=== PATIENT | male | born 1940 | race Caucasian/White ===

== ENCOUNTER 2017-02-22 18:04 | Emergency (ER) | payer OTHER ==
[~2017-02-22] VITALS: Ht 182.9 cm; Wt 136.1 kg
[~2017-02-22 18:04] MED LIST: GABA-586 PO; MELO-150 PO; OXYC-323 PO; TAMS0.4C2 PO
[2017-02-22] MEDS ORDERED: methylPREDNISolone SOD SUCC PF 125 MG/2 ML VIAL. IV ONE (18:45)
[2017-02-22] MEDS ORDERED: IPRATRPIUM/ALBUTEROL 0.5/2.5MG 3 ML NEBU. NEB ONE (18:45)
[2017-02-22] MEDS ORDERED: ALBUTEROL SULFATE 2.5 MG/3 ML NEBU. INH ONE (18:45)
[2017-02-22 18:49] LABS: BASO # 0.1 x10^3/uL (0.0-0.2); BASO % 1 % (0-3); EOS % 2 % (0-3); HEMATOCRIT 43.4 % (39.0-53.0); HEMOGLOBIN 14.4 g/dL (13.0-17.5); LYMPH # 1.9 x10^3/uL (1.0-4.8); LYMPH % 24 % (24-48); MEAN CORPUSCULAR HEMOGLOBIN 32 pg (25-35); MEAN CORPUSCULAR HGB CONC 33 g/dL (31-37); MEAN CORPUSCULAR VOLUME 95 fL (79-100); MONO % 8 % (0-9); NEUT % 66 % (31-73); PLATELET COUNT 153 x10^3/uL (140-400); RED BLOOD COUNT 4.57 x10^6/uL (4.30-5.70); RED CELL DISTRIBUTION WIDTH 13.8 % (11.5-14.5); WHITE BLOOD COUNT 7.9 x10^3/uL (4.0-11.0)
[2017-02-22 18:59] LABS: INR 1.1 (0.8-1.1); PROTHROMBIN TIME PATIENT 13.4 SEC (11.7-14.0)
[2017-02-22 19:04] LABS: CALCIUM 8.5 mg/dL (8.5-10.1); CREATININE 0.9 mg/dL (0.7-1.3); GFR 82.3; POTASSIUM 3.9 mmol/L (3.5-5.1)
[2017-02-22 19:07] LABS: ALBUMIN 3.5 g/dL (3.4-5.0); TOTAL BILIRUBIN 0.6 mg/dL (0.2-1.0); TOTAL PROTEIN 7.1 g/dL (6.4-8.2)
[2017-02-22] MEDS ORDERED: GABA-586 PO (19:08)
[2017-02-22] MEDS ORDERED: ATOR20TA58 PO (19:08)
[2017-02-22] MEDS ORDERED: TIZA4TAB PO (19:08)
[2017-02-22] MEDS ORDERED: OMEP20TA PO (19:09)
[2017-02-22] MEDS ORDERED: OXYC-323 PO (19:09)
[2017-02-22] MEDS ORDERED: FURO40TA4 PO (19:09)
[2017-02-22] MEDS ORDERED: BUDE10.22 IH (19:10)
[2017-02-22] MEDS ORDERED: IPRA0.2S5 NEB (19:10)
[2017-02-22] MEDS ORDERED: VENTOLIN HFA18 GM INH (19:11)
[2017-02-22] MEDS ORDERED: TIOT18CA IH (19:11)
[2017-02-22 19:23] VITALS: BP 153/71
[2017-02-22] MEDS ORDERED: PRED50TA PO (19:33)
[2017-02-22] MEDS ORDERED: ONDA4TAB10 SL (19:33)
[2017-02-22] MEDS ORDERED: AZIT250T6 PO (19:33)
--- NOTE | 2017-02-22 19:33 | PHYS DOC ---
Past Medical History Past Medical History: COPD, GERD, High Cholesterol, Other Additional Past Medical Histor: enlarged prostate; spinal stenosis; neuropathy ; edema Past Surgical History: Appendectomy, Hip Replacement, Other Additional Past Surgical Histo: BACK SURG X 2 Alcohol Use: None Drug Use: None Adult General Chief Complaint Chief Complaint: SHORTNESS OF BREATH HPI HPI Patient is a 76 year old male who presents with shortness of breath. The patient reports 3 day history of increased dyspnea at rest & with exertion, dry cough, wheezing not relieved by home inhalers. Reports lightheadedness & near syncope with sudden standing. Reports nausea without vomiting. Denies fevers/ chills, chest pain, palpitations, abdominal pain, diarrhea, dysuria, extremity pain/swelling or numbness/weakness. Reports history of COPD on home O2 - 2L at rest, 3L with exertion. Denies CAD or CHF but does have lasix on med list. Former smoker. PCP is Dr. Hood. Review of Systems Review of Systems Constitutional: Denies fever or chills Eyes: Denies change in visual acuity HENT: Denies nasal congestion or sore throat Respiratory: Reports cough & shortness of breath Cardiovascular: Denies chest pain or edema GI: Reports nausea. Denies abdominal pain, vomiting, or diarrhea : Denies dysuria or hematuria Musculoskeletal: Denies back pain or joint pain Integument: Denies rash or skin lesions Neurologic: Denies headache, focal weakness or sensory changes Current Medications Current Medications Current Medications Medications (Trade) Dose Ordered Sig/Molly Start Time Stop Time Status Last Admin Dose Admin Albuterol Sulfate (Ventolin Neb Soln) 5 mg 1X ONCE 02/22/17 18:45 02/22/17 18:46 DC 02/22/17 18:45 5 MG Albuterol/ Ipratropium (Duoneb) 3 ml 1X ONCE 02/22/17 18:45 02/22/17 18:46 DC 02/22/17 19:01 3 ML Methylprednisolone Sodium Succinate (Solu-Medrol 125mg Vial) 125 mg 1X ONCE 02/22/17 18:45 02/22/17 18:46 DC 02/22/17 19:00 125 MG Allergies Allergies Allergies Coded Allergies Type Severity Reaction Last Updated Verified No Known Drug Allergies 04/20/15 No Physical Exam Physical Exam Constitutional: obese, no acute distress, non-toxic appearance. HENT: Normocephalic, atraumatic, bilateral external ears normal, oropharynx moist, nose normal. Eyes: PERRLA, EOMI, conjunctiva normal, no discharge. Neck: supple, no stridor. Cardiovascular: RRR, no murmurs, no edema. Lungs & Thorax: LCTAB, expiratory wheezes without use of accessory muscles or retractions, no respiratory distress. Abdomen: soft, nontender, nondistended. Skin: Warm, dry, no erythema, no rash. Back: No tenderness. Extremities: No tenderness, no edema. no calf tenderness or swelling, wearing compression stockings Neurologic: Alert and oriented X 3, CN2-12 grossly intact, symmetric strength/ sensation to UE & LE, no focal deficits noted. Psychologic: Affect normal, judgement normal, mood normal. Current Patient Data Vital Signs Vital Signs Date Time Temp Pulse Resp B/P (MAP) Pulse Ox O2 Delivery O2 Flow Rate FiO2 02/22/17 19:23 74 22 153/71 (98) 97 Nasal Cannula 2.0 02/22/17 18:18 98.4 98.4 Lab Values Laboratory Tests Test 02/22/17 18:30 White Blood Count 7.9 x10^3/uL (4.0-11.0) Red Blood Count 4.57 x10^6/uL (4.30-5.70) Hemoglobin 14.4 g/dL (13.0-17.5) Hematocrit 43.4 % (39.0-53.0) Mean Corpuscular Volume 95 fL (79-100) Mean Corpuscular Hemoglobin 32 pg (25-35) Mean Corpuscular Hemoglobin Concent 33 g/dL (31-37) Red Cell Distribution Width 13.8 % (11.5-14.5) Platelet Count 153 x10^3/uL (140-400) Neutrophils (%) (Auto) 66 % (31-73) Lymphocytes (%) (Auto) 24 % (24-48) Monocytes (%) (Auto) 8 % (0-9) Eosinophils (%) (Auto) 2 % (0-3) Basophils (%) (Auto) 1 % (0-3) Neutrophils # (Auto) 5.2 x10^3uL (1.8-7.7) Lymphocytes # (Auto) 1.9 x10^3/uL (1.0-4.8) Monocytes # (Auto) 0.6 x10^3/uL (0.0-1.1) Eosinophils # (Auto) 0.2 x10^3/uL (0.0-0.7) Basophils # (Auto) 0.1 x10^3/uL (0.0-0.2) Prothrombin Time 13.4 SEC (11.7-14.0) Prothrombin Time INR 1.1 (0.8-1.1) PTT 29 SEC (24-38) Sodium Level 140 mmol/L (136-145) Potassium Level 3.9 mmol/L (3.5-5.1) Chloride Level 103 mmol/L (98-107) Carbon Dioxide Level 31 mmol/L (21-32) Anion Gap 6 (6-14) Blood Urea Nitrogen 17 mg/dL (8-26) Creatinine 0.9 mg/dL (0.7-1.3) Estimated GFR (Cockcroft-Gault) 82.3 BUN/Creatinine Ratio 19 (6-20) Glucose Level 114 mg/dL (70-99) H Calcium Level 8.5 mg/dL (8.5-10.1) Total Bilirubin 0.6 mg/dL (0.2-1.0) Aspartate Amino Transferase (AST) 20 U/L (15-37) Alanine Aminotransferase (ALT) 27 U/L (16-63) Alkaline Phosphatase 75 U/L (46-116) Troponin I Quantitative < 0.017 ng/mL (0.000-0.055) HT-Dzs-Q-Type Natriuretic Peptide 396 pg/mL (0-449) Total Protein 7.1 g/dL (6.4-8.2) Albumin 3.5 g/dL (3.4-5.0) Albumin/Globulin Ratio 1.0 (1.0-1.7) Laboratory Tests 02/22/17 18:30 Laboratory Tests 02/22/17 18:30 EKG EKG interpreted by me: NSR rate 65, no acute ST/T wave changes, normal intervals, no ectopy.[] Radiology/Procedures Radiology/Procedures CXR: interpreted by me: cardiomegaly, no infiltrate, no pneumothorax.[] Course & Med Decision Making Course & Med Decision Making Pertinent Labs and Imaging studies reviewed. (See chart for details) Patient presents with dyspnea & wheezing. Oxygen saturation stable, afebrile. Gave solumedrol & nebulized breathing treatments. No acute abnormality on labs , EKG, CXR. He has had several episodes of near syncope. I offered hospital admission for further monitoring. He states he feels much better after breathing treatments & doesn't want to stay overnight. He plans to follow up with his PCP on Saturday which is in 3 days. Patient aware that we are unable to definitively rule out serious cardiac etiology of near syncope in the emergency department, but would still like to go home. Recommend prednisone burst, gave z pack for acute exacerbation of chronic bronchitis, zofran for nausea. Drink fluids, eat regular meals, avoid sudden standing. Come back for high fever, severe shortness of breath or chest pain, syncope, any otherwise worsening condition. Discharged home in stable & improved condition. [] Dragon Disclaimer Dragon Disclaimer This electronic medical record was generated, in whole or in part, using a voice recognition dictation system. Departure Departure Impression: Primary Impression: COPD (chronic obstructive pulmonary disease) Additional Impression: Near syncope Disposition: 01 HOME, SELF-CARE Condition: STABLE Referrals: ZAY BARTON MD (PCP) Patient Instructions: Chronic Obstructive Pulmonary Disease Exacerbation, Easy- to-Read Additional Instructions: You were seen in the emergency department today for shortness of breath. Your symptoms improved with treatment here. We offered admission to the hospital but he felt well enough to go home. Please rest, continue use of inhalers, take prednisone and antibiotics as prescribed. Follow-up with primary care physician in 2-3 days. Return to the emergency department for high fever, severe shortness of breath or chest pain, any otherwise worsening condition. Scripts Ondansetron (ZOFRAN ODT) 4 Mg Tab.rapdis 1 TAB SL Q8HRS Y for NAUSEA, #10 TAB Prov: LEIDY CARO MD 02/22/17 Azithromycin (AZITHROMYCIN TABLET) 250 Mg Tablet 1 PKG PO UD, #6 TAB Prov: LEIDY CARO MD 02/22/17 Prednisone (PREDNISONE) 50 Mg Tablet 1 TAB PO DAILY, #5 TAB Prov: LEIDY CARO MD 02/22/17 Problem Qualifiers LEIDY CARO MD February 22, 2017 19:33
--- NOTE | 2017-02-22 22:30 | EKG ---
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
--- NOTE | 2017-02-23 09:26 | RAD ---
Indication shortness of breath. A single view of the chest was obtained and is compared to an exam 04/20/2015. The heart and pulmonary vessels appear normal. The lungs are clear of acute infiltrates. Significant pleural fluid is not seen. There is no pneumothorax. No significant change is seen compared to the previous exam. IMPRESSION: No acute or focal process. No significant change
== END 2017-02-22 19:45 | disposition home or self-care (01) ==
LOC: ER 18:04
DX: J44.9 Chronic obstructive pulmonary disease, unspecified (principal); R55 Syncope and collapse; K21.9 Gastro-esophageal reflux disease without esophagitis; E78.00 Pure hypercholesterolemia, unspecified; N40.0 Benign prostatic hyperplasia without lower urinary tract symptoms; Z90.49 Acquired absence of other specified parts of digestive tract
CPT/HCPCS: 36415; 71010; 80053; 83880; 84484; 85027; 85610; 85730; 93005; 94250; 94640; 96374; 99285; J2930; J7620

== ENCOUNTER 2018-12-03 17:10 | Inpatient (IN) | payer OTHER ==
[~2018-12-03] VITALS: Ht 182.9 cm; Wt 112.5 kg
[~2018-12-03 17:10] MED LIST changes: +ATOR20TA58 PO; +AZIT250T6 PO; +BUDE10.22 IH; +FURO40TA4 PO; -GABA-586 PO; +GABA300C18 PO; +IPRA0.2S5 NEB; -MELO-150 PO; +MELO15TA23 PO; +OMEP20TA8 PO; +ONDA4TAB10 SL; -OXYC-323 PO; +OXYC1TAB15 PO; +PRED50TA PO; +TIOT18CA IH; +TIZA4TAB PO; +VENTOLIN HFA18 GM INH
[2018-12-03] MEDS ORDERED: IPRATRPIUM/ALBUTEROL 0.5/2.5MG 3 ML NEBU. NEB ONE (18:15)
--- NOTE | 2018-12-03 18:23 | PHYS DOC ---
Past Medical History Past Medical History: COPD, GERD, High Cholesterol, Other Additional Past Medical Histor: enlarged prostate; spinal stenosis; neuropathy ; edema Past Surgical History: Appendectomy, Hip Replacement, Other Additional Past Surgical Histo: BACK SURG X 2 Smoking: Quit Greater Than 1 Year Alcohol Use: None Drug Use: None Adult General Chief Complaint Chief Complaint: ALTERED MENTAL STATUS HPI HPI Patient is a 78 year old male who presents with fever, and body aches. This started earlier today. Uncertain as to how high the temperature was. Patient took ibuprofen approximately an hour prior to arrival. has been concerned about his breathing for the past week. Patient does have a history of COPD. Patient denies any worsening cough nor lower extremity swelling. Denies any chest pain or palpitations. Patient's Reports that he is confused compared to his usual baseline. She did receive the flu vaccine this year. There has been no nausea, no vomiting, no diarrhea. No recent travel. No known sick contacts at home, patient is retired.[] Review of Systems Review of Systems Constitutional: Denies shaking chills [] Eyes: Denies change in visual acuity, redness, or eye pain [] HENT: Denies nasal congestion or sore throat [] Respiratory: See history of present illness[] Cardiovascular: No additional information not addressed in HPI [] GI: Denies abdominal pain, nausea, vomiting, bloody stools or diarrhea [] : Denies dysuria or hematuria [] Musculoskeletal: Denies back pain or joint pain [] Integument: Denies rash or skin lesions [] Neurologic: Denies headache, focal weakness or sensory changes [] Endocrine: Denies polyuria or polydipsia [] All other systems were reviewed and found to be within normal limits, except as documented in this note. Current Medications Current Medications Current Medications Medications (Trade) Dose Ordered Sig/Molly Start Time Stop Time Status Last Admin Dose Admin Albuterol Sulfate (Ventolin Neb Soln) 2.5 mg 1X ONCE 12/03/18 19:15 12/03/18 19:16 DC 12/03/18 19:08 2.5 MG Albuterol/ Ipratropium (Duoneb) 3 ml 1X ONCE 12/03/18 18:15 12/03/18 18:19 DC 12/03/18 18:43 3 ML Azithromycin 250 ml @ 250 mls/hr 1X ONCE 12/03/18 20:30 2/13/19 21:29 Ceftriaxone Sodium (Rocephin) 1 gm 1X ONCE 12/03/18 20:30 12/03/18 20:31 Methylprednisolone Sodium Succinate (SOLU-Medrol 125MG VIAL) 125 mg 1X ONCE 12/03/18 20:30 12/03/18 20:31 Sodium Chloride 1,000 ml @ 1,000 mls/hr 1X ONCE 12/03/18 18:45 12/03/18 19:44 DC 12/03/18 18:45 1,000 MLS/HR Allergies Allergies Allergies Coded Allergies Type Severity Reaction Last Updated Verified No Known Drug Allergies 04/20/15 No Physical Exam Physical Exam Constitutional: Well developed, well nourished, no acute distress, non-toxic appearance. [] HENT: Normocephalic, atraumatic, bilateral external ears normal, oropharynx moist, no oral exudates, nose normal. [] Eyes: PERRLA, EOMI, conjunctiva normal, no discharge. [] Neck: Normal range of motion, no tenderness, supple, no stridor. No meningismus[ ] Cardiovascular:Heart rate regular rhythm, no murmur [] Lungs & Thorax: Inspiratory and expiratory wheezes[] Abdomen: Bowel sounds normal, soft, no tenderness, no masses, no pulsatile masses. [] Skin: Warm, dry, no erythema, no rash. [] Back: No tenderness, no CVA tenderness. [] Extremities: No tenderness, no cyanosis, no clubbing, ROM intact, no edema. [] Neurologic: Alert and oriented X 3, slow to answer questions which his reports is different than usual for him, normal motor function, normal sensory function, no focal deficits noted. [] Psychologic: Affect normal, judgement normal, mood normal. [] Current Patient Data Vital Signs Vital Signs Date Time Temp Pulse Resp B/P (MAP) Pulse Ox O2 Delivery O2 Flow Rate FiO2 12/03/18 19:09 Nasal Cannula 3.0 12/03/18 18:43 96 12/03/18 17:30 99.1 75 20 134/63 (86) 99.1 Lab Values Laboratory Tests Test 12/03/18 18:30 12/03/18 18:42 12/03/18 18:45 White Blood Count 4.2 x10^3/uL (4.0-11.0) Red Blood Count 4.44 x10^6/uL (4.30-5.70) Hemoglobin 13.7 g/dL (13.0-17.5) Hematocrit 41.8 % (39.0-53.0) Mean Corpuscular Volume 94 fL (79-100) Mean Corpuscular Hemoglobin 31 pg (25-35) Mean Corpuscular Hemoglobin Concent 33 g/dL (31-37) Red Cell Distribution Width 13.4 % (11.5-14.5) Platelet Count 120 x10^3/uL (140-400) L Neutrophils (%) (Auto) 67 % (31-73) Lymphocytes (%) (Auto) 19 % (24-48) L Monocytes (%) (Auto) 12 % (0-9) H Eosinophils (%) (Auto) 1 % (0-3) Basophils (%) (Auto) 1 % (0-3) Neutrophils # (Auto) 2.8 x10^3uL (1.8-7.7) Lymphocytes # (Auto) 0.8 x10^3/uL (1.0-4.8) L Monocytes # (Auto) 0.5 x10^3/uL (0.0-1.1) Eosinophils # (Auto) 0.1 x10^3/uL (0.0-0.7) Basophils # (Auto) 0.0 x10^3/uL (0.0-0.2) Prothrombin Time 13.5 SEC (11.7-14.0) Prothrombin Time INR 1.1 (0.8-1.1) Sodium Level 139 mmol/L (136-145) Potassium Level 4.0 mmol/L (3.5-5.1) Chloride Level 101 mmol/L (98-107) Carbon Dioxide Level 30 mmol/L (21-32) Anion Gap 8 (6-14) Blood Urea Nitrogen 17 mg/dL (8-26) Creatinine 0.8 mg/dL (0.7-1.3) Estimated GFR (Cockcroft-Gault) 93.7 BUN/Creatinine Ratio 21 (6-20) H Glucose Level 98 mg/dL (70-99) Lactic Acid Level 0.9 mmol/L (0.4-2.0) Calcium Level 8.3 mg/dL (8.5-10.1) L Magnesium Level 1.9 mg/dL (1.8-2.4) Total Bilirubin 0.3 mg/dL (0.2-1.0) Aspartate Amino Transferase (AST) 33 U/L (15-37) Alanine Aminotransferase (ALT) 33 U/L (16-63) Alkaline Phosphatase 84 U/L (46-116) Ammonia 21 mcmol/L (11-34) Troponin I Quantitative < 0.017 ng/mL (0.000-0.055) BE-Aqe-Z-Type Natriuretic Peptide 554 pg/mL (0-449) H Total Protein 6.8 g/dL (6.4-8.2) Albumin 3.1 g/dL (3.4-5.0) L Albumin/Globulin Ratio 0.8 (1.0-1.7) L Influenza Type A Antigen Negative (NEGATIVE) Influenza Type B Antigen Negative (NEGATIVE) Urine Color Yellow Urine Clarity Cloudy Urine pH 8.0 Urine Specific [place] 1.015 Urine Protein Negative mg/dL (NEG-TRACE) Urine Glucose (UA) Negative mg/dL (NEG) Urine Ketones (Stick) Negative mg/dL (NEG) Urine Blood Negative (NEG) Urine Nitrite Negative (NEG) Urine Bilirubin Negative (NEG) Urine Urobilinogen Dipstick 1.0 mg/dL (0.2 mg/dL) Urine Leukocyte Esterase Negative (NEG) Urine RBC Rare /HPF (0-2) Urine WBC Occ /HPF (0-4) Urine Squamous Epithelial Cells Occ /LPF Urine Bacteria 0 /HPF (0-FEW) O2 Saturation 91 % (92-99) L Arterial Blood pH 7.44 (7.35-7.45) Arterial Blood pCO2 at Patient Temp 40 mmHg (35-46) Arterial Blood pO2 at Patient Temp 59 mmHg (65-108) L Arterial Blood HCO3 27 mmol/L (21-28) Arterial Blood Base Excess 3 mmol/L (-3-3) FiO2 28 Laboratory Tests 12/03/18 18:30 Laboratory Tests 12/03/18 18:30 EKG EKG EKG shows a sinus rhythm at 73 bpm, normal axis, QTC of 402 ms, no ST elevation , interpreted by me at 1804. When compared with EKG of 02/22/2017, no acute changes were noted[] Radiology/Procedures Radiology/Procedures Chest x-ray shows no infiltrate, no effusion, no pneumothorax, no acute changes when compared with 02/22/2017 CT HEAD WO CONTRAST Clinical indications: Altered mental status, NO PRIORS Technique: Noncontrast axial cross sectional scanning of the head was performed. PQRS compliance Statement One or more of the following individualized dose reduction techniques were utilized for this study: 1. Automated exposure control 2. Adjustment of the mA and/or kV according to patient size 3. Use of iterative reconstruction technique Findings: No acute intracranial hemorrhage or midline shift or mass-effect or hydrocephalus or extra-axial fluid collection is seen. Mild bilateral periventricular white matter hypodensity is seen consistent with chronic small vessel ischemic disease in this age group. No skull fracture or pneumocephalus is seen. No opacification of the mastoid sinuses or the middle ear cavities is seen. There is moderate mucosal thickening of the right maxillary sinus. There is mild mucosal thickening of the ethmoid sinuses bilaterally and the right frontal sinus. The maxillary sinuses are not completely seen in this study. Impression: No acute intracranial hemorrhage is seen. Mild chronic small vessel ischemic disease. Sinusitis.[] Course & Med Decision Making Course & Med Decision Making Pertinent Labs and Imaging studies reviewed. (See chart for details) ED course and medical decision making: Patient arrived, was placed in bed, in tolerated exam well. Patient did have slight improvement in air flow after his breathing treatment however his blood gas continued to show PO2 at 58.9 even on supplemental oxygen area there was no evidence of CO2 retention with his PCO2 of 40.3. Patient was transported to and from CT with any complications. After the return of the laboratory and imaging findings, these were discussed with the patient and family who voiced understanding. They're proceeded a longer than usual discussion as far as admission versus discharge and patient initially agreed to be admitted then changed his mind after further discussion he did agree to admission. He requested a private room due to concerns about his 's safety being at home alone, for her to be able to stay with him. This was relayed to the nursing staff. Consultation was made with the hospitalist service who graciously admitted him. There is no evidence of an infiltrate, effusion, pneumothorax, acute coronary syndrome, CVA, meningitis, nor encephalitis.[] Dragon Disclaimer Dragon Disclaimer This electronic medical record was generated, in whole or in part, using a voice recognition dictation system. Departure Departure Impression: Primary Impression: Acute exacerbation of chronic obstructive pulmonary disease (COPD) Additional Impression: Viral syndrome Disposition: 09 ADMITTED INPATIENT Admitting Physician: Raquel Gonzalez Condition: IMPROVED Referrals: ZAY BARTON MD (PCP) Problem Qualifiers ANISH FORMAN DO Dec 03, 2018 18:23
[2018-12-03] MEDS ORDERED: IV NORMAL SALINE 1000ML BAG 1,000 ML IV ONE (18:45)
[2018-12-03 18:50] LABS: BASO % 1 % (0-3); EOS # 0.1 x10^3/uL (0.0-0.7); EOS % 1 % (0-3); HEMATOCRIT 41.8 % (39.0-53.0); HEMOGLOBIN 13.7 g/dL (13.0-17.5); LYMPH # 0.8 x10^3/uL (1.0-4.8); LYMPH % 19 % (24-48); MEAN CORPUSCULAR HEMOGLOBIN 31 pg (25-35); MEAN CORPUSCULAR HGB CONC 33 g/dL (31-37); MEAN CORPUSCULAR VOLUME 94 fL (79-100); MONO # 0.5 x10^3/uL (0.0-1.1); MONO % 12 % (0-9); NEUT # 2.8 x10^3uL (1.8-7.7); NEUT % 67 % (31-73); PLATELET COUNT 120 x10^3/uL (140-400); RED BLOOD COUNT 4.44 x10^6/uL (4.30-5.70); RED CELL DISTRIBUTION WIDTH 13.4 % (11.5-14.5); WHITE BLOOD COUNT 4.2 x10^3/uL (4.0-11.0)
[2018-12-03 18:51] LABS: BILIRUBIN,URINE NEGATIVE (NEG); CLARITY,URINE CLOUDY; COLOR,URINE YELLOW; NITRITE,URINE NEGATIVE (NEG); PROTEIN,URINE NEGATIVE (NEG-TRACE)
[2018-12-03 18:54] LABS: BACTERIA,URINE 0 /HPF (0-FEW); RBC,URINE RARE /HPF (0-2); SQUAMOUS EPITHELIAL CELL,UR OCC /LPF; WBC,URINE OCC /HPF (0-4)
[2018-12-03 18:57] LABS: BASE EXCESS ABG 3 mmol/L (-3-3); HCO3 ABG 27 mmol/L (21-28); PCO2 ABG 40 mmHg (35-46); PO2 ABG 59 mmHg (65-108); SAT O2 ABG 91 % (92-99)
[2018-12-03 18:58] LABS: PROTHROMBIN TIME PATIENT 13.5 SEC (11.7-14.0)
[2018-12-03 19:00] LABS: CALCIUM 8.3 mg/dL (8.5-10.1); CREATININE 0.8 mg/dL (0.7-1.3); GFR 93.7
[2018-12-03 19:00] LABS: FIO2 ABG 28
[2018-12-03 19:05] LABS: ALBUMIN 3.1 g/dL (3.4-5.0); ALBUMIN/GLOBULIN RATIO 0.8 (1.0-1.7); MAGNESIUM 1.9 mg/dL (1.8-2.4); TOTAL BILIRUBIN 0.3 mg/dL (0.2-1.0); TOTAL PROTEIN 6.8 g/dL (6.4-8.2)
[2018-12-03 19:14] LABS: INFLUENZA A PATIENT NEGATIVE (NEGATIVE); INFLUENZA B PATIENT NEGATIVE (NEGATIVE)
[2018-12-03] MEDS ORDERED: ALBUTEROL SULFATE 2.5 MG/3 ML NEBU. NEB ONE (19:15)
--- NOTE | 2018-12-03 19:45 | RAD ---
CT HEAD WO CONTRAST Clinical indications: Altered mental status, NO PRIORS Technique: Noncontrast axial cross sectional scanning of the head was performed. PQRS compliance Statement One or more of the following individualized dose reduction techniques were utilized for this study: 1. Automated exposure control 2. Adjustment of the mA and/or kV according to patient size 3. Use of iterative reconstruction technique Findings: No acute intracranial hemorrhage or midline shift or mass-effect or hydrocephalus or extra-axial fluid collection is seen. Mild bilateral periventricular white matter hypodensity is seen consistent with chronic small vessel ischemic disease in this age group. No skull fracture or pneumocephalus is seen. No opacification of the mastoid sinuses or the middle ear cavities is seen. There is moderate mucosal thickening of the right maxillary sinus. There is mild mucosal thickening of the ethmoid sinuses bilaterally and the right frontal sinus. The maxillary sinuses are not completely seen in this study. Impression: No acute intracranial hemorrhage is seen. Mild chronic small vessel ischemic disease. Sinusitis. Electronically signed by: Immanuel Lemus MD (12/03/2018 7:42 PM) [facility]
[2018-12-03] MEDS ORDERED: AZITHRMYCN 500MG IVPB FOR OMNI 250 ML IV ONE (20:30)
[2018-12-03] MEDS ORDERED: cefTRIAXone IV Push 1 GM VIAL. IVP ONE (20:30)
[2018-12-03] MEDS ORDERED: methylPREDNISolone SOD SUCC PF 125 MG/2 ML VIAL. IV ONE (20:30)
[2018-12-03] MEDS ORDERED: IV NORMAL SALINE 1000ML BAG 1,000 ML IV SCH (20:36)
[2018-12-03] MEDS ORDERED: ACETAMINOPHEN 325 MG TABLET. PO PRN (20:45)
[2018-12-03] MEDS ORDERED: ONDANSETRON PF 4 MG/2 ML VIAL. IV PRN (20:45)
[2018-12-03 21:30] VITALS: BP 135/71
--- NOTE | 2018-12-03 22:42 | RAD ---
AP portable chest radiograph 12/03/2018 Clinical History: Fever and shortness of breath. An AP erect portable digital radiograph of the chest was obtained. Comparison study is dated 02/22/2017. The cardiac silhouette is normal in size. The thoracic aorta is mildly tortuous. No acute pulmonary infiltrate is seen. No pleural effusion or pneumothorax is noted. Degenerative changes are seen involving the thoracic spine along with the right shoulder. IMPRESSION: No acute abnormality is seen. Electronically signed by: Amor Wild MD (12/03/2018 10:40 PM) [facility]
--- NOTE | 2018-12-04 04:23 | NUR ---
Pt went AMA. [employer] Branch Manager and Dr Gonzalez notified.
[2018-12-04] MEDS ORDERED: IPRATRPIUM/ALBUTEROL 0.5/2.5MG 3 ML NEBU. NEB SCH (08:00)
--- NOTE | 2018-12-04 11:17 | EKG ---
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
== END 2018-12-03 22:30 | disposition left against medical advice (07) | DRG 192 ==
LOC: ER 17:10 → 5 NORTH 20:30 → ER 22:25
PROVIDERS: ADMIT Internal Medicine; ATTEND Internal Medicine
DX: J44.1 Chronic obstructive pulmonary disease with (acute) exacerbation (principal); K21.9 Gastro-esophageal reflux disease without esophagitis; E78.00 Pure hypercholesterolemia, unspecified; N40.0 Benign prostatic hyperplasia without lower urinary tract symptoms; R60.9 Edema, unspecified; M48.00 Spinal stenosis, site unspecified; G62.9 Polyneuropathy, unspecified; Z96.649 Presence of unspecified artificial hip joint; Z90.49 Acquired absence of other specified parts of digestive tract; B34.9 Viral infection, unspecified; Z87.891 Personal history of nicotine dependence
CPT/HCPCS: 36415; 36600; 70450; 71045; 80053; 81001; 82140; 82805; 83605; 83735; 83880; 84484; 85025; 85610; 87040; 87804; 93005; 94640; 96361; 96365; 96375; J0456; J0696; J2930; J7030; J7613; J7620; 99285-25

== ENCOUNTER 2020-02-15 19:20 | Inpatient (IN) | payer OTHER ==
[~2020-02-15] VITALS: Ht 182.9 cm; Wt 114.2 kg
[~2020-02-15 19:20] MED LIST changes: -TIZA4TAB PO; +TIZA4TAB2 PO
[2020-02-15] MEDS ORDERED: ONDANSETRON PF 4 MG/2 ML VIAL. ONE ×2 (19:25→22:49)
[2020-02-15] MEDS ORDERED: IV NORMAL SALINE 1000ML BAG 1,000 ML IV SCH (19:29)
[2020-02-15] MEDS ORDERED: ONDANSETRON PF 4 MG/2 ML VIAL. IVP ONE (19:30)
--- NOTE | 2020-02-15 19:34 | PHYS DOC ---
Past Medical History Past Medical History: COPD, GERD, High Cholesterol, Other Additional Past Medical Histor: enlarged prostate; spinal stenosis; neuropathy; edema Past Surgical History: Appendectomy, Hip Replacement, Other Additional Past Surgical Histo: BACK SURG X 2 Smoking Status: Former Smoker Alcohol Use: None Drug Use: None General Adult EDM: Chief Complaint: NAUSEA/VOMITING/DIARRHA HPI: HPI: Patient is a 79 year old male who presents with complaint of mid abdominal pain and periumbilical region that started last night at about 8 PM. Patient rates his pain to be a 10 out of 10. Patient states he's had vomiting and has not been able to pass any gas or stool since onset of pain. He denies any chest pain or shortness breath. He does complain of back pain as well that he believes is due to all of the vomiting. He denies any fever.[] Review of Systems: Review of Systems: Constitutional: Denies fever or chills. [] Respiratory: Denies cough or shortness of breath. [] Cardiovascular: Denies chest pain or edema. [] GI: Complains of abdominal pain with nausea and vomiting. Denies diarrhea. [] Musculoskeletal: [place] of mid back pain. [] Integument: Denies rash. [] Neurologic: Denies headache, focal weakness or sensory changes. [] A full 10 point review of systems has been reviewed and is otherwise negative. Heart Score: Risk Factors: Risk Factors: DM, Current or recent (<one month) smoker, HTN, HLP, family history of CAD, obesity. Risk Scores: Score 0 - 3: 2.5% MACE over next 6 weeks - Discharge Home Score 4 - 6: 20.3% MACE over next 6 weeks - Admit for Clinical Observation Score 7 - 10: 72.7% MACE over next 6 weeks - Early Invasive Strategies Current Medications: Current Medications Medications (Trade) Dose Ordered Sig/Molly Start Time Stop Time Status Last Admin Dose Admin Ondansetron HCl (Zofran) 4 mg STK-MED ONCE 02/15/20 19:25 02/15/20 19:26 DC Allergies: Allergies: Allergies Coded Allergies Type Severity Reaction Last Updated Verified No Known Drug Allergies 04/20/15 No Physical Exam: PE: Constitutional: Well developed, well nourished, no acute distress, non-toxic appearance. [] HENT: Normocephalic, atraumatic, bilateral external ears normal, oropharynx moist, no oral exudates, nose normal. [] Eyes: PERRLA, EOMI, conjunctiva normal, no discharge. [] Neck: Normal range of motion, no tenderness, supple. [] Cardiovascular: Regular rate and rhythm[] Lungs & Thorax: Bilateral breath sounds clear to auscultation [] Abdomen: Bowel sounds are markedly diminished, distended and firm, with diffuse tenderness and palpable umbilical hernia. [] Skin: Warm, dry, no erythema, no rash. [] Extremities: No tenderness, no cyanosis, no clubbing, ROM intact. [] Neurologic: Alert and oriented X 3, no focal deficits noted. [] EKG: EKG: [] Radiology/Procedures: Radiology/Procedures: [] Impression: PROCEDURE: CT ABD PELV W/ IV CONTRST ONLY CT scan of the abdomen and pelvis with contrast 02/15/2020 CLINICAL HISTORY: Nausea, vomiting and diarrhea. Abdominal pain. TECHNIQUE: After the intravenous administration of 75 cc of Omnipaque 300, contiguous, 5 mm axial sections were obtained through the abdomen and pelvis. One or more of the following individualized dose reduction techniques were utilized for this study: 1. Automated exposure control. 2. Adjustment of the mA and/or kV according to patient size. 3. Use of iterative reconstruction technique. FINDINGS: Images through the lung bases demonstrate areas of probable subsegmental atelectasis bilaterally. The liver, spleen, pancreas, and adrenal glands are within normal limits. Rounded low-attenuation lesions are seen involving both kidneys. These measure 3 mm to 6.6 cm in size. These likely represent cysts. No further imaging workup is recommended. The gallbladder is contracted. A 1.4 cm partially calcified gallstone is seen within the fundus of the gallbladder. An NG tube extends to the body of the stomach. Atherosclerotic calcification of the abdominal aorta and its branches is seen. The abdominal aorta tapers normally. No free fluid or free air is seen within the abdomen. A fat-containing umbilical hernia is seen which measures 6.3 cm in greatest diameter. This contains a loop of distal jejunum/proximal ileum. The bowel proximal to this incarcerated loop is dilated consistent with a small bowel obstruction. The mid/distal ileum is normal in caliber as is the colon. Air and stool are seen throughout the colon. Images through the pelvis are degraded by beam hardening artifact related to patient's bilateral THAs. The urinary bladder is distended with urine. Calcifications are seen within the pelvis consistent with phleboliths. No free fluid is seen. 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 Mild S-shaped curvature of the thoracolumbar spine is seen. Degenerative changes are seen involving lower thoracic and throughout the lumbar spine. IMPRESSION: An umbilical hernia is seen which contains an incarcerated loop of distal jejunum/proximal ileum resulting in a small bowel obstruction as discussed above. Electronically signed by: Amor Eldridge MD (02/15/2020 8:53 PM) [id number] DICTATED and SIGNED BY: AMOR ELDRIDGE MD DATE: 02/15/202052 Course & Med Decision Making: Course & Med Decision Making Pertinent Labs and Imaging studies reviewed. (See chart for details) [] Dragon Disclaimer: Dragon Disclaimer: This electronic medical record was generated, in whole or in part, using a voice recognition dictation system. Departure Departure Impression: Primary Impression: SBO (small bowel obstruction) Additional Impression: Umbilical hernia Qualified Codes: K42.9 - Umbilical hernia without obstruction or gangrene Disposition: ADMITTED INPATIENT Admitting Physician: HIMVanita Condition: IMPROVED Referrals: ZAY BARTON MD (PCP) RAINER CANO Jr. DO Feb 15, 2020 19:34
[2020-02-15 19:41] LABS: BASO % 0 % (0-3); EOS % 0 % (0-3); HEMATOCRIT 51.7 % (39.0-53.0); HEMOGLOBIN 17.4 g/dL (13.0-17.5); LYMPH # 0.6 x10^3/uL (1.0-4.8); LYMPH % 4 % (24-48); MEAN CORPUSCULAR HEMOGLOBIN 31 pg (25-35); MEAN CORPUSCULAR HGB CONC 34 g/dL (31-37); MEAN CORPUSCULAR VOLUME 92 fL (79-100); MONO # 1.1 x10^3/uL (0.0-1.1); MONO % 7 % (0-9); NEUT # 14.2 x10^3/uL (1.8-7.7); NEUT % 89 % (31-73); PLATELET COUNT 199 x10^3/uL (140-400); RED BLOOD COUNT 5.61 x10^6/uL (4.30-5.70); RED CELL DISTRIBUTION WIDTH 13.1 % (11.5-14.5)
[2020-02-15] MEDS: fentaNYL PF VIAL 100 MCG/2 ML VIAL IV PRN ×2 (19:46→22:00)
[2020-02-15 19:56] LABS: CALCIUM 9.9 mg/dL (8.5-10.1); CREATININE 0.9 mg/dL (0.7-1.3); GFR 81.6; POTASSIUM 4.4 mmol/L (3.5-5.1)
[2020-02-15 20:01] LABS: % BANDS 18 % (0-9); % LYMPHS 5 % (24-48); % MONOS 5 % (0-10); % SEGS 72 % (35-66); PLT ESTIMATE ADEQUATE (ADEQUATE)
[2020-02-15 20:11] LABS: TOTAL BILIRUBIN 1.5 mg/dL (0.2-1.0); TOTAL PROTEIN 8.1 g/dL (6.4-8.2)
[2020-02-15] MEDS ORDERED: DICYCLOMINE 20 MG/2 ML VIAL. IM ONE (20:30)
[2020-02-15] MEDS ORDERED: CONTRAST GIVEN. MC PRN (20:30)
[2020-02-15] MEDS ORDERED: IOHEXOL 300 MG/ML 100ML VIAL. IV ONE (20:30)
--- NOTE | 2020-02-15 20:56 | RAD ---
CT scan of the abdomen and pelvis with contrast 02/15/2020 CLINICAL HISTORY: Nausea, vomiting and diarrhea. Abdominal pain. TECHNIQUE: After the intravenous administration of 75 cc of Omnipaque 300, contiguous, 5 mm axial sections were obtained through the abdomen and pelvis. One or more of the following individualized dose reduction techniques were utilized for this study: 1. Automated exposure control. 2. Adjustment of the mA and/or kV according to patient size. 3. Use of iterative reconstruction technique. FINDINGS: Images through the lung bases demonstrate areas of probable subsegmental atelectasis bilaterally. The liver, spleen, pancreas, and adrenal glands are within normal limits. Rounded low-attenuation lesions are seen involving both kidneys. These measure 3 mm to 6.6 cm in size. These likely represent cysts. No further imaging workup is recommended. The gallbladder is contracted. A 1.4 cm partially calcified gallstone is seen within the fundus of the gallbladder. An NG tube extends to the body of the stomach. Atherosclerotic calcification of the abdominal aorta and its branches is seen. The abdominal aorta tapers normally. No free fluid or free air is seen within the abdomen. A fat-containing umbilical hernia is seen which measures 6.3 cm in greatest diameter. This contains a loop of distal jejunum/proximal ileum. The bowel proximal to this incarcerated loop is dilated consistent with a small bowel obstruction. The mid/distal ileum is normal in caliber as is the colon. Air and stool are seen throughout the colon. Images through the pelvis are degraded by beam hardening artifact related to patient's bilateral THAs. The urinary bladder is distended with urine. Calcifications are seen within the pelvis consistent with phleboliths. No free fluid is seen. 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 Mild S-shaped curvature of the thoracolumbar spine is seen. Degenerative changes are seen involving lower thoracic and throughout the lumbar spine. IMPRESSION: An umbilical hernia is seen which contains an incarcerated loop of distal jejunum/proximal ileum resulting in a small bowel obstruction as discussed above. Electronically signed by: Amor Wild MD (02/15/2020 8:53 PM) [id number]
[2020-02-15] MEDS: IV NORMAL SALINE 1000ML BAG 1,000 ML IV SCH ×2 (21:00→22:16)
[2020-02-15] MEDS ORDERED: ONDANSETRON PF 4 MG/2 ML VIAL. IV PRN (21:30)
[2020-02-15] MEDS ORDERED: PROPOFOL 20 ML IV ONE (21:30)
[2020-02-15] MEDS ORDERED: ROCURONIUM 50 MG/5 ML VIAL. ONE (21:30)
[2020-02-15] MEDS ORDERED: MORPHINE SULFATE 4 MG/ML VIAL. IV PRN (21:30)
[2020-02-15] MEDS ORDERED: LIDOCAINE 2% PF 5 ML VIAL. ONE (21:30)
[2020-02-15] MEDS ORDERED: fentaNYL PF VIAL 100 MCG/2 ML VIAL ONE (21:31)
[2020-02-15] MEDS ORDERED: BUPIVACAINE-EPI 0.5%-1:200000 MPF 30 ML VIAL. ONE (22:13)
[2020-02-15] MEDS ORDERED: fentaNYL PF VIAL 100 MCG/2 ML VIAL IV PRN ×2 (22:15)
[2020-02-15] MEDS ORDERED: MORPHINE SULFATE 2 MG/ML VIAL. IV PRN (22:15)
[2020-02-15] MEDS ORDERED: HYDROmorphone 2 MG/ML VIAL IV PRN (22:15)
[2020-02-15] MEDS ORDERED: PROCHLORPERAZINE 10 MG/2 ML VIAL. IV PRN (22:15)
--- NOTE | 2020-02-15 22:27 | PDOC2 ---
CONSULT Date of Consult Date of Consult DATE: 02/15/20 TIME: 22:25 History of Present Illness Reason for Visit: The patient is a 79 year old male who reported to the ER with abdominal pain and vomiting. The pain began last evening and remained persistent. The pain is located in the mid abdomen. He has known about an umbilical hernia for a long time and was told it didn't need surgery. Past Medical History Past Medical History COPD Past Surgical History Past Surgical History Appy, back surgery, hip replacement Social History No Current Problem List Problem List Problems Medical Problems: (1) SBO (small bowel obstruction) Status: Acute (2) Umbilical hernia Status: Acute Current Medications Current Medications Current Medications Ondansetron HCl (Zofran) 4 mg 1X ONCE IVP Last administered on 02/15/20at 19:44; Start 02/15/20 at 19:30; Stop 02/15/20 at 19:35; Status DC Ondansetron HCl (Zofran) 4 mg STK-MED ONCE .ROUTE ; Start 02/15/20 at 19:25; Stop 02/15/20 at 19:26; Status DC Fentanyl Citrate (Fentanyl 2ml Vial) 50 mcg PRN Q15MIN PRN IV PAIN GREATER THAN 3/10 Last administered on 02/15/20at 22:00; Start 02/15/20 at 19:30; Stop 02/16/20 at 19:29 Sodium Chloride 1,000 ml @ 1,000 mls/hr Q1H IV Last administered on 02/15/20at 19:44; Start 02/15/20 at 19:29; Stop 02/15/20 at 20:28; Status DC Iohexol (Omnipaque 300 Mg/ml) 75 ml 1X ONCE IV Last administered on 02/15/20at 20:40; Start 02/15/20 at 20:30; Stop 02/15/20 at 20:31; Status DC Info (CONTRAST GIVEN -- Rx MONITORING) 1 each PRN DAILY PRN MC SEE COMMENTS; Start 02/15/20 at 20:30; Stop 02/17/20 at 20:29 Dicyclomine HCl (Bentyl) 10 mg 1X ONCE IM Last administered on 02/15/20at 21:00; Start 02/15/20 at 20:30; Stop 02/15/20 at 20:31; Status DC Ondansetron HCl (Zofran) 4 mg PRN Q8HRS PRN IV NAUSEA/VOMITING 1ST CHOICE; S tart 02/15/20 at 21:30; Stop 02/16/20 at 21:29 Morphine Sulfate (Morphine Sulfate) 4 mg PRN Q2HR PRN IV SEVERE PAIN 7-10; Start 02/15/20 at 21:30; Stop 02/16/20 at 21:29 Sodium Chloride 1,000 ml @ 100 mls/hr Q10H IV Last administered on 02/15/20at 21:00; Start 02/15/20 at 22:00; Stop 02/16/20 at 21:59 Propofol 20 ml @ As Directed STK-MED ONCE IV ; Start 02/15/20 at 21:30; Stop at 21:31; Status DC Lidocaine HCl (Lidocaine Pf 2% Vial) 5 ml STK-MED ONCE .ROUTE ; Start 02/15/20 at 21:30; Stop 02/15/20 at 21:31; Status DC Rocuronium Nevis (Zemuron) 50 mg STK-MED ONCE .ROUTE ; Start 02/15/20 at 21:30; Stop 02/15/20 at 21:31; Status DC Fentanyl Citrate (Fentanyl 2ml Vial) 100 mcg STK-MED ONCE .ROUTE ; Start 02/15/20 at 21:31; Stop 02/15/20 at 21:31; Status DC Fentanyl Citrate (Fentanyl 2ml Vial) 25 mcg PRN Q5MIN PRN IV MILD PAIN 1-3; Start 02/15/20 at 22:15; Stop 02/16/20 at 22:14 Fentanyl Citrate (Fentanyl 2ml Vial) 50 mcg PRN Q5MIN PRN IV MODERATE TO SEVERE PAIN; Start 02/15/20 at 22:15; Stop 02/16/20 at 22:14 Morphine Sulfate (Morphine Sulfate) 1 mg PRN Q10MIN PRN IV SEVERE PAIN 7-10; Start 02/15/20 at 22:15; Stop 02/16/20 at 22:14 Ringer's Solution 1,000 ml @ 30 mls/hr Q24H IV ; Start 02/15/20 at 22:30; Stop 02/16/20 at 22:29 Hydromorphone HCl (Dilaudid) 0.5 mg PRN Q10MIN PRN IV SEV PAIN, Second choice; Start 02/15/20 at 22:15; Stop 02/16/20 at 22:14 Prochlorperazine Edisylate (Compazine) 5 mg PACU PRN PRN IV NAUSEA, MRX1; Start 02/15/20 at 22:15; Stop 02/16/20 at 22:14 Sodium Chloride 1,000 ml @ 1,000 mls/hr 1X ONCE IV ; Start 02/15/20 at 22:30; Stop 02/15/20 at 23:29 Bupivacaine HCl/ Epinephrine Bitart (Sensorcain-Epi 0.5%-1:627486 Mpf) 30 ml STK-MED ONCE .ROUTE ; Start 02/15/20 at 22:13; Stop 02/15/20 at 22:13; Status DC Active Scripts Active Zofran Odt (Ondansetron) 4 Mg Tab.rapdis 1 Tab SL Q8HRS PRN Azithromycin Tablet (Azithromycin) 250 Mg Tablet 1 Pkg PO UD Prednisone 50 Mg Tablet 1 Tab PO DAILY Reported Spiriva (Tiotropium Nevis) 18 Mcg Cap.w.dev 1 Cap IH DAILY Ventolin Hfa Inhaler (Albuterol Sulfate) 18 Gm Hfa.aer.ad 2 Puff INH Q4HRS Ipratropium Nevis 0.2 Mg/1 Ml Solution 1 Vial NEB QID Symbicort 80-4.5 Mcg Inhaler (Budesonide/Formoterol Fumarate) 10.2 Gm Hfa.aer.ad 2 Puff IH BID Percocet 5-325 Mg Tablet (Oxycodone/Acetaminophen) 1 Each Tablet 1-2 Tab PO Q4- 6HRS Omeprazole 20 Mg Tablet.dr 1 Tab PO DAILY Furosemide 40 Mg Tablet 1 Tab PO DAILY Gabapentin 300 Mg Capsule 300 Mg PO TID Atorvastatin Calcium 20 Mg Tablet 1 Tab PO DAILY Tizanidine Hcl 4 Mg Tablet 2 Mg PO TID PRN Percocet 5-325 Mg Tablet (Oxycodone/Acetaminophen) 1 Each Tablet 1-2 Tab PO Q4-6HRS Gabapentin 300 Mg Capsule 3 Cap PO BID Meloxicam 15 Mg Tablet 1 Tab PO HS Tamsulosin Hcl 0.4 Mg Cap.er.24h 1 Cap PO DAILY Allergies Allergies: Coded Allergies: No Known Drug Allergies (Unverified , 04/20/15) ROS General: No: Chills, Night Sweats, Fatigue, Malaise, Appetite, Other PSYCHOLOGICAL ROS: No: Anxiety, Behavioral Disorder, Concentration difficultie, Decreased libido, Depression, Disorientation, Hallucinations, Hostility, Irritablity, Memory difficulties, Mood Swings, Obsessive thoughts, Physical abuse, Sexual abuse, Sleep disturbances, Suicidal ideation, Other Eyes: No Blurry vision, No Decreased vision, No Double vision, No Dry eyes, No Excessive tearing, No Eye Pain, No Itchy Eyes, No Loss of vision, No Photophobia, No Scotomata, No Uses contacts, No Uses glasses, No Other HEENT: No: Heacaches, Visual Changes, Hearing change, Nasal congestion, Nasal discharge, Oral lesions, Sinus pain, Sore Throat, Epistaxis, Sneezing, Snoring, Tinnitus, Vertigo, Vocal changes, Other ALLERGY AND IMMUNOLOGY: No: Hives, Insect Bite Sensitivity, Itchy/Watery Eyes, Nasal Congestion, Post Nasal Drip, Seasonal Allergies, Other Hematological and Lymphatic: No: Bleeding Problems, Blood Clots, Blood Transfusions, Brusing, Night Sweats, Pallor, Swollen Lymph Nodes, Other Respiratory: No: Cough, Hemoptysis, Orthopnea, Pleuritic Pain, Shortness of breath, SOB with excertion, Sputum Changes, Stridor, Tachypnea, Wheezing, Other Cardiovascular: No Chest Pain, No Palpitations, No Orthopnea, No Paroxysmal Noc. Dyspnea, No Edema, No Lt Headedness, No Other Gastrointestinal: Yes Vomiting, Yes Abdominal Pain Genitourinary: No Dysuria, No Frequency, No Incontinence, No Hematuria, No Retention, No Discharge, No Urgency, No Pain, No Flank Pain, No Other, No , No , No , No , No , No , No Musculoskeletal: No Gait Disturbance, No Joint Pain, No Joint Stiffness, No Joint Swelling, No Muscle Pain, No Muscular Weakness, No Pain In:, No Swelling In:, No Other Neurological: No Behavorial Changes, No Bowel/Bladder ControlChng, No Confusion, No Dizziness, No Gait Disturbance, No Headaches, No Impaired Coord/balance, No Memory Loss, No Numbness/Tingling, No Seizures, No Speech Problems, No Tremors, No Visual Changes, No Weakness, No Other Skin: No Dry Skin, No Eczema, No Hair Changes, No Lumps, No Mole Changes, No Mottling, No Nail Changes, No Pruritus, No Rash, No Skin Lesion Changes, No Other, No Acne Physical Exam General: Alert, Oriented X3, Cooperative HEENT: Atraumatic, Other (NG tube present) Lungs: Clear to auscultation Heart: Regular rate Abdomen: Soft (incarcerated umbilical hernia present) Extremities: No clubbing, No cyanosis Skin: No rashes, No breakdown Neuro: Normal speech Vitals VITALS Vital Signs Date Time Temp Pulse Resp B/P (MAP) Pulse Ox O2 Delivery O2 Flow Rate FiO2 02/15/20 22:00 18 96 Room Air 3.0 02/15/20 21:16 94 132/60 (84) 02/15/20 19:20 97.9 97.9 Labs Labs Laboratory Tests Test 02/15/20 19:30 02/15/20 21:20 White Blood Count 16.0 x10^3/uL (4.0-11.0) Red Blood Count 5.61 x10^6/uL (4.30-5.70) Hemoglobin 17.4 g/dL (13.0-17.5) Hematocrit 51.7 % (39.0-53.0) Mean Corpuscular Volume 92 fL (79-100) Mean Corpuscular Hemoglobin 31 pg (25-35) Mean Corpuscular Hemoglobin Concent 34 g/dL (31-37) Red Cell Distribution Width 13.1 % (11.5-14.5) Platelet Count 199 x10^3/uL (140-400) Neutrophils (%) (Auto) 89 % (31-73) Lymphocytes (%) (Auto) 4 % (24-48) Monocytes (%) (Auto) 7 % (0-9) Eosinophils (%) (Auto) 0 % (0-3) Basophils (%) (Auto) 0 % (0-3) Neutrophils # (Auto) 14.2 x10^3/uL (1.8-7.7) Lymphocytes # (Auto) 0.6 x10^3/uL (1.0-4.8) Monocytes # (Auto) 1.1 x10^3/uL (0.0-1.1) Eosinophils # (Auto) 0.0 x10^3/uL (0.0-0.7) Basophils # (Auto) 0.0 x10^3/uL (0.0-0.2) Segmented Neutrophils % 72 % (35-66) Band Neutrophils % 18 % (0-9) Lymphocytes % 5 % (24-48) Monocytes % 5 % (0-10) Platelet Estimate Adequate (ADEQUATE) Sodium Level 136 mmol/L (136-145) Potassium Level 4.4 mmol/L (3.5-5.1) Chloride Level 95 mmol/L (98-107) Carbon Dioxide Level 31 mmol/L (21-32) Anion Gap 10 (6-14) Blood Urea Nitrogen 15 mg/dL (8-26) Creatinine 0.9 mg/dL (0.7-1.3) Estimated GFR (Cockcroft-Gault) 81.6 BUN/Creatinine Ratio 17 (6-20) Glucose Level 157 mg/dL (70-99) Calcium Level 9.9 mg/dL (8.5-10.1) Total Bilirubin 1.5 mg/dL (0.2-1.0) Aspartate Amino Transf (AST/SGOT) 36 U/L (15-37) Alanine Aminotransferase (ALT/SGPT) 31 U/L (16-63) Alkaline Phosphatase 120 U/L (46-116) Total Protein 8.1 g/dL (6.4-8.2) Albumin 4.0 g/dL (3.4-5.0) Albumin/Globulin Ratio 1.0 (1.0-1.7) Lipase 48 U/L (73-393) Lactic Acid Level 1.6 mmol/L (0.4-2.0) Laboratory Tests Test 02/15/20 19:30 02/15/20 21:20 White Blood Count 16.0 x10^3/uL (4.0-11.0) Red Blood Count 5.61 x10^6/uL (4.30-5.70) Hemoglobin 17.4 g/dL (13.0-17.5) Hematocrit 51.7 % (39.0-53.0) Mean Corpuscular Volume 92 fL (79-100) Mean Corpuscular Hemoglobin 31 pg (25-35) Mean Corpuscular Hemoglobin Concent 34 g/dL (31-37) Red Cell Distribution Width 13.1 % (11.5-14.5) Platelet Count 199 x10^3/uL (140-400) Neutrophils (%) (Auto) 89 % (31-73) Lymphocytes (%) (Auto) 4 % (24-48) Monocytes (%) (Auto) 7 % (0-9) Eosinophils (%) (Auto) 0 % (0-3) Basophils (%) (Auto) 0 % (0-3) Neutrophils # (Auto) 14.2 x10^3/uL (1.8-7.7) Lymphocytes # (Auto) 0.6 x10^3/uL (1.0-4.8) Monocytes # (Auto) 1.1 x10^3/uL (0.0-1.1) Eosinophils # (Auto) 0.0 x10^3/uL (0.0-0.7) Basophils # (Auto) 0.0 x10^3/uL (0.0-0.2) Segmented Neutrophils % 72 % (35-66) Band Neutrophils % 18 % (0-9) Lymphocytes % 5 % (24-48) Monocytes % 5 % (0-10) Platelet Estimate Adequate (ADEQUATE) Sodium Level 136 mmol/L (136-145) Potassium Level 4.4 mmol/L (3.5-5.1) Chloride Level 95 mmol/L (98-107) Carbon Dioxide Level 31 mmol/L (21-32) Anion Gap 10 (6-14) Blood Urea Nitrogen 15 mg/dL (8-26) Creatinine 0.9 mg/dL (0.7-1.3) Estimated GFR (Cockcroft-Gault) 81.6 BUN/Creatinine Ratio 17 (6-20) Glucose Level 157 mg/dL (70-99) Calcium Level 9.9 mg/dL (8.5-10.1) Total Bilirubin 1.5 mg/dL (0.2-1.0) Aspartate Amino Transf (AST/SGOT) 36 U/L (15-37) Alanine Aminotransferase (ALT/SGPT) 31 U/L (16-63) Alkaline Phosphatase 120 U/L (46-116) Total Protein 8.1 g/dL (6.4-8.2) Albumin 4.0 g/dL (3.4-5.0) Albumin/Globulin Ratio 1.0 (1.0-1.7) Lipase 48 U/L (73-393) Lactic Acid Level 1.6 mmol/L (0.4-2.0) Assessment/Plan Assessment/Plan Incarcerated umbilical hernia with bowel obstruction, potential threatened bowel. Recommend urgent surgery. The risks of surgery were discussed with the patient. He understands and would like to proceed. KINGSLEY LOU MD Feb 15, 2020 22:27
[2020-02-15] MEDS ORDERED: IV RINGERS,LACTATED 1000ML 1,000 ML IV SCH (22:30)
[2020-02-15] MEDS ORDERED: IV NORMAL SALINE 1000ML BAG 1,000 ML IV ONE (22:30)
[2020-02-15] MEDS ORDERED: NEOSTIGMINE METHYLSULFATE 5 MG/5 ML SYRINGE. ONE (22:49)
[2020-02-15] MEDS ORDERED: GLYCOPYRROLATE 1 MG/5 ML VIAL. ONE (22:49)
[2020-02-15] MEDS ORDERED: DEXAMETHASONE SOD PHOS 4 MG/ML VIAL ONE (22:50)
[2020-02-15] MEDS ORDERED: ceFAZolin SODIUM IV Push 1 GM VIAL. IVP ONE (23:11)
[2020-02-16] VITALS (11 sets, daily range): BP systolic 94–123; BP diastolic 39–75
[2020-02-16] MEDS ORDERED: fentaNYL PF VIAL 100 MCG/2 ML VIAL IVP PRN (00:15)
--- NOTE | 2020-02-16 00:15 | PDOC4 ---
Operative Note Operative Note Operative Note: Preoperative Diagnosis: Incarcerated umbilical hernia Postoperative Diagnosis: Same Procedure: Repair of incarcerated umbilical hernia with mesh Surgeon: Lance Bonding Agent: Eric MALAGON Anesthesia: General EBL: 30 mL Specimen: None Drains: None Complications: None Indication: The patient is a 79-year-old male who presented to the emergency department with abdominal pain. His evaluation is consistent with incarcerated umbilical hernia containing bowel. We recommend for urgent surgical intervention. The risks of surgery were discussed with the patient which include bleeding, infection, hernia recurrence, pain, mesh reaction, anastomotic leak, anesthetic risk, potential need for additional surgery procedure. He understands and would like to proceed Description: The patient was taken the operating room and placed supine in the operating table. General anesthesia was performed. The abdomen was prepped with ChloraPrep and draped in a standard surgical manner. A vertical incision was made around the umbilicus extending a short distance superiorly and inferiorly. Cautery dissection was carried down to the fascia. We began mobilizing the hernia sac. With fairly minimal manipulation the contents of the hernia appeared to reduce spontaneously. The umbilical tissue was elevated off the fascia exposing the hernia defect. Closer inspection showed a another smaller hernia defect superior to the primary one. The fascial bridge in between was divided creating a single defect. There was some omental adhesions to the sac which were mobilized. We then made efforts to try to visualize the small bowel through the fairly small defect. The visualized portions of small bowel appeared normal and viable. A preperitoneal plane was then developed circumferentially around the hernia defect. The hernia sac was closed with 0 Vicryl. A large Ventralex ST mesh was then placed in the preperitoneal plane. The mesh provided good overlap in all directions of the hernia defect. The mesh was sutured into position at the 12, 3, 6, 9:00 positions using 0 Prolene in a horizontal mattress fashion. The fascial edges were closed over the mesh with 0 Prolene sutures. The umbilical tissue was secured back down to the fascia with 0 Vicryl. The subcutaneous tissue was approximated 3-0 Vicryl and the skin was closed with 4-0 Monocryl. A sterile dressing was then applied. The patient tolerated the procedure well and was sent to the recovery room in stable condition. At the end of the case all counts were correct. KINGSLEY LOU MD Feb 16, 2020 00:15
[2020-02-16] MEDS ORDERED: INSULIN LISPRO 100 UNIT/ML 3ML VIAL for OP,RR ONLY. SQ PRN (01:00)
[2020-02-16] MEDS ORDERED: ALBUTEROL SULFATE 2.5 MG/3 ML NEBU. NEB ONE (01:00)
[2020-02-16 04:40] LABS: BASO % 0 % (0-3); EOS % 0 % (0-3); HEMATOCRIT 44.3 % (39.0-53.0); LYMPH # 0.4 x10^3/uL (1.0-4.8); LYMPH % 4 % (24-48); MEAN CORPUSCULAR HEMOGLOBIN 32 pg (25-35); MEAN CORPUSCULAR HGB CONC 34 g/dL (31-37); MEAN CORPUSCULAR VOLUME 93 fL (79-100); MONO # 0.8 x10^3/uL (0.0-1.1); MONO % 7 % (0-9); NEUT # 9.1 x10^3/uL (1.8-7.7); NEUT % 89 % (31-73); PLATELET COUNT 172 x10^3/uL (140-400); RED BLOOD COUNT 4.75 x10^6/uL (4.30-5.70); RED CELL DISTRIBUTION WIDTH 13.5 % (11.5-14.5); WHITE BLOOD COUNT 10.3 x10^3/uL (4.0-11.0)
[2020-02-16 04:52] LABS: CALCIUM 8.2 mg/dL (8.5-10.1); GFR 72.3; POTASSIUM 4.5 mmol/L (3.5-5.1)
--- NOTE | 2020-02-16 06:14 | EKG ---
[facility] [address] [place] [address] Test Date: 2020-02-15 Test Time: 19:54:52 Pat Name: RAKEL BOWERS Department: Room: [facility] Gender: M Fisher [employer] Net: : 1940 Requested By: RAINER CANO Order Number: [id number] Reading MD: Dylon Pompa Measurements Intervals [place] Rate: 90 P: OR: QRS: 172 QRSD: 102 T: 130 QT: 362 QTc: 447 Interpretive Statements SINUS RHYTHM ABNORMAL RIGHT AXIS DEVIATION T ABNORMALITY IN HIGH LATERAL LEADS ABNORMAL ECG Electronically Signed On 02-16-2020 10:32:07 CDT by Dylon Pompa
[2020-02-16] MEDS ORDERED: ASPI-630 PO (07:36)
[2020-02-16] MEDS ORDERED: GABA600T7 PO (07:36)
[2020-02-16] MEDS ORDERED: CHOL40003 PO (07:36)
[2020-02-16] MEDS ORDERED: BACL20TA PO (07:36)
[2020-02-16] MEDS ORDERED: GABA800T5 PO (07:36)
[2020-02-16] MEDS ORDERED: SENN8.6T11 PO (07:36)
[2020-02-16] MEDS ORDERED: VITA400T6 PO (07:36)
[2020-02-16] MEDS ORDERED: ASCO100T4 PO (07:36)
[2020-02-16] MEDS ORDERED: ATOR40TA59 PO (07:36)
[2020-02-16] MEDS ORDERED: TAMS0.4C97 PO (07:36)
[2020-02-16] MEDS ORDERED: DOCU100C28 PO (07:36)
[2020-02-16] MEDS ORDERED: MAGN27TA5 PO (07:36)
[2020-02-16] MEDS ORDERED: METF500T16 PO (07:36)
--- NOTE | 2020-02-16 07:36 | NUR ---
Admit Note: The patient, RAKEL BOWERS, 79 y/o, M admitted by ASTRID HO MD, was given written information regarding hospital policies, unit procedures and contact persons. Patient transferred from PACU, afebrile and VSS with no c/o pain upon arrival. Patient orientated to room, admit packet reviewed and plan of care discussed. Patient contacted and home medications verified with spouse. Patient in bed, call light within reach and no other needs voiced at this time.
[2020-02-16] MEDS: fentaNYL PF VIAL 100 MCG/2 ML VIAL IVP PRN (08:51)
--- NOTE | 2020-02-16 09:53 | RAD ---
One view abdomen HISTORY: NG tube placement Supine AP view abdomen 9:32 AM There is an NG tube with its tip in the fundus of the stomach. IMPRESSION: The NG tube has its tip in the fundus of the stomach. Electronically signed by: Willard Ernandez III, MD (02/16/2020 9:50 AM) [id number]
--- NOTE | 2020-02-16 10:19 | NUR ---
Pt's NG tube not sucking out gastric contents properly. Pt vomited small amount. Suction canister and tubing changed. NG flushes without difficulty, difficult to pull back contents. KUB obtained for placement verification. Dr. Lucas notified, telephone orders received.
--- NOTE | 2020-02-16 10:26 | NUR ---
NG tube clamped. Addendum: 02/16/20 at 1027 by SAE MELENDEZ RN Abd soft, non tender. Pt educated to call if nausea, pain or any discomfort returns. Pt. verbalized understanding.
--- NOTE | 2020-02-16 10:34 | NUR ---
SW following. Discussed with RN, pt from home with . Emergency surgery yesterday evening, NPO, NG tube. Pt uses a walker and oxygen at home. RN advised no SW needs at this time. SW will continue to follow.
--- NOTE | 2020-02-16 11:39 | PDOC ---
PROGRESS NOTES Subjective Subjective uncomfortable with NG and hospital be situation, sore at incision Objective Objective Vital Signs Date Time Temp Pulse Resp B/P (MAP) Pulse Ox O2 Delivery O2 Flow Rate FiO2 02/16/20 09:30 Room Air 02/16/20 08:51 24 4.0 02/16/20 07:26 98.4 93 123/65 (84) 94 98.4 Intake and Output 02/16/20 07:00 Intake Total 2000 ml Output Total 1000 ml Balance 1000 ml Intake Oral 0 ml IV Total 2000 ml Output Urine Total 700 ml Gastric Drainage Total 300 ml Physical Exam Abdomen: Soft (binder intact) Assessment Assessment Problems Medical Problems: (1) SBO (small bowel obstruction) Status: Acute (2) Umbilical hernia Status: Acute Plan Plan of Care supportive care, keep NG in for now Comment Review of Relevant I have reviewed the following items stevie (where applicable) has been applied. Labs Laboratory Tests Test 02/15/20 19:30 02/15/20 21:20 02/16/20 00:41 02/16/20 04:10 White Blood Count 16.0 x10^3/uL (4.0-11.0) 10.3 x10^3/uL (4.0-11.0) Red Blood Count 5.61 x10^6/uL (4.30-5.70) 4.75 x10^6/uL (4.30-5.70) Hemoglobin 17.4 g/dL (13.0-17.5) 15.0 g/dL (13.0-17.5) Hematocrit 51.7 % (39.0-53.0) 44.3 % (39.0-53.0) Mean Corpuscular Volume 92 fL (79-100) 93 fL (79-100) Mean Corpuscular Hemoglobin 31 pg (25-35) 32 pg (25-35) Mean Corpuscular Hemoglobin Concent 34 g/dL (31-37) 34 g/dL (31-37) Red Cell Distribution Width 13.1 % (11.5-14.5) 13.5 % (11.5-14.5) Platelet Count 199 x10^3/uL (140-400) 172 x10^3/uL (140-400) Neutrophils (%) (Auto) 89 % (31-73) 89 % (31-73) Lymphocytes (%) (Auto) 4 % (24-48) 4 % (24-48) Monocytes (%) (Auto) 7 % (0-9) 7 % (0-9) Eosinophils (%) (Auto) 0 % (0-3) 0 % (0-3) Basophils (%) (Auto) 0 % (0-3) 0 % (0-3) Neutrophils # (Auto) 14.2 x10^3/uL (1.8-7.7) 9.1 x10^3/uL (1.8-7.7) Lymphocytes # (Auto) 0.6 x10^3/uL (1.0-4.8) 0.4 x10^3/uL (1.0-4.8) Monocytes # (Auto) 1.1 x10^3/uL (0.0-1.1) 0.8 x10^3/uL (0.0-1.1) Eosinophils # (Auto) 0.0 x10^3/uL (0.0-0.7) 0.0 x10^3/uL (0.0-0.7) Basophils # (Auto) 0.0 x10^3/uL (0.0-0.2) 0.0 x10^3/uL (0.0-0.2) Segmented Neutrophils % 72 % (35-66) Band Neutrophils % 18 % (0-9) Lymphocytes % 5 % (24-48) Monocytes % 5 % (0-10) Platelet Estimate Adequate (ADEQUATE) Sodium Level 136 mmol/L (136-145) 140 mmol/L (136-145) Potassium Level 4.4 mmol/L (3.5-5.1) 4.5 mmol/L (3.5-5.1) Chloride Level 95 mmol/L (98-107) 103 mmol/L (98-107) Carbon Dioxide Level 31 mmol/L (21-32) 34 mmol/L (21-32) Anion Gap 10 (6-14) 3 (6-14) Blood Urea Nitrogen 15 mg/dL (8-26) 14 mg/dL (8-26) Creatinine 0.9 mg/dL (0.7-1.3) 1.0 mg/dL (0.7-1.3) Estimated GFR (Cockcroft-Gault) 81.6 72.3 BUN/Creatinine Ratio 17 (6-20) Glucose Level 157 mg/dL (70-99) 115 mg/dL (70-99) Calcium Level 9.9 mg/dL (8.5-10.1) 8.2 mg/dL (8.5-10.1) Total Bilirubin 1.5 mg/dL (0.2-1.0) Aspartate Amino Transf (AST/SGOT) 36 U/L (15-37) Alanine Aminotransferase (ALT/SGPT) 31 U/L (16-63) Alkaline Phosphatase 120 U/L (46-116) Total Protein 8.1 g/dL (6.4-8.2) Albumin 4.0 g/dL (3.4-5.0) Albumin/Globulin Ratio 1.0 (1.0-1.7) Lipase 48 U/L (73-393) Lactic Acid Level 1.6 mmol/L (0.4-2.0) Glucose (Fingerstick) 158 mg/dL (70-99) Laboratory Tests Test 02/15/20 19:30 02/15/20 21:20 02/16/20 00:41 02/16/20 04:10 White Blood Count 16.0 x10^3/uL (4.0-11.0) 10.3 x10^3/uL (4.0-11.0) Red Blood Count 5.61 x10^6/uL (4.30-5.70) 4.75 x10^6/uL (4.30-5.70) Hemoglobin 17.4 g/dL (13.0-17.5) 15.0 g/dL (13.0-17.5) Hematocrit 51.7 % (39.0-53.0) 44.3 % (39.0-53.0) Mean Corpuscular Volume 92 fL (79-100) 93 fL (79-100) Mean Corpuscular Hemoglobin 31 pg (25-35) 32 pg (25-35) Mean Corpuscular Hemoglobin Concent 34 g/dL (31-37) 34 g/dL (31-37) Red Cell Distribution Width 13.1 % (11.5-14.5) 13.5 % (11.5-14.5) Platelet Count 199 x10^3/uL (140-400) 172 x10^3/uL (140-400) Neutrophils (%) (Auto) 89 % (31-73) 89 % (31-73) Lymphocytes (%) (Auto) 4 % (24-48) 4 % (24-48) Monocytes (%) (Auto) 7 % (0-9) 7 % (0-9) Eosinophils (%) (Auto) 0 % (0-3) 0 % (0-3) Basophils (%) (Auto) 0 % (0-3) 0 % (0-3) Neutrophils # (Auto) 14.2 x10^3/uL (1.8-7.7) 9.1 x10^3/uL (1.8-7.7) Lymphocytes # (Auto) 0.6 x10^3/uL (1.0-4.8) 0.4 x10^3/uL (1.0-4.8) Monocytes # (Auto) 1.1 x10^3/uL (0.0-1.1) 0.8 x10^3/uL (0.0-1.1) Eosinophils # (Auto) 0.0 x10^3/uL (0.0-0.7) 0.0 x10^3/uL (0.0-0.7) Basophils # (Auto) 0.0 x10^3/uL (0.0-0.2) 0.0 x10^3/uL (0.0-0.2) Segmented Neutrophils % 72 % (35-66) Band Neutrophils % 18 % (0-9) Lymphocytes % 5 % (24-48) Monocytes % 5 % (0-10) Platelet Estimate Adequate (ADEQUATE) Sodium Level 136 mmol/L (136-145) 140 mmol/L (136-145) Potassium Level 4.4 mmol/L (3.5-5.1) 4.5 mmol/L (3.5-5.1) Chloride Level 95 mmol/L (98-107) 103 mmol/L (98-107) Carbon Dioxide Level 31 mmol/L (21-32) 34 mmol/L (21-32) Anion Gap 10 (6-14) 3 (6-14) Blood Urea Nitrogen 15 mg/dL (8-26) 14 mg/dL (8-26) Creatinine 0.9 mg/dL (0.7-1.3) 1.0 mg/dL (0.7-1.3) Estimated GFR (Cockcroft-Gault) 81.6 72.3 BUN/Creatinine Ratio 17 (6-20) Glucose Level 157 mg/dL (70-99) 115 mg/dL (70-99) Calcium Level 9.9 mg/dL (8.5-10.1) 8.2 mg/dL (8.5-10.1) Total Bilirubin 1.5 mg/dL (0.2-1.0) Aspartate Amino Transf (AST/SGOT) 36 U/L (15-37) Alanine Aminotransferase (ALT/SGPT) 31 U/L (16-63) Alkaline Phosphatase 120 U/L (46-116) Total Protein 8.1 g/dL (6.4-8.2) Albumin 4.0 g/dL (3.4-5.0) Albumin/Globulin Ratio 1.0 (1.0-1.7) Lipase 48 U/L (73-393) Lactic Acid Level 1.6 mmol/L (0.4-2.0) Glucose (Fingerstick) 158 mg/dL (70-99) Medications Current Medications Ondansetron HCl (Zofran) 4 mg 1X ONCE IVP Last administered on 02/15/20at 19:44; Start 02/15/20 at 19:30; Stop 02/15/20 at 19:35; Status DC Ondansetron HCl (Zofran) 4 mg STK-MED ONCE .ROUTE ; Start 02/15/20 at 19:25; Stop 02/15/20 at 19:26; Status DC Fentanyl Citrate (Fentanyl 2ml Vial) 50 mcg PRN Q15MIN PRN IV PAIN GREATER THAN 3/10 Last administered on 02/15/20at 22:00; Start 02/15/20 at 19:30; Stop 02/16/20 at 19:29 Sodium Chloride 1,000 ml @ 1,000 mls/hr Q1H IV Last administered on 02/15/20at 19:44; Start 02/15/20 at 19:29; Stop 02/15/20 at 20:28; Status DC Iohexol (Omnipaque 300 Mg/ml) 75 ml 1X ONCE IV Last administered on 02/15/20at 20:40; Start 02/15/20 at 20:30; Stop 02/15/20 at 20:31; Status DC Info (CONTRAST GIVEN -- Rx MONITORING) 1 each PRN DAILY PRN MC SEE COMMENTS; Start 02/15/20 at 20:30; Stop 02/17/20 at 20:29 Dicyclomine HCl (Bentyl) 10 mg 1X ONCE IM Last administered on 02/15/20at 21:00; Start 02/15/20 at 20:30; Stop 02/15/20 at 20:31; Status DC Ondansetron HCl (Zofran) 4 mg PRN Q8HRS PRN IV NAUSEA/VOMITING 1ST CHOICE Last administered on 02/16/20at 09:24; Start 02/15/20 at 21:30; Stop 02/16/20 at 21:29 Morphine Sulfate (Morphine Sulfate) 4 mg PRN Q2HR PRN IV SEVERE PAIN 7-10; Start 02/15/20 at 21:30; Stop 02/16/20 at 21:29 Sodium Chloride 1,000 ml @ 100 mls/hr Q10H IV Last administered on 02/15/20at 21:00; Start 02/15/20 at 22:00; Stop 02/16/20 at 21:59 Propofol 20 ml @ As Directed STK-MED ONCE IV ; Start 02/15/20 at 21:30; Stop 02/15/20 at 21:31; Status DC Lidocaine HCl (Lidocaine Pf 2% Vial) 5 ml STK-MED ONCE .ROUTE ; Start 02/15/20 at 21:30; Stop 02/15/20 at 21:31; Status DC Rocuronium [place] (Zemuron) 50 mg STK-MED ONCE .ROUTE ; Start 02/15/20 at 21:30; Stop 02/15/20 at 21:31; Status DC Fentanyl Citrate (Fentanyl 2ml Vial) 100 mcg STK-MED ONCE .ROUTE ; Start at 21:31; Stop 02/15/20 at 21:31; Status DC Fentanyl Citrate (Fentanyl 2ml Vial) 25 mcg PRN Q5MIN PRN IV MILD PAIN 1-3; Start 02/15/20 at 22:15; Stop 02/16/20 at 22:14 Fentanyl Citrate (Fentanyl 2ml Vial) 50 mcg PRN Q5MIN PRN IV MODERATE TO SEVERE PAIN; Start 02/15/20 at 22:15; Stop 02/16/20 at 22:14 Morphine Sulfate (Morphine Sulfate) 1 mg PRN Q10MIN PRN IV SEVERE PAIN 7-10; Start 02/15/20 at 22:15; Stop 02/16/20 at 22:14 Ringer's Solution 1,000 ml @ 30 mls/hr Q24H IV ; Start 02/15/20 at 22:30; Stop 02/16/20 at 22:29 Hydromorphone HCl (Dilaudid) 0.5 mg PRN Q10MIN PRN IV SEV PAIN, Second choice; Start 02/15/20 at 22:15; Stop 02/16/20 at 22:14 Prochlorperazine Edisylate (Compazine) 5 mg PACU PRN PRN IV NAUSEA, MRX1; Start 02/15/20 at 22:15; Stop 02/16/20 at 22:14 Sodium Chloride 1,000 ml @ 1,000 mls/hr 1X ONCE IV ; Start 02/15/20 at 22:30; Stop 02/16/20 at 00:32; Status DC Bupivacaine HCl/ Epinephrine Bitart (Sensorcain-Epi 0.5%-1:952786 Mpf) 30 ml STK-MED ONCE .ROUTE ; Start 02/15/20 at 22:13; Stop 02/15/20 at 22:13; Status DC Ondansetron HCl (Zofran) 4 mg STK-MED ONCE .ROUTE ; Start 02/15/20 at 22:49; Stop 02/15/20 at 22:49; Status DC Neostigmine [place] (Neostigmine Methylsulfate) 5 mg STK-MED ONCE .ROUTE ; Start 02/15/20 at 22:49; Stop 02/15/20 at 22:49; Status DC Glycopyrrolate (Robinul) 1 mg STK-MED ONCE .ROUTE ; Start 02/15/20 at 22:49; Stop 02/15/20 at 22:50; Status DC Dexamethasone Sodium Phosphate (Decadron) 4 mg STK-MED ONCE .ROUTE ; Start 02/15/20 at 22:50; Stop 02/15/20 at 22:50; Status DC Cefazolin Sodium (Ancef) 1 gm STK-MED ONCE IVP ; Start 02/15/20 at 23:11; Stop 02/15/20 at 23:11; Status DC Fentanyl Citrate (Fentanyl 2ml Vial) 25 mcg PRN Q2HRS PRN IVP MODERATE PAIN 4- 6; Start 02/16/20 at 00:15 Albuterol Sulfate (Ventolin Neb Soln) 2.5 mg 1X ONCE NEB Last administered on 02/16/20at 00:40; Start 02/16/20 at 01:00; Stop 02/16/20 at 01:01; Status DC Fentanyl Citrate (Fentanyl 2ml Vial) 50 mcg PRN Q2HRS PRN IVP SEVERE PAIN 7-10 Last administered on 02/16/20at 08:51; Start 02/16/20 at 00:30 Insulin Human Lispro (HumaLOG VIAL for OP,RR ONLY) 0-10 units PRN Q1HR PRN SQ PER PROTOCOL Last administered on 02/16/20at 00:58; Start 02/16/20 at 01:00; Stop 02/17/20 at 00:59 Active Scripts Active Zofran Odt (Ondansetron) 4 Mg Tab.rapdis 1 Tab SL Q8HRS PRN Azithromycin Tablet (Azithromycin) 250 Mg Tablet 1 Pkg PO UD Prednisone 50 Mg Tablet 1 Tab PO DAILY Reported Vitamin D3 (Cholecalciferol (Vitamin D3)) 4,000 Unit Capsule 1 Cap PO DAILY 30 Days Vitamin E (Vitamin E Mixed) 400 Unit Tablet 1 Tab PO QHS 30 Days Magnesium Gluconate 27 Mg Tablet 1 Tab PO HS 30 Days Vitamin C (Ascorbic Acid) 100 Mg Tablet 1 Tab PO DAILY 30 Days Aspirin 81 Mg Tab.chew 1 Tab PO HS Docusate Sodium 100 Mg Capsule 1 Cap PO HS 7 Days Senna Laxative (Sennosides) 8.6 Mg Tablet 1 Tab PO HS 30 Days Baclofen 20 Mg Tablet 20 Mg PO BID Flomax (Tamsulosin Hcl) 0.4 Mg Cap.er.24h 0.4 Mg PO HS Gabapentin 800 Mg Tablet 800 Mg PO HS Gabapentin 600 Mg Tablet 600 Mg PO BID Metformin Hcl 500 Mg Tablet 500 Mg PO HS Atorvastatin Calcium 40 Mg Tablet 40 Mg PO DAILY Spiriva (Tiotropium [place]) 18 Mcg Cap.w.dev 1 Cap IH DAILY Ventolin Hfa Inhaler (Albuterol Sulfate) 18 Gm Hfa.aer.ad 2 Puff INH Q4HRS Ipratropium [place] 0.2 Mg/1 Ml Solution 1 Vial NEB QID Symbicort 80-4.5 Mcg Inhaler (Budesonide/Formoterol Fumarate) 10.2 Gm Hfa.aer.ad 2 Puff IH BID Percocet 5-325 Mg Tablet (Oxycodone/Acetaminophen) 1 Each Tablet 1-2 Tab PO Q4-6HRS Omeprazole 20 Mg Tablet.dr 1 Tab PO DAILY Furosemide 40 Mg Tablet 1 Tab PO DAILY Gabapentin (Gabapentin) 300 Mg Capsule 300 Mg PO TID Atorvastatin Calcium 20 Mg Tablet 1 Tab PO DAILY Tizanidine Hcl 4 Mg Tablet 2 Mg PO TID PRN Percocet 5-325 Mg Tablet (Oxycodone/Acetaminophen) 1 Each Tablet 1-2 Tab PO Q4-6HRS Gabapentin (Gabapentin) 300 Mg Capsule 3 Cap PO BID Meloxicam 15 Mg Tablet 1 Tab PO HS Tamsulosin Hcl 0.4 Mg Cap.er.24h 1 Cap PO DAILY Vitals/I & O Vital Sign - Last 24 Hours 02/15/20 02/15/20 02/15/20 02/15/20 19:20 19:46 20:07 20:37 Temp 97.9 97.9 Pulse 96 97 99 Resp 20 20 18 18 B/P (MAP) 147/80 (102) 133/62 (85) 134/67 (89) Pulse Ox 93 92 95 95 O2 Delivery Room Air Room Air Nasal Cannula Nasal Cannula O2 Flow Rate 3.0 3.0 02/15/20 02/15/20 02/15/20 02/15/20 20:46 21:01 21:16 21:31 Pulse 96 92 94 90 Resp 18 18 18 18 B/P (MAP) 131/69 (89) 128/66 (86) 132/60 (84) 130/63 (85) Pulse Ox 96 96 96 96 O2 Delivery Nasal Cannula Nasal Cannula Nasal Cannula Nasal Cannula O2 Flow Rate 3.0 3.0 3.0 3.0 02/15/20 02/15/20 02/15/20 02/15/20 21:46 22:00 22:01 22:16 Pulse 92 92 94 Resp 18 18 18 18 B/P (MAP) 132/63 (86) 129/62 (84) 120/63 (82) Pulse Ox 97 96 95 95 O2 Delivery Nasal Cannula Room Air Nasal Cannula Nasal Cannula O2 Flow Rate 3.0 3.0 3.0 3.0 02/16/20 02/16/20 02/16/20 02/16/20 00:22 00:36 00:37 00:39 Temp 98.3 98.3 Pulse 109 104 Resp B/P (MAP) 172/84 154/89 Pulse Ox 97 94 94 O2 Delivery Simple Mask Nasal Cannula Nasal Cannula Nasal Cannula O2 Flow Rate 8 3 4 4.0 02/16/20 02/16/20 02/16/20 02/16/20 00:52 01:15 01:30 02:30 Temp 98.8 98.8 Pulse 101 104 Resp 16 B/P (MAP) 138/88 119/75 (90) Pulse Ox 94 94 O2 Delivery Nasal Cannula Nasal Cannula Nasal Cannula O2 Flow Rate 4 3.0 02/16/20 02/16/20 02/16/20 02/16/20 02:45 03:15 03:45 04:45 Pulse 91 96 92 98 Resp 18 16 B/P (MAP) 102/57 (72) 115/62 (79) 111/52 (71) 114/59 (77) Pulse Ox 96 94 96 95 O2 Delivery Nasal Cannula Nasal Cannula Nasal Cannula Nasal Cannula O2 Flow Rate 3.0 3.0 3.0 3.0 02/16/20 02/16/20 02/16/20 02/16/20 05:45 07:26 08:51 09:30 Temp 99.1 98.4 99.1 98.4 Pulse 96 93 Resp 16 24 B/P (MAP) 114/64 (81) 123/65 (84) Pulse Ox 96 94 O2 Delivery Nasal Cannula Nasal Cannula Nasal Cannula Room Air O2 Flow Rate 3.0 3.0 4.0 Intake and Output 02/15/20 02/15/20 02/16/20 15:00 23:00 07:00 Intake Total 2000 ml 0 ml Output Total 1000 ml Balance 2000 ml -1000 ml KINGSLEY LOU MD Feb 16, 2020 11:38
[2020-02-16] MEDS: IV NORMAL SALINE 1000ML BAG 1,000 ML IV SCH (11:59)
--- NOTE | 2020-02-16 14:15 | NUR ---
Pt. asking if NG tube can be rehooked. NG advanced approx. 1 inch and placed on LIS, immediate return of brown contents.
--- NOTE | 2020-02-16 14:58 | PDOC1 ---
History and Physical Date of Admission Date of Admission February 16, 2020 Identification/Chief Complaint Chief Complaint Connie garcia Source Source: Chart review, Patient History of Present Illness History of Present Illness Patient is a 79-year-old gentleman with multiple medical comorbidities including COPD who was in his usual state of health until the day of his admission. The patient has a known history of an umbilical hernia who has not required surgical intervention. The patient developed severe sharp discomfort over his abdomen not associated with food intake he did not refer exerting himself or lifting hea vy objects on the day of admission. Patient was evaluated in the emergency department and found to have an incarcerated umbilical hernia reason why he was taken to the OR in the middle of the night. Patient is being seen postop and at the present time he is sitting in the chair in no apparent distress. The patient is uncomfortable due to his NG tube. He denies any hematemesis no diarrhea he has not passed any gases discomfort seems to be more from his NG tube and he complains of throat pain as well. Patient denies any fever chills no sensation of impending doom no chest pain no palpitations no shortness of breath has been reported. Patient was admitted for definitive treatment of his incarcerated umbilical hernia. Plan of care has been explained in detail and all of his concerns were addressed to the best my abilities. He utilizes several inhalers at home given his past medical history of COPD which we will continue during his hospital stay. Reassurance has been provided no other complaints were voiced during my encounter Past Medical History Cardiovascular: HTN, Hyperlipidemia Endocrine: Diabetes Past Surgical History Past Surgical History: Hernia Repair Family History Family History: Other (Noncontributory to the present) Social History Smoke: No ALCOHOL: rare Drugs: None Current Problem List Problem List Problems Medical Problems: (1) SBO (small bowel obstruction) Status: Acute (2) Umbilical hernia Status: Acute Current Medications Current Medications Current Medications Medications (Trade) Dose Ordered Sig/Molly Start Time Stop Time Status Last Admin Dose Admin Albuterol Sulfate (Ventolin Neb Soln) 2.5 mg RTQID 02/16/20 16:00 Bupivacaine HCl/ Epinephrine Bitart (Sensorcain-Epi 0.5%-1:795346 Mpf) 30 ml STK-MED ONCE 02/15/20 22:13 02/15/20 22:13 DC Cefazolin Sodium (Ancef) 1 gm STK-MED ONCE 02/15/20 23:11 02/15/20 23:11 DC Dexamethasone Sodium Phosphate (Decadron) 4 mg STK-MED ONCE 02/15/20 22:50 02/15/20 22:50 DC Dicyclomine HCl (Bentyl) 10 mg 1X ONCE 02/15/20 20:30 02/15/20 20:31 DC 02/15/20 21:00 10 MG Fentanyl Citrate (Fentanyl 2ml Vial) 50 mcg PRN Q2HRS PRN 02/16/20 00:30 02/16/20 08:51 50 MCG Glycopyrrolate (Robinul) 1 mg STK-MED ONCE 02/15/20 22:49 02/15/20 22:50 DC Hydromorphone HCl (Dilaudid) 0.5 mg PRN Q10MIN PRN 02/15/20 22:15 02/16/20 22:14 Info (CONTRAST GIVEN -- Rx MONITORING) 1 each PRN DAILY PRN 02/15/20 20:30 02/17/20 20:29 Insulin Human Lispro (HumaLOG VIAL for OP,RR ONLY) 0-10 units PRN Q1HR PRN 02/16/20 01:00 02/17/20 00:59 02/16/20 00:58 4 UNIT Iohexol (Omnipaque 300 Mg/ml) 75 ml 1X ONCE 02/15/20 20:30 02/15/20 20:31 DC 02/15/20 20:40 75 ML Lidocaine HCl (Lidocaine Pf 2% Vial) 5 ml STK-MED ONCE 02/15/20 21:30 02/15/20 21:31 DC Morphine Sulfate (Morphine Sulfate) 1 mg PRN Q10MIN PRN 02/15/20 22:15 02/16/20 22:14 Neostigmine [place] (Neostigmine Methylsulfate) 5 mg STK-MED ONCE 02/15/20 22:49 02/15/20 22:49 DC Ondansetron HCl (Zofran) 4 mg STK-MED ONCE 02/15/20 22:49 02/15/20 22:49 DC Prochlorperazine Edisylate (Compazine) 5 mg PACU PRN PRN 02/15/20 22:15 02/16/20 22:14 Propofol 20 ml @ As Directed STK-MED ONCE 02/15/20 21:30 02/15/20 21:31 DC Ringer's Solution 1,000 ml @ 30 mls/hr Q24H 02/15/20 22:30 02/16/20 22:29 Rocuronium [place] (Zemuron) 50 mg STK-MED ONCE 02/15/20 21:30 02/15/20 21:31 DC Sodium Chloride 1,000 ml @ 1,000 mls/hr 1X ONCE 02/15/20 22:30 02/16/20 00:32 DC Allergies Allergies Allergies Coded Allergies Type Severity Reaction Last Updated Verified No Known Drug Allergies 04/20/15 No ROS Review of System CONSTITUTIONAL: No fever or chills EYES: No recent changes SKIN: No rash or itching CARDIOVASCULAR: No chest pain, syncope, palpitations, or edema RESPIRATORY: No SOB or cough GASTROINTESTINAL: No nausea, vomiting or abdominal pain NEUROLOGICAL: No headaches or weakness ENDOCRINE: No cold or heat intolerance GENITOURINARY: No urgency or frequency of urination MUSCULOSKELETAL: No back pain or joint pain LYMPHATICS: No enlarged lymph nodes PSYCHIATRIC: No anxiety or depression Physical Exam Physical Exam GEN.: No apparent distress. Alert and oriented. HEENT: Head is normocephalic, atraumatic NECK: Supple. LUNGS: Clear to auscultation. HEART: RRR, S1, S2 present. Peripheral pulses intact ABDOMEN: Soft, nontender. Positive bowel sounds. EXTREMITIES: Without any cyanosis. NEUROLOGIC: Normal speech, normal tone PSYCHIATRIC: Normal affect, normal mood. SKIN: No ulcerations Vitals Vitals Vital Signs Date Time Temp Pulse Resp B/P (MAP) Pulse Ox O2 Delivery O2 Flow Rate FiO2 02/16/20 11:37 98.8 88 20 101/58 (72) 96 Nasal Cannula 3.0 98.8 Labs Labs Laboratory Tests Test 02/15/20 19:30 02/15/20 21:20 02/16/20 00:41 02/16/20 04:10 White Blood Count 16.0 x10^3/uL (4.0-11.0) 10.3 x10^3/uL (4.0-11.0) Red Blood Count 5.61 x10^6/uL (4.30-5.70) 4.75 x10^6/uL (4.30-5.70) Hemoglobin 17.4 g/dL (13.0-17.5) 15.0 g/dL (13.0-17.5) Hematocrit 51.7 % (39.0-53.0) 44.3 % (39.0-53.0) Mean Corpuscular Volume 92 fL (79-100) 93 fL (79-100) Mean Corpuscular Hemoglobin 31 pg (25-35) 32 pg (25-35) Mean Corpuscular Hemoglobin Concent 34 g/dL (31-37) 34 g/dL (31-37) Red Cell Distribution Width 13.1 % (11.5-14.5) 13.5 % (11.5-14.5) Platelet Count 199 x10^3/uL (140-400) 172 x10^3/uL (140-400) Neutrophils (%) (Auto) 89 % (31-73) 89 % (31-73) Lymphocytes (%) (Auto) 4 % (24-48) 4 % (24-48) Monocytes (%) (Auto) 7 % (0-9) 7 % (0-9) Eosinophils (%) (Auto) 0 % (0-3) 0 % (0-3) Basophils (%) (Auto) 0 % (0-3) 0 % (0-3) Neutrophils # (Auto) 14.2 x10^3/uL (1.8-7.7) 9.1 x10^3/uL (1.8-7.7) Lymphocytes # (Auto) 0.6 x10^3/uL (1.0-4.8) 0.4 x10^3/uL (1.0-4.8) Monocytes # (Auto) 1.1 x10^3/uL (0.0-1.1) 0.8 x10^3/uL (0.0-1.1) Eosinophils # (Auto) 0.0 x10^3/uL (0.0-0.7) 0.0 x10^3/uL (0.0-0.7) Basophils # (Auto) 0.0 x10^3/uL (0.0-0.2) 0.0 x10^3/uL (0.0-0.2) Segmented Neutrophils % 72 % (35-66) Band Neutrophils % 18 % (0-9) Lymphocytes % 5 % (24-48) Monocytes % 5 % (0-10) Platelet Estimate Adequate (ADEQUATE) Sodium Level 136 mmol/L (136-145) 140 mmol/L (136-145) Potassium Level 4.4 mmol/L (3.5-5.1) 4.5 mmol/L (3.5-5.1) Chloride Level 95 mmol/L (98-107) 103 mmol/L (98-107) Carbon Dioxide Level 31 mmol/L (21-32) 34 mmol/L (21-32) Anion Gap 10 (6-14) 3 (6-14) Blood Urea Nitrogen 15 mg/dL (8-26) 14 mg/dL (8-26) Creatinine 0.9 mg/dL (0.7-1.3) 1.0 mg/dL (0.7-1.3) Estimated GFR (Cockcroft-Gault) 81.6 72.3 BUN/Creatinine Ratio 17 (6-20) Glucose Level 157 mg/dL (70-99) 115 mg/dL (70-99) Calcium Level 9.9 mg/dL (8.5-10.1) 8.2 mg/dL (8.5-10.1) Total Bilirubin 1.5 mg/dL (0.2-1.0) Aspartate Amino Transf (AST/SGOT) 36 U/L (15-37) Alanine Aminotransferase (ALT/SGPT) 31 U/L (16-63) Alkaline Phosphatase 120 U/L (46-116) Total Protein 8.1 g/dL (6.4-8.2) Albumin 4.0 g/dL (3.4-5.0) Albumin/Globulin Ratio 1.0 (1.0-1.7) Lipase 48 U/L (73-393) Lactic Acid Level 1.6 mmol/L (0.4-2.0) Glucose (Fingerstick) 158 mg/dL (70-99) Laboratory Tests Test 02/15/20 19:30 02/15/20 21:20 02/16/20 00:41 02/16/20 04:10 White Blood Count 16.0 x10^3/uL (4.0-11.0) 10.3 x10^3/uL (4.0-11.0) Red Blood Count 5.61 x10^6/uL (4.30-5.70) 4.75 x10^6/uL (4.30-5.70) Hemoglobin 17.4 g/dL (13.0-17.5) 15.0 g/dL (13.0-17.5) Hematocrit 51.7 % (39.0-53.0) 44.3 % (39.0-53.0) Mean Corpuscular Volume 92 fL (79-100) 93 fL (79-100) Mean Corpuscular Hemoglobin 31 pg (25-35) 32 pg (25-35) Mean Corpuscular Hemoglobin Concent 34 g/dL (31-37) 34 g/dL (31-37) Red Cell Distribution Width 13.1 % (11.5-14.5) 13.5 % (11.5-14.5) Platelet Count 199 x10^3/uL (140-400) 172 x10^3/uL (140-400) Neutrophils (%) (Auto) 89 % (31-73) 89 % (31-73) Lymphocytes (%) (Auto) 4 % (24-48) 4 % (24-48) Monocytes (%) (Auto) 7 % (0-9) 7 % (0-9) Eosinophils (%) (Auto) 0 % (0-3) 0 % (0-3) Basophils (%) (Auto) 0 % (0-3) 0 % (0-3) Neutrophils # (Auto) 14.2 x10^3/uL (1.8-7.7) 9.1 x10^3/uL (1.8-7.7) Lymphocytes # (Auto) 0.6 x10^3/uL (1.0-4.8) 0.4 x10^3/uL (1.0-4.8) Monocytes # (Auto) 1.1 x10^3/uL (0.0-1.1) 0.8 x10^3/uL (0.0-1.1) Eosinophils # (Auto) 0.0 x10^3/uL (0.0-0.7) 0.0 x10^3/uL (0.0-0.7) Basophils # (Auto) 0.0 x10^3/uL (0.0-0.2) 0.0 x10^3/uL (0.0-0.2) Segmented Neutrophils % 72 % (35-66) Band Neutrophils % 18 % (0-9) Lymphocytes % 5 % (24-48) Monocytes % 5 % (0-10) Platelet Estimate Adequate (ADEQUATE) Sodium Level 136 mmol/L (136-145) 140 mmol/L (136-145) Potassium Level 4.4 mmol/L (3.5-5.1) 4.5 mmol/L (3.5-5.1) Chloride Level 95 mmol/L (98-107) 103 mmol/L (98-107) Carbon Dioxide Level 31 mmol/L (21-32) 34 mmol/L (21-32) Anion Gap 10 (6-14) 3 (6-14) Blood Urea Nitrogen 15 mg/dL (8-26) 14 mg/dL (8-26) Creatinine 0.9 mg/dL (0.7-1.3) 1.0 mg/dL (0.7-1.3) Estimated GFR (Cockcroft-Gault) 81.6 72.3 BUN/Creatinine Ratio 17 (6-20) Glucose Level 157 mg/dL (70-99) 115 mg/dL (70-99) Calcium Level 9.9 mg/dL (8.5-10.1) 8.2 mg/dL (8.5-10.1) Total Bilirubin 1.5 mg/dL (0.2-1.0) Aspartate Amino Transf (AST/SGOT) 36 U/L (15-37) Alanine Aminotransferase (ALT/SGPT) 31 U/L (16-63) Alkaline Phosphatase 120 U/L (46-116) Total Protein 8.1 g/dL (6.4-8.2) Albumin 4.0 g/dL (3.4-5.0) Albumin/Globulin Ratio 1.0 (1.0-1.7) Lipase 48 U/L (73-393) Lactic Acid Level 1.6 mmol/L (0.4-2.0) Glucose (Fingerstick) 158 mg/dL (70-99) VTE Prophylaxis Ordered VTE Prophylaxis Devices: No VTE Pharmacological Prophylaxi: Yes Assessment/Plan Assessment/Plan Small bowel obstruction Incarcerated umbilical hernia status post herniorrhaphy Obesity with a BMI of 34 History of COPD History of neuropathy History of dyslipidemia History of chronic pain syndrome on chronic narcotic therapy Leukocytosis most likely secondary to the acute incarceration of umbilical hernia Plan Follow recommendations from project consultant Restart home medications We will provide his inhalers from home Diet as per consulted Bowel regimen Incentive spirometry Reassess in the a.m. DVT prophylaxis with SCDs and started heparin products once cleared by network security consultant HERMELINDA DRAKE MD Feb 16, 2020 14:58
[2020-02-16] MEDS ORDERED: DEXTROSE 50% 25 GM / 50ML DISP.SYRIN. IV PRN (15:00)
[2020-02-16] MEDS ORDERED: tiZANidine 4 MG TABLET. PO PRN (15:00)
[2020-02-16] MEDS ORDERED: NON FORMULARY ITEM (Albuterol Sulfate (Ventolin Hfa Inhaler) 2 PUFF) INH SCH (16:00)
[2020-02-16] MEDS ORDERED: IPRATROPIUM BROMIDE 0.5 MG/2.5 ML NEBU. NEB SCH (16:00)
[2020-02-16] MEDS: IPRATRPIUM/ALBUTEROL 0.5/2.5MG 3 ML NEBU. NEB SCH ×2 (16:00→19:14)
[2020-02-16] MEDS: GABAPENTIN 300 MG CAPSULE. PO SCH (16:00)
[2020-02-16] MEDS: oxyCODONE/APAP 5/325 1 TAB TABLET PO SCH ×3 (16:00→23:43)
[2020-02-16] MEDS ORDERED: ALBUTEROL SULFATE 2.5 MG/3 ML NEBU. NEB SCH (16:00)
[2020-02-16] MEDS: INSULIN LISPRO 300 UNITS/3 ML VIAL. SQ SCH (17:00)
[2020-02-16] MEDS: BUDESONIDE 0.5 MG/2 ML NEBU. NEB SCH (19:14)
[2020-02-16] MEDS: ASPIRIN CHEWABLE 81 MG TABLET. PO SCH (20:34)
[2020-02-16] MEDS: DOCUSATE SODIUM 100 MG CAPSULE. PO SCH (20:35)
[2020-02-16] MEDS: GABAPENTIN 400 MG CAPSULE. PO SCH (20:35)
[2020-02-16] MEDS: SENNOSIDES 8.6 MG TABLET PO SCH (20:35)
[2020-02-16] MEDS: MAGNESIUM CHLORIDE ER 64 MG TABLET.ER PO SCH (20:35)
[2020-02-16] MEDS: CYCLOBENZAPRINE 10 MG TABLET. PO SCH (20:35)
[2020-02-16] MEDS: TAMSULOSIN 0.4 MG CAP.ER.24H. PO SCH (20:35)
[2020-02-16] MEDS ORDERED: NON FORMULARY ITEM (Budesonide/Formoterol Fumarate (Symbicort 80-4.5 Mcg Inhaler) 2 PUFF) IH SCH (21:00)
[2020-02-16] MEDS ORDERED: GABAPENTIN 300 MG CAPSULE. PO SCH ×2 (21:00)
[2020-02-17] VITALS (7 sets, daily range): BP systolic 93–150; BP diastolic 36–67
[2020-02-17] MEDS: oxyCODONE/APAP 5/325 1 TAB TABLET PO SCH ×5 (04:00→20:51)
[2020-02-17] MEDS: IPRATRPIUM/ALBUTEROL 0.5/2.5MG 3 ML NEBU. NEB SCH ×4 (07:27→19:59)
[2020-02-17] MEDS: BUDESONIDE 0.5 MG/2 ML NEBU. NEB SCH ×2 (07:27→19:59)
[2020-02-17] MEDS: PANTOPRAZOLE 40 MG TABLET.DR. PO SCH (07:30)
[2020-02-17] MEDS: INSULIN LISPRO 300 UNITS/3 ML VIAL. SQ SCH ×3 (08:00→17:00)
[2020-02-17] MEDS: ATORVASTATIN CALCIUM 40 MG TABLET. PO SCH (08:45)
[2020-02-17] MEDS: FUROSEMIDE 40 MG TABLET. PO SCH (08:45)
[2020-02-17] MEDS: CHOLECALCIFEROL (VITAMIN D3) 1,000 UNIT TABLET PO SCH (08:45)
[2020-02-17] MEDS: GABAPENTIN 300 MG CAPSULE. PO SCH ×2 (08:45→15:30)
[2020-02-17] MEDS: CYCLOBENZAPRINE 10 MG TABLET. PO SCH ×3 (08:45→20:51)
[2020-02-17] MEDS: ASCORBIC ACID 500 MG TABLET PO SCH (08:45)
[2020-02-17] MEDS: fentaNYL PF VIAL 100 MCG/2 ML VIAL IVP PRN (08:54)
[2020-02-17] MEDS ORDERED: NON FORMULARY ITEM (Tiotropium Bromide (Spiriva) 1 CAP) IH SCH (09:00)
[2020-02-17] MEDS ORDERED: TAMSULOSIN 0.4 MG CAP.ER.24H. PO SCH (09:00)
[2020-02-17] MEDS ORDERED: ATORVASTATIN CALCIUM 20 MG TABLET PO SCH (09:00)
--- NOTE | 2020-02-17 09:24 | NUR ---
SW following. Discussed with RN, pt still NPO with NG tube. Getting around fine, has oxygen at home. SW will continue to follow.
--- NOTE | 2020-02-17 09:34 | PDOC ---
SURGICAL PROGRESS NOTE Subjective Patient feeling better this morning would like to have his NG tube out . States he is passing flatus no bowel movement no nausea or vomiting Vital Signs Vital Signs Date Time Temp Pulse Resp B/P (MAP) Pulse Ox O2 Delivery O2 Flow Rate FiO2 02/17/20 08:54 93 Nasal Cannula 3.0 02/17/20 07:15 98.2 93 18 150/56 (87) 98.2 I&O Intake and Output 02/17/20 07:00 Intake Total 50 ml Output Total 900 ml Balance -850 ml Intake Oral 50 ml Output Urine Total 700 ml Gastric Drainage Total 200 ml PATIENT HAS A MACARIO: No General: Alert, Oriented X3, Cooperative, mild distress Abdomen: Normal bowel sounds, Soft, Other (Mild incisional tenderness wound clean dry and intact) Labs Laboratory Tests Test 02/15/20 19:30 02/15/20 21:20 02/16/20 00:41 02/16/20 04:10 White Blood Count 16.0 x10^3/uL (4.0-11.0) 10.3 x10^3/uL (4.0-11.0) Red Blood Count 5.61 x10^6/uL (4.30-5.70) 4.75 x10^6/uL (4.30-5.70) Hemoglobin 17.4 g/dL (13.0-17.5) 15.0 g/dL (13.0-17.5) Hematocrit 51.7 % (39.0-53.0) 44.3 % (39.0-53.0) Mean Corpuscular Volume 92 fL (79-100) 93 fL (79-100) Mean Corpuscular Hemoglobin 31 pg (25-35) 32 pg (25-35) Mean Corpuscular Hemoglobin Concent 34 g/dL (31-37) 34 g/dL (31-37) Red Cell Distribution Width 13.1 % (11.5-14.5) 13.5 % (11.5-14.5) Platelet Count 199 x10^3/uL (140-400) 172 x10^3/uL (140-400) Neutrophils (%) (Auto) 89 % (31-73) 89 % (31-73) Lymphocytes (%) (Auto) 4 % (24-48) 4 % (24-48) Monocytes (%) (Auto) 7 % (0-9) 7 % (0-9) Eosinophils (%) (Auto) 0 % (0-3) 0 % (0-3) Basophils (%) (Auto) 0 % (0-3) 0 % (0-3) Neutrophils # (Auto) 14.2 x10^3/uL (1.8-7.7) 9.1 x10^3/uL (1.8-7.7) Lymphocytes # (Auto) 0.6 x10^3/uL (1.0-4.8) 0.4 x10^3/uL (1.0-4.8) Monocytes # (Auto) 1.1 x10^3/uL (0.0-1.1) 0.8 x10^3/uL (0.0-1.1) Eosinophils # (Auto) 0.0 x10^3/uL (0.0-0.7) 0.0 x10^3/uL (0.0-0.7) Basophils # (Auto) 0.0 x10^3/uL (0.0-0.2) 0.0 x10^3/uL (0.0-0.2) Segmented Neutrophils % 72 % (35-66) Band Neutrophils % 18 % (0-9) Lymphocytes % 5 % (24-48) Monocytes % 5 % (0-10) Platelet Estimate Adequate (ADEQUATE) Sodium Level 136 mmol/L (136-145) 140 mmol/L (136-145) Potassium Level 4.4 mmol/L (3.5-5.1) 4.5 mmol/L (3.5-5.1) Chloride Level 95 mmol/L (98-107) 103 mmol/L (98-107) Carbon Dioxide Level 31 mmol/L (21-32) 34 mmol/L (21-32) Anion Gap 10 (6-14) 3 (6-14) Blood Urea Nitrogen 15 mg/dL (8-26) 14 mg/dL (8-26) Creatinine 0.9 mg/dL (0.7-1.3) 1.0 mg/dL (0.7-1.3) Estimated GFR (Cockcroft-Gault) 81.6 72.3 BUN/Creatinine Ratio 17 (6-20) Glucose Level 157 mg/dL (70-99) 115 mg/dL (70-99) Calcium Level 9.9 mg/dL (8.5-10.1) 8.2 mg/dL (8.5-10.1) Total Bilirubin 1.5 mg/dL (0.2-1.0) Aspartate Amino Transf (AST/SGOT) 36 U/L (15-37) Alanine Aminotransferase (ALT/SGPT) 31 U/L (16-63) Alkaline Phosphatase 120 U/L (46-116) Total Protein 8.1 g/dL (6.4-8.2) Albumin 4.0 g/dL (3.4-5.0) Albumin/Globulin Ratio 1.0 (1.0-1.7) Lipase 48 U/L (73-393) Lactic Acid Level 1.6 mmol/L (0.4-2.0) Glucose (Fingerstick) 158 mg/dL (70-99) Test 02/16/20 18:23 02/16/20 20:48 02/17/20 07:32 Glucose (Fingerstick) 100 mg/dL (70-99) 102 mg/dL (70-99) 94 mg/dL (70-99) Laboratory Tests Test 02/16/20 18:23 02/16/20 20:48 02/17/20 07:32 Glucose (Fingerstick) 100 mg/dL (70-99) 102 mg/dL (70-99) 94 mg/dL (70-99) Problem List Problems Medical Problems: (1) SBO (small bowel obstruction) Status: Acute (2) Umbilical hernia Status: Acute Assessment/Plan Status post umbilical hernia repair Passing flatus will DC NG tube advance diet slowly RICKY HINDS MD Feb 17, 2020 09:34
--- NOTE | 2020-02-17 12:13 | PDOC ---
PROGRESS NOTES Chief Complaint Chief Complaint Small bowel obstruction Incarcerated umbilical hernia status post herniorrhaphy Obesity with a BMI of 34 History of COPD History of neuropathy History of dyslipidemia History of chronic pain syndrome on chronic narcotic therapy Leukocytosis most likely secondary to the acute incarceration of umbilical hernia Plan Follow recommendations from help desk consultant Restart home medications We will provide his inhalers from home Diet as per help desk consultant Bowel regimen Incentive spirometry Reassess in the a.m. DVT prophylaxis with SCDs encourage ambulation will start lovenox History of Present Illness History of Present Illness No acute events reported overnight, case discussed with nursing staff patient in no acute distress no complaints during my visit Vitals Vitals Vital Signs Date Time Temp Pulse Resp B/P (MAP) Pulse Ox O2 Delivery O2 Flow Rate FiO2 02/17/20 11:20 Nasal Cannula 3.0 02/17/20 11:05 98.2 89 18 93/36 (55) 96 98.2 Physical Exam General: Alert, Oriented X3, Cooperative, mild distress Heart: Regular rate Abdomen: Normal bowel sounds, Soft, Other (Mild incisional tenderness wound clean dry and intact) Extremities: No clubbing, No cyanosis Skin: No rashes, No breakdown Labs LABS Laboratory Tests Test 02/16/20 18:23 02/16/20 20:48 02/17/20 07:32 02/17/20 11:27 Glucose (Fingerstick) 100 mg/dL (70-99) 102 mg/dL (70-99) 94 mg/dL (70-99) 88 mg/dL (70-99) Assessment and Plan Assessmemt and Plan Problems Medical Problems: (1) SBO (small bowel obstruction) Status: Acute (2) Umbilical hernia Status: Acute Comment Review of Relevant I have reviewed the following items stevie (where applicable) has been applied. Labs Laboratory Tests Test 02/15/20 19:30 02/15/20 21:20 02/16/20 00:41 02/16/20 04:10 White Blood Count 16.0 x10^3/uL (4.0-11.0) 10.3 x10^3/uL (4.0-11.0) Red Blood Count 5.61 x10^6/uL (4.30-5.70) 4.75 x10^6/uL (4.30-5.70) Hemoglobin 17.4 g/dL (13.0-17.5) 15.0 g/dL (13.0-17.5) Hematocrit 51.7 % (39.0-53.0) 44.3 % (39.0-53.0) Mean Corpuscular Volume 92 fL (79-100) 93 fL (79-100) Mean Corpuscular Hemoglobin 31 pg (25-35) 32 pg (25-35) Mean Corpuscular Hemoglobin Concent 34 g/dL (31-37) 34 g/dL (31-37) Red Cell Distribution Width 13.1 % (11.5-14.5) 13.5 % (11.5-14.5) Platelet Count 199 x10^3/uL (140-400) 172 x10^3/uL (140-400) Neutrophils (%) (Auto) 89 % (31-73) 89 % (31-73) Lymphocytes (%) (Auto) 4 % (24-48) 4 % (24-48) Monocytes (%) (Auto) 7 % (0-9) 7 % (0-9) Eosinophils (%) (Auto) 0 % (0-3) 0 % (0-3) Basophils (%) (Auto) 0 % (0-3) 0 % (0-3) Neutrophils # (Auto) 14.2 x10^3/uL (1.8-7.7) 9.1 x10^3/uL (1.8-7.7) Lymphocytes # (Auto) 0.6 x10^3/uL (1.0-4.8) 0.4 x10^3/uL (1.0-4.8) Monocytes # (Auto) 1.1 x10^3/uL (0.0-1.1) 0.8 x10^3/uL (0.0-1.1) Eosinophils # (Auto) 0.0 x10^3/uL (0.0-0.7) 0.0 x10^3/uL (0.0-0.7) Basophils # (Auto) 0.0 x10^3/uL (0.0-0.2) 0.0 x10^3/uL (0.0-0.2) Segmented Neutrophils % 72 % (35-66) Band Neutrophils % 18 % (0-9) Lymphocytes % 5 % (24-48) Monocytes % 5 % (0-10) Platelet Estimate Adequate (ADEQUATE) Sodium Level 136 mmol/L (136-145) 140 mmol/L (136-145) Potassium Level 4.4 mmol/L (3.5-5.1) 4.5 mmol/L (3.5-5.1) Chloride Level 95 mmol/L (98-107) 103 mmol/L (98-107) Carbon Dioxide Level 31 mmol/L (21-32) 34 mmol/L (21-32) Anion Gap 10 (6-14) 3 (6-14) Blood Urea Nitrogen 15 mg/dL (8-26) 14 mg/dL (8-26) Creatinine 0.9 mg/dL (0.7-1.3) 1.0 mg/dL (0.7-1.3) Estimated GFR (Cockcroft-Gault) 81.6 72.3 BUN/Creatinine Ratio 17 (6-20) Glucose Level 157 mg/dL (70-99) 115 mg/dL (70-99) Calcium Level 9.9 mg/dL (8.5-10.1) 8.2 mg/dL (8.5-10.1) Total Bilirubin 1.5 mg/dL (0.2-1.0) Aspartate Amino Transf (AST/SGOT) 36 U/L (15-37) Alanine Aminotransferase (ALT/SGPT) 31 U/L (16-63) Alkaline Phosphatase 120 U/L (46-116) Total Protein 8.1 g/dL (6.4-8.2) Albumin 4.0 g/dL (3.4-5.0) Albumin/Globulin Ratio 1.0 (1.0-1.7) Lipase 48 U/L (73-393) Lactic Acid Level 1.6 mmol/L (0.4-2.0) Glucose (Fingerstick) 158 mg/dL (70-99) Test 02/16/20 18:23 02/16/20 20:48 02/17/20 07:32 02/17/20 11:27 Glucose (Fingerstick) 100 mg/dL (70-99) 102 mg/dL (70-99) 94 mg/dL (70-99) 88 mg/dL (70-99) Laboratory Tests Test 02/16/20 18:23 02/16/20 20:48 02/17/20 07:32 02/17/20 11:27 Glucose (Fingerstick) 100 mg/dL (70-99) 102 mg/dL (70-99) 94 mg/dL (70-99) 88 mg/dL (70-99) Medications Current Medications Ondansetron HCl (Zofran) 4 mg 1X ONCE IVP Last administered on 02/15/20at 19:44; Start 02/15/20 at 19:30; Stop 02/15/20 at 19:35; Status DC Ondansetron HCl (Zofran) 4 mg STK-MED ONCE .ROUTE ; Start 02/15/20 at 19:25; Stop 02/15/20 at 19:26; Status DC Fentanyl Citrate (Fentanyl 2ml Vial) 50 mcg PRN Q15MIN PRN IV PAIN GREATER THAN 3/10 Last administered on 02/15/20at 22:00; Start 02/15/20 at 19:30; Stop 02/16/20 at 19:29; Status DC Sodium Chloride 1,000 ml @ 1,000 mls/hr Q1H IV Last administered on 02/15/20at 19:44; Start 02/15/20 at 19:29; Stop 02/15/20 at 20:28; Status DC Iohexol (Omnipaque 300 Mg/ml) 75 ml 1X ONCE IV Last administered on 02/15/20at 20:40; Start 02/15/20 at 20:30; Stop 02/15/20 at 20:31; Status DC Info (CONTRAST GIVEN -- Rx MONITORING) 1 each PRN DAILY PRN MC SEE COMMENTS; Start 02/15/20 at 20:30; Stop 02/17/20 at 20:29 Dicyclomine HCl (Bentyl) 10 mg 1X ONCE IM Last administered on 02/15/20at 21:00; Start 02/15/20 at 20:30; Stop 02/15/20 at 20:31; Status DC Ondansetron HCl (Zofran) 4 mg PRN Q8HRS PRN IV NAUSEA/VOMITING 1ST CHOICE Last administered on 02/16/20at 09:24; Start 02/15/20 at 21:30; Stop 02/16/20 at 21:29; Status DC Morphine Sulfate (Morphine Sulfate) 4 mg PRN Q2HR PRN IV SEVERE PAIN 7-10; Start 02/15/20 at 21:30; Stop 02/16/20 at 21:29; Status DC Sodium Chloride 1,000 ml @ 100 mls/hr Q10H IV Last administered on 02/16/20at 11:59; Start 02/15/20 at 22:00; Stop 02/16/20 at 21:59; Status DC Propofol 20 ml @ As Directed STK-MED ONCE IV ; Start 02/15/20 at 21:30; Stop 02/15/20 at 21:31; Status DC Lidocaine HCl (Lidocaine Pf 2% Vial) 5 ml STK-MED ONCE .ROUTE ; Start 02/15/20 at 21:30; Stop 02/15/20 at 21:31; Status DC Rocuronium [place] (Zemuron) 50 mg STK-MED ONCE .ROUTE ; Start 02/15/20 at 21:30; Stop 02/15/20 at 21:31; Status DC Fentanyl Citrate (Fentanyl 2ml Vial) 100 mcg STK-MED ONCE .ROUTE ; Start 02/15/20 at 21:31; Stop 02/15/20 at 21:31; Status DC Fentanyl Citrate (Fentanyl 2ml Vial) 25 mcg PRN Q5MIN PRN IV MILD PAIN 1-3; Start 02/15/20 at 22:15; Stop 02/16/20 at 22:14; Status DC Fentanyl Citrate (Fentanyl 2ml Vial) 50 mcg PRN Q5MIN PRN IV MODERATE TO SEVERE PAIN; Start 02/15/20 at 22:15; Stop 02/16/20 at 22:14; Status DC Morphine Sulfate (Morphine Sulfate) 1 mg PRN Q10MIN PRN IV SEVERE PAIN 7-10; Start 02/15/20 at 22:15; Stop 02/16/20 at 22:14; Status DC Ringer's Solution 1,000 ml @ 30 mls/hr Q24H IV ; Start 02/15/20 at 22:30; Stop 02/16/20 at 22:29; Status DC Hydromorphone HCl (Dilaudid) 0.5 mg PRN Q10MIN PRN IV SEV PAIN, Second choice; Start 02/15/20 at 22:15; Stop 02/16/20 at 22:14; Status DC Prochlorperazine Edisylate (Compazine) 5 mg PACU PRN PRN IV NAUSEA, MRX1; Start 02/15/20 at 22:15; Stop 02/16/20 at 22:14; Status DC Sodium Chloride 1,000 ml @ 1,000 mls/hr 1X ONCE IV ; Start 02/15/20 at 22:30; Stop 02/16/20 at 00:32; Status DC Bupivacaine HCl/ Epinephrine Bitart (Sensorcain-Epi 0.5%-1:[id number] Mpf) 30 ml STK-MED ONCE .ROUTE ; Start 02/15/20 at 22:13; Stop 02/15/20 at 22:13; Status DC Ondansetron HCl (Zofran) 4 mg STK-MED ONCE .ROUTE ; Start 02/15/20 at 22:49; Stop 02/15/20 at 22:49; Status DC Neostigmine [place] (Neostigmine Methylsulfate) 5 mg STK-MED ONCE .ROUTE ; Start 02/15/20 at 22:49; Stop 02/15/20 at 22:49; Status DC Glycopyrrolate (Robinul) 1 mg STK-MED ONCE .ROUTE ; Start 02/15/20 at 22:49; Stop 02/15/20 at 22:50; Status DC Dexamethasone Sodium Phosphate (Decadron) 4 mg STK-MED ONCE .ROUTE ; Start 02/15/20 at 22:50; Stop 02/15/20 at 22:50; Status DC Cefazolin Sodium (Ancef) 1 gm STK-MED ONCE IVP ; Start 02/15/20 at 23:11; Stop 02/15/20 at 23:11; Status DC Fentanyl Citrate (Fentanyl 2ml Vial) 25 mcg PRN Q2HRS PRN IVP MODERATE PAIN 4- 6; Start 02/16/20 at 00:15 Albuterol Sulfate (Ventolin Neb Soln) 2.5 mg 1X ONCE NEB Last administered on 02/16/20at 00:40; Start 02/16/20 at 01:00; Stop 02/16/20 at 01:01; Status DC Fentanyl Citrate (Fentanyl 2ml Vial) 50 mcg PRN Q2HRS PRN IVP SEVERE PAIN 7-10 Last administered on 02/17/20at 08:54; Start 02/16/20 at 00:30 Insulin Human Lispro (HumaLOG VIAL for OP,RR ONLY) 0-10 units PRN Q1HR PRN SQ PER PROTOCOL Last administered on 02/16/20at 00:58; Start 02/16/20 at 01:00; S top 02/17/20 at 00:59; Status DC Albuterol Sulfate (Ventolin Neb Soln) 2.5 mg RTQID NEB Last administered on 02/16/20at 14:57; Start 02/16/20 at 16:00; Stop 02/16/20 at 15:20; Status DC Aspirin (Aspirin Chewable) 81 mg HS PO ; Start 02/16/20 at 21:00 Atorvastatin Calcium (Lipitor) 20 mg DAILY PO ; Start 02/17/20 at 09:00; Status Cancel Atorvastatin Calcium (Lipitor) 40 mg DAILY PO ; Start 02/17/20 at 09:00 Docusate Sodium (Colace) 100 mg HS PO ; Start 02/16/20 at 21:00 Furosemide (Lasix) 40 mg DAILY PO ; Start 02/17/20 at 09:00 Gabapentin (Neurontin) 900 mg BID PO ; Start 02/16/20 at 21:00; Stop 02/16/20 at 15:07; Status DC Gabapentin (Neurontin) 300 mg TID PO ; Start 02/16/20 at 21:00; Stop 02/16/20 at 15:07; Status DC Ipratropium [place] (Atrovent) 0.2 mg RTQID NEB ; Start 02/16/20 at 16:00; Stop 02/16/20 at 15:20; Status DC Oxycodone/ Acetaminophen (Percocet 5/325) 1 tab Q4HRS PO ; Start 02/16/20 at 16:00 Sennosides (Senna) 8.6 mg HS PO ; Start 02/16/20 at 21:00 Tamsulosin HCl (Flomax) 0.4 mg DAILY PO ; Start 02/17/20 at 09:00; Stop 02/16/20 at 15:09; Status DC Tamsulosin HCl (Flomax) 0.4 mg HS PO ; Start 02/16/20 at 21:00 Tizanidine HCl (Zanaflex) 2 mg PRN TID PRN PO MUSCLE SPASMS; Start 02/16/20 at 15:00 Non-Formulary Medication (Albuterol Sulfate (Ventolin Hfa Inhaler)) 2 puff Q4HRS INH ; Start 02/16/20 at 16:00; Stop 02/16/20 at 15:12; Status DC Ascorbic Acid (Vitamin C) 500 mg DAILY PO ; Start 02/17/20 at 09:00 Cyclobenzaprine HCl (Flexeril) 10 mg TID PO ; Start 02/16/20 at 21:00 Non-Formulary Medication (Budesonide/ Formoterol Fumarate (Symbicort 80-4.5 Mcg Inhaler)) 2 puff BID IH ; Start 02/16/20 at 21:00; Stop 02/16/20 at 15:21; Status DC Vitamin D (Vitamin D3) 4,000 unit DAILY PO ; Start 02/17/20 at 09:00 Gabapentin (Neurontin) 600 mg BID@0900,1500 PO ; Start 02/16/20 at 16:00 Gabapentin (Neurontin) 800 mg QHS PO ; Start 02/16/20 at 21:00 Magnesium Chloride (Mag Delay) 64 mg QHS PO ; Start 02/16/20 at 21:00 Pantoprazole Sodium (Protonix) 40 mg DAILYAC PO ; Start 02/17/20 at 07:30 Non-Formulary Medication (Tiotropium [place] (Spiriva)) 1 cap DAILY IH ; Start 02/17/20 at 09:00; Stop 02/16/20 at 15:18; Status DC Insulin Human Lispro (HumaLOG) 0-5 UNITS TIDWMEALS SQ ; Start 02/16/20 at 17:00 Dextrose (Dextrose 50%-Water Syringe) 12.5 gm PRN Q15MIN PRN IV SEE COMMENTS; Start 02/16/20 at 15:00 Albuterol/ Ipratropium (Duoneb) 3 ml RTQID NEB Last administered on 02/17/20at 1 1:20; Start 02/16/20 at 16:00 Budesonide (Pulmicort) 0.5 mg RTBID NEB Last administered on 02/17/20at 07:27; Start 02/16/20 at 20:00 Active Scripts Active Zofran Odt (Ondansetron) 4 Mg Tab.rapdis 1 Tab SL Q8HRS PRN Azithromycin Tablet (Azithromycin) 250 Mg Tablet 1 Pkg PO UD Prednisone 50 Mg Tablet 1 Tab PO DAILY Reported Vitamin D3 (Cholecalciferol (Vitamin D3)) 4,000 Unit Capsule 1 Cap PO DAILY 30 Days Vitamin E (Vitamin E Mixed) 400 Unit Tablet 1 Tab PO QHS 30 Days Magnesium Gluconate 27 Mg Tablet 1 Tab PO HS 30 Days Vitamin C (Ascorbic Acid) 100 Mg Tablet 1 Tab PO DAILY 30 Days Aspirin 81 Mg Tab.chew 1 Tab PO HS Docusate Sodium 100 Mg Capsule 1 Cap PO HS 7 Days Senna Laxative (Sennosides) 8.6 Mg Tablet 1 Tab PO HS 30 Days Baclofen 20 Mg Tablet 20 Mg PO BID Flomax (Tamsulosin Hcl) 0.4 Mg Cap.er.24h 0.4 Mg PO HS Gabapentin 800 Mg Tablet 800 Mg PO HS Gabapentin 600 Mg Tablet 600 Mg PO BID Metformin Hcl 500 Mg Tablet 500 Mg PO HS Atorvastatin Calcium 40 Mg Tablet 40 Mg PO DAILY Spiriva (Tiotropium [place]) 18 Mcg Cap.w.dev 1 Cap IH DAILY Ventolin Hfa Inhaler (Albuterol Sulfate) 18 Gm Hfa.aer.ad 2 Puff INH Q4HRS Ipratropium [place] 0.2 Mg/1 Ml Solution 1 Vial NEB QID Symbicort 80-4.5 Mcg Inhaler (Budesonide/Formoterol Fumarate) 10.2 Gm Hfa.aer.ad 2 Puff IH BID Percocet 5-325 Mg Tablet (Oxycodone/Acetaminophen) 1 Each Tablet 1-2 Tab PO Q4-6HRS Omeprazole 20 Mg Tablet.dr 1 Tab PO DAILY Furosemide 40 Mg Tablet 1 Tab PO DAILY Gabapentin (Gabapentin) 300 Mg Capsule 300 Mg PO TID Atorvastatin Calcium 20 Mg Tablet 1 Tab PO DAILY Tizanidine Hcl 4 Mg Tablet 2 Mg PO TID PRN Percocet 5-325 Mg Tablet (Oxycodone/Acetaminophen) 1 Each Tablet 1-2 Tab PO Q4-6HRS Gabapentin (Gabapentin) 300 Mg Capsule 3 Cap PO BID Meloxicam 15 Mg Tablet 1 Tab PO HS Tamsulosin Hcl 0.4 Mg Cap.er.24h 1 Cap PO DAILY Vitals/I & O Vital Sign - Last 24 Hours 02/16/20 02/16/20 02/16/20 02/16/20 15:00 15:25 19:00 19:15 Temp 98.2 99.0 98.2 99.0 Pulse 97 98 Resp 20 B/P (MAP) 116/61 (79) 96/47 (63) Pulse Ox 96 95 93 95 O2 Delivery Nasal Cannula Nasal Cannula Nasal Cannula Nasal Cannula O2 Flow Rate 3.0 3.0 3.0 3.0 02/16/20 02/16/20 02/17/20 02/17/20 19:45 23:00 03:00 07:15 Temp 98.9 98.0 98.2 98.9 98.0 98.2 Pulse 83 76 93 Resp 20 20 18 B/P (MAP) 94/39 (57) 101/67 (78) 150/56 (87) Pulse Ox 94 91 94 O2 Delivery Nasal Cannula Nasal Cannula Nasal Cannula Nasal Cannula O2 Flow Rate 3.0 3.0 3.0 3.0 02/17/20 02/17/20 02/17/20 02/17/20 07:27 07:45 08:54 09:24 Pulse Ox 93 93 93 O2 Delivery Nasal Cannula Nasal Cannula Nasal Cannula Nasal Cannula O2 Flow Rate 3.0 3.0 3.0 3.0 02/17/20 02/17/20 11:05 11:20 Temp 98.2 98.2 Pulse 89 Resp 18 B/P (MAP) 93/36 (55) Pulse Ox 96 O2 Delivery Nasal Cannula Nasal Cannula O2 Flow Rate 3.0 3.0 Intake and Output 02/16/20 02/16/20 02/17/20 15:00 23:00 07:00 Intake Total 0 ml 50 ml Output Total 350 ml 550 ml Balance 0 ml -350 ml -500 ml HERMELINDA DRAKE MD Feb 17, 2020 12:13
[2020-02-17] MEDS: ENOXAPARIN 40 MG/0.4 ML SYRINGE. SQ SCH (13:13)
[2020-02-17] MEDS: GABAPENTIN 400 MG CAPSULE. PO SCH (20:50)
[2020-02-17] MEDS: TAMSULOSIN 0.4 MG CAP.ER.24H. PO SCH (20:50)
[2020-02-17] MEDS: SENNOSIDES 8.6 MG TABLET PO SCH (20:51)
[2020-02-17] MEDS: MAGNESIUM CHLORIDE ER 64 MG TABLET.ER PO SCH (20:51)
[2020-02-17] MEDS: DOCUSATE SODIUM 100 MG CAPSULE. PO SCH (20:51)
[2020-02-17] MEDS: ASPIRIN CHEWABLE 81 MG TABLET. PO SCH (20:51)
[2020-02-18] MEDS: oxyCODONE/APAP 5/325 1 TAB TABLET PO SCH ×4 (00:09→12:14)
[2020-02-18 03:00] VITALS: BP 94/48
[2020-02-18] MEDS: PANTOPRAZOLE 40 MG TABLET.DR. PO SCH (05:52)
[2020-02-18] MEDS: IPRATRPIUM/ALBUTEROL 0.5/2.5MG 3 ML NEBU. NEB SCH ×4 (07:07→19:10)
[2020-02-18] MEDS: BUDESONIDE 0.5 MG/2 ML NEBU. NEB SCH ×2 (07:07→19:12)
[2020-02-18 07:15] VITALS: BP 106/60
--- NOTE | 2020-02-18 07:44 | NUR ---
During shift change patient stated to night nurse LEONID Fleming that her friend dropped off a [employer] bag with personal belongings in it yesterday around [phone] at patient care services. [employer] went to all entrances, there was no [employer] bags at the entrances. [facility] nursing supervisor mending notified. Stated that we would need to get a statement from the friend that dropped off the belongings before we could make a report. Caitlin Rojas called around [phone] left message to return call. Phone number for friend [phone] Addendum: 02/18/20 at 1244 by PATRICK GARCIA RN Wrong chart
[2020-02-18] MEDS: INSULIN LISPRO 300 UNITS/3 ML VIAL. SQ SCH ×3 (08:00→17:00)
[2020-02-18] MEDS: CHOLECALCIFEROL (VITAMIN D3) 1,000 UNIT TABLET PO SCH (08:43)
[2020-02-18] MEDS: ATORVASTATIN CALCIUM 40 MG TABLET. PO SCH (08:44)
[2020-02-18] MEDS: ASCORBIC ACID 500 MG TABLET PO SCH (08:44)
[2020-02-18] MEDS: FUROSEMIDE 40 MG TABLET. PO SCH (08:44)
[2020-02-18] MEDS: CYCLOBENZAPRINE 10 MG TABLET. PO SCH ×2 (08:44→13:19)
[2020-02-18] MEDS: GABAPENTIN 300 MG CAPSULE. PO SCH ×2 (08:44→15:00)
--- NOTE | 2020-02-18 09:53 | NUR ---
SW following. Discussed with RN, pt from home. Full liquid diet, advancing slowly. No longer has NG tube. SW will continue to follow.
[2020-02-18 11:15] VITALS: BP 107/64
[2020-02-18] MEDS: ENOXAPARIN 40 MG/0.4 ML SYRINGE. SQ SCH (12:14)
--- NOTE | 2020-02-18 13:33 | PDOC ---
PROGRESS NOTES Subjective Subjective much improved today, passing gas, taking liquids well Objective Objective Vital Signs Date Time Temp Pulse Resp B/P (MAP) Pulse Ox O2 Delivery O2 Flow Rate FiO2 02/18/20 12:14 98 Nasal Cannula 3.0 02/18/20 11:15 97.4 66 16 107/64 (78) 97.4 Intake and Output 02/18/20 07:00 Intake Total 360 ml Output Total 800 ml Balance -440 ml Intake Oral 360 ml Output Urine Total 800 ml Physical Exam Abdomen: Soft Assessment Assessment Problems Medical Problems: (1) SBO (small bowel obstruction) Status: Acute (2) Umbilical hernia Status: Acute Plan Plan of Care advance diet Comment Review of Relevant I have reviewed the following items stevie (where applicable) has been applied. Labs Laboratory Tests Test 02/16/20 18:23 02/16/20 20:48 02/17/20 07:32 02/17/20 11:27 Glucose (Fingerstick) 100 mg/dL (70-99) 102 mg/dL (70-99) 94 mg/dL (70-99) 88 mg/dL (70-99) Test 02/17/20 16:40 02/17/20 20:15 02/18/20 07:39 02/18/20 11:15 Glucose (Fingerstick) 96 mg/dL (70-99) 120 mg/dL (70-99) 78 mg/dL (70-99) 111 mg/dL (70-99) Laboratory Tests Test 02/17/20 16:40 02/17/20 20:15 02/18/20 07:39 02/18/20 11:15 Glucose (Fingerstick) 96 mg/dL (70-99) 120 mg/dL (70-99) 78 mg/dL (70-99) 111 mg/dL (70-99) Medications Current Medications Ondansetron HCl (Zofran) 4 mg 1X ONCE IVP Last administered on 02/15/20at 19:44; Start 02/15/20 at 19:30; Stop 02/15/20 at 19:35; Status DC Ondansetron HCl (Zofran) 4 mg STK-MED ONCE .ROUTE ; Start 02/15/20 at 19:25; Stop 02/15/20 at 19:26; Status DC Fentanyl Citrate (Fentanyl 2ml Vial) 50 mcg PRN Q15MIN PRN IV PAIN GREATER THAN 3/10 Last administered on 02/15/20at 22:00; Start 02/15/20 at 19:30; Stop 02/16/20 at 19:29; Status DC Sodium Chloride 1,000 ml @ 1,000 mls/hr Q1H IV Last administered on 02/15/20at 19:44; Start 02/15/20 at 19:29; Stop 02/15/20 at 20:28; Status DC Iohexol (Omnipaque 300 Mg/ml) 75 ml 1X ONCE IV Last administered on 02/15/20at 20:40; Start 02/15/20 at 20:30; Stop 02/15/20 at 20:31; Status DC Info (CONTRAST GIVEN -- Rx MONITORING) 1 each PRN DAILY PRN MC SEE COMMENTS; Start 02/15/20 at 20:30; Stop 02/17/20 at 20:29; Status DC Dicyclomine HCl (Bentyl) 10 mg 1X ONCE IM Last administered on 02/15/20at 21:00; Start 02/15/20 at 20:30; Stop 02/15/20 at 20:31; Status DC Ondansetron HCl (Zofran) 4 mg PRN Q8HRS PRN IV NAUSEA/VOMITING 1ST CHOICE Last administered on 02/16/20at 09:24; Start 02/15/20 at 21:30; Stop 02/16/20 at 21:29; Status DC Morphine Sulfate (Morphine Sulfate) 4 mg PRN Q2HR PRN IV SEVERE PAIN 7-10; Start 02/15/20 at 21:30; Stop 02/16/20 at 21:29; Status DC Sodium Chloride 1,000 ml @ 100 mls/hr Q10H IV Last administered on 02/16/20at 11:59; Start 02/15/20 at 22:00; Stop 02/16/20 at 21:59; Status DC Propofol 20 ml @ As Directed STK-MED ONCE IV ; Start 02/15/20 at 21:30; Stop 02/15/20 at 21:31; Status DC Lidocaine HCl (Lidocaine Pf 2% Vial) 5 ml STK-MED ONCE .ROUTE ; Start 02/15/20 at 21:30; Stop 02/15/20 at 21:31; Status DC Rocuronium [place] (Zemuron) 50 mg STK-MED ONCE .ROUTE ; Start 02/15/20 at 21:30; Stop 02/15/20 at 21:31; Status DC Fentanyl Citrate (Fentanyl 2ml Vial) 100 mcg STK-MED ONCE .ROUTE ; Start 02/15/20 at 21:31; Stop 02/15/20 at 21:31; Status DC Fentanyl Citrate (Fentanyl 2ml Vial) 25 mcg PRN Q5MIN PRN IV MILD PAIN 1-3; Start 02/15/20 at 22:15; Stop 02/16/20 at 22:14; Status DC Fentanyl Citrate (Fentanyl 2ml Vial) 50 mcg PRN Q5MIN PRN IV MODERATE TO SEVERE PAIN; Start 02/15/20 at 22:15; Stop 02/16/20 at 22:14; Status DC Morphine Sulfate (Morphine Sulfate) 1 mg PRN Q10MIN PRN IV SEVERE PAIN 7-10; Start 02/15/20 at 22:15; Stop 02/16/20 at 22:14; Status DC Ringer's Solution 1,000 ml @ 30 mls/hr Q24H IV ; Start 02/15/20 at 22:30; Stop 02/16/20 at 22:29; Status DC Hydromorphone HCl (Dilaudid) 0.5 mg PRN Q10MIN PRN IV SEV PAIN, Second choice; Start 02/15/20 at 22:15; Stop 02/16/20 at 22:14; Status DC Prochlorperazine Edisylate (Compazine) 5 mg PACU PRN PRN IV NAUSEA, MRX1; Start 02/15/20 at 22:15; Stop 02/16/20 at 22:14; Status DC Sodium Chloride 1,000 ml @ 1,000 mls/hr 1X ONCE IV ; Start 02/15/20 at 22:30; Stop 02/16/20 at 00:32; Status DC Bupivacaine HCl/ Epinephrine Bitart (Sensorcain-Epi 0.5%-1:151196 Mpf) 30 ml STK-MED ONCE .ROUTE ; Start 02/15/20 at 22:13; Stop 02/15/20 at 22:13; Status DC Ondansetron HCl (Zofran) 4 mg STK-MED ONCE .ROUTE ; Start 02/15/20 at 22:49; Stop 02/15/20 at 22:49; Status DC Neostigmine [place] (Neostigmine Methylsulfate) 5 mg STK-MED ONCE .ROUTE ; Start 02/15/20 at 22:49; Stop 02/15/20 at 22:49; Status DC Glycopyrrolate (Robinul) 1 mg STK-MED ONCE .ROUTE ; Start 02/15/20 at 22:49; Stop 02/15/20 at 22:50; Status DC Dexamethasone Sodium Phosphate (Decadron) 4 mg STK-MED ONCE .ROUTE ; Start 02/15/20 at 22:50; Stop 02/15/20 at 22:50; Status DC Cefazolin Sodium (Ancef) 1 gm STK-MED ONCE IVP ; Start 02/15/20 at 23:11; Stop 02/15/20 at 23:11; Status DC Fentanyl Citrate (Fentanyl 2ml Vial) 25 mcg PRN Q2HRS PRN IVP MODERATE PAIN 4- 6; Start 02/16/20 at 00:15 Albuterol Sulfate (Ventolin Neb Soln) 2.5 mg 1X ONCE NEB Last administered on 02/16/20at 00:40; Start 02/16/20 at 01:00; Stop 02/16/20 at 01:01; Status DC Fentanyl Citrate (Fentanyl 2ml Vial) 50 mcg PRN Q2HRS PRN IVP SEVERE PAIN 7-10 Last administered on 02/17/20at 08:54; Start 02/16/20 at 00:30 Insulin Human Lispro (HumaLOG VIAL for OP,RR ONLY) 0-10 units PRN Q1HR PRN SQ PER PROTOCOL Last administered on 02/16/20at 00:58; Start 02/16/20 at 01:00; Stop 02/17/20 at 00:59; Status DC Albuterol Sulfate (Ventolin Neb Soln) 2.5 mg RTQID NEB Last administered on 02/16/20at 14:57; Start 02/16/20 at 16:00; Stop 02/16/20 at 15:20; Status DC Aspirin (Aspirin Chewable) 81 mg HS PO Last administered on 02/17/20at 20:51; Start 02/16/20 at 21:00 Atorvastatin Calcium (Lipitor) 20 mg DAILY PO ; Start 02/17/20 at 09:00; Status Cancel Atorvastatin Calcium (Lipitor) 40 mg DAILY PO Last administered on 02/18/20 08:44; Start 02/17/20 at 09:00 Docusate Sodium (Colace) 100 mg HS PO Last administered on 02/17/20at 20:51; Start 02/16/20 at 21:00 Furosemide (Lasix) 40 mg DAILY PO Last administered on 02/18/20at 08:44; Start 02/17/20 at 09:00 Gabapentin (Neurontin) 900 mg BID PO ; Start 02/16/20 at 21:00; Stop 02/16/20 at 15:07; Status DC Gabapentin (Neurontin) 300 mg TID PO ; Start 02/16/20 at 21:00; Stop 02/16/20 at 15:07; Status DC Ipratropium [place] (Atrovent) 0.2 mg RTQID NEB ; Start 02/16/20 at 16:00; Stop 02/16/20 at 15:20; Status DC Oxycodone/ Acetaminophen (Percocet 5/325) 1 tab Q4HRS PO Last administered on 02/18/20at 12:14; Start 02/16/20 at 16:00 Sennosides (Senna) 8.6 mg HS PO Last administered on 02/17/20at 20:51; Start 02/16/20 at 21:00 Tamsulosin HCl (Flomax) 0.4 mg DAILY PO ; Start 02/17/20 at 09:00; Stop 02/16/20 at 15:09; Status DC Tamsulosin HCl (Flomax) 0.4 mg HS PO Last administered on 02/17/20at 20:50; Start 02/16/20 at 21:00 Tizanidine HCl (Zanaflex) 2 mg PRN TID PRN PO MUSCLE SPASMS; Start 02/16/20 at 15:00 Non-Formulary Medication (Albuterol Sulfate (Ventolin Hfa Inhaler)) 2 puff Q4HRS INH ; Start 02/16/20 at 16:00; Stop 02/16/20 at 15:12; Status DC Ascorbic Acid (Vitamin C) 500 mg DAILY PO Last administered on 02/18/20at 08:44; Start 02/17/20 at 09:00 Cyclobenzaprine HCl (Flexeril) 10 mg TID PO Last administered on 02/18/20 08:44; Start 02/16/20 at 21:00 Non-Formulary Medication (Budesonide/ Formoterol Fumarate (Symbicort 80-4.5 Mcg Inhaler)) 2 puff BID IH ; Start 02/16/20 at 21:00; Stop 02/16/20 at 15:21; Status DC Vitamin D (Vitamin D3) 4,000 unit DAILY PO Last administered on 02/18/20 08:43; Start 02/17/20 at 09:00 Gabapentin (Neurontin) 600 mg BID@0900,1500 PO Last administered on 02/18/20at 08:44; Start 02/16/20 at 16:00 Gabapentin (Neurontin) 800 mg QHS PO Last administered on 02/17/20at 20:50; Start 02/16/20 at 21:00 Magnesium Chloride (Mag Delay) 64 mg QHS PO Last administered on 02/17/20at 20:51; Start 02/16/20 at 21:00 Pantoprazole Sodium (Protonix) 40 mg DAILYAC PO Last administered on 02/18/20at 05:52; Start 02/17/20 at 07:30 Non-Formulary Medication (Tiotropium [place] (Spiriva)) 1 cap DAILY IH ; Start 02/17/20 at 09:00; Stop 02/16/20 at 15:18; Status DC Insulin Human Lispro (HumaLOG) 0-5 UNITS TIDWMEALS SQ ; Start 02/16/20 at 17:00 Dextrose (Dextrose 50%-Water Syringe) 12.5 gm PRN Q15MIN PRN IV SEE COMMENTS; Start 02/16/20 at 15:00 Albuterol/ Ipratropium (Duoneb) 3 ml RTQID NEB Last administered on 02/18/20at 11:03; Start 02/16/20 at 16:00 Budesonide (Pulmicort) 0.5 mg RTBID NEB Last administered on 02/18/20at 07:07; Start 02/16/20 at 20:00 Enoxaparin Sodium (Lovenox 40mg Syringe) 40 mg Q24H SQ Last administered on 02/18/20at 12:14; Start 02/17/20 at 13:00 Active Scripts Active Zofran Odt (Ondansetron) 4 Mg Tab.rapdis 1 Tab SL Q8HRS PRN Azithromycin Tablet (Azithromycin) 250 Mg Tablet 1 Pkg PO UD Prednisone 50 Mg Tablet 1 Tab PO DAILY Reported Vitamin D3 (Cholecalciferol (Vitamin D3)) 4,000 Unit Capsule 1 Cap PO DAILY 30 Days Vitamin E (Vitamin E Mixed) 400 Unit Tablet 1 Tab PO QHS 30 Days Magnesium Gluconate 27 Mg Tablet 1 Tab PO HS 30 Days Vitamin C (Ascorbic Acid) 100 Mg Tablet 1 Tab PO DAILY 30 Days Aspirin 81 Mg Tab.chew 1 Tab PO HS Docusate Sodium 100 Mg Capsule 1 Cap PO HS 7 Days Senna Laxative (Sennosides) 8.6 Mg Tablet 1 Tab PO HS 30 Days Baclofen 20 Mg Tablet 20 Mg PO BID Flomax (Tamsulosin Hcl) 0.4 Mg Cap.er.24h 0.4 Mg PO HS Gabapentin 800 Mg Tablet 800 Mg PO HS Gabapentin 600 Mg Tablet 600 Mg PO BID Metformin Hcl 500 Mg Tablet 500 Mg PO HS Atorvastatin Calcium 40 Mg Tablet 40 Mg PO DAILY Spiriva (Tiotropium [place]) 18 Mcg Cap.w.dev 1 Cap IH DAILY Ventolin Hfa Inhaler (Albuterol Sulfate) 18 Gm Hfa.aer.ad 2 Puff INH Q4HRS Ipratropium [place] 0.2 Mg/1 Ml Solution 1 Vial NEB QID Symbicort 80-4.5 Mcg Inhaler (Budesonide/Formoterol Fumarate) 10.2 Gm Hfa.aer.ad 2 Puff IH BID Percocet 5-325 Mg Tablet (Oxycodone/Acetaminophen) 1 Each Tablet 1-2 Tab PO Q4-6HRS Omeprazole 20 Mg Tablet.dr 1 Tab PO DAILY Furosemide 40 Mg Tablet 1 Tab PO DAILY Gabapentin (Gabapentin) 300 Mg Capsule 300 Mg PO TID Atorvastatin Calcium 20 Mg Tablet 1 Tab PO DAILY Tizanidine Hcl 4 Mg Tablet 2 Mg PO TID PRN Percocet 5-325 Mg Tablet (Oxycodone/Acetaminophen) 1 Each Tablet 1-2 Tab PO Q4-6HRS Gabapentin (Gabapentin) 300 Mg Capsule 3 Cap PO BID Meloxicam 15 Mg Tablet 1 Tab PO HS Tamsulosin Hcl 0.4 Mg Cap.er.24h 1 Cap PO DAILY Vitals/I & O Vital Sign - Last 24 Hours 02/17/20 02/17/20 02/17/20/29/20 15:05 15:31 15:32 16:31 Temp 97.8 97.8 Pulse 77 Resp 20 B/P (MAP) 127/62 (83) Pulse Ox 96 96 96 O2 Delivery Nasal Cannula Nasal Cannula Nasal Cannula Nasal Cannula O2 Flow Rate 3.0 3.0 3.0 3.0 02/17/20 02/17/20 02/17/20 02/17/20 19:00 20:00 20:00 20:03 Temp 98.2 98.2 Pulse 73 Resp 18 B/P (MAP) 94/63 (73) Pulse Ox 92 93 93 O2 Delivery Nasal Cannula Nasal Cannula Nasal Cannula Nasal Cannula O2 Flow Rate 3.0 3.0 3.0 3.0 02/17/20 02/17/20 02/17/20 02/18/20 20:51 22:00 23:00 00:09 Temp 98.0 98.0 Pulse 68 Resp 18 B/P (MAP) 93/42 (59) Pulse Ox 92 O2 Delivery Nasal Cannula Nasal Cannula Nasal Cannula Nasal Cannula O2 Flow Rate 3.0 3.0 3.0 02/18/20 02/18/20 02/18/20 02/18/20 01:24 03:00 04:28 05:31 Temp 98.0 98.0 Pulse 72 Resp 18 B/P (MAP) 94/48 (63) Pulse Ox 90 O2 Delivery Nasal Cannula Nasal Cannula Nasal Cannula Nasal Cannula O2 Flow Rate 3.0 3.0 3.0 3.0 02/18/20 02/18/20 02/18/20 02/18/20 07:08 07:15 08:00 11:03 Temp 97.8 97.8 Pulse 68 Resp 14 B/P (MAP) 106/60 (75) Pulse Ox 96 94 96 O2 Delivery Nasal Cannula Nasal Cannula Nasal Cannula Nasal Cannula O2 Flow Rate 3.0 3.0 3.0 02/18/20 02/18/20 02/18/20 11:03 11:15 12:14 Temp 97.4 97.4 Pulse 66 Resp 16 B/P (MAP) 107/64 (78) Pulse Ox 96 98 98 O2 Delivery Nasal Cannula Nasal Cannula Nasal Cannula O2 Flow Rate 3.0 3.0 3.0 Intake and Output 02/17/20 02/17/20 02/18/20 15:00 23:00 07:00 Intake Total 0 ml 360 ml 0 ml Output Total 400 ml 400 ml Balance -400 ml -40 ml 0 ml KINGSLEY LOU MD Feb 18, 2020 13:33
--- NOTE | 2020-02-18 14:20 | PDOC ---
PROGRESS NOTES Chief Complaint Chief Complaint Small bowel obstruction Incarcerated umbilical hernia status post herniorrhaphy Obesity with a BMI of 34 History of COPD History of neuropathy History of dyslipidemia History of chronic pain syndrome on chronic narcotic therapy Leukocytosis most likely secondary to the acute incarceration of umbilical hernia Plan Follow recommendations from surgical services asst narcotics prn to avoid excess sedation Restart home medications We will provide his inhalers from home Diet to be advanced as per it systems analyst consultant Bowel regimen Incentive spirometry Reassess in the a.m. DVT prophylaxis with SCDs encourage ambulation will start lovenox History of Present Illness History of Present Illness No acute events reported overnight, case discussed with nursing staff patient in no acute distress no complaints during my visit Vitals Vitals Vital Signs Date Time Temp Pulse Resp B/P (MAP) Pulse Ox O2 Delivery O2 Flow Rate FiO2 02/18/20 12:14 98 Nasal Cannula 3.0 02/18/20 11:15 97.4 66 16 107/64 (78) 97.4 Physical Exam General: Alert, Oriented X3, Cooperative, mild distress Heart: Regular rate Abdomen: Soft Extremities: No clubbing, No cyanosis Skin: No rashes, No breakdown Labs LABS Laboratory Tests Test 02/17/20 16:40 02/17/20 20:15 02/18/20 07:39 02/18/20 11:15 Glucose (Fingerstick) 96 mg/dL (70-99) 120 mg/dL (70-99) 78 mg/dL (70-99) 111 mg/dL (70-99) Assessment and Plan Assessmemt and Plan Problems Medical Problems: (1) SBO (small bowel obstruction) Status: Acute (2) Umbilical hernia Status: Acute Comment Review of Relevant I have reviewed the following items stevie (where applicable) has been applied. Labs Laboratory Tests Test 02/16/20 18:23 02/16/20 20:48 02/17/20 07:32 02/17/20 11:27 Glucose (Fingerstick) 100 mg/dL (70-99) 102 mg/dL (70-99) 94 mg/dL (70-99) 88 mg/dL (70-99) Test 02/17/20 16:40 02/17/20 20:15 02/18/20 07:39 02/18/20 11:15 Glucose (Fingerstick) 96 mg/dL (70-99) 120 mg/dL (70-99) 78 mg/dL (70-99) 111 mg/dL (70-99) Laboratory Tests Test 02/17/20 16:40 02/17/20 20:15 02/18/20 07:39 02/18/20 11:15 Glucose (Fingerstick) 96 mg/dL (70-99) 120 mg/dL (70-99) 78 mg/dL (70-99) 111 mg/dL (70-99) Medications Current Medications Ondansetron HCl (Zofran) 4 mg 1X ONCE IVP Last administered on 02/15/20at 19:44; Start 02/15/20 at 19:30; Stop 02/15/20 at 19:35; Status DC Ondansetron HCl (Zofran) 4 mg STK-MED ONCE .ROUTE ; Start 02/15/20 at 19:25; Stop 02/15/20 at 19:26; Status DC Fentanyl Citrate (Fentanyl 2ml Vial) 50 mcg PRN Q15MIN PRN IV PAIN GREATER THAN 3/10 Last administered on 02/15/20at 22:00; Start 02/15/20 at 19:30; Stop 02/16/20 at 19:29; Status DC Sodium Chloride 1,000 ml @ 1,000 mls/hr Q1H IV Last administered on 02/15/20at 19:44; Start 02/15/20 at 19:29; Stop 02/15/20 at 20:28; Status DC Iohexol (Omnipaque 300 Mg/ml) 75 ml 1X ONCE IV Last administered on 02/15/20at 20:40; Start 02/15/20 at 20:30; Stop 02/15/20 at 20:31; Status DC Info (CONTRAST GIVEN -- Rx MONITORING) 1 each PRN DAILY PRN MC SEE COMMENTS; Start 02/15/20 at 20:30; Stop 02/17/20 at 20:29; Status DC Dicyclomine HCl (Bentyl) 10 mg 1X ONCE IM Last administered on 02/15/20at 21: 00; Start 02/15/20 at 20:30; Stop 02/15/20 at 20:31; Status DC Ondansetron HCl (Zofran) 4 mg PRN Q8HRS PRN IV NAUSEA/VOMITING 1ST CHOICE Last administered on 02/16/20at 09:24; Start 02/15/20 at 21:30; Stop 02/16/20 at 21:29; Status DC Morphine Sulfate (Morphine Sulfate) 4 mg PRN Q2HR PRN IV SEVERE PAIN 7-10; Start 02/15/20 at 21:30; Stop 02/16/20 at 21:29; Status DC Sodium Chloride 1,000 ml @ 100 mls/hr Q10H IV Last administered on 02/16/20at 11:59; Start 02/15/20 at 22:00; Stop 02/16/20 at 21:59; Status DC Propofol 20 ml @ As Directed STK-MED ONCE IV ; Start 02/15/20 at 21:30; Stop 02/15/20 at 21:31; Status DC Lidocaine HCl (Lidocaine Pf 2% Vial) 5 ml STK-MED ONCE .ROUTE ; Start 02/15/20 at 21:30; Stop 02/15/20 at 21:31; Status DC Rocuronium [place] (Zemuron) 50 mg STK-MED ONCE .ROUTE ; Start 02/15/20 at 21:30; Stop 02/15/20 at 21:31; Status DC Fentanyl Citrate (Fentanyl 2ml Vial) 100 mcg STK-MED ONCE .ROUTE ; Start 02/15/20 at 21:31; Stop 02/15/20 at 21:31; Status DC Fentanyl Citrate (Fentanyl 2ml Vial) 25 mcg PRN Q5MIN PRN IV MILD PAIN 1-3; Start 02/15/20 at 22:15; Stop 02/16/20 at 22:14; Status DC Fentanyl Citrate (Fentanyl 2ml Vial) 50 mcg PRN Q5MIN PRN IV MODERATE TO SEVERE PAIN; Start 02/15/20 at 22:15; Stop 02/16/20 at 22:14; Status DC Morphine Sulfate (Morphine Sulfate) 1 mg PRN Q10MIN PRN IV SEVERE PAIN 7-10; Start 02/15/20 at 22:15; Stop 02/16/20 at 22:14; Status DC Ringer's Solution 1,000 ml @ 30 mls/hr Q24H IV ; Start 02/15/20 at 22:30; Stop 02/16/20 at 22:29; Status DC Hydromorphone HCl (Dilaudid) 0.5 mg PRN Q10MIN PRN IV SEV PAIN, Second choice; Start 02/15/20 at 22:15; Stop 02/16/20 at 22:14; Status DC Prochlorperazine Edisylate (Compazine) 5 mg PACU PRN PRN IV NAUSEA, MRX1; Start 02/15/20 at 22:15; Stop 02/16/20 at 22:14; Status DC Sodium Chloride 1,000 ml @ 1,000 mls/hr 1X ONCE IV ; Start 02/15/20 at 22:30; Stop 02/16/20 at 00:32; Status DC Bupivacaine HCl/ Epinephrine Bitart (Sensorcain-Epi 0.5%-1:151632 Mpf) 30 ml STK-MED ONCE .ROUTE ; Start 02/15/20 at 22:13; Stop 02/15/20 at 22:13; Status DC Ondansetron HCl (Zofran) 4 mg STK-MED ONCE .ROUTE ; Start 02/15/20 at 22:49; Stop 02/15/20 at 22:49; Status DC Neostigmine [place] (Neostigmine Methylsulfate) 5 mg STK-MED ONCE .ROUTE ; Start 02/15/20 at 22:49; Stop 02/15/20 at 22:49; Status DC Glycopyrrolate (Robinul) 1 mg STK-MED ONCE .ROUTE ; Start 02/15/20 at 22:49; Stop 02/15/20 at 22:50; Status DC Dexamethasone Sodium Phosphate (Decadron) 4 mg STK-MED ONCE .ROUTE ; Start 02/15/20 at 22:50; Stop 02/15/20 at 22:50; Status DC Cefazolin Sodium (Ancef) 1 gm STK-MED ONCE IVP ; Start 02/15/20 at 23:11; Stop 02/15/20 at 23:11; Status DC Fentanyl Citrate (Fentanyl 2ml Vial) 25 mcg PRN Q2HRS PRN IVP MODERATE PAIN 4- 6; Start 02/16/20 at 00:15 Albuterol Sulfate (Ventolin Neb Soln) 2.5 mg 1X ONCE NEB Last administered on 02/16/20at 00:40; Start 02/16/20 at 01:00; Stop 02/16/20 at 01:01; Status DC Fentanyl Citrate (Fentanyl 2ml Vial) 50 mcg PRN Q2HRS PRN IVP SEVERE PAIN 7-10 Last administered on 02/17/20at 08:54; Start 02/16/20 at 00:30 Insulin Human Lispro (HumaLOG VIAL for OP,RR ONLY) 0-10 units PRN Q1HR PRN SQ PER PROTOCOL Last administered on 02/16/20at 00:58; Start 02/16/20 at 01:00; Stop 02/17/20 at 00:59; Status DC Albuterol Sulfate (Ventolin Neb Soln) 2.5 mg RTQID NEB Last administered on 02/16/20at 14:57; Start 02/16/20 at 16:00; Stop 02/16/20 at 15:20; Status DC Aspirin (Aspirin Chewable) 81 mg HS PO Last administered on 02/17/20at 20:51; Start 02/16/20 at 21:00 Atorvastatin Calcium (Lipitor) 20 mg DAILY PO ; Start 02/17/20 at 09:00; Status Cancel Atorvastatin Calcium (Lipitor) 40 mg DAILY PO Last administered on 02/18/20at 08:44; Start 02/17/20 at 09:00 Docusate Sodium (Colace) 100 mg HS PO Last administered on 02/17/20at 20:51; Start 02/16/20 at 21:00 Furosemide (Lasix) 40 mg DAILY PO Last administered on 02/18/20at 08:44; Start 02/17/20 at 09:00 Gabapentin (Neurontin) 900 mg BID PO ; Start 02/16/20 at 21:00; Stop 02/16/20 at 15:07; Status DC Gabapentin (Neurontin) 300 mg TID PO ; Start 02/16/20 at 21:00; Stop 02/16/20 at 15:07; Status DC Ipratropium [place] (Atrovent) 0.2 mg RTQID NEB ; Start 02/16/20 at 16:00; Stop 02/16/20 at 15:20; Status DC Oxycodone/ Acetaminophen (Percocet 5/325) 1 tab Q4HRS PO Last administered on 02/18/20at 12:14; Start 02/16/20 at 16:00 Sennosides (Senna) 8.6 mg HS PO Last administered on 02/17/20at 20:51; Start 02/16/20 at 21:00 Tamsulosin HCl (Flomax) 0.4 mg DAILY PO ; Start 02/17/20 at 09:00; Stop 02/16/20 at 15:09; Status DC Tamsulosin HCl (Flomax) 0.4 mg HS PO Last administered on 02/17/20at 20:50; Start 02/16/20 at 21:00 Tizanidine HCl (Zanaflex) 2 mg PRN TID PRN PO MUSCLE SPASMS; Start 02/16/20 at 15:00 Non-Formulary Medication (Albuterol Sulfate (Ventolin Hfa Inhaler)) 2 puff Q4HRS INH ; Start 02/16/20 at 16:00; Stop 02/16/20 at 15:12; Status DC Ascorbic Acid (Vitamin C) 500 mg DAILY PO Last administered on 02/18/20at 08:44; Start 02/17/20 at 09:00 Cyclobenzaprine HCl (Flexeril) 10 mg TID PO Last administered on 02/18/20at 08:44; Start 02/16/20 at 21:00 Non-Formulary Medication (Budesonide/ Formoterol Fumarate (Symbicort 80-4.5 Mcg Inhaler)) 2 puff BID IH ; Start 02/16/20 at 21:00; Stop 02/16/20 at 15:21; Stat us DC Vitamin D (Vitamin D3) 4,000 unit DAILY PO Last administered on 02/18/20at 08:43; Start 02/17/20 at 09:00 Gabapentin (Neurontin) 600 mg BID@0900,1500 PO Last administered on 02/18/20 08:44; Start 02/16/20 at 16:00 Gabapentin (Neurontin) 800 mg QHS PO Last administered on 02/17/20at 20:50; Start 02/16/20 at 21:00 Magnesium Chloride (Mag Delay) 64 mg QHS PO Last administered on 02/17/20at 20:51; Start 02/16/20 at 21:00 Pantoprazole Sodium (Protonix) 40 mg DAILYAC PO Last administered on 02/18/20at 05:52; Start 02/17/20 at 07:30 Non-Formulary Medication (Tiotropium [place] (Spiriva)) 1 cap DAILY IH ; Start 02/17/20 at 09:00; Stop 02/16/20 at 15:18; Status DC Insulin Human Lispro (HumaLOG) 0-5 UNITS TIDWMEALS SQ ; Start 02/16/20 at 17:00 Dextrose (Dextrose 50%-Water Syringe) 12.5 gm PRN Q15MIN PRN IV SEE COMMENTS; Start 02/16/20 at 15:00 Albuterol/ Ipratropium (Duoneb) 3 ml RTQID NEB Last administered on 02/18/20at 11:03; Start 02/16/20 at 16:00 Budesonide (Pulmicort) 0.5 mg RTBID NEB Last administered on 02/18/20at 07:07; Start 02/16/20 at 20:00 Enoxaparin Sodium (Lovenox 40mg Syringe) 40 mg Q24H SQ Last administered on 02/18/20at 12:14; Start 02/17/20 at 13:00 Active Scripts Active Zofran Odt (Ondansetron) 4 Mg Tab.rapdis 1 Tab SL Q8HRS PRN Azithromycin Tablet (Azithromycin) 250 Mg Tablet 1 Pkg PO UD Prednisone 50 Mg Tablet 1 Tab PO DAILY Reported Vitamin D3 (Cholecalciferol (Vitamin D3)) 4,000 Unit Capsule 1 Cap PO DAILY 30 Days Vitamin E (Vitamin E Mixed) 400 Unit Tablet 1 Tab PO QHS 30 Days Magnesium Gluconate 27 Mg Tablet 1 Tab PO HS 30 Days Vitamin C (Ascorbic Acid) 100 Mg Tablet 1 Tab PO DAILY 30 Days Aspirin 81 Mg Tab.chew 1 Tab PO HS Docusate Sodium 100 Mg Capsule 1 Cap PO HS 7 Days Senna Laxative (Sennosides) 8.6 Mg Tablet 1 Tab PO HS 30 Days Baclofen 20 Mg Tablet 20 Mg PO BID Flomax (Tamsulosin Hcl) 0.4 Mg Cap.er.24h 0.4 Mg PO HS Gabapentin 800 Mg Tablet 800 Mg PO HS Gabapentin 600 Mg Tablet 600 Mg PO BID Metformin Hcl 500 Mg Tablet 500 Mg PO HS Atorvastatin Calcium 40 Mg Tablet 40 Mg PO DAILY Spiriva (Tiotropium [place]) 18 Mcg Cap.w.dev 1 Cap IH DAILY Ventolin Hfa Inhaler (Albuterol Sulfate) 18 Gm Hfa.aer.ad 2 Puff INH Q4HRS Ipratropium [place] 0.2 Mg/1 Ml Solution 1 Vial NEB QID Symbicort 80-4.5 Mcg Inhaler (Budesonide/Formoterol Fumarate) 10.2 Gm Hfa.aer.ad 2 Puff IH BID Percocet 5-325 Mg Tablet (Oxycodone/Acetaminophen) 1 Each Tablet 1-2 Tab PO Q4-6HRS Omeprazole 20 Mg Tablet.dr 1 Tab PO DAILY Furosemide 40 Mg Tablet 1 Tab PO DAILY Gabapentin (Gabapentin) 300 Mg Capsule 300 Mg PO TID Atorvastatin Calcium 20 Mg Tablet 1 Tab PO DAILY Tizanidine Hcl 4 Mg Tablet 2 Mg PO TID PRN Percocet 5-325 Mg Tablet (Oxycodone/Acetaminophen) 1 Each Tablet 1-2 Tab PO Q4-6HRS Gabapentin (Gabapentin) 300 Mg Capsule 3 Cap PO BID Meloxicam 15 Mg Tablet 1 Tab PO HS Tamsulosin Hcl 0.4 Mg Cap.er.24h 1 Cap PO DAILY Vitals/I & O Vital Sign - Last 24 Hours 02/17/20 02/17/20 02/17/20 02/17/20 15:05 15:31 15:32 16:31 Temp 97.8 97.8 Pulse 77 Resp 20 B/P (MAP) 127/62 (83) Pulse Ox 96 96 96 O2 Delivery Nasal Cannula Nasal Cannula Nasal Cannula Nasal Cannula O2 Flow Rate 3.0 3.0 3.0 3.0 02/17/20 02/17/20 02/17/20 02/17/20 19:00 20:00 20:00 20:03 Temp 98.2 98.2 Pulse 73 Resp 18 B/P (MAP) 94/63 (73) Pulse Ox 92 93 93 O2 Delivery Nasal Cannula Nasal Cannula Nasal Cannula Nasal Cannula O2 Flow Rate 3.0 3.0 3.0 3.0 02/17/20 02/17/20 02/17/20 02/18/20 20:51 22:00 23:00 00:09 Temp 98.0 98.0 Pulse 68 Resp 18 B/P (MAP) 93/42 (59) Pulse Ox 92 O2 Delivery Nasal Cannula Nasal Cannula Nasal Cannula Nasal Cannula O2 Flow Rate 3.0 3.0 3.0 02/18/20 02/18/20 02/18/20 02/18/20 01:24 03:00 04:28 05:31 Temp 98.0 98.0 Pulse 72 Resp 18 B/P (MAP) 94/48 (63) Pulse Ox 90 O2 Delivery Nasal Cannula Nasal Cannula Nasal Cannula Nasal Cannula O2 Flow Rate 3.0 3.0 3.0 3.0 02/18/20 02/18/20 02/18/20 02/18/20 07:08 07:15 08:00 11:03 Temp 97.8 97.8 Pulse 68 Resp 14 B/P (MAP) 106/60 (75) Pulse Ox 96 94 96 O2 Delivery Nasal Cannula Nasal Cannula Nasal Cannula Nasal Cannula O2 Flow Rate 3.0 3.0 3.0 02/18/20 02/18/20 02/18/20 11:03 11:15 12:14 Temp 97.4 97.4 Pulse 66 Resp 16 B/P (MAP) 107/64 (78) Pulse Ox 96 98 98 O2 Delivery Nasal Cannula Nasal Cannula Nasal Cannula O2 Flow Rate 3.0 3.0 3.0 Intake and Output 02/17/20 02/17/20 02/18/20 15:00 23:00 07:00 Intake Total 0 ml 360 ml 0 ml Output Total 400 ml 400 ml Balance -400 ml -40 ml 0 ml HERMELINDA DRAKE MD Feb 18, 2020 14:20
[2020-02-18] MEDS ORDERED: CYCLOBENZAPRINE 10 MG TABLET. PO PRN (14:30)
[2020-02-18 15:08] VITALS: BP 104/57
[2020-02-18 19:00] VITALS: BP 109/70
[2020-02-18] MEDS: GABAPENTIN 400 MG CAPSULE. PO SCH (21:14)
[2020-02-18] MEDS: SENNOSIDES 8.6 MG TABLET PO SCH (21:14)
[2020-02-18] MEDS: ASPIRIN CHEWABLE 81 MG TABLET. PO SCH (21:14)
[2020-02-18] MEDS: DOCUSATE SODIUM 100 MG CAPSULE. PO SCH (21:14)
[2020-02-18] MEDS: TAMSULOSIN 0.4 MG CAP.ER.24H. PO SCH (21:14)
[2020-02-18] MEDS: MAGNESIUM CHLORIDE ER 64 MG TABLET.ER PO SCH (21:14)
[2020-02-18 23:00] VITALS: BP 98/42
[2020-02-19 03:00] VITALS: BP 93/37
[2020-02-19] MEDS ORDERED: MENT118G TP (05:57)
[2020-02-19] MEDS ORDERED: METHYL SALICYLATE/MENTHOL TOPICAL CREAM 57GM TUBE. TP PRN (06:00)
[2020-02-19 07:00] VITALS: BP 115/60
[2020-02-19] MEDS: IPRATRPIUM/ALBUTEROL 0.5/2.5MG 3 ML NEBU. NEB SCH ×4 (07:07→20:17)
[2020-02-19] MEDS: BUDESONIDE 0.5 MG/2 ML NEBU. NEB SCH ×2 (07:07→20:17)
[2020-02-19] MEDS: INSULIN LISPRO 300 UNITS/3 ML VIAL. SQ SCH ×3 (08:00→17:00)
[2020-02-19] MEDS: GABAPENTIN 300 MG CAPSULE. PO SCH ×2 (08:29→15:50)
[2020-02-19] MEDS: PANTOPRAZOLE 40 MG TABLET.DR. PO SCH (08:29)
[2020-02-19] MEDS: FUROSEMIDE 40 MG TABLET. PO SCH (08:29)
[2020-02-19] MEDS: CHOLECALCIFEROL (VITAMIN D3) 1,000 UNIT TABLET PO SCH (08:30)
[2020-02-19] MEDS: ASCORBIC ACID 500 MG TABLET PO SCH (08:30)
[2020-02-19] MEDS: ATORVASTATIN CALCIUM 40 MG TABLET. PO SCH (08:30)
--- NOTE | 2020-02-19 08:31 | PDOC ---
SURGICAL PROGRESS NOTE Subjective Patient resting comfortably no acute distress Vital Signs Vital Signs Date Time Temp Pulse Resp B/P (MAP) Pulse Ox O2 Delivery O2 Flow Rate FiO2 02/19/20 07:08 94 Nasal Cannula 3.0 02/19/20 03:00 97.6 83 18 93/37 (55) 97.6 I&O Intake and Output 02/19/20 07:00 Intake Total 1000 ml Output Total 2100 ml Balance -1100 ml Intake Oral 1000 ml Output Urine Total 2100 ml PATIENT HAS A MACARIO: No General: Alert, Oriented X3, Cooperative, No acute distress Abdomen: Normal bowel sounds, Soft, No tenderness, Other (Wounds clean dry and intact) Labs Laboratory Tests Test 02/17/20 11:27 02/17/20 16:40 02/17/20 20:15 02/18/20 07:39 Glucose (Fingerstick) 88 mg/dL (70-99) 96 mg/dL (70-99) 120 mg/dL (70-99) 78 mg/dL (70-99) Test 02/18/20 11:15 02/18/20 16:56 02/18/20 20:11 02/19/20 08:01 Glucose (Fingerstick) 111 mg/dL (70-99) 92 mg/dL (70-99) 157 mg/dL (70-99) 115 mg/dL (70-99) Laboratory Tests Test 02/18/20 11:15 02/18/20 16:56 02/18/20 20:11 02/19/20 08:01 Glucose (Fingerstick) 111 mg/dL (70-99) 92 mg/dL (70-99) 157 mg/dL (70-99) 115 mg/dL (70-99) Problem List Problems Medical Problems: (1) SBO (small bowel obstruction) Status: Acute (2) Umbilical hernia Status: Acute Assessment/Plan Status post repair of umbilical hernia incarcerated. Patient is passing gas tolerating diet agree with discharge home health would be helpful RICKY HINDS MD February 19, 2020 08:31
--- NOTE | 2020-02-19 10:25 | NUR ---
SW following. Discussed with RN, plan was for pt to be seen by Ethan Bloes RN for home health at discharge. RN now stating pt couldn't hardly get up to the commode this morning, needs PT/OT and possible SNU placement. Pt on the commode trying to have a BM so SW unable to meet to discuss discharge planning. PAIGE will continue to follow. Addendum: 02/19/20 at 1200 by JASEN GIBSON Discussed with PT/OT, pt reporting he needed compression socks and his pain in his feet would get better, and he would be fine tomorrow (02/20/2020). PAIGE met with pt (no isolation precautions at the time), to discuss discharge planning. Pt reported he does not want to go to a SNU at discharge, wants to go home. Pt expressed frustration at not having the compression socks, reported after the surgery someone brought the socks in and left them on the side of his room, did not put them on him, and did not hook him up to the machine at the end of his bed. Pt agreeable to having Ethan Boles RN meet with him to discuss home health. Pt reports he has oxygen at home already. PAIGE notified RN about discharge planning discussion. Will notify Cheryle, nursing hotel services supervisor about pt frustration at not getting the compression socks etc. PAIGE will continue to follow. Addendum: 02/19/20 at 1520 by JASEN GIBSON PAIGE contacted pt's to discuss discharge planning. Pt's agreeable to pt coming home with home health. Referral faxed to [facility] (ph: [phone], fax: [phone]). Pt accepted with [facility], anticipate discharge home with home health tomorrow (02/20/2020). Pt's can transport pt. RN notified.
[2020-02-19 11:00] VITALS: BP 104/49
--- NOTE | 2020-02-19 11:24 | PDOC ---
[facility] PROGRESS NOTE Chief Complaint Chief Complaint Small bowel obstruction Incarcerated umbilical hernia status post herniorrhaphy Obesity with a BMI of 34 History of COPD History of neuropathy History of dyslipidemia History of chronic pain syndrome on chronic narcotic therapy Leukocytosis most likely secondary to the acute incarceration of umbilical hernia History of Present Illness History of Present Illness 02-19-2020 Patient seen and examined He complains of severe foot pain Concerned he may have gout Chart reviewed We will order a uric acid level Vitals/I&O Vitals/I&O: Vital Signs Date Time Temp Pulse Resp B/P (MAP) Pulse Ox O2 Delivery O2 Flow Rate FiO2 02/19/20 07:08 94 Nasal Cannula 3.0 02/19/20 07:00 98.0 88 16 115/60 (78) 98.0 I & O 02/18/20 02/18/20 02/19/20 15:00 23:00 07:00 Intake Total 640 ml 360 ml Output Total 350 ml 550 ml 1200 ml Balance 290 ml -190 ml -1200 ml Physical Exam General: Alert, Oriented X3, Cooperative, No acute distress Heart: Regular rate Abdomen: Normal bowel sounds, Soft, No tenderness, Other (Wounds clean dry and intact) Extremities: No clubbing, No cyanosis Skin: No rashes, No breakdown Labs Labs: Laboratory Tests Test 02/18/20 16:56 02/18/20 20:11 02/19/20 08:01 Glucose (Fingerstick) 92 mg/dL (70-99) 157 mg/dL (70-99) 115 mg/dL (70-99) Assessment and Plan Assessmemt and Plan Problems Medical Problems: (1) SBO (small bowel obstruction) Status: Acute (2) Umbilical hernia Status: Acute Small bowel obstruction Incarcerated umbilical hernia status post herniorrhaphy Obesity with a BMI of 34 History of COPD History of neuropathy History of dyslipidemia History of chronic pain syndrome on chronic narcotic therapy Leukocytosis most likely secondary to the acute incarceration of umbilical hernia Plan Check uric acid level Follow recommendations from surgical coordinator narcotics prn to avoid excess sedation Home meds We will provide his inhalers from home Diet to be advanced as per marketing database consultant Bowel regimen Incentive spirometry Reassess in the a.m. DVT prophylaxis with SCDs encourage ambulation will start lovenox Will probably need assisted Ordered PT OT Comment Review of Relevant I have reviewed the following items stevie (where applicable) has been applied. Medications: Current Medications Medications (Trade) Dose Ordered Sig/Molly Route PRN Reason Start Time Stop Time Status Last Admin Dose Admin Menthol/Methyl Salicylate (Bengay Greaseless Cream) 1 martha PRN TID PRN TP PAIN 02/19/20 06:00 02/19/20 08:30 RETA CLANCY III DO February 19, 2020 11:24
[2020-02-19] MEDS: ENOXAPARIN 40 MG/0.4 ML SYRINGE. SQ SCH (13:31)
[2020-02-19 15:00] VITALS: BP 138/59
[2020-02-19 19:00] VITALS: BP 131/71
[2020-02-19] MEDS: MAGNESIUM CHLORIDE ER 64 MG TABLET.ER PO SCH (22:22)
[2020-02-19] MEDS: ASPIRIN CHEWABLE 81 MG TABLET. PO SCH (22:22)
[2020-02-19] MEDS: TAMSULOSIN 0.4 MG CAP.ER.24H. PO SCH (22:22)
[2020-02-19] MEDS: SENNOSIDES 8.6 MG TABLET PO SCH (22:22)
[2020-02-19] MEDS: DOCUSATE SODIUM 100 MG CAPSULE. PO SCH (22:22)
[2020-02-19] MEDS: oxyCODONE/APAP 5/325 1 TAB TABLET PO PRN (22:24)
[2020-02-19] MEDS: GABAPENTIN 400 MG CAPSULE. PO SCH (22:24)
[2020-02-19 23:00] VITALS: BP 117/55
[2020-02-20 03:03] VITALS: BP 99/47
[2020-02-20 07:20] VITALS: BP 110/54
[2020-02-20] MEDS: BUDESONIDE 0.5 MG/2 ML NEBU. NEB SCH ×2 (07:30→19:20)
[2020-02-20] MEDS: IPRATRPIUM/ALBUTEROL 0.5/2.5MG 3 ML NEBU. NEB SCH ×4 (07:30→19:20)
[2020-02-20] MEDS: INSULIN LISPRO 300 UNITS/3 ML VIAL. SQ SCH ×3 (08:00→16:25)
--- NOTE | 2020-02-20 08:35 | PDOC ---
SURGICAL PROGRESS NOTE Subjective Patient doing much better today does describe pain in both feet with a history of neuropathy tolerating regular diet Vital Signs Vital Signs Date Time Temp Pulse Resp B/P (MAP) Pulse Ox O2 Delivery O2 Flow Rate FiO2 02/20/20 07:31 94 Nasal Cannula 4.0 02/20/20 07:20 98.2 81 17 110/54 (72) 98.2 I&O Intake and Output 02/20/20 07:00 Intake Total 260 ml Output Total 701 ml Balance -441 ml Intake Oral 260 ml Output Urine Total 700 ml Stool Total 1 ml # Voids 2 PATIENT HAS A MACARIO: No General: Alert, Oriented X3, Cooperative, mild distress Abdomen: Normal bowel sounds, Soft, No tenderness, Other (Wound clean dry and intact) Extremities: Other (Bilateral pedal edema with purple hue likely venous stasis) Labs Laboratory Tests Test 02/18/20 11:15 02/18/20 16:56 02/18/20 20:11 02/19/20 08:01 Glucose (Fingerstick) 111 mg/dL (70-99) 92 mg/dL (70-99) 157 mg/dL (70-99) 115 mg/dL (70-99) Test 02/19/20 11:52 02/19/20 13:55 02/19/20 16:09 02/20/20 07:04 Glucose (Fingerstick) 102 mg/dL (70-99) 125 mg/dL (70-99) 90 mg/dL (70-99) Uric Acid 5.9 mg/dL (3.5-7.2) Laboratory Tests Test 02/19/20 11:52 02/19/20 13:55 02/19/20 16:09 02/20/20 07:04 Glucose (Fingerstick) 102 mg/dL (70-99) 125 mg/dL (70-99) 90 mg/dL (70-99) Uric Acid 5.9 mg/dL (3.5-7.2) Problem List Problems Medical Problems: (1) SBO (small bowel obstruction) Status: Acute (2) Umbilical hernia Status: Acute Assessment/Plan Stable surgically from his umbilical hernia repair, no further surgical recommendations RICKY HINDS MD February 20, 2020 08:35
[2020-02-20] MEDS: CHOLECALCIFEROL (VITAMIN D3) 1,000 UNIT TABLET PO SCH (09:00)
[2020-02-20] MEDS: PANTOPRAZOLE 40 MG TABLET.DR. PO SCH (09:13)
[2020-02-20] MEDS: ATORVASTATIN CALCIUM 40 MG TABLET. PO SCH (09:13)
[2020-02-20] MEDS: FUROSEMIDE 40 MG TABLET. PO SCH (09:13)
[2020-02-20] MEDS: ASCORBIC ACID 500 MG TABLET PO SCH (09:13)
[2020-02-20] MEDS: GABAPENTIN 300 MG CAPSULE. PO SCH (09:13)
[2020-02-20 11:30] VITALS: BP 123/64
--- NOTE | 2020-02-20 12:02 | PDOC ---
[facility] PROGRESS NOTE Chief Complaint Chief Complaint Small bowel obstruction Incarcerated umbilical hernia status post herniorrhaphy Obesity with a BMI of 34 History of COPD History of neuropathy History of dyslipidemia History of chronic pain syndrome on chronic narcotic therapy Leukocytosis most likely secondary to the acute incarceration of umbilical hernia History of Present Illness History of Present Illness 02/20/2020 Patient seen and examined His uric acid level was only 5.8 And we will go ahead and consult neurology as he still has foot pain Chart reviewed Discussed with Dr. Schafer Vitals/I&O Vitals/I&O: Vital Signs Date Time Temp Pulse Resp B/P (MAP) Pulse Ox O2 Delivery O2 Flow Rate FiO2 02/20/20 11:30 98.4 83 18 123/64 (83) 92 Nasal Cannula 4.0 98.4 I & O 02/19/20 02/19/20 02/20/20 15:00 23:00 07:00 Intake Total 260 ml Output Total 1 ml 700 ml Balance 260 ml -1 ml -700 ml Physical Exam General: Alert, Oriented X3, Cooperative, mild distress Heart: Regular rate Abdomen: Normal bowel sounds, Soft, No tenderness, Other (Wound clean dry and intact) Extremities: Other (Bilateral pedal edema with purple hue likely venous stasis) Skin: No rashes, No breakdown Labs Labs: Laboratory Tests Test 02/19/20 13:55 02/19/20 16:09 02/20/20 07:04 02/20/20 11:25 Uric Acid 5.9 mg/dL (3.5-7.2) Glucose (Fingerstick) 125 mg/dL (70-99) 90 mg/dL (70-99) 111 mg/dL (70-99) Assessment and Plan Assessmemt and Plan Problems Medical Problems: (1) SBO (small bowel obstruction) Status: Acute (2) Umbilical hernia Status: Acute Small bowel obstruction Incarcerated umbilical hernia status post herniorrhaphy Obesity with a BMI of 34 History of COPD History of neuropathy History of dyslipidemia History of chronic pain syndrome on chronic narcotic therapy Leukocytosis most likely secondary to the acute incarceration of umbilical hernia Plan Consult neurology regarding the neuropathy Wound longterm meds DVT prophylaxis Full code PT OT He wants to go home with home health in a couple days Appreciate subspecialist input Comment Review of Relevant I have reviewed the following items stevie (where applicable) has been applied. RETA CLANCY III DO February 20, 2020 12:02
--- NOTE | 2020-02-20 12:27 | PDOC2 ---
NEUROLOGY CONSULT Date of Admission Date of Admission DATE: 02/20/20 TIME: 12:10 Reason for Consult Reason for Consult: Neuropathy Referring Physician Referring Physician: Dr. Baig Source Source: Chart review, Patient History of Present Illness History of Present Illness The patient is a 79-year-old right-handed male admitted 3 days ago with abdominal pain. He was found to have an incarcerated umbilical hernia and went to surgery. He has had neuropathies ever since he served in [employer]. He believes he was exposed to agent orange. He also has borderline diabetes. He is on high doses of gabapentin, but continues to have burning pain especially at night. He has never been on pregabalin. There is no history of stroke, seizure, or head injury. Past Medical History Cardiovascular: Hyperlipidemia, Other (Pedal edema) Pulmonary: COPD CENTRAL NERVOUS SYSTEM: Periperal neuropathy Musculoskeletal: low back pain (Spinal stenosis) ENT: Other (Wears hearing aids) Renal/: Benign prostatic enlarg. Endocrine: Diabetes Past Surgical History Past Surgical History: Total hip replacement (bilateral), Other (Incarcerated umbilical hernia this admission) Family History Family History: Cancer Social History Social History Still smokes occasionally, rare alcohol, [place] , retired, Current Medications Current Medications Current Medications Ondansetron HCl (Zofran) 4 mg 1X ONCE IVP Last administered on 02/15/20at 19:44; Start 02/15/20 at 19:30; Stop 02/15/20 at 19:35; Status DC Ondansetron HCl (Zofran) 4 mg STK-MED ONCE .ROUTE ; Start 02/15/20 at 19:25; Stop 02/15/20 at 19:26; Status DC Fentanyl Citrate (Fentanyl 2ml Vial) 50 mcg PRN Q15MIN PRN IV PAIN GREATER THAN 3/10 Last administered on 02/15/20at 22:00; Start 02/15/20 at 19:30; Stop 02/16/20 at 19:29; Status DC Sodium Chloride 1,000 ml @ 1,000 mls/hr Q1H IV Last administered on 02/15/20at 19:44; Start 02/15/20 at 19:29; Stop 02/15/20 at 20:28; Status DC Iohexol (Omnipaque 300 Mg/ml) 75 ml 1X ONCE IV Last administered on 02/15/20at 20:40; Start 02/15/20 at 20:30; Stop 02/15/20 at 20:31; Status DC Info (CONTRAST GIVEN -- Rx MONITORING) 1 each PRN DAILY PRN MC SEE COMMENTS; Start 02/15/20 at 20:30; Stop 02/17/20 at 20:29; Status DC Dicyclomine HCl (Bentyl) 10 mg 1X ONCE IM Last administered on 02/15/20at 21:00; Start 02/15/20 at 20:30; Stop 02/15/20 at 20:31; Status DC Ondansetron HCl (Zofran) 4 mg PRN Q8HRS PRN IV NAUSEA/VOMITING 1ST CHOICE Last administered on 02/16/20at 09:24; Start 02/15/20 at 21:30; Stop 02/16/20 at 21:29; Status DC Morphine Sulfate (Morphine Sulfate) 4 mg PRN Q2HR PRN IV SEVERE PAIN 7-10; Start 02/15/20 at 21:30; Stop 02/16/20 at 21:29; Status DC Sodium Chloride 1,000 ml @ 100 mls/hr Q10H IV Last administered on 02/16/20at 11:59; Start 02/15/20 at 22:00; Stop 02/16/20 at 21:59; Status DC Propofol 20 ml @ As Directed STK-MED ONCE IV ; Start 02/15/20 at 21:30; Stop 02/15/20 at 21:31; Status DC Lidocaine HCl (Lidocaine Pf 2% Vial) 5 ml STK-MED ONCE .ROUTE ; Start 02/15/20 at 21:30; Stop 02/15/20 at 21:31; Status DC Rocuronium Arcadia (Zemuron) 50 mg STK-MED ONCE .ROUTE ; Start 02/15/20 at 21:30; Stop 02/15/20 at 21:31; Status DC Fentanyl Citrate (Fentanyl 2ml Vial) 100 mcg STK-MED ONCE .ROUTE ; Start 02/15/20 at 21:31; Stop 02/15/20 at 21:31; Status DC Fentanyl Citrate (Fentanyl 2ml Vial) 25 mcg PRN Q5MIN PRN IV MILD PAIN 1-3; Start 02/15/20 at 22:15; Stop 02/16/20 at 22:14; Status DC Fentanyl Citrate (Fentanyl 2ml Vial) 50 mcg PRN Q5MIN PRN IV MODERATE TO SEVERE PAIN; Start 02/15/20 at 22:15; Stop 02/16/20 at 22:14; Status DC Morphine Sulfate (Morphine Sulfate) 1 mg PRN Q10MIN PRN IV SEVERE PAIN 7-10; Start 02/15/20 at 22:15; Stop 02/16/20 at 22:14; Status DC Ringer's Solution 1,000 ml @ 30 mls/hr Q24H IV ; Start 02/15/20 at 22:30; Stop 02/16/20 at 22:29; Status DC Hydromorphone HCl (Dilaudid) 0.5 mg PRN Q10MIN PRN IV SEV PAIN, Second choice; Start 02/15/20 at 22:15; Stop 02/16/20 at 22:14; Status DC Prochlorperazine Edisylate (Compazine) 5 mg PACU PRN PRN IV NAUSEA, MRX1; Start 02/15/20 at 22:15; Stop 02/16/20 at 22:14; Status DC Sodium Chloride 1,000 ml @ 1,000 mls/hr 1X ONCE IV ; Start 02/15/20 at 22:30; Stop 02/16/20 at 00:32; Status DC Bupivacaine HCl/ Epinephrine Bitart (Sensorcain-Epi 0.5%-1:684357 Mpf) 30 ml STK-MED ONCE .ROUTE ; Start 02/15/20 at 22:13; Stop 02/15/20 at 22:13; Status DC Ondansetron HCl (Zofran) 4 mg STK-MED ONCE .ROUTE ; Start 02/15/20 at 22:49; Stop 02/15/20 at 22:49; Status DC Neostigmine Arcadia (Neostigmine Methylsulfate) 5 mg STK-MED ONCE .ROUTE ; Start 02/15/20 at 22:49; Stop 02/15/20 at 22:49; Status DC Glycopyrrolate (Robinul) 1 mg STK-MED ONCE .ROUTE ; Start 02/15/20 at 22:49; Stop 02/15/20 at 22:50; Status DC Dexamethasone Sodium Phosphate (Decadron) 4 mg STK-MED ONCE .ROUTE ; Start 02/15/20 at 22:50; Stop 02/15/20 at 22:50; Status DC Cefazolin Sodium (Ancef) 1 gm STK-MED ONCE IVP ; Start 02/15/20 at 23:11; Stop 02/15/20 at 23:11; Status DC Fentanyl Citrate (Fentanyl 2ml Vial) 25 mcg PRN Q2HRS PRN IVP MODERATE PAIN 4- 6; Start 02/16/20 at 00:15 Albuterol Sulfate (Ventolin Neb Soln) 2.5 mg 1X ONCE NEB Last administered on 02/16/20at 00:40; Start 02/16/20 at 01:00; Stop 02/16/20 at 01:01; Status DC Fentanyl Citrate (Fentanyl 2ml Vial) 50 mcg PRN Q2HRS PRN IVP SEVERE PAIN 7-10 Last administered on 02/17/20at 08:54; Start 02/16/20 at 00:30 Insulin Human Lispro (HumaLOG VIAL for OP,RR ONLY) 0-10 units PRN Q1HR PRN SQ PER PROTOCOL Last administered on 02/16/20at 00:58; Start 02/16/20 at 01:00; Stop 02/17/20 at 00:59; Status DC Albuterol Sulfate (Ventolin Neb Soln) 2.5 mg RTQID NEB Last administered on 02/16/20at 14:57; Start 02/16/20 at 16:00; Stop 02/16/20 at 15:20; Status DC Aspirin (Aspirin Chewable) 81 mg HS PO Last administered on 02/19/20at 22:22; Start 02/16/20 at 21:00 Atorvastatin Calcium (Lipitor) 20 mg DAILY PO ; Start 02/17/20 at 09:00; Status Cancel Atorvastatin Calcium (Lipitor) 40 mg DAILY PO Last administered on 02/20/20at 09:13; Start 02/17/20 at 09:00 Docusate Sodium (Colace) 100 mg HS PO Last administered on 02/19/20at 22:22; Start 02/16/20 at 21:00 Furosemide (Lasix) 40 mg DAILY PO Last administered on 02/20/20at 09:13; Start 02/17/20 at 09:00 Gabapentin (Neurontin) 900 mg BID PO ; Start 02/16/20 at 21:00; Stop 02/16/20 at 15:07; Status DC Gabapentin (Neurontin) 300 mg TID PO ; Start 02/16/20 at 21:00; Stop 02/16/20 at 15:07; Status DC Ipratropium Arcadia (Atrovent) 0.2 mg RTQID NEB ; Start 02/16/20 at 16:00; Stop 02/16/20 at 15:20; Status DC Oxycodone/ Acetaminophen (Percocet 5/325) 1 tab Q4HRS PO Last administered on 02/18/20at 12:14; Start 02/16/20 at 16:00; Stop 02/18/20 at 14:22; Status DC Sennosides (Senna) 8.6 mg HS PO Last administered on 02/19/20at 22:22; Start 02/16/20 at 21:00 Tamsulosin HCl (Flomax) 0.4 mg DAILY PO ; Start 02/17/20 at 09:00; Stop 02/16/20 at 15:09; Status DC Tamsulosin HCl (Flomax) 0.4 mg HS PO Last administered on 02/19/20at 22:22; Start 02/16/20 at 21:00 Tizanidine HCl (Zanaflex) 2 mg PRN TID PRN PO MUSCLE SPASMS Last administered on 02/19/20at 05:51; Start 02/16/20 at 15:00 Non-Formulary Medication (Albuterol Sulfate (Ventolin Hfa Inhaler)) 2 puff Q4HRS INH ; Start 02/16/20 at 16:00; Stop 02/16/20 at 15:12; Status DC Ascorbic Acid (Vitamin C) 500 mg DAILY PO Last administered on 02/20/20at 09:13; Start 02/17/20 at 09:00 Cyclobenzaprine HCl (Flexeril) 10 mg TID PO Last administered on 02/18/20at 0 8:44; Start 02/16/20 at 21:00; Stop 02/18/20 at 14:22; Status DC Non-Formulary Medication (Budesonide/ Formoterol Fumarate (Symbicort 80-4.5 Mcg Inhaler)) 2 puff BID IH ; Start 02/16/20 at 21:00; Stop 02/16/20 at 15:21; Status DC Vitamin D (Vitamin D3) 4,000 unit DAILY PO Last administered on 02/20/20 09:00; Start 02/17/20 at 09:00 Gabapentin (Neurontin) 600 mg BID@0900,1500 PO Last administered on 02/20/20 09:13; Start 02/16/20 at 16:00 Gabapentin (Neurontin) 800 mg QHS PO Last administered on 02/19/20 22:24; Start 02/16/20 at 21:00 Magnesium Chloride (Mag Delay) 64 mg QHS PO Last administered on 02/19/20 22:22; Start 02/16/20 at 21:00 Pantoprazole Sodium (Protonix) 40 mg DAILYAC PO Last administered on 02/20/20 09:13; Start 02/17/20 at 07:30 Non-Formulary Medication (Tiotropium Arcadia (Spiriva)) 1 cap DAILY IH ; Start 02/17/20 at 09:00; Stop 02/16/20 at 15:18; Status DC Insulin Human Lispro (HumaLOG) 0-5 UNITS TIDWMEALS SQ ; Start 02/16/20 at 17:00 Dextrose (Dextrose 50%-Water Syringe) 12.5 gm PRN Q15MIN PRN IV SEE COMMENTS; Start 02/16/20 at 15:00 Albuterol/ Ipratropium (Duoneb) 3 ml RTQID NEB Last administered on 02/20/20 11:21; Start 02/16/20 at 16:00 Budesonide (Pulmicort) 0.5 mg RTBID NEB Last administered on 02/20/20 07:30; Start 02/16/20 at 20:00 Enoxaparin Sodium (Lovenox 40mg Syringe) 40 mg Q24H SQ Last administered on 02/19/20 13:31; Start 02/17/20 at 13:00 Cyclobenzaprine HCl (Flexeril) 10 mg PRN TID PRN PO MUSCLE PAIN Last administered on 02/20/20 09:16; Start 02/18/20 at 14:30 Oxycodone/ Acetaminophen (Percocet 5/325) 1 tab PRN Q4HRS PRN PO PAIN Last administered on 02/19/20 22:24; Start 02/18/20 at 14:30 Menthol/Methyl Salicylate (Bengay Greaseless Cream) 1 malka PRN TID PRN TP PAIN Last administered on 02/19/20at 08:30; Start 02/19/20 at 06:00 Active Scripts Active Zofran Odt (Ondansetron) 4 Mg Tab.rapdis 1 Tab SL Q8HRS PRN Azithromycin Tablet (Azithromycin) 250 Mg Tablet 1 Pkg PO UD Prednisone 50 Mg Tablet 1 Tab PO DAILY Reported Biofreeze (Menthol) 118 Ml Gel..ml. 1 Malka TP TID PRN 10 Days Vitamin D3 (Cholecalciferol (Vitamin D3)) 4,000 Unit Capsule 1 Cap PO DAILY 30 Days Vitamin E (Vitamin E Mixed) 400 Unit Tablet 1 Tab PO QHS 30 Days Magnesium Gluconate 27 Mg Tablet 1 Tab PO HS 30 Days Vitamin C (Ascorbic Acid) 100 Mg Tablet 1 Tab PO DAILY 30 Days Aspirin 81 Mg Tab.chew 1 Tab PO HS Docusate Sodium 100 Mg Capsule 1 Cap PO HS 7 Days Senna Laxative (Sennosides) 8.6 Mg Tablet 1 Tab PO HS 30 Days Baclofen 20 Mg Tablet 20 Mg PO BID Flomax (Tamsulosin Hcl) 0.4 Mg Cap.er.24h 0.4 Mg PO HS Gabapentin 800 Mg Tablet 800 Mg PO HS Gabapentin 600 Mg Tablet 600 Mg PO BID Metformin Hcl 500 Mg Tablet 500 Mg PO HS Atorvastatin Calcium 40 Mg Tablet 40 Mg PO DAILY Spiriva (Tiotropium Arcadia) 18 Mcg Cap.w.dev 1 Cap IH DAILY Ventolin Hfa Inhaler (Albuterol Sulfate) 18 Gm Hfa.aer.ad 2 Puff INH Q4HRS Ipratropium Arcadia 0.2 Mg/1 Ml Solution 1 Vial NEB QID Symbicort 80-4.5 Mcg Inhaler (Budesonide/Formoterol Fumarate) 10.2 Gm Hfa.aer.ad 2 Puff IH BID Percocet 5-325 Mg Tablet (Oxycodone/Acetaminophen) 1 Each Tablet 1-2 Tab PO Q4-6HRS Omeprazole 20 Mg Tablet.dr 1 Tab PO DAILY Furosemide 40 Mg Tablet 1 Tab PO DAILY Gabapentin (Gabapentin) 300 Mg Capsule 300 Mg PO TID Atorvastatin Calcium 20 Mg Tablet 1 Tab PO DAILY Tizanidine Hcl 4 Mg Tablet 2 Mg PO TID PRN Percocet 5-325 Mg Tablet (Oxycodone/Acetaminophen) 1 Each Tablet 1-2 Tab PO Q4-6HRS Gabapentin (Gabapentin) 300 Mg Capsule 3 Cap PO BID Meloxicam 15 Mg Tablet 1 Tab PO HS Tamsulosin Hcl 0.4 Mg Cap.er.24h 1 Cap PO DAILY Allergies Allergies: Coded Allergies: No Known Drug Allergies (Unverified , 04/20/15) ROS Review of System Negative for fever, chills, weight loss, shortness of breath, chest pain, indigestion (except for this admission), hematochezia, melena, and dysuria. Full 14-point review of systems is negative. Physical Exam Physical Examination General: Well-developed, well-nourished white male in no acute distress HEENT: Normocephalic andatraumatic. Tympanic membranes clear.Temporal arteriespulsatile and nontender.Fundoscopic exam unremarkable Neck: Supple without bruit, no meningismus Musculoskeletal: Stability:see neurologic. Gait exam:see neurologic. Tone:see neurologic.Strength:see neurologic. Neurological: Mental Status:intact, orientation, memory, attention span/concentration, language, fund of knowledge normal. Cranial Nerves:Pupils equal and reactive to light, extraocular movements areintact, visual gardiner are full to confrontation. Facial sensation is normal. There is no facial asymmetry. Ve stibulo-ocular reflex is intact. Palate elevates and tongue protrudes in midline. All other cranial related problems are negative except as mentioned before.Reflexes:0-1 + and symmetric with flexor plantar responses. Motor:5/5 strength with normal tone and bulk. Coordination:Finger-nose finger and irly-ql-kqti testing are normal. Rapid alternating movements and fine finger movements are intact. Gait:Not tested. Sensory:Stocking loss. Vitals VITALS Vital Signs Date Time Temp Pulse Resp B/P (MAP) Pulse Ox O2 Delivery O2 Flow Rate FiO2 02/20/20 11:30 98.4 83 18 123/64 (83) 92 Nasal Cannula 4.0 98.4 Labs Labs Laboratory Tests Test 02/18/20 16:56 02/18/20 20:11 02/19/20 08:01 02/19/20 11:52 Glucose (Fingerstick) 92 mg/dL (70-99) 157 mg/dL (70-99) 115 mg/dL (70-99) 102 mg/dL (70-99) Test 02/19/20 13:55 02/19/20 16:09 02/20/20 07:04 02/20/20 11:25 Uric Acid 5.9 mg/dL (3.5-7.2) Glucose (Fingerstick) 125 mg/dL (70-99) 90 mg/dL (70-99) 111 mg/dL (70-99) Laboratory Tests Test 02/19/20 13:55 02/19/20 16:09 02/20/20 07:04 02/20/20 11:25 Uric Acid 5.9 mg/dL (3.5-7.2) Glucose (Fingerstick) 125 mg/dL (70-99) 90 mg/dL (70-99) 111 mg/dL (70-99) Assessment/Plan Assessment/Plan Impression: Diabetic neuropathy, rule out other causes, agent orange can cause this for instance. He is failing on gabapentin. History of lumbar spinal stenosis Admitted for incarcerated umbilical hernia with medical issues of COPD among others. Recommendations: Switch to Lyrica, discussed side effects Lab work for other causes of neuropathy Outpatient EMG studies Thank you for letting me help with the patient's care. ANAND SAAVEDRA MD February 20, 2020 12:27
[2020-02-20] MEDS: PREGABALIN 75 MG CAPSULE PO SCH ×2 (12:33→22:02)
[2020-02-20] MEDS: ENOXAPARIN 40 MG/0.4 ML SYRINGE. SQ SCH (12:34)
[2020-02-20 15:02] VITALS: BP 110/67
[2020-02-20 19:00] VITALS: BP 117/57
[2020-02-20] MEDS: TAMSULOSIN 0.4 MG CAP.ER.24H. PO SCH (21:53)
[2020-02-20] MEDS: ASPIRIN CHEWABLE 81 MG TABLET. PO SCH (21:53)
[2020-02-20] MEDS: SENNOSIDES 8.6 MG TABLET PO SCH (21:54)
[2020-02-20] MEDS: DOCUSATE SODIUM 100 MG CAPSULE. PO SCH (21:54)
[2020-02-20] MEDS: MAGNESIUM CHLORIDE ER 64 MG TABLET.ER PO SCH (21:54)
[2020-02-20 23:00] VITALS: BP 122/58
[2020-02-21 03:11] VITALS: BP 139/68
[2020-02-21] MEDS: INSULIN LISPRO 300 UNITS/3 ML VIAL. SQ SCH ×3 (07:11→17:00)
[2020-02-21] MEDS: BUDESONIDE 0.5 MG/2 ML NEBU. NEB SCH ×2 (07:23→20:59)
[2020-02-21] MEDS: IPRATRPIUM/ALBUTEROL 0.5/2.5MG 3 ML NEBU. NEB SCH ×4 (07:23→20:59)
[2020-02-21 07:25] VITALS: BP 142/72
[2020-02-21] MEDS: FUROSEMIDE 40 MG TABLET. PO SCH (08:33)
[2020-02-21] MEDS: ATORVASTATIN CALCIUM 40 MG TABLET. PO SCH (08:33)
[2020-02-21] MEDS: CHOLECALCIFEROL (VITAMIN D3) 1,000 UNIT TABLET PO SCH (08:33)
[2020-02-21] MEDS: PREGABALIN 75 MG CAPSULE PO SCH ×2 (08:33→21:27)
[2020-02-21] MEDS: PANTOPRAZOLE 40 MG TABLET.DR. PO SCH (08:33)
[2020-02-21] MEDS: ASCORBIC ACID 500 MG TABLET PO SCH (08:33)
[2020-02-21 10:34] VITALS: BP 123/68
--- NOTE | 2020-02-21 12:15 | RAD ---
EXAM: PORTABLE CHEST 1V INDICATION: Increased oxygen needs. TECHNIQUE: Single view COMPARISON: 12/03/2018 chest x-ray FINDINGS: The heart size is normal. The great vessels appear unremarkable. There is no hilar or mediastinal mass. Lungs show very subtle increased coarse reticular opacities of the right lung base with slight decrease in volume. These are superimposed on mild lung hyperlucency There is no pleural effusion or pneumothorax. There are no significant osseous abnormalities. IMPRESSION: Possible developing right basilar infiltrate. Electronically signed by: So Maldonado MD (02/21/2020 12:12 PM) [id number]
[2020-02-21 12:20] LABS: BASE EXCESS ABG 10 mmol/L (-3-3); HCO3 ABG 33 mmol/L (21-28); PCO2 ABG 41 mmHg (35-46); PO2 ABG 66 mmHg (65-108); SAT O2 ABG 94 % (92-99)
[2020-02-21 12:21] LABS: FIO2 ABG 40%
[2020-02-21] MEDS: ENOXAPARIN 40 MG/0.4 ML SYRINGE. SQ SCH (12:22)
--- NOTE | 2020-02-21 12:30 | PDOC ---
[facility] PROGRESS NOTE Chief Complaint Chief Complaint Small bowel obstruction Incarcerated umbilical hernia status post herniorrhaphy Obesity with a BMI of 34 History of COPD History of neuropathy History of dyslipidemia History of chronic pain syndrome on chronic narcotic therapy Leukocytosis most likely secondary to the acute incarceration of umbilical hernia History of Present Illness History of Present Illness 02/21/2020 Patient seen and examined Review chart Discussed with RN 02/20/2020 Patient seen and examined His uric acid level was only 5.8 And we will go ahead and consult neurology as he still has foot pain Chart reviewed Discussed with Dr. Schafer Vitals/I&O Vitals/I&O: Vital Signs Date Time Temp Pulse Resp B/P (MAP) Pulse Ox O2 Delivery O2 Flow Rate FiO2 02/21/20 11:43 86 Nasal Cannula 4.0 02/21/20 10:34 97.9 82 18 123/68 (86) 97.9 I & O 02/20/20 02/20/20 02/21/20 15:00 23:00 07:00 Intake Total 740 ml 740 ml Output Total 550 ml Balance 740 ml 740 ml -550 ml Physical Exam General: Alert, Oriented X3, Cooperative, mild distress Heart: Regular rate Abdomen: Normal bowel sounds, Soft, No tenderness, Other (Wound clean dry and intact) Extremities: Other (Bilateral pedal edema with purple hue likely venous stasis) Skin: No rashes, No breakdown Labs Labs: Laboratory Tests Test 02/20/20 16:14 02/20/20 20:37 02/21/20 03:23 02/21/20 07:07 Glucose (Fingerstick) 114 mg/dL (70-99) 128 mg/dL (70-99) 105 mg/dL (70-99) Erythrocyte Sedimentation Rate 55 (0-15) Thyroid Stimulating Hormone (TSH) 2.710 uIU/mL (0.358-3.74) Test 02/21/20 11:41 02/21/20 11:53 O2 Saturation 94 % (92-99) Arterial Blood pH 7.53 (7.35-7.45) Arterial Blood pCO2 at Patient Temp 41 mmHg (35-46) Arterial Blood pO2 at Patient Temp 66 mmHg (65-108) Arterial Blood HCO3 33 mmol/L (21-28) Arterial Blood Base Excess 10 mmol/L (-3-3) FiO2 40% Glucose (Fingerstick) 103 mg/dL (70-99) Assessment and Plan Assessmemt and Plan Problems Medical Problems: (1) SBO (small bowel obstruction) Status: Acute (2) Umbilical hernia Status: Acute Small bowel obstruction Incarcerated umbilical hernia status post herniorrhaphy Obesity with a BMI of 34 History of COPD History of neuropathy History of dyslipidemia History of chronic pain syndrome on chronic narcotic therapy Leukocytosis most likely secondary to the acute incarceration of umbilical hernia Plan Appreciate neurology input Agree with starting Lyrica instead of continuing Neurontin Wound detention meds DVT prophylaxis Full code PT OT Would probably benefit from care home, but he wants to go home soon instead? Comment Review of Relevant I have reviewed the following items stevie (where applicable) has been applied. Medications: Current Medications Medications (Trade) Dose Ordered Sig/Molly Route PRN Reason Start Time Stop Time Status Last Admin Dose Admin Pregabalin (Lyrica) 150 mg BID PO 02/20/20 12:30 02/21/20 08:33 RETA CLANCY III DO February 21, 2020 12:30
--- NOTE | 2020-02-21 14:33 | PDOC ---
PROGRESS NOTES Assessment Problems Medical Problems: (1) SBO (small bowel obstruction) Status: Acute (2) Umbilical hernia Status: Acute Diabetic neuropathy, rule out other causes, agent orange can cause this for instance. He is failing on gabapentin. He says Graeme is helping some History of lumbar spinal stenosis Admitted for incarcerated umbilical hernia with medical issues of COPD among others. Plan [facility] work for other causes of neuropathy Outpatient EMG studies Subjective No complaints, no Lyrica side effects Objective Vital Signs Date Time Temp Pulse Resp B/P (MAP) Pulse Ox O2 Delivery O2 Flow Rate FiO2 02/21/20 11:43 86 Nasal Cannula 4.0 02/21/20 10:34 97.9 82 18 123/68 (86) 97.9 Intake and Output 02/21/20 07:00 Intake Total 1480 ml Output Total 550 ml Balance 930 ml Intake Oral 1480 ml Output Urine Total 550 ml # Voids 5 # Bowel Movements 3 PHYSICAL EXAM Alert. Oriented to time, place and person. PERRL. EOMI. CN: no focal findings. Muscle tone: normal. Muscle strength: 5/5 DTR: 0-1+ Plantar reflex: Flexor Gait: not examined in bed. Sensory exam: Stocking loss. No cerebellar signs elicited. Review of Relevant I have reviewed the following items stevie (where applicable) has been applied. Labs Laboratory Tests Test 02/19/20 16:09 02/20/20 07:04 02/20/20 11:25 02/20/20 16:14 Glucose (Fingerstick) 125 mg/dL (70-99) 90 mg/dL (70-99) 111 mg/dL (70-99) 114 mg/dL (70-99) Test 02/20/20 20:37 02/21/20 03:23 02/21/20 07:07 02/21/20 11:41 Glucose (Fingerstick) 128 mg/dL (70-99) 105 mg/dL (70-99) Erythrocyte Sedimentation Rate 55 (0-15) Thyroid Stimulating Hormone (TSH) 2.710 uIU/mL (0.358-3.74) O2 Saturation 94 % (92-99) Arterial Blood pH 7.53 (7.35-7.45) Arterial Blood pCO2 at Patient Temp 41 mmHg (35-46) Arterial Blood pO2 at Patient Temp 66 mmHg (65-108) Arterial Blood HCO3 33 mmol/L (21-28) Arterial Blood Base Excess 10 mmol/L (-3-3) FiO2 40% Test 02/21/20 11:53 Glucose (Fingerstick) 103 mg/dL (70-99) Laboratory Tests Test 02/20/20 16:14 02/20/20 20:37 02/21/20 03:23 02/21/20 07:07 Glucose (Fingerstick) 114 mg/dL (70-99) 128 mg/dL (70-99) 105 mg/dL (70-99) Erythrocyte Sedimentation Rate 55 (0-15) Thyroid Stimulating Hormone (TSH) 2.710 uIU/mL (0.358-3.74) Test 02/21/20 11:41 02/21/20 11:53 O2 Saturation 94 % (92-99) Arterial Blood pH 7.53 (7.35-7.45) Arterial Blood pCO2 at Patient Temp 41 mmHg (35-46) Arterial Blood pO2 at Patient Temp 66 mmHg (65-108) Arterial Blood HCO3 33 mmol/L (21-28) Arterial Blood Base Excess 10 mmol/L (-3-3) FiO2 40% Glucose (Fingerstick) 103 mg/dL (70-99) Medications Current Medications Ondansetron HCl (Zofran) 4 mg 1X ONCE IVP Last administered on 02/15/20at 19:44; Start 02/15/20 at 19:30; Stop 02/15/20 at 19:35; Status DC Ondansetron HCl (Zofran) 4 mg STK-MED ONCE .ROUTE ; Start 02/15/20 at 19:25; Stop 02/15/20 at 19:26; Status DC Fentanyl Citrate (Fentanyl 2ml Vial) 50 mcg PRN Q15MIN PRN IV PAIN GREATER THAN 3/10 Last administered on 02/15/20at 22:00; Start 02/15/20 at 19:30; Stop 02/16/20 at 19:29; Status DC Sodium Chloride 1,000 ml @ 1,000 mls/hr Q1H IV Last administered on 02/15/20at 19:44; Start 02/15/20 at 19:29; Stop 02/15/20 at 20:28; Status DC Iohexol (Omnipaque 300 Mg/ml) 75 ml 1X ONCE IV Last administered on 02/15/20at 20:40; Start 02/15/20 at 20:30; Stop 02/15/20 at 20:31; Status DC Info (CONTRAST GIVEN -- Rx MONITORING) 1 each PRN DAILY PRN MC SEE COMMENTS; Start 02/15/20 at 20:30; Stop 02/17/20 at 20:29; Status DC Dicyclomine HCl (Bentyl) 10 mg 1X ONCE IM Last administered on 02/15/20at 21:00; Start 02/15/20 at 20:30; Stop 02/15/20 at 20:31; Status DC Ondansetron HCl (Zofran) 4 mg PRN Q8HRS PRN IV NAUSEA/VOMITING 1ST CHOICE Last administered on 02/16/20at 09:24; Start 02/15/20 at 21:30; Stop 02/16/20 at 21:29; Status DC Morphine Sulfate (Morphine Sulfate) 4 mg PRN Q2HR PRN IV SEVERE PAIN 7-10; Start 02/15/20 at 21:30; Stop 02/16/20 at 21:29; Status DC Sodium Chloride 1,000 ml @ 100 mls/hr Q10H IV Last administered on 02/16/20at 11:59; Start 02/15/20 at 22:00; Stop 02/16/20 at 21:59; Status DC Propofol 20 ml @ As Directed STK-MED ONCE IV ; Start 02/15/20 at 21:30; Stop 02/15/20 at 21:31; Status DC Lidocaine HCl (Lidocaine Pf 2% Vial) 5 ml STK-MED ONCE .ROUTE ; Start 02/15/20 at 21:30; Stop 02/15/20 at 21:31; Status DC Rocuronium [place] (Zemuron) 50 mg STK-MED ONCE .ROUTE ; Start 02/15/20 at 21:30; Stop 02/15/20 at 21:31; Status DC Fentanyl Citrate (Fentanyl 2ml Vial) 100 mcg STK-MED ONCE .ROUTE ; Start 02/15/20 at 21:31; Stop 02/15/20 at 21:31; Status DC Fentanyl Citrate (Fentanyl 2ml Vial) 25 mcg PRN Q5MIN PRN IV MILD PAIN 1-3; Start 02/15/20 at 22:15; Stop 4/28/20 at 22:14; Status DC Fentanyl Citrate (Fentanyl 2ml Vial) 50 mcg PRN Q5MIN PRN IV MODERATE TO SEVERE PAIN; Start 02/15/20 at 22:15; Stop 02/16/20 at 22:14; Status DC Morphine Sulfate (Morphine Sulfate) 1 mg PRN Q10MIN PRN IV SEVERE PAIN 7-10; Start 02/15/20 at 22:15; Stop 02/16/20 at 22:14; Status DC Ringer's Solution 1,000 ml @ 30 mls/hr Q24H IV ; Start 02/15/20 at 22:30; Stop 02/16/20 at 22:29; Status DC Hydromorphone HCl (Dilaudid) 0.5 mg PRN Q10MIN PRN IV SEV PAIN, Second choice; Start 02/15/20 at 22:15; Stop 02/16/20 at 22:14; Status DC Prochlorperazine Edisylate (Compazine) 5 mg PACU PRN PRN IV NAUSEA, MRX1; Start 02/15/20 at 22:15; Stop 02/16/20 at 22:14; Status DC Sodium Chloride 1,000 ml @ 1,000 mls/hr 1X ONCE IV ; Start 02/15/20 at 22:30; Stop 02/16/20 at 00:32; Status DC Bupivacaine HCl/ Epinephrine Bitart (Sensorcain-Epi 0.5%-1:580011 Mpf) 30 ml STK-MED ONCE .ROUTE ; Start 02/15/20 at 22:13; Stop 02/15/20 at 22:13; Status DC Ondansetron HCl (Zofran) 4 mg STK-MED ONCE .ROUTE ; Start 02/15/20 at 22:49; Stop 02/15/20 at 22:49; Status DC Neostigmine [place] (Neostigmine Methylsulfate) 5 mg STK-MED ONCE .ROUTE ; Start 02/15/20 at 22:49; Stop 02/15/20 at 22:49; Status DC Glycopyrrolate (Robinul) 1 mg STK-MED ONCE .ROUTE ; Start 02/15/20 at 22:49; Stop 02/15/20 at 22:50; Status DC Dexamethasone Sodium Phosphate (Decadron) 4 mg STK-MED ONCE .ROUTE ; Start 02/15/20 at 22:50; Stop 02/15/20 at 22:50; Status DC Cefazolin Sodium (Ancef) 1 gm STK-MED ONCE IVP ; Start 02/15/20 at 23:11; Stop 02/15/20 at 23:11; Status DC Fentanyl Citrate (Fentanyl 2ml Vial) 25 mcg PRN Q2HRS PRN IVP MODERATE PAIN 4- 6; Start 02/16/20 at 00:15 Albuterol Sulfate (Ventolin Neb Soln) 2.5 mg 1X ONCE NEB Last administered on 02/16/20at 00:40; Start 02/16/20 at 01:00; Stop 02/16/20 at 01:01; Status DC Fentanyl Citrate (Fentanyl 2ml Vial) 50 mcg PRN Q2HRS PRN IVP SEVERE PAIN 7-10 Last administered on 02/17/20at 08:54; Start 02/16/20 at 00:30 Insulin Human Lispro (HumaLOG VIAL for OP,RR ONLY) 0-10 units PRN Q1HR PRN SQ PER PROTOCOL Last administered on 02/16/20at 00:58; Start 02/16/20 at 01:00; Stop 02/17/20 at 00:59; Status DC Albuterol Sulfate (Ventolin Neb Soln) 2.5 mg RTQID NEB Last administered on 02/16/20at 14:57; Start 02/16/20 at 16:00; Stop 02/16/20 at 15:20; Status DC Aspirin (Aspirin Chewable) 81 mg HS PO Last administered on 02/20/20at 21:53; Start 02/16/20 at 21:00 Atorvastatin Calcium (Lipitor) 20 mg DAILY PO ; Start 02/17/20 at 09:00; Status Cancel Atorvastatin Calcium (Lipitor) 40 mg DAILY PO Last administered on 02/21/20at 08:33; Start 02/17/20 at 09:00 Docusate Sodium (Colace) 100 mg HS PO Last administered on 02/20/20at 21:54; Start 02/16/20 at 21:00 Furosemide (Lasix) 40 mg DAILY PO Last administered on 02/21/20at 08:33; Start 02/17/20 at 09:00 Gabapentin (Neurontin) 900 mg BID PO ; Start 02/16/20 at 21:00; Stop 02/16/20 at 15:07; Status DC Gabapentin (Neurontin) 300 mg TID PO ; Start 02/16/20 at 21:00; Stop 02/16/20 at 15:07; Status DC Ipratropium [place] (Atrovent) 0.2 mg RTQID NEB ; Start 02/16/20 at 16:00; Stop 02/16/20 at 15:20; Status DC Oxycodone/ Acetaminophen (Percocet 5/325) 1 tab Q4HRS PO Last administered on 02/18/20at 12:14; Start 02/16/20 at 16:00; Stop 02/18/20 at 14:22; Status DC Sennosides (Senna) 8.6 mg HS PO Last administered on 02/20/20at 21:54; Start 02/16/20 at 21:00 Tamsulosin HCl (Flomax) 0.4 mg DAILY PO ; Start 02/17/20 at 09:00; Stop 02/16/20 at 15:09; Status DC Tamsulosin HCl (Flomax) 0.4 mg HS PO Last administered on 02/20/20at 21:53; Start 02/16/20 at 21:00 Tizanidine HCl (Zanaflex) 2 mg PRN TID PRN PO MUSCLE SPASMS Last administered on 02/19/20at 05:51; Start 02/16/20 at 15:00 Non-Formulary Medication (Albuterol Sulfate (Ventolin Hfa Inhaler)) 2 puff Q4HRS INH ; Start 02/16/20 at 16:00; Stop 02/16/20 at 15:12; Status DC Ascorbic Acid (Vitamin C) 500 mg DAILY PO Last administered on 02/21/20at 08:33; Start 02/17/20 at 09:00 Cyclobenzaprine HCl (Flexeril) 10 mg TID PO Last administered on 02/18/20at 08:44; Start 02/16/20 at 21:00; Stop 02/18/20 at 14:22; Status DC Non-Formulary Medication (Budesonide/ Formoterol Fumarate (Symbicort 80-4.5 Mcg Inhaler)) 2 puff BID IH ; Start 02/16/20 at 21:00; Stop 02/16/20 at 15:21; Status DC Vitamin D (Vitamin D3) 4,000 unit DAILY PO Last administered on 02/21/20 08:33; Start 02/17/20 at 09:00 Gabapentin (Neurontin) 600 mg BID@0900,1500 PO Last administered on 02/20/20 09:13; Start 02/16/20 at 16:00; Stop 02/20/20 at 12:10; Status DC Gabapentin (Neurontin) 800 mg QHS PO Last administered on 02/19/20 22:24; Start 02/16/20 at 21:00; Stop 02/20/20 at 12:10; Status DC Magnesium Chloride (Mag Delay) 64 mg QHS PO Last administered on 02/20/20 21:54; Start 02/16/20 at 21:00 Pantoprazole Sodium (Protonix) 40 mg DAILYAC PO Last administered on 02/21/20 08:33; Start 02/17/20 at 07:30 Non-Formulary Medication (Tiotropium [place] (Spiriva)) 1 cap DAILY IH ; Start 02/17/20 at 09:00; Stop 02/16/20 at 15:18; Status DC Insulin Human Lispro (HumaLOG) 0-5 UNITS TIDWMEALS SQ ; Start 02/16/20 at 17:00 Dextrose (Dextrose 50%-Water Syringe) 12.5 gm PRN Q15MIN PRN IV SEE COMMENTS; Start 02/16/20 at 15:00 Albuterol/ Ipratropium (Duoneb) 3 ml RTQID NEB Last administered on 02/21/20 11:39; Start 02/16/20 at 16:00 Budesonide (Pulmicort) 0.5 mg RTBID NEB Last administered on 02/21/20 07:23; Start 02/16/20 at 20:00 Enoxaparin Sodium (Lovenox 40mg Syringe) 40 mg Q24H SQ Last administered on 02/21/20at 12:22; Start 02/17/20 at 13:00 Cyclobenzaprine HCl (Flexeril) 10 mg PRN TID PRN PO MUSCLE PAIN Last administe red on 02/20/20at 09:16; Start 02/18/20 at 14:30 Oxycodone/ Acetaminophen (Percocet 5/325) 1 tab PRN Q4HRS PRN PO PAIN Last administered on 02/19/20at 22:24; Start 02/18/20 at 14:30 Menthol/Methyl Salicylate (Bengay Greaseless Cream) 1 malka PRN TID PRN TP PAIN Last administered on 02/19/20at 08:30; Start 02/19/20 at 06:00 Pregabalin (Lyrica) 150 mg BID PO Last administered on 02/21/20at 08:33; Start 02/20/20 at 12:30 Ceftriaxone Sodium (Rocephin) 1 gm Q24H IVP ; Start 02/21/20 at 14:00 Active Scripts Active Zofran Odt (Ondansetron) 4 Mg Tab.rapdis 1 Tab SL Q8HRS PRN Azithromycin Tablet (Azithromycin) 250 Mg Tablet 1 Pkg PO UD Prednisone 50 Mg Tablet 1 Tab PO DAILY Reported Biofreeze (Menthol) 118 Ml Gel..ml. 1 Malka TP TID PRN 10 Days Vitamin D3 (Cholecalciferol (Vitamin D3)) 4,000 Unit Capsule 1 Cap PO DAILY 30 Days Vitamin E (Vitamin E Mixed) 400 Unit Tablet 1 Tab PO QHS 30 Days Magnesium Gluconate 27 Mg Tablet 1 Tab PO HS 30 Days Vitamin C (Ascorbic Acid) 100 Mg Tablet 1 Tab PO DAILY 30 Days Aspirin 81 Mg Tab.chew 1 Tab PO HS Docusate Sodium 100 Mg Capsule 1 Cap PO HS 7 Days Senna Laxative (Sennosides) 8.6 Mg Tablet 1 Tab PO HS 30 Days Baclofen 20 Mg Tablet 20 Mg PO BID Flomax (Tamsulosin Hcl) 0.4 Mg Cap.er.24h 0.4 Mg PO HS Gabapentin 800 Mg Tablet 800 Mg PO HS Gabapentin 600 Mg Tablet 600 Mg PO BID Metformin Hcl 500 Mg Tablet 500 Mg PO HS Atorvastatin Calcium 40 Mg Tablet 40 Mg PO DAILY Spiriva (Tiotropium [place]) 18 Mcg Cap.w.dev 1 Cap IH DAILY Ventolin Hfa Inhaler (Albuterol Sulfate) 18 Gm Hfa.aer.ad 2 Puff INH Q4HRS Ipratropium [place] 0.2 Mg/1 Ml Solution 1 Vial NEB QID Symbicort 80-4.5 Mcg Inhaler (Budesonide/Formoterol Fumarate) 10.2 Gm Hfa.aer.ad 2 Puff IH BID Percocet 5-325 Mg Tablet (Oxycodone/Acetaminophen) 1 Each Tablet 1-2 Tab PO Q4-6HRS Omeprazole 20 Mg Tablet.dr 1 Tab PO DAILY Furosemide 40 Mg Tablet 1 Tab PO DAILY Gabapentin (Gabapentin) 300 Mg Capsule 300 Mg PO TID Atorvastatin Calcium 20 Mg Tablet 1 Tab PO DAILY Tizanidine Hcl 4 Mg Tablet 2 Mg PO TID PRN Percocet 5-325 Mg Tablet (Oxycodone/Acetaminophen) 1 Each Tablet 1-2 Tab PO Q4-6HRS Gabapentin (Gabapentin) 300 Mg Capsule 3 Cap PO BID Meloxicam 15 Mg Tablet 1 Tab PO HS Tamsulosin Hcl 0.4 Mg Cap.er.24h 1 Cap PO DAILY Vitals/I & O Vital Sign - Last 24 Hours 02/20/20 02/20/20 02/20/20 02/20/20 15:02 19:00 19:21 19:23 Temp 97.7 98.5 97.7 98.5 Pulse 97 82 Resp 20 20 B/P (MAP) 110/67 (81) 117/57 (77) Pulse Ox 92 96 93 93 O2 Delivery Nasal Cannula Nasal Cannula Nasal Cannula Nasal Cannula O2 Flow Rate 4.0 4.0 4.0 02/20/20 02/20/20 02/21/20 02/21/20 20:00 23:00 03:11 04:01 Temp 98.1 97.8 98.1 97.8 Pulse 79 81 Resp 20 20 B/P (MAP) 122/58 (79) 139/68 (91) Pulse Ox 94 89 O2 Delivery Nasal Cannula BiPAP/CPAP BiPAP/CPAP BiPAP/CPAP O2 Flow Rate 3.0 5.0 02/21/20 02/21/20 02/21/20 02/21/20 07:23 07:25 08:00 10:34 Temp 98.2 97.9 98.2 97.9 Pulse 86 82 Resp 18 18 B/P (MAP) 142/72 (95) 123/68 (86) Pulse Ox 86 89 92 O2 Delivery Nasal Cannula BiPAP/CPAP Nasal Cannula BiPAP/CPAP O2 Flow Rate 4.0 3.0 4.0 3.0 02/21/20 11:43 Pulse Ox 86 O2 Delivery Nasal Cannula O2 Flow Rate 4.0 Intake and Output 02/20/20 02/20/20 02/21/20 15:00 23:00 07:00 Intake Total 740 ml 740 ml Output Total 550 ml Balance 740 ml 740 ml -550 ml ANAND [id number] MD February 21, 2020 14:33
[2020-02-21] MEDS: cefTRIAXone IV Push 1 GM VIAL. IVP SCH (14:59)
[2020-02-21] MEDS: oxyCODONE/APAP 5/325 1 TAB TABLET PO PRN (14:59)
[2020-02-21 15:30] VITALS: BP 126/50
[2020-02-21 19:00] VITALS: BP 120/62
[2020-02-21] MEDS: ASPIRIN CHEWABLE 81 MG TABLET. PO SCH (21:24)
[2020-02-21] MEDS: SENNOSIDES 8.6 MG TABLET PO SCH (21:25)
[2020-02-21] MEDS: DOCUSATE SODIUM 100 MG CAPSULE. PO SCH (21:25)
[2020-02-21] MEDS: MAGNESIUM CHLORIDE ER 64 MG TABLET.ER PO SCH (21:27)
[2020-02-21] MEDS: TAMSULOSIN 0.4 MG CAP.ER.24H. PO SCH (21:27)
[2020-02-21 23:00] VITALS: BP 128/61
[2020-02-22 03:07] LABS: HEMOGLOBIN A1C 5.9 % (4.8-5.6)
[2020-02-22 03:21] VITALS: BP 123/52
[2020-02-22 07:00] VITALS: BP 125/51
[2020-02-22] MEDS: IPRATRPIUM/ALBUTEROL 0.5/2.5MG 3 ML NEBU. NEB SCH ×4 (07:09→19:53)
[2020-02-22] MEDS: BUDESONIDE 0.5 MG/2 ML NEBU. NEB SCH ×2 (07:09→19:53)
[2020-02-22] MEDS: INSULIN LISPRO 300 UNITS/3 ML VIAL. SQ SCH ×3 (08:00→17:00)
[2020-02-22] MEDS: CHOLECALCIFEROL (VITAMIN D3) 1,000 UNIT TABLET PO SCH (08:09)
[2020-02-22] MEDS: PANTOPRAZOLE 40 MG TABLET.DR. PO SCH (08:09)
[2020-02-22] MEDS: ATORVASTATIN CALCIUM 40 MG TABLET. PO SCH (08:10)
[2020-02-22] MEDS: ASCORBIC ACID 500 MG TABLET PO SCH (08:10)
[2020-02-22] MEDS: PREGABALIN 75 MG CAPSULE PO SCH ×2 (08:11→21:14)
[2020-02-22] MEDS: oxyCODONE/APAP 5/325 1 TAB TABLET PO PRN (08:12)
[2020-02-22] MEDS: FUROSEMIDE 40 MG TABLET. PO SCH (08:12)
--- NOTE | 2020-02-22 10:26 | PDOC ---
PROGRESS NOTES Subjective Subjective doing well from abdomen standpoint, amy po well; only complaint is his neuropathy Objective Objective Vital Signs Date Time Temp Pulse Resp B/P (MAP) Pulse Ox O2 Delivery O2 Flow Rate FiO2 02/22/20 07:11 92 Nasal Cannula 4.0 02/22/20 07:00 98.1 84 16 125/51 (75) 98.1 Intake and Output 02/22/20 07:00 Intake Total 1360 ml Output Total 300 ml Balance 1060 ml Intake Oral 1360 ml Output Urine Total 300 ml # Voids 2 Physical Exam Physical Exam abdomen soft, incision ok Assessment Assessment Problems Medical Problems: (1) SBO (small bowel obstruction) Status: Acute (2) Umbilical hernia Status: Acute Plan Plan of Care Stable from surgery standpoint; ok to discharge; no lifting over 20 lbs X 6 weeks, may FU with me in 2 weeks in office Comment Review of Relevant I have reviewed the following items stevie (where applicable) has been applied. Labs Laboratory Tests Test 02/20/20 11:25 02/20/20 16:14 02/20/20 20:37 02/21/20 02:32 Glucose (Fingerstick) 111 mg/dL (70-99) 114 mg/dL (70-99) 128 mg/dL (70-99) Hemoglobin A1c 5.9 % (4.8-5.6) Test 02/21/20 03:23 02/21/20 07:07 02/21/20 11:41 02/21/20 11:53 Erythrocyte Sedimentation Rate 55 (0-15) Vitamin B12 Level 356 pg/mL (247-911) Thyroid Stimulating Hormone (TSH) 2.710 uIU/mL (0.358-3.74) Glucose (Fingerstick) 105 mg/dL (70-99) 103 mg/dL (70-99) O2 Saturation 94 % (92-99) Arterial Blood pH 7.53 (7.35-7.45) Arterial Blood pCO2 at Patient Temp 41 mmHg (35-46) Arterial Blood pO2 at Patient Temp 66 mmHg (65-108) Arterial Blood HCO3 33 mmol/L (21-28) Arterial Blood Base Excess 10 mmol/L (-3-3) FiO2 40% Test 02/21/20 16:12 02/21/20 20:23 02/22/20 07:32 Glucose (Fingerstick) 123 mg/dL (70-99) 132 mg/dL (70-99) 107 mg/dL (70-99) Laboratory Tests Test 02/21/20 11:41 02/21/20 11:53 02/21/20 16:12 02/21/20 20:23 O2 Saturation 94 % (92-99) Arterial Blood pH 7.53 (7.35-7.45) Arterial Blood pCO2 at Patient Temp 41 mmHg (35-46) Arterial Blood pO2 at Patient Temp 66 mmHg (65-108) Arterial Blood HCO3 33 mmol/L (21-28) Arterial Blood Base Excess 10 mmol/L (-3-3) FiO2 40% Glucose (Fingerstick) 103 mg/dL (70-99) 123 mg/dL (70-99) 132 mg/dL (70-99) Test 02/22/20 07:32 Glucose (Fingerstick) 107 mg/dL (70-99) Medications Current Medications Ondansetron HCl (Zofran) 4 mg 1X ONCE IVP Last administered on 02/15/20at 19:44; Start 02/15/20 at 19:30; Stop 02/15/20 at 19:35; Status DC Ondansetron HCl (Zofran) 4 mg STK-MED ONCE .ROUTE ; Start 02/15/20 at 19:25; Stop 02/15/20 at 19:26; Status DC Fentanyl Citrate (Fentanyl 2ml Vial) 50 mcg PRN Q15MIN PRN IV PAIN GREATER THAN 3/10 Last administered on 02/15/20at 22:00; Start 02/15/20 at 19:30; Stop 02/16/20 at 19:29; Status DC Sodium Chloride 1,000 ml @ 1,000 mls/hr Q1H IV Last administered on 02/15/20at 19:44; Start 02/15/20 at 19:29; Stop 02/15/20 at 20:28; Status DC Iohexol (Omnipaque 300 Mg/ml) 75 ml 1X ONCE IV Last administered on 02/15/20at 20:40; Start 02/15/20 at 20:30; Stop 02/15/20 at 20:31; Status DC Info (CONTRAST GIVEN -- Rx MONITORING) 1 each PRN DAILY PRN MC SEE COMMENTS; Start 02/15/20 at 20:30; Stop 02/17/20 at 20:29; Status DC Dicyclomine HCl (Bentyl) 10 mg 1X ONCE IM Last administered on 02/15/20at 21:00; Start 02/15/20 at 20:30; Stop 02/15/20 at 20:31; Status DC Ondansetron HCl (Zofran) 4 mg PRN Q8HRS PRN IV NAUSEA/VOMITING 1ST CHOICE Last administered on 02/16/20at 09:24; Start 02/15/20 at 21:30; Stop 02/16/20 at 21:29; Status DC Morphine Sulfate (Morphine Sulfate) 4 mg PRN Q2HR PRN IV SEVERE PAIN 7-10; Start 02/15/20 at 21:30; Stop 02/16/20 at 21:29; Status DC Sodium Chloride 1,000 ml @ 100 mls/hr Q10H IV Last administered on 02/16/20at 11:59; Start 02/15/20 at 22:00; Stop 02/16/20 at 21:59; Status DC Propofol 20 ml @ As Directed STK-MED ONCE IV ; Start 02/15/20 at 21:30; Stop 02/15/20 at 21:31; Status DC Lidocaine HCl (Lidocaine Pf 2% Vial) 5 ml STK-MED ONCE .ROUTE ; Start 02/15/20 at 21:30; Stop 02/15/20 at 21:31; Status DC Rocuronium [place] (Zemuron) 50 mg STK-MED ONCE .ROUTE ; Start 02/15/20 at 21:30; Stop 02/15/20 at 21:31; Status DC Fentanyl Citrate (Fentanyl 2ml Vial) 100 mcg STK-MED ONCE .ROUTE ; Start 02/15/20 at 21:31; Stop 02/15/20 at 21:31; Status DC Fentanyl Citrate (Fentanyl 2ml Vial) 25 mcg PRN Q5MIN PRN IV MILD PAIN 1-3; Start 02/15/20 at 22:15; Stop 02/16/20 at 22:14; Status DC Fentanyl Citrate (Fentanyl 2ml Vial) 50 mcg PRN Q5MIN PRN IV MODERATE TO SEVERE PAIN; Start 02/15/20 at 22:15; Stop 02/16/20 at 22:14; Status DC Morphine Sulfate (Morphine Sulfate) 1 mg PRN Q10MIN PRN IV SEVERE PAIN 7-10; Start 02/15/20 at 22:15; Stop 02/16/20 at 22:14; Status DC Ringer's Solution 1,000 ml @ 30 mls/hr Q24H IV ; Start 02/15/20 at 22:30; Stop 02/16/20 at 22:29; Status DC Hydromorphone HCl (Dilaudid) 0.5 mg PRN Q10MIN PRN IV SEV PAIN, Second choice; Start 02/15/20 at 22:15; Stop 02/16/20 at 22:14; Status DC Prochlorperazine Edisylate (Compazine) 5 mg PACU PRN PRN IV NAUSEA, MRX1; Start 02/15/20 at 22:15; Stop 02/16/20 at 22:14; Status DC Sodium Chloride 1,000 ml @ 1,000 mls/hr 1X ONCE IV ; Start 02/15/20 at 22:30; Stop 02/16/20 at 00:32; Status DC Bupivacaine HCl/ Epinephrine Bitart (Sensorcain-Epi 0.5%-1:838218 Mpf) 30 ml STK-MED ONCE .ROUTE ; Start 02/15/20 at 22:13; Stop 02/15/20 at 22:13; Status DC Ondansetron HCl (Zofran) 4 mg STK-MED ONCE .ROUTE ; Start 02/15/20 at 22:49; Stop 02/15/20 at 22:49; Status DC Neostigmine [place] (Neostigmine Methylsulfate) 5 mg STK-MED ONCE .ROUTE ; Start 02/15/20 at 22:49; Stop 02/15/20 at 22:49; Status DC Glycopyrrolate (Robinul) 1 mg STK-MED ONCE .ROUTE ; Start 02/15/20 at 22:49; Stop 02/15/20 at 22:50; Status DC Dexamethasone Sodium Phosphate (Decadron) 4 mg STK-MED ONCE .ROUTE ; Start 02/15/20 at 22:50; Stop 02/15/20 at 22:50; Status DC Cefazolin Sodium (Ancef) 1 gm STK-MED ONCE IVP ; Start 02/15/20 at 23:11; Stop 02/15/20 at 23:11; Status DC Fentanyl Citrate (Fentanyl 2ml Vial) 25 mcg PRN Q2HRS PRN IVP MODERATE PAIN 4- 6; Start 02/16/20 at 00:15 Albuterol Sulfate (Ventolin Neb Soln) 2.5 mg 1X ONCE NEB Last administered on 02/16/20at 00:40; Start 02/16/20 at 01:00; Stop 02/16/20 at 01:01; Status DC Fentanyl Citrate (Fentanyl 2ml Vial) 50 mcg PRN Q2HRS PRN IVP SEVERE PAIN 7-10 Last administered on 02/17/20at 08:54; Start 02/16/20 at 00:30 Insulin Human Lispro (HumaLOG VIAL for OP,RR ONLY) 0-10 units PRN Q1HR PRN SQ PER PROTOCOL Last administered on 02/16/20at 00:58; Start 02/16/20 at 01:00; Stop 02/17/20 at 00:59; Status DC Albuterol Sulfate (Ventolin Neb Soln) 2.5 mg RTQID NEB Last administered on 02/16/20at 14:57; Start 02/16/20 at 16:00; Stop 02/16/20 at 15:20; Status DC Aspirin (Aspirin Chewable) 81 mg HS PO Last administered on 02/21/20at 21:24; Start 02/16/20 at 21:00 Atorvastatin Calcium (Lipitor) 20 mg DAILY PO ; Start 02/17/20 at 09:00; Status Cancel Atorvastatin Calcium (Lipitor) 40 mg DAILY PO Last administered on 02/22/20at 08:10; Start 02/17/20 at 09:00 Docusate Sodium (Colace) 100 mg HS PO Last administered on 02/21/20at 21:25; Start 02/16/20 at 21:00 Furosemide (Lasix) 40 mg DAILY PO Last administered on 02/22/20at 08:12; Start 02/17/20 at 09:00 Gabapentin (Neurontin) 900 mg BID PO ; Start 02/16/20 at 21:00; Stop 02/16/20 at 15:07; Status DC Gabapentin (Neurontin) 300 mg TID PO ; Start 02/16/20 at 21:00; Stop 02/16/20 at 15:07; Status DC Ipratropium [place] (Atrovent) 0.2 mg RTQID NEB ; Start 02/16/20 at 16:00; Stop 02/16/20 at 15:20; Status DC Oxycodone/ Acetaminophen (Percocet 5/325) 1 tab Q4HRS PO Last administered on 02/18/20at 12:14; Start 02/16/20 at 16:00; Stop 02/18/20 at 14:22; Status DC Sennosides (Senna) 8.6 mg HS PO Last administered on 02/21/20at 21:25; Start 02/16/20 at 21:00 Tamsulosin HCl (Flomax) 0.4 mg DAILY PO ; Start 02/17/20 at 09:00; Stop 02/16/20 at 15:09; Status DC Tamsulosin HCl (Flomax) 0.4 mg HS PO Last administered on 02/21/20at 21:27; Start 02/16/20 at 21:00 Tizanidine HCl (Zanaflex) 2 mg PRN TID PRN PO MUSCLE SPASMS Last administered on 02/19/20at 05:51; Start 02/16/20 at 15:00 Non-Formulary Medication (Albuterol Sulfate (Ventolin Hfa Inhaler)) 2 puff Q4HRS INH ; Start 02/16/20 at 16:00; Stop 02/16/20 at 15:12; Status DC Ascorbic Acid (Vitamin C) 500 mg DAILY PO Last administered on 02/22/20at 08:10; Start 02/17/20 at 09:00 Cyclobenzaprine HCl (Flexeril) 10 mg TID PO Last administered on 02/18/20at 08:44; Start 02/16/20 at 21:00; Stop 02/18/20 at 14:22; Status DC Non-Formulary Medication (Budesonide/ Formoterol Fumarate (Symbicort 80-4.5 Mcg Inhaler)) 2 puff BID IH ; Start 02/16/20 at 21:00; Stop 02/16/20 at 15:21; Status DC Vitamin D (Vitamin D3) 4,000 unit DAILY PO Last administered on 02/22/20at 08:09; Start 02/17/20 at 09:00 Gabapentin (Neurontin) 600 mg BID@0900,1500 PO Last administered on 02/20/20at 09:13; Start 02/16/20 at 16:00; Stop 02/20/20 at 12:10; Status DC Gabapentin (Neurontin) 800 mg QHS PO Last administered on 02/19/20at 22:24; Start 02/16/20 at 21:00; Stop 02/20/20 at 12:10; Status DC Magnesium Chloride (Mag Delay) 64 mg QHS PO Last administered on 02/21/20at 21:27; Start 02/16/20 at 21:00 Pantoprazole Sodium (Protonix) 40 mg DAILYAC PO Last administered on 02/22/20at 08:09; Start 02/17/20 at 07:30 Non-Formulary Medication (Tiotropium [place] (Spiriva)) 1 cap DAILY IH ; Start 02/17/20 at 09:00; Stop 02/16/20 at 15:18; Status DC Insulin Human Lispro (HumaLOG) 0-5 UNITS TIDWMEALS SQ ; Start 02/16/20 at 17:00 Dextrose (Dextrose 50%-Water Syringe) 12.5 gm PRN Q15MIN PRN IV SEE COMMENTS; Start 02/16/20 at 15:00 Albuterol/ Ipratropium (Duoneb) 3 ml RTQID NEB Last administered on 02/22/20 07:09; Start 02/16/20 at 16:00 Budesonide (Pulmicort) 0.5 mg RTBID NEB Last administered on 02/22/20at 07:09; Start 02/16/20 at 20:00 Enoxaparin Sodium (Lovenox 40mg Syringe) 40 mg Q24H SQ Last administered on 02/21/20at 12:22; Start 02/17/20 at 13:00 Cyclobenzaprine HCl (Flexeril) 10 mg PRN TID PRN PO MUSCLE PAIN Last administered on 02/20/20at 09:16; Start 02/18/20 at 14:30 Oxycodone/ Acetaminophen (Percocet 5/325) 1 tab PRN Q4HRS PRN PO PAIN Last administered on 02/22/20at 08:12; Start 02/18/20 at 14:30 Menthol/Methyl Salicylate (Bengay Greaseless Cream) 1 malka PRN TID PRN TP PAIN Last administered on 02/19/20at 08:30; Start 02/19/20 at 06:00 Pregabalin (Lyrica) 150 mg BID PO Last administered on 02/22/20at 08:11; Start 02/20/20 at 12:30 Ceftriaxone Sodium (Rocephin) 1 gm Q24H IVP Last administered on 02/21/20at 14:59; Start 02/21/20 at 14:00 Active Scripts Active Zofran Odt (Ondansetron) 4 Mg Tab.rapdis 1 Tab SL Q8HRS PRN Azithromycin Tablet (Azithromycin) 250 Mg Tablet 1 Pkg PO UD Prednisone 50 Mg Tablet 1 Tab PO DAILY Reported Biofreeze (Menthol) 118 Ml Gel..ml. 1 Malka TP TID PRN 10 Days Vitamin D3 (Cholecalciferol (Vitamin D3)) 4,000 Unit Capsule 1 Cap PO DAILY 30 Days Vitamin E (Vitamin E Mixed) 400 Unit Tablet 1 Tab PO QHS 30 Days Magnesium Gluconate 27 Mg Tablet 1 Tab PO HS 30 Days Vitamin C (Ascorbic Acid) 100 Mg Tablet 1 Tab PO DAILY 30 Days Aspirin 81 Mg Tab.chew 1 Tab PO HS Docusate Sodium 100 Mg Capsule 1 Cap PO HS 7 Days Senna Laxative (Sennosides) 8.6 Mg Tablet 1 Tab PO HS 30 Days Baclofen 20 Mg Tablet 20 Mg PO BID Flomax (Tamsulosin Hcl) 0.4 Mg Cap.er.24h 0.4 Mg PO HS Gabapentin 800 Mg Tablet 800 Mg PO HS Gabapentin 600 Mg Tablet 600 Mg PO BID Metformin Hcl 500 Mg Tablet 500 Mg PO HS Atorvastatin Calcium 40 Mg Tablet 40 Mg PO DAILY Spiriva (Tiotropium [place]) 18 Mcg Cap.w.dev 1 Cap IH DAILY Ventolin Hfa Inhaler (Albuterol Sulfate) 18 Gm Hfa.aer.ad 2 Puff INH Q4HRS Ipratropium [place] 0.2 Mg/1 Ml Solution 1 Vial NEB QID Symbicort 80-4.5 Mcg Inhaler (Budesonide/Formoterol Fumarate) 10.2 Gm Hfa.aer.ad 2 Puff IH BID Percocet 5-325 Mg Tablet (Oxycodone/Acetaminophen) 1 Each Tablet 1-2 Tab PO Q4-6HRS Omeprazole 20 Mg Tablet.dr 1 Tab PO DAILY Furosemide 40 Mg Tablet 1 Tab PO DAILY Gabapentin (Gabapentin) 300 Mg Capsule 300 Mg PO TID Atorvastatin Calcium 20 Mg Tablet 1 Tab PO DAILY Tizanidine Hcl 4 Mg Tablet 2 Mg PO TID PRN Percocet 5-325 Mg Tablet (Oxycodone/Acetaminophen) 1 Each Tablet 1-2 Tab PO Q4-6HRS Gabapentin (Gabapentin) 300 Mg Capsule 3 Cap PO BID Meloxicam 15 Mg Tablet 1 Tab PO HS Tamsulosin Hcl 0.4 Mg Cap.er.24h 1 Cap PO DAILY Vitals/I & O Vital Sign - Last 24 Hours 02/21/20 02/21/20 02/21/20 02/21/20 10:34 11:43 14:59 15:30 Temp 97.9 97.9 97.9 97.9 Pulse 82 98 Resp 18 20 B/P (MAP) 123/68 (86) 126/50 (75) Pulse Ox 92 86 96 O2 Delivery BiPAP/CPAP BiPAP/CPAP Nasal Cannula Nasal Cannula O2 Flow Rate 3.0 4.0 4.0 02/21/20 02/21/20 02/21/20 02/21/20 15:47 19:00 20:00 21:02 Temp 98.5 98.5 Pulse 80 Resp 20 B/P (MAP) 120/62 (81) Pulse Ox 90 91 93 O2 Delivery BiPAP/CPAP BiPAP/CPAP Nasal Cannula BiPAP/CPAP O2 Flow Rate 5.0 5.0 5.0 02/21/20 02/22/20 02/22/20 02/22/20 23:00 03:21 07:00 07:11 Temp 98.2 98.5 98.1 98.2 98.5 98.1 Pulse 83 85 84 Resp 20 20 16 B/P (MAP) 128/61 (83) 123/52 (75) 125/51 (75) Pulse Ox 92 89 94 92 O2 Delivery BiPAP/CPAP BiPAP/CPAP Room Air Nasal Cannula O2 Flow Rate 2.0 4.0 Intake and Output 02/21/20 02/21/20 02/22/20 15:00 23:00 07:00 Intake Total 640 ml 600 ml 120 ml Output Total 300 ml Balance 640 ml 600 ml -180 ml KINGSLEY LOU MD February 22, 2020 10:26
[2020-02-22] MEDS ORDERED: FUROSEMIDE 40 MG/4 ML VIAL. IVP ONE (10:30)
[2020-02-22 10:45] VITALS: BP 130/67
--- NOTE | 2020-02-22 11:29 | PDOC ---
PROGRESS NOTES Assessment Problems Medical Problems: (1) SBO (small bowel obstruction) Status: Acute (2) Umbilical hernia Status: Acute Diabetic neuropathy, rule out other causes, agent orange can cause this for instance. He is failing on gabapentin. He says Lyrica is helping some. Labwork for other causes so far negative History of lumbar spinal stenosis Admitted for incarcerated umbilical hernia with medical issues of COPD among others. Plan Lyrica Outpatient EMG studies in my offic Subjective Lyrica may be helping a little Objective Vital Signs Date Time Temp Pulse Resp B/P (MAP) Pulse Ox O2 Delivery O2 Flow Rate FiO2 02/22/20 10:45 98.1 20 130/67 (88) 96 Room Air 2.0 98.1 02/22/20 07:00 84 Intake and Output 02/22/20 07:00 Intake Total 1360 ml Output Total 300 ml Balance 1060 ml Intake Oral 1360 ml Output Urine Total 300 ml # Voids 2 PHYSICAL EXAM Alert. Oriented to time, place and person. PERRL. EOMI. CN: no focal findings. Muscle tone: normal. Muscle strength: 5/5 DTR: 0-1+ Plantar reflex: Flexor Gait: not examined in bed. Sensory exam: Stocking loss. No cerebellar signs elicited. Review of Relevant I have reviewed the following items stevie (where applicable) has been applied. Labs Laboratory Tests Test 02/20/20 16:14 02/20/20 20:37 02/21/20 02:32 02/21/20 03:23 Glucose (Fingerstick) 114 mg/dL (70-99) 128 mg/dL (70-99) Hemoglobin A1c 5.9 % (4.8-5.6) Erythrocyte Sedimentation Rate 55 (0-15) Vitamin B12 Level 356 pg/mL (247-911) Thyroid Stimulating Hormone (TSH) 2.710 uIU/mL (0.358-3.74) Test 02/21/20 07:07 02/21/20 11:41 02/21/20 11:53 02/21/20 16:12 Glucose (Fingerstick) 105 mg/dL (70-99) 103 mg/dL (70-99) 123 mg/dL (70-99) O2 Saturation 94 % (92-99) Arterial Blood pH 7.53 (7.35-7.45) Arterial Blood pCO2 at Patient Temp 41 mmHg (35-46) Arterial Blood pO2 at Patient Temp 66 mmHg (65-108) Arterial Blood HCO3 33 mmol/L (21-28) Arterial Blood Base Excess 10 mmol/L (-3-3) FiO2 40% Test 02/21/20 20:23 02/22/20 07:32 02/22/20 11:13 Glucose (Fingerstick) 132 mg/dL (70-99) 107 mg/dL (70-99) 123 mg/dL (70-99) Laboratory Tests Test 02/21/20 11:41 02/21/20 11:53 02/21/20 16:12 02/21/20 20:23 O2 Saturation 94 % (92-99) Arterial Blood pH 7.53 (7.35-7.45) Arterial Blood pCO2 at Patient Temp 41 mmHg (35-46) Arterial Blood pO2 at Patient Temp 66 mmHg (65-108) Arterial Blood HCO3 33 mmol/L (21-28) Arterial Blood Base Excess 10 mmol/L (-3-3) FiO2 40% Glucose (Fingerstick) 103 mg/dL (70-99) 123 mg/dL (70-99) 132 mg/dL (70-99) Test 02/22/20 07:32 02/22/20 11:13 Glucose (Fingerstick) 107 mg/dL (70-99) 123 mg/dL (70-99) Medications Current Medications Ondansetron HCl (Zofran) 4 mg 1X ONCE IVP Last administered on 02/15/20at 19:44; Start 02/15/20 at 19:30; Stop 02/15/20 at 19:35; Status DC Ondansetron HCl (Zofran) 4 mg STK-MED ONCE .ROUTE ; Start 02/15/20 at 19:25; Stop 02/15/20 at 19:26; Status DC Fentanyl Citrate (Fentanyl 2ml Vial) 50 mcg PRN Q15MIN PRN IV PAIN GREATER THAN 3/10 Last administered on 02/15/20at 22:00; Start 02/15/20 at 19:30; Stop 02/16/20 at 19:29; Status DC Sodium Chloride 1,000 ml @ 1,000 mls/hr Q1H IV Last administered on 02/15/20at 19:44; Start 02/15/20 at 19:29; Stop 02/15/20 at 20:28; Status DC Iohexol (Omnipaque 300 Mg/ml) 75 ml 1X ONCE IV Last administered on 02/15/20at 20:40; Start 02/15/20 at 20:30; Stop 02/15/20 at 20:31; Status DC Info (CONTRAST GIVEN -- Rx MONITORING) 1 each PRN DAILY PRN MC SEE COMMENTS; Start 02/15/20 at 20:30; Stop 02/17/20 at 20:29; Status DC Dicyclomine HCl (Bentyl) 10 mg 1X ONCE IM Last administered on 02/15/20at 21:00; Start 02/15/20 at 20:30; Stop 02/15/20 at 20:31; Status DC Ondansetron HCl (Zofran) 4 mg PRN Q8HRS PRN IV NAUSEA/VOMITING 1ST CHOICE Last administered on 02/16/20at 09:24; Start 02/15/20 at 21:30; Stop 02/16/20 at 21:29; Status DC Morphine Sulfate (Morphine Sulfate) 4 mg PRN Q2HR PRN IV SEVERE PAIN 7-10; Start 02/15/20 at 21:30; Stop 02/16/20 at 21:29; Status DC Sodium Chloride 1,000 ml @ 100 mls/hr Q10H IV Last administered on 02/16/20at 11:59; Start 02/15/20 at 22:00; Stop 02/16/20 at 21:59; Status DC Propofol 20 ml @ As Directed STK-MED ONCE IV ; Start 02/15/20 at 21:30; Stop 02/15/20 at 21:31; Status DC Lidocaine HCl (Lidocaine Pf 2% Vial) 5 ml STK-MED ONCE .ROUTE ; Start 02/15/20 at 21:30; Stop 02/15/20 at 21:31; Status DC Rocuronium [place] (Zemuron) 50 mg STK-MED ONCE .ROUTE ; Start 02/15/20 at 21:30; Stop 02/15/20 at 21:31; Status DC Fentanyl Citrate (Fentanyl 2ml Vial) 100 mcg STK-MED ONCE .ROUTE ; Start 02/15/20 at 21:31; Stop 02/15/20 at 21:31; Status DC Fentanyl Citrate (Fentanyl 2ml Vial) 25 mcg PRN Q5MIN PRN IV MILD PAIN 1-3; Start 02/15/20 at 22:15; Stop 02/16/20 at 22:14; Status DC Fentanyl Citrate (Fentanyl 2ml Vial) 50 mcg PRN Q5MIN PRN IV MODERATE TO SEVERE PAIN; Start 02/15/20 at 22:15; Stop 02/16/20 at 22:14; Status DC Morphine Sulfate (Morphine Sulfate) 1 mg PRN Q10MIN PRN IV SEVERE PAIN 7-10; Start 02/15/20 at 22:15; Stop 02/16/20 at 22:14; Status DC Ringer's Solution 1,000 ml @ 30 mls/hr Q24H IV ; Start 02/15/20 at 22:30; Stop 02/16/20 at 22:29; Status DC Hydromorphone HCl (Dilaudid) 0.5 mg PRN Q10MIN PRN IV SEV PAIN, Second choice; Start 02/15/20 at 22:15; Stop 02/16/20 at 22:14; Status DC Prochlorperazine Edisylate (Compazine) 5 mg PACU PRN PRN IV NAUSEA, MRX1; Start 02/15/20 at 22:15; Stop 02/16/20 at 22:14; Status DC Sodium Chloride 1,000 ml @ 1,000 mls/hr 1X ONCE IV ; Start 02/15/20 at 22:30; Stop 02/16/20 at 00:32; Status DC Bupivacaine HCl/ Epinephrine Bitart (Sensorcain-Epi 0.5%-1:108940 Mpf) 30 ml STK-MED ONCE .ROUTE ; Start 02/15/20 at 22:13; Stop 02/15/20 at 22:13; Status DC Ondansetron HCl (Zofran) 4 mg STK-MED ONCE .ROUTE ; Start 02/15/20 at 22:49; Stop 02/15/20 at 22:49; Status DC Neostigmine [place] (Neostigmine Methylsulfate) 5 mg STK-MED ONCE .ROUTE ; Start 02/15/20 at 22:49; Stop 02/15/20 at 22:49; Status DC Glycopyrrolate (Robinul) 1 mg STK-MED ONCE .ROUTE ; Start 02/15/20 at 22:49; Stop 02/15/20 at 22:50; Status DC Dexamethasone Sodium Phosphate (Decadron) 4 mg STK-MED ONCE .ROUTE ; Start 02/15/20 at 22:50; Stop 02/15/20 at 22:50; Status DC Cefazolin Sodium (Ancef) 1 gm STK-MED ONCE IVP ; Start 02/15/20 at 23:11; Stop 02/15/20 at 23:11; Status DC Fentanyl Citrate (Fentanyl 2ml Vial) 25 mcg PRN Q2HRS PRN IVP MODERATE PAIN 4- 6; Start 02/16/20 at 00:15 Albuterol Sulfate (Ventolin Neb Soln) 2.5 mg 1X ONCE NEB Last administered on 02/16/20at 00:40; Start 02/16/20 at 01:00; Stop 02/16/20 at 01:01; Status DC Fentanyl Citrate (Fentanyl 2ml Vial) 50 mcg PRN Q2HRS PRN IVP SEVERE PAIN 7-10 Last administered on 02/17/20at 08:54; Start 02/16/20 at 00:30 Insulin Human Lispro (HumaLOG VIAL for OP,RR ONLY) 0-10 units PRN Q1HR PRN SQ PER PROTOCOL Last administered on 02/16/20at 00:58; Start 02/16/20 at 01:00; Stop 02/17/20 at 00:59; Status DC Albuterol Sulfate (Ventolin Neb Soln) 2.5 mg RTQID NEB Last administered on 02/16/20at 14:57; Start 02/16/20 at 16:00; Stop 02/16/20 at 15:20; Status DC Aspirin (Aspirin Chewable) 81 mg HS PO Last administered on 02/21/20at 21:24; Start 02/16/20 at 21:00 Atorvastatin Calcium (Lipitor) 20 mg DAILY PO ; Start 02/17/20 at 09:00; Status Cancel Atorvastatin Calcium (Lipitor) 40 mg DAILY PO Last administered on 02/22/20at 08:10; Start 02/17/20 at 09:00; Stop 02/22/20 at 10:28; Status DC Docusate Sodium (Colace) 100 mg HS PO Last administered on 02/21/20at 21:25; Start 02/16/20 at 21:00 Furosemide (Lasix) 40 mg DAILY PO Last administered on 02/22/20 08:12; Start 02/17/20 at 09:00 Gabapentin (Neurontin) 900 mg BID PO ; Start 02/16/20 at 21:00; Stop 02/16/20 at 15:07; Status DC Gabapentin (Neurontin) 300 mg TID PO ; Start 02/16/20 at 21:00; Stop 02/16/20 at 15:07; Status DC Ipratropium [place] (Atrovent) 0.2 mg RTQID NEB ; Start 02/16/20 at 16:00; Stop 02/16/20 at 15:20; Status DC Oxycodone/ Acetaminophen (Percocet 5/325) 1 tab Q4HRS PO Last administered on 02/18/20at 12:14; Start 02/16/20 at 16:00; Stop 02/18/20 at 14:22; Status DC Sennosides (Senna) 8.6 mg HS PO Last administered on 02/21/20 21:25; Start 01/20 06/09 at 21:00 Tamsulosin HCl (Flomax) 0.4 mg DAILY PO ; Start 02/17/20 at 09:00; Stop 02/16/20 at 15:09; Status DC Tamsulosin HCl (Flomax) 0.4 mg HS PO Last administered on 02/21/20at 21:27; Start 02/16/20 at 21:00 Tizanidine HCl (Zanaflex) 2 mg PRN TID PRN PO MUSCLE SPASMS Last administered on 02/19/20 05:51; Start 02/16/20 at 15:00 Non-Formulary Medication (Albuterol Sulfate (Ventolin Hfa Inhaler)) 2 puff Q4HRS INH ; Start 02/16/20 at 16:00; Stop 02/16/20 at 15:12; Status DC Ascorbic Acid (Vitamin C) 500 mg DAILY PO Last administered on 02/22/20at 08:10; Start 02/17/20 at 09:00 Cyclobenzaprine HCl (Flexeril) 10 mg TID PO Last administered on 02/18/20at 08:44; Start 02/16/20 at 21:00; Stop 02/18/20 at 14:22; Status DC Non-Formulary Medication (Budesonide/ Formoterol Fumarate (Symbicort 80-4.5 Mcg Inhaler)) 2 puff BID IH ; Start 02/16/20 at 21:00; Stop 02/16/20 at 15:21; Status DC Vitamin D (Vitamin D3) 4,000 unit DAILY PO Last administered on 02/22/20at 08:09; Start 02/17/20 at 09:00 Gabapentin (Neurontin) 600 mg BID@0900,1500 PO Last administered on 02/20/20at 09:13; Start 02/16/20 at 16:00; Stop 02/20/20 at 12:10; Status DC Gabapentin (Neurontin) 800 mg QHS PO Last administered on 02/19/20at 22:24; Start 02/16/20 at 21:00; Stop 02/20/20 at 12:10; Status DC Magnesium Chloride (Mag Delay) 64 mg QHS PO Last administered on 02/21/20at 21:27; Start 02/16/20 at 21:00 Pantoprazole Sodium (Protonix) 40 mg DAILYAC PO Last administered on 02/22/20at 08:09; Start 02/17/20 at 07:30 Non-Formulary Medication (Tiotropium [place] (Spiriva)) 1 cap DAILY IH ; Start 02/17/20 at 09:00; Stop 02/16/20 at 15:18; Status DC Insulin Human Lispro (HumaLOG) 0-5 UNITS TIDWMEALS SQ ; Start 02/16/20 at 17:00 Dextrose (Dextrose 50%-Water Syringe) 12.5 gm PRN Q15MIN PRN IV SEE COMMENTS; Start 02/16/20 at 15:00 Albuterol/ Ipratropium (Duoneb) 3 ml RTQID NEB Last administered on 02/22/20at 07:09; Start 02/16/20 at 16:00 Budesonide (Pulmicort) 0.5 mg RTBID NEB Last administered on 02/22/20at 07:09; Start 02/16/20 at 20:00 Enoxaparin Sodium (Lovenox 40mg Syringe) 40 mg Q24H SQ Last administered on 02/21/20at 12:22; Start 02/17/20 at 13:00 Cyclobenzaprine HCl (Flexeril) 10 mg PRN TID PRN PO MUSCLE PAIN Last administered on 02/20/20at 09:16; Start 02/18/20 at 14:30 Oxycodone/ Acetaminophen (Percocet 5/325) 1 tab PRN Q4HRS PRN PO PAIN Last administered on 02/22/20at 08:12; Start 02/18/20 at 14:30 Menthol/Methyl Salicylate (Bengay Greaseless Cream) 1 malka PRN TID PRN TP PAIN Last administered on 02/19/20at 08:30; Start 02/19/20 at 06:00 Pregabalin (Lyrica) 150 mg BID PO Last administered on 02/22/20at 08:11; Start 02/20/20 at 12:30 Ceftriaxone Sodium (Rocephin) 1 gm Q24H IVP Last administered on 02/21/20at 14:59; Start 02/21/20 at 14:00 Atorvastatin Calcium (Lipitor) 40 mg HS PO ; Start 02/23/20 at 21:00 Furosemide (Lasix) 40 mg 1X ONCE IVP ; Start 02/22/20 at 10:30; Stop 02/22/20 at 10:32; Status DC Active Scripts Active Zofran Odt (Ondansetron) 4 Mg Tab.rapdis 1 Tab SL Q8HRS PRN Azithromycin Tablet (Azithromycin) 250 Mg Tablet 1 Pkg PO UD Prednisone 50 Mg Tablet 1 Tab PO DAILY Reported Biofreeze (Menthol) 118 Ml Gel..ml. 1 Malka TP TID PRN 10 Days Vitamin D3 (Cholecalciferol (Vitamin D3)) 4,000 Unit Capsule 1 Cap PO DAILY 30 Days Vitamin E (Vitamin E Mixed) 400 Unit Tablet 1 Tab PO QHS 30 Days Magnesium Gluconate 27 Mg Tablet 1 Tab PO HS 30 Days Vitamin C (Ascorbic Acid) 100 Mg Tablet 1 Tab PO DAILY 30 Days Aspirin 81 Mg Tab.chew 1 Tab PO HS Docusate Sodium 100 Mg Capsule 1 Cap PO HS 7 Days Senna Laxative (Sennosides) 8.6 Mg Tablet 1 Tab PO HS 30 Days Baclofen 20 Mg Tablet 20 Mg PO BID Flomax (Tamsulosin Hcl) 0.4 Mg Cap.er.24h 0.4 Mg PO HS Gabapentin 800 Mg Tablet 800 Mg PO HS Gabapentin 600 Mg Tablet 600 Mg PO BID Metformin Hcl 500 Mg Tablet 500 Mg PO HS Atorvastatin Calcium 40 Mg Tablet 40 Mg PO DAILY Spiriva (Tiotropium [place]) 18 Mcg Cap.w.dev 1 Cap IH DAILY Ventolin Hfa Inhaler (Albuterol Sulfate) 18 Gm Hfa.aer.ad 2 Puff INH Q4HRS Ipratropium [place] 0.2 Mg/1 Ml Solution 1 Vial NEB QID Symbicort 80-4.5 Mcg Inhaler (Budesonide/Formoterol Fumarate) 10.2 Gm Hfa.aer.ad 2 Puff IH BID Percocet 5-325 Mg Tablet (Oxycodone/Acetaminophen) 1 Each Tablet 1-2 Tab PO Q4-6HRS Omeprazole 20 Mg Tablet.dr 1 Tab PO DAILY Furosemide 40 Mg Tablet 1 Tab PO DAILY Gabapentin (Gabapentin) 300 Mg Capsule 300 Mg PO TID Atorvastatin Calcium 20 Mg Tablet 1 Tab PO DAILY Tizanidine Hcl 4 Mg Tablet 2 Mg PO TID PRN Percocet 5-325 Mg Tablet (Oxycodone/Acetaminophen) 1 Each Tablet 1-2 Tab PO Q4-6HRS Gabapentin (Gabapentin) 300 Mg Capsule 3 Cap PO BID Meloxicam 15 Mg Tablet 1 Tab PO HS Tamsulosin Hcl 0.4 Mg Cap.er.24h 1 Cap PO DAILY Vitals/I & O Vital Sign - Last 24 Hours 02/21/20 02/21/20 02/21/20 02/21/20 11:43 14:59 15:30 15:47 Temp 97.9 97.9 Pulse 98 Resp 20 B/P (MAP) 126/50 (75) Pulse Ox 86 96 90 O2 Delivery BiPAP/CPAP Nasal Cannula Nasal Cannula BiPAP/CPAP O2 Flow Rate 4.0 4.0 5.0 02/21/20 02/21/20 02/21/20 02/21/20 19:00 20:00 21:02 23:00 Temp 98.5 98.2 98.5 98.2 Pulse 80 83 Resp 20 20 B/P (MAP) 120/62 (81) 128/61 (83) Pulse Ox 91 93 92 O2 Delivery BiPAP/CPAP Nasal Cannula BiPAP/CPAP BiPAP/CPAP O2 Flow Rate 5.0 5.0 02/22/20 02/22/20 02/22/20 02/22/20 03:21 07:00 07:11 10:45 Temp 98.5 98.1 98.1 98.5 98.1 98.1 Pulse 85 84 Resp 20 16 20 B/P (MAP) 123/52 (75) 125/51 (75) 130/67 (88) Pulse Ox 89 94 92 96 O2 Delivery BiPAP/CPAP Room Air Nasal Cannula Room Air O2 Flow Rate 2.0 4.0 2.0 Intake and Output 02/21/20 02/21/20 02/22/20 15:00 23:00 07:00 Intake Total 640 ml 600 ml 120 ml Output Total 300 ml Balance 640 ml 600 ml -180 ml ANAND SAAVEDRA MD February 22, 2020 11:29
--- NOTE | 2020-02-22 11:42 | NUR ---
SW following. Discussed with RN and Dr. Baig, pt not ready to discharge today, getting IV lasix for fluid, getting sputum sample, IV rocephin. Updates faxed to [facility]. SW will continue to follow.
[2020-02-22] MEDS: ENOXAPARIN 40 MG/0.4 ML SYRINGE. SQ SCH (12:28)
--- NOTE | 2020-02-22 12:33 | PDOC ---
[facility] [facility] PROGRESS NOTE Chief Complaint Chief Complaint Small bowel obstruction Possible pneumonia on chest x-ray Mild hypoxia Edema Incarcerated umbilical hernia status post herniorrhaphy Obesity with a BMI of 34 History of COPD History of neuropathy History of dyslipidemia History of chronic pain syndrome on chronic narcotic therapy Leukocytosis most likely secondary to the acute incarceration of umbilical hernia History of Present Illness History of Present Illness 02/22/2020 Patient seen and examined He called his input her on Skype with me and Dr. Kirkland Discussed with RN Chart reviewed Discussed with patient care manufacturing sales representative Scarlett 02/21/2020 Patient seen and examined Review chart Discussed with RN 02/20/2020 Patient seen and examined His uric acid level was only 5.8 And we will go ahead and consult neurology as he still has foot pain Chart reviewed Discussed with Dr. Schafer Vitals/I&O Vitals/I&O: Vital Signs Date Time Temp Pulse Resp B/P (MAP) Pulse Ox O2 Delivery O2 Flow Rate FiO2 02/22/20 11:29 93 Nasal Cannula 4.0 02/22/20 10:45 98.1 20 130/67 (88) 98.1 02/22/20 07:00 84 I & O 02/21/20 02/21/20 02/22/20 15:00 23:00 07:00 Intake Total 640 ml 600 ml 120 ml Output Total 300 ml Balance 640 ml 600 ml -180 ml Physical Exam General: Alert, Oriented X3, Cooperative, mild distress Heart: Regular rate Abdomen: Normal bowel sounds, Soft, No tenderness, Other (Wound clean dry and intact) Extremities: Other (Bilateral pedal edema with purple hue likely venous stasis) Skin: No rashes, No breakdown Labs Labs: Laboratory Tests Test 02/21/20 16:12 02/21/20 20:23 02/22/20 07:32 02/22/20 11:13 Glucose (Fingerstick) 123 mg/dL (70-99) 132 mg/dL (70-99) 107 mg/dL (70-99) 123 mg/dL (70-99) Assessment and Plan Assessmemt and Plan Problems Medical Problems: (1) SBO (small bowel obstruction) Status: Acute (2) Umbilical hernia Status: Acute Small bowel obstruction Possible pneumonia on chest x-ray Mild hypoxia Incarcerated umbilical hernia status post herniorrhaphy Obesity with a BMI of 34 History of COPD History of neuropathy History of dyslipidemia History of chronic pain syndrome on chronic narcotic therapy Leukocytosis most likely secondary to the acute incarceration of umbilical hernia Plan Dr. Kirkland is starting some antibiotics (agree) Incentive spirometry Encourage p.o. intake Appreciate neurology input Agree with starting Lyrica instead of continuing Neurontin Wound skilled nursing meds DVT prophylaxis Full code PT OT Would probably benefit from residential, but he wants to go home soon instead? Probable discharge in 48 hours Comment Review of Relevant I have reviewed the following items stevie (where applicable) has been applied. Medications: Current Medications Medications (Trade) Dose Ordered Sig/Molly Route PRN Reason Start Time Stop Time Status Last Admin Dose Admin Ceftriaxone Sodium (Rocephin) 1 gm Q24H IVP 02/21/20 14:00 02/21/20 14:59 Furosemide (Lasix) 40 mg 1X ONCE IVP 02/22/20 10:30 02/22/20 10:32 DC 02/22/20 12:21 RETA CLANCY III DO February 22, 2020 12:33
[2020-02-22 13:41] LABS: ALBUMIN 2.8 g/dL (3.4-5.0); ALBUMIN/GLOBULIN RATIO 0.7 (1.0-1.7); CALCIUM 8.3 mg/dL (8.5-10.1); CREATININE 0.9 mg/dL (0.7-1.3); GFR 81.6; POTASSIUM 3.5 mmol/L (3.5-5.1); TOTAL BILIRUBIN 0.8 mg/dL (0.2-1.0); TOTAL PROTEIN 6.6 g/dL (6.4-8.2)
[2020-02-22] MEDS: cefTRIAXone IV Push 1 GM VIAL. IVP SCH (14:34)
[2020-02-22 15:00] VITALS: BP 145/69
[2020-02-22 19:00] VITALS: BP 122/54
[2020-02-22] MEDS: TAMSULOSIN 0.4 MG CAP.ER.24H. PO SCH (21:13)
[2020-02-22] MEDS: MAGNESIUM CHLORIDE ER 64 MG TABLET.ER PO SCH (21:13)
[2020-02-22] MEDS: ASPIRIN CHEWABLE 81 MG TABLET. PO SCH (21:13)
[2020-02-22] MEDS: SENNOSIDES 8.6 MG TABLET PO SCH (21:13)
[2020-02-22] MEDS: DOCUSATE SODIUM 100 MG CAPSULE. PO SCH (21:13)
[2020-02-22 23:00] VITALS: BP 114/58
--- NOTE | 2020-02-23 00:39 | CONS ---
DATE OF CONSULTATION: 02/22/2020 PULMONARY CONSULTATION ATTENDING PHYSICIAN: Lazaro Terry MD REASON FOR CONSULTATION: Postop hypoxia, COPD, abnormal chest x-ray. HISTORY OF PRESENT ILLNESS: The patient is a 79-year-old obese male with a BMI of 34. The patient underwent repair of incarcerated umbilical hernia surgery on 02/15. Since yesterday, he has been requiring increased amount of oxygen, although he does not appear to be in any obvious respiratory distress. He does have a cough with yellow sputum production. He is currently on 4 liters of oxygen at 92% saturations. No fever in the last 24 hours. Yesterday, chest x-ray was ordered by me and it shows minimal infiltrate in the right lower lobe, which could be atelectasis as well. However, because of his symptoms, I started Rocephin. The patient smoked for 30 years before quitting. He is currently on bronchodilators. He also has lower extremity edema. I have talked to the via Skype and had a mutual discussion about his management. PAST MEDICAL HISTORY: Significant for history of underlying obesity, history of COPD. Unknown FEV1, hypertension, hyperlipidemia and diabetes. PAST SURGICAL HISTORY: Hernia repair. FAMILY HISTORY: Noncontributory to lungs. SOCIAL HISTORY: Quit tobacco in the , before that smoked for 30 years. ALLERGIES: None. MEDICATIONS: Reviewed as listed in the MRAD. PHYSICAL EXAMINATION: VITAL SIGNS: Reviewed. Pulse ox 91%, on 4 liters. He is afebrile. HEENT: Sclerae nonicteric. NECK: Supple. LUNGS: With diminished breath sounds. CARDIOVASCULAR: With a regular rate. ABDOMEN: Soft, obese. EXTREMITIES: With bilateral 2+ pitting edema. LABORATORY DATA: Reviewed. White cell count last one was 10.3, hemoglobin 15.5 and platelets are 172. ABGs with a pH of 7.53, pCO2 of 41 and a pO2 of 66 on 40% FiO2. IMPRESSION: 1. Acute hypoxic respiratory failure, which is expected postop secondary to combination of underlying chronic obstructive pulmonary disease, underlying obesity and along with right lower lobe atelectasis/infiltrate. 2. Cough with yellow sputum production related to acute bronchitis versus early right lower lobe infiltrate/pneumonia. 3. Status post repair of incarcerated umbilical hernia with mesh on 02/15. RECOMMENDATIONS: 1. Continue with present oxygen with gradual wean to keep saturation 92% and above. 2. Empiric Rocephin. 3. Obtain sputum for C and S. 4. Continue with present bronchodilators including DuoNeb and Pulmicort. 5. Incentive spirometry. 6. Follow chest x-ray as needed. 7. DVT prophylaxis with Lovenox. 8. Discussed with Dr. Baig, discussed with via Skype. We will also give extra IV Lasix today. Discussed with RN. BUD RUIZ MD DR: GILDARDO/regina JOB#: [id number] / [id number]
[2020-02-23 03:00] VITALS: BP 122/67
[2020-02-23 04:57] LABS: BASO # 0.1 x10^3/uL (0.0-0.2); BASO % 1 % (0-3); EOS # 0.2 x10^3/uL (0.0-0.7); EOS % 3 % (0-3); HEMATOCRIT 39.2 % (39.0-53.0); HEMOGLOBIN 13.1 g/dL (13.0-17.5); LYMPH # 1.3 x10^3/uL (1.0-4.8); LYMPH % 16 % (24-48); MEAN CORPUSCULAR HEMOGLOBIN 31 pg (25-35); MEAN CORPUSCULAR HGB CONC 34 g/dL (31-37); MEAN CORPUSCULAR VOLUME 92 fL (79-100); MONO % 12 % (0-9); NEUT # 5.6 x10^3/uL (1.8-7.7); NEUT % 68 % (31-73); PLATELET COUNT 217 x10^3/uL (140-400); RED BLOOD COUNT 4.24 x10^6/uL (4.30-5.70); RED CELL DISTRIBUTION WIDTH 13.1 % (11.5-14.5); WHITE BLOOD COUNT 8.2 x10^3/uL (4.0-11.0)
[2020-02-23 07:00] VITALS: BP 128/70
[2020-02-23] MEDS: INSULIN LISPRO 300 UNITS/3 ML VIAL. SQ SCH ×3 (08:00→17:00)
[2020-02-23] MEDS: IPRATRPIUM/ALBUTEROL 0.5/2.5MG 3 ML NEBU. NEB SCH ×4 (08:08→20:31)
[2020-02-23] MEDS: BUDESONIDE 0.5 MG/2 ML NEBU. NEB SCH ×2 (08:08→20:31)
--- NOTE | 2020-02-23 08:21 | PDOC ---
PULMONARY PROGRESS NOTES Subjective Patient feels better, wishes to go home soon, not more short of air Vitals Vital Signs Date Time Temp Pulse Resp B/P (MAP) Pulse Ox O2 Delivery O2 Flow Rate FiO2 02/23/20 08:15 92 Nasal Cannula 3.0 02/23/20 03:00 98.9 93 20 122/67 (85) 98.9 ROS: No Nausea, No Chest Pain, No Abdominal Pain, No Increase Cough General: Alert Lungs: Clear Cardiovascular: S1, S2 Abdomen: Soft Neuro Exam: Alert Extremities: No Edema Skin: Warm Labs Laboratory Tests Test 02/21/20 11:41 02/21/20 11:53 02/21/20 16:12 02/21/20 20:23 O2 Saturation 94 % (92-99) Arterial Blood pH 7.53 (7.35-7.45) Arterial Blood pCO2 at Patient Temp 41 mmHg (35-46) Arterial Blood pO2 at Patient Temp 66 mmHg (65-108) Arterial Blood HCO3 33 mmol/L (21-28) Arterial Blood Base Excess 10 mmol/L (-3-3) FiO2 40% Glucose (Fingerstick) 103 mg/dL (70-99) 123 mg/dL (70-99) 132 mg/dL (70-99) Test 02/22/20 07:32 02/22/20 11:13 02/22/20 13:00 02/22/20 16:33 Glucose (Fingerstick) 107 mg/dL (70-99) 123 mg/dL (70-99) 114 mg/dL (70-99) Sodium Level 137 mmol/L (136-145) Potassium Level 3.5 mmol/L (3.5-5.1) Chloride Level 94 mmol/L (98-107) Carbon Dioxide Level 36 mmol/L (21-32) Anion Gap 7 (6-14) Blood Urea Nitrogen 15 mg/dL (8-26) Creatinine 0.9 mg/dL (0.7-1.3) Estimated GFR (Cockcroft-Gault) 81.6 BUN/Creatinine Ratio 17 (6-20) Glucose Level 145 mg/dL (70-99) Calcium Level 8.3 mg/dL (8.5-10.1) Total Bilirubin 0.8 mg/dL (0.2-1.0) Aspartate Amino Transf (AST/SGOT) 53 U/L (15-37) Alanine Aminotransferase (ALT/SGPT) 56 U/L (16-63) Alkaline Phosphatase 78 U/L (46-116) Total Protein 6.6 g/dL (6.4-8.2) Albumin 2.8 g/dL (3.4-5.0) Albumin/Globulin Ratio 0.7 (1.0-1.7) Test 02/22/20 21:35 02/23/20 03:45 Glucose (Fingerstick) 121 mg/dL (70-99) White Blood Count 8.2 x10^3/uL (4.0-11.0) Red Blood Count 4.24 x10^6/uL (4.30-5.70) Hemoglobin 13.1 g/dL (13.0-17.5) Hematocrit 39.2 % (39.0-53.0) Mean Corpuscular Volume 92 fL (79-100) Mean Corpuscular Hemoglobin 31 pg (25-35) Mean Corpuscular Hemoglobin Concent 34 g/dL (31-37) Red Cell Distribution Width 13.1 % (11.5-14.5) Platelet Count 217 x10^3/uL (140-400) Neutrophils (%) (Auto) 68 % (31-73) Lymphocytes (%) (Auto) 16 % (24-48) Monocytes (%) (Auto) 12 % (0-9) Eosinophils (%) (Auto) 3 % (0-3) Basophils (%) (Auto) 1 % (0-3) Neutrophils # (Auto) 5.6 x10^3/uL (1.8-7.7) Lymphocytes # (Auto) 1.3 x10^3/uL (1.0-4.8) Monocytes # (Auto) 1.0 x10^3/uL (0.0-1.1) Eosinophils # (Auto) 0.2 x10^3/uL (0.0-0.7) Basophils # (Auto) 0.1 x10^3/uL (0.0-0.2) Laboratory Tests Test 02/22/20 11:13 02/22/20 13:00 02/22/20 16:33 02/22/20 21:35 Glucose (Fingerstick) 123 mg/dL (70-99) 114 mg/dL (70-99) 121 mg/dL (70-99) Sodium Level 137 mmol/L (136-145) Potassium Level 3.5 mmol/L (3.5-5.1) Chloride Level 94 mmol/L (98-107) Carbon Dioxide Level 36 mmol/L (21-32) Anion Gap 7 (6-14) Blood Urea Nitrogen 15 mg/dL (8-26) Creatinine 0.9 mg/dL (0.7-1.3) Estimated GFR (Cockcroft-Gault) 81.6 BUN/Creatinine Ratio 17 (6-20) Glucose Level 145 mg/dL (70-99) Calcium Level 8.3 mg/dL (8.5-10.1) Total Bilirubin 0.8 mg/dL (0.2-1.0) Aspartate Amino Transf (AST/SGOT) 53 U/L (15-37) Alanine Aminotransferase (ALT/SGPT) 56 U/L (16-63) Alkaline Phosphatase 78 U/L (46-116) Total Protein 6.6 g/dL (6.4-8.2) Albumin 2.8 g/dL (3.4-5.0) Albumin/Globulin Ratio 0.7 (1.0-1.7) Test 02/23/20 03:45 White Blood Count 8.2 x10^3/uL (4.0-11.0) Red Blood Count 4.24 x10^6/uL (4.30-5.70) Hemoglobin 13.1 g/dL (13.0-17.5) Hematocrit 39.2 % (39.0-53.0) Mean Corpuscular Volume 92 fL (79-100) Mean Corpuscular Hemoglobin 31 pg (25-35) Mean Corpuscular Hemoglobin Concent 34 g/dL (31-37) Red Cell Distribution Width 13.1 % (11.5-14.5) Platelet Count 217 x10^3/uL (140-400) Neutrophils (%) (Auto) 68 % (31-73) Lymphocytes (%) (Auto) 16 % (24-48) Monocytes (%) (Auto) 12 % (0-9) Eosinophils (%) (Auto) 3 % (0-3) Basophils (%) (Auto) 1 % (0-3) Neutrophils # (Auto) 5.6 x10^3/uL (1.8-7.7) Lymphocytes # (Auto) 1.3 x10^3/uL (1.0-4.8) Monocytes # (Auto) 1.0 x10^3/uL (0.0-1.1) Eosinophils # (Auto) 0.2 x10^3/uL (0.0-0.7) Basophils # (Auto) 0.1 x10^3/uL (0.0-0.2) Medications Active Scripts Medications Dose Route/Sig Max Daily Dose Days Date Category Biofreeze (Menthol) 118 Ml Gel..ml. 1 Malka TP TID PRN 10 02/19/20 Reported Vitamin D3 (Cholecalciferol (Vitamin D3)) 4,000 Unit Capsule 1 Cap PO DAILY 30 02/16/20 Reported Vitamin E (Vitamin E Mixed) 400 Unit Tablet 1 Tab PO QHS 30 02/16/20 Reported Magnesium Gluconate 27 Mg Tablet 1 Tab PO HS 30 02/16/20 Reported Vitamin C (Ascorbic Acid) 100 Mg Tablet 1 Tab PO DAILY 30 02/16/20 Reported Aspirin 81 Mg Tab.chew 1 Tab PO HS 02/16/20 Reported Docusate Sodium 100 Mg Capsule 1 Cap PO HS 7 02/16/20 Reported Senna Laxative (Sennosides) 8.6 Mg Tablet 1 Tab PO HS 30 02/16/20 Reported Baclofen 20 Mg Tablet 20 Mg PO BID 02/16/20 Reported Flomax (Tamsulosin Hcl) 0.4 Mg Cap.er.24h 0.4 Mg PO HS 02/16/20 Reported Gabapentin 800 Mg Tablet 800 Mg PO HS 02/16/20 Reported Gabapentin 600 Mg Tablet 600 Mg PO BID 02/16/20 Reported Metformin Hcl 500 Mg Tablet 500 Mg PO HS 02/16/20 Reported Atorvastatin Calcium 40 Mg Tablet 40 Mg PO DAILY 02/16/20 Reported Zofran Odt (Ondansetron) 4 Mg Tab.rapdis 1 Tab SL Q8HRS PRN 02/22/17 Rx Azithromycin Tablet (Azithromycin) 250 Mg Tablet 1 Pkg PO UD 02/22/17 Rx Prednisone 50 Mg Tablet 1 Tab PO DAILY 02/22/17 Rx Spiriva (Tiotropium Thayer) 18 Mcg Cap.w.dev 1 Cap IH DAILY 02/22/17 Reported Ventolin Hfa Inhaler (Albuterol Sulfate) 18 Gm Hfa.aer.ad 2 Puff INH Q4HRS 02/22/17 Reported Ipratropium Thayer 0.2 Mg/1 Ml Solution 1 Vial NEB QID 02/22/17 Reported Symbicort 80-4.5 Mcg Inhaler (Budesonide/Formoterol Fumarate) 10.2 Gm Hfa.aer.ad 2 Puff IH BID 02/22/17 Reported Percocet 5-325 Mg Tablet (Oxycodone/Acetaminophen) 1 Each Tablet 1-2 Tab PO Q4-6HRS 02/22/17 Reported Omeprazole 20 Mg Tablet.dr 1 Tab PO DAILY 02/22/17 Reported Furosemide 40 Mg Tablet 1 Tab PO DAILY 02/22/17 Reported Gabapentin (Gabapentin) 300 Mg Capsule 300 Mg PO TID 02/22/17 Reported Atorvastatin Calcium 20 Mg Tablet 1 Tab PO DAILY 02/22/17 Reported Tizanidine Hcl 4 Mg Tablet 2 Mg PO TID PRN 02/22/17 Reported Percocet 5-325 Mg Tablet (Oxycodone/Acetaminophen) 1 Each Tablet 1-2 Tab PO Q4-6HRS 04/20/15 Reported Gabapentin (Gabapentin) 300 Mg Capsule 3 Cap PO BID 04/20/15 Reported Meloxicam 15 Mg Tablet 1 Tab PO HS 04/20/15 Reported Tamsulosin Hcl 0.4 Mg Cap.er.24h 1 Cap PO DAILY 04/20/15 Reported Impression . IMPRESSION: 1. Acute hypoxic respiratory failure, which is expected postop secondary to combination of underlying chronic obstructive pulmonary disease, underlying obesity and along with right lower lobe atelectasis/infiltrate. 2. Cough with yellow sputum production related to acute bronchitis versus early right lower lobe infiltrate/pneumonia. 3. Status post repair of incarcerated umbilical hernia with mesh on 02/15. Plan . Repeat chest x-ray, PT OT eval, Possible discharge in the a.m. okay by me 1. Continue with present oxygen with gradual wean to keep saturation 92% and above. 2. Empiric Rocephin. 3. Obtain sputum for C and S. 4. Continue with present bronchodilators including DuoNeb and Pulmicort. 5. Incentive spirometry. 6. Follow chest x-ray as needed. 7. DVT prophylaxis with Lovenox. 8. Discussed with Dr. Baig, discussed with via Skype. We will also give extra IV Lasix today. Discussed with LEONID. PRICILLA MACKEY MD February 23, 2020 08:21
[2020-02-23] MEDS: CHOLECALCIFEROL (VITAMIN D3) 1,000 UNIT TABLET PO SCH (08:33)
[2020-02-23] MEDS: PANTOPRAZOLE 40 MG TABLET.DR. PO SCH (08:34)
[2020-02-23] MEDS: FUROSEMIDE 40 MG TABLET. PO SCH (08:34)
[2020-02-23] MEDS: PREGABALIN 75 MG CAPSULE PO SCH ×2 (08:34→21:03)
[2020-02-23] MEDS: ASCORBIC ACID 500 MG TABLET PO SCH (08:34)
--- NOTE | 2020-02-23 08:38 | PDOC ---
PROGRESS NOTES Chief Complaint Chief Complaint impression Small bowel obstruction Possible pneumonia on chest x-ray Mild hypoxia Edema Incarcerated umbilical hernia status post herniorrhaphy Obesity with a BMI of 34 History of COPD History of neuropathy History of dyslipidemia History of chronic pain syndrome on chronic narcotic therapy Leukocytosis most likely secondary to the acute incarceration of umbilical hernia 02/22 working with PT, ON O2 SLOW TO IMPROVE WITH WEAKNESS D/W RN History of Present Illness History of Present Illness 02/22/2020 Patient seen and examined He called his input her on Skype with me and Dr. Kirkland Discussed with RN Chart reviewed Discussed with patient care client account representative Scarlett 02/21/2020 Patient seen and examined Review chart Discussed with RN 02/20/2020 Patient seen and examined His uric acid level was only 5.8 And we will go ahead and consult neurology as he still has foot pain Chart reviewed Discussed with Dr. Schafer Vitals Vitals Vital Signs Date Time Temp Pulse Resp B/P (MAP) Pulse Ox O2 Delivery O2 Flow Rate FiO2 02/23/20 08:15 92 Nasal Cannula 3.0 02/23/20 03:00 98.9 93 20 122/67 (85) 98.9 Physical Exam General: Alert, Oriented X3, Cooperative, No acute distress, mild distress Heart: Regular rate, Normal S1 Abdomen: Normal bowel sounds, Soft, No tenderness, Other (Wound clean dry and intact) Extremities: Other (Bilateral pedal edema with purple hue likely venous stasis) Skin: No rashes, No breakdown Labs LABS Laboratory Tests Test 02/22/20 11:13 02/22/20 13:00 02/22/20 16:33 02/22/20 21:35 Glucose (Fingerstick) 123 mg/dL (70-99) 114 mg/dL (70-99) 121 mg/dL (70-99) Sodium Level 137 mmol/L (136-145) Potassium Level 3.5 mmol/L (3.5-5.1) Chloride Level 94 mmol/L (98-107) Carbon Dioxide Level 36 mmol/L (21-32) Anion Gap 7 (6-14) Blood Urea Nitrogen 15 mg/dL (8-26) Creatinine 0.9 mg/dL (0.7-1.3) Estimated GFR (Cockcroft-Gault) 81.6 BUN/Creatinine Ratio 17 (6-20) Glucose Level 145 mg/dL (70-99) Calcium Level 8.3 mg/dL (8.5-10.1) Total Bilirubin 0.8 mg/dL (0.2-1.0) Aspartate Amino Transf (AST/SGOT) 53 U/L (15-37) Alanine Aminotransferase (ALT/SGPT) 56 U/L (16-63) Alkaline Phosphatase 78 U/L (46-116) Total Protein 6.6 g/dL (6.4-8.2) Albumin 2.8 g/dL (3.4-5.0) Albumin/Globulin Ratio 0.7 (1.0-1.7) Test 02/23/20 03:45 02/23/20 08:22 White Blood Count 8.2 x10^3/uL (4.0-11.0) Red Blood Count 4.24 x10^6/uL (4.30-5.70) Hemoglobin 13.1 g/dL (13.0-17.5) Hematocrit 39.2 % (39.0-53.0) Mean Corpuscular Volume 92 fL (79-100) Mean Corpuscular Hemoglobin 31 pg (25-35) Mean Corpuscular Hemoglobin Concent 34 g/dL (31-37) Red Cell Distribution Width 13.1 % (11.5-14.5) Platelet Count 217 x10^3/uL (140-400) Neutrophils (%) (Auto) 68 % (31-73) Lymphocytes (%) (Auto) 16 % (24-48) Monocytes (%) (Auto) 12 % (0-9) Eosinophils (%) (Auto) 3 % (0-3) Basophils (%) (Auto) 1 % (0-3) Neutrophils # (Auto) 5.6 x10^3/uL (1.8-7.7) Lymphocytes # (Auto) 1.3 x10^3/uL (1.0-4.8) Monocytes # (Auto) 1.0 x10^3/uL (0.0-1.1) Eosinophils # (Auto) 0.2 x10^3/uL (0.0-0.7) Basophils # (Auto) 0.1 x10^3/uL (0.0-0.2) Glucose (Fingerstick) 131 mg/dL (70-99) Assessment and Plan Assessmemt and Plan Problems Medical Problems: (1) SBO (small bowel obstruction) Status: Acute (2) Umbilical hernia Status: Acute Comment Review of Relevant I have reviewed the following items stevie (where applicable) has been applied. Labs Laboratory Tests Test 02/21/20 11:41 02/21/20 11:53 02/21/20 16:12 02/21/20 20:23 O2 Saturation 94 % (92-99) Arterial Blood pH 7.53 (7.35-7.45) Arterial Blood pCO2 at Patient Temp 41 mmHg (35-46) Arterial Blood pO2 at Patient Temp 66 mmHg (65-108) Arterial Blood HCO3 33 mmol/L (21-28) Arterial Blood Base Excess 10 mmol/L (-3-3) FiO2 40% Glucose (Fingerstick) 103 mg/dL (70-99) 123 mg/dL (70-99) 132 mg/dL (70-99) Test 02/22/20 07:32 02/22/20 11:13 02/22/20 13:00 02/22/20 16:33 Glucose (Fingerstick) 107 mg/dL (70-99) 123 mg/dL (70-99) 114 mg/dL (70-99) Sodium Level 137 mmol/L (136-145) Potassium Level 3.5 mmol/L (3.5-5.1) Chloride Level 94 mmol/L (98-107) Carbon Dioxide Level 36 mmol/L (21-32) Anion Gap 7 (6-14) Blood Urea Nitrogen 15 mg/dL (8-26) Creatinine 0.9 mg/dL (0.7-1.3) Estimated GFR (Cockcroft-Gault) 81.6 BUN/Creatinine Ratio 17 (6-20) Glucose Level 145 mg/dL (70-99) Calcium Level 8.3 mg/dL (8.5-10.1) Total Bilirubin 0.8 mg/dL (0.2-1.0) Aspartate Amino Transf (AST/SGOT) 53 U/L (15-37) Alanine Aminotransferase (ALT/SGPT) 56 U/L (16-63) Alkaline Phosphatase 78 U/L (46-116) Total Protein 6.6 g/dL (6.4-8.2) Albumin 2.8 g/dL (3.4-5.0) Albumin/Globulin Ratio 0.7 (1.0-1.7) Test 02/22/20 21:35 02/23/20 03:45 02/23/20 08:22 Glucose (Fingerstick) 121 mg/dL (70-99) 131 mg/dL (70-99) White Blood Count 8.2 x10^3/uL (4.0-11.0) Red Blood Count 4.24 x10^6/uL (4.30-5.70) Hemoglobin 13.1 g/dL (13.0-17.5) Hematocrit 39.2 % (39.0-53.0) Mean Corpuscular Volume 92 fL (79-100) Mean Corpuscular Hemoglobin 31 pg (25-35) Mean Corpuscular Hemoglobin Concent 34 g/dL (31-37) Red Cell Distribution Width 13.1 % (11.5-14.5) Platelet Count 217 x10^3/uL (140-400) Neutrophils (%) (Auto) 68 % (31-73) Lymphocytes (%) (Auto) 16 % (24-48) Monocytes (%) (Auto) 12 % (0-9) Eosinophils (%) (Auto) 3 % (0-3) Basophils (%) (Auto) 1 % (0-3) Neutrophils # (Auto) 5.6 x10^3/uL (1.8-7.7) Lymphocytes # (Auto) 1.3 x10^3/uL (1.0-4.8) Monocytes # (Auto) 1.0 x10^3/uL (0.0-1.1) Eosinophils # (Auto) 0.2 x10^3/uL (0.0-0.7) Basophils # (Auto) 0.1 x10^3/uL (0.0-0.2) Laboratory Tests Test 02/22/20 11:13 02/22/20 13:00 02/22/20 16:33 02/22/20 21:35 Glucose (Fingerstick) 123 mg/dL (70-99) 114 mg/dL (70-99) 121 mg/dL (70-99) Sodium Level 137 mmol/L (136-145) Potassium Level 3.5 mmol/L (3.5-5.1) Chloride Level 94 mmol/L (98-107) Carbon Dioxide Level 36 mmol/L (21-32) Anion Gap 7 (6-14) Blood Urea Nitrogen 15 mg/dL (8-26) Creatinine 0.9 mg/dL (0.7-1.3) Estimated GFR (Cockcroft-Gault) 81.6 BUN/Creatinine Ratio 17 (6-20) Glucose Level 145 mg/dL (70-99) Calcium Level 8.3 mg/dL (8.5-10.1) Total Bilirubin 0.8 mg/dL (0.2-1.0) Aspartate Amino Transf (AST/SGOT) 53 U/L (15-37) Alanine Aminotransferase (ALT/SGPT) 56 U/L (16-63) Alkaline Phosphatase 78 U/L (46-116) Total Protein 6.6 g/dL (6.4-8.2) Albumin 2.8 g/dL (3.4-5.0) Albumin/Globulin Ratio 0.7 (1.0-1.7) Test 02/23/20 03:45 02/23/20 08:22 White Blood Count 8.2 x10^3/uL (4.0-11.0) Red Blood Count 4.24 x10^6/uL (4.30-5.70) Hemoglobin 13.1 g/dL (13.0-17.5) Hematocrit 39.2 % (39.0-53.0) Mean Corpuscular Volume 92 fL (79-100) Mean Corpuscular Hemoglobin 31 pg (25-35) Mean Corpuscular Hemoglobin Concent 34 g/dL (31-37) Red Cell Distribution Width 13.1 % (11.5-14.5) Platelet Count 217 x10^3/uL (140-400) Neutrophils (%) (Auto) 68 % (31-73) Lymphocytes (%) (Auto) 16 % (24-48) Monocytes (%) (Auto) 12 % (0-9) Eosinophils (%) (Auto) 3 % (0-3) Basophils (%) (Auto) 1 % (0-3) Neutrophils # (Auto) 5.6 x10^3/uL (1.8-7.7) Lymphocytes # (Auto) 1.3 x10^3/uL (1.0-4.8) Monocytes # (Auto) 1.0 x10^3/uL (0.0-1.1) Eosinophils # (Auto) 0.2 x10^3/uL (0.0-0.7) Basophils # (Auto) 0.1 x10^3/uL (0.0-0.2) Glucose (Fingerstick) 131 mg/dL (70-99) Medications Current Medications Ondansetron HCl (Zofran) 4 mg 1X ONCE IVP Last administered on 02/15/20at 19:44; Start 02/15/20 at 19:30; Stop 02/15/20 at 19:35; Status DC Ondansetron HCl (Zofran) 4 mg STK-MED ONCE .ROUTE ; Start 02/15/20 at 19:25; Stop 02/15/20 at 19:26; Status DC Fentanyl Citrate (Fentanyl 2ml Vial) 50 mcg PRN Q15MIN PRN IV PAIN GREATER THAN 3/10 Last administered on 02/15/20at 22:00; Start 02/15/20 at 19:30; Stop 02/16/20 at 19:29; Status DC Sodium Chloride 1,000 ml @ 1,000 mls/hr Q1H IV Last administered on 02/15/20at 19:44; Start 02/15/20 at 19:29; Stop 02/15/20 at 20:28; Status DC Iohexol (Omnipaque 300 Mg/ml) 75 ml 1X ONCE IV Last administered on 02/15/20at 20:40; Start 02/15/20 at 20:30; Stop 02/15/20 at 20:31; Status DC Info (CONTRAST GIVEN -- Rx MONITORING) 1 each PRN DAILY PRN MC SEE COMMENTS; Start 02/15/20 at 20:30; Stop 02/17/20 at 20:29; Status DC Dicyclomine HCl (Bentyl) 10 mg 1X ONCE IM Last administered on 02/15/20at 21:00; Start 02/15/20 at 20:30; Stop 02/15/20 at 20:31; Status DC Ondansetron HCl (Zofran) 4 mg PRN Q8HRS PRN IV NAUSEA/VOMITING 1ST CHOICE Last administered on 02/16/20at 09:24; Start 02/15/20 at 21:30; Stop 02/16/20 at 21:29; Status DC Morphine Sulfate (Morphine Sulfate) 4 mg PRN Q2HR PRN IV SEVERE PAIN 7-10; Start 02/15/20 at 21:30; Stop 02/16/20 at 21:29; Status DC Sodium Chloride 1,000 ml @ 100 mls/hr Q10H IV Last administered on 02/16/20at 11:59; Start 02/15/20 at 22:00; Stop 02/16/20 at 21:59; Status DC Propofol 20 ml @ As Directed STK-MED ONCE IV ; Start 02/15/20 at 21:30; Stop 02/15/20 at 21:31; Status DC Lidocaine HCl (Lidocaine Pf 2% Vial) 5 ml STK-MED ONCE .ROUTE ; Start 02/15/20 at 21:30; Stop 02/15/20 at 21:31; Status DC Rocuronium Keller (Zemuron) 50 mg STK-MED ONCE .ROUTE ; Start 02/15/20 at 21:30; Stop 02/15/20 at 21:31; Status DC Fentanyl Citrate (Fentanyl 2ml Vial) 100 mcg STK-MED ONCE .ROUTE ; Start 02/15/20 at 21:31; Stop 02/15/20 at 21:31; Status DC Fentanyl Citrate (Fentanyl 2ml Vial) 25 mcg PRN Q5MIN PRN IV MILD PAIN 1-3; Start 02/15/20 at 22:15; Stop 02/16/20 at 22:14; Status DC Fentanyl Citrate (Fentanyl 2ml Vial) 50 mcg PRN Q5MIN PRN IV MODERATE TO SEVERE PAIN; Start 02/15/20 at 22:15; Stop 02/16/20 at 22:14; Status DC Morphine Sulfate (Morphine Sulfate) 1 mg PRN Q10MIN PRN IV SEVERE PAIN 7-10; Start 02/15/20 at 22:15; Stop 02/16/20 at 22:14; Status DC Ringer's Solution 1,000 ml @ 30 mls/hr Q24H IV ; Start 02/15/20 at 22:30; Stop 02/16/20 at 22:29; Status DC Hydromorphone HCl (Dilaudid) 0.5 mg PRN Q10MIN PRN IV SEV PAIN, Second choice; Start 02/15/20 at 22:15; Stop 4/28/20 at 22:14; Status DC Prochlorperazine Edisylate (Compazine) 5 mg PACU PRN PRN IV NAUSEA, MRX1; Start 02/15/20 at 22:15; Stop 02/16/20 at 22:14; Status DC Sodium Chloride 1,000 ml @ 1,000 mls/hr 1X ONCE IV ; Start 02/15/20 at 22:30; Stop 02/16/20 at 00:32; Status DC Bupivacaine HCl/ Epinephrine Bitart (Sensorcain-Epi 0.5%-1:[id number] Mpf) 30 ml STK-MED ONCE .ROUTE ; Start 02/15/20 at 22:13; Stop 02/15/20 at 22:13; Status DC Ondansetron HCl (Zofran) 4 mg STK-MED ONCE .ROUTE ; Start 02/15/20 at 22:49; Stop 02/15/20 at 22:49; Status DC Neostigmine Keller (Neostigmine Methylsulfate) 5 mg STK-MED ONCE .ROUTE ; Start 02/15/20 at 22:49; Stop 02/15/20 at 22:49; Status DC Glycopyrrolate (Robinul) 1 mg STK-MED ONCE .ROUTE ; Start 02/15/20 at 22:49; Stop 02/15/20 at 22:50; Status DC Dexamethasone Sodium Phosphate (Decadron) 4 mg STK-MED ONCE .ROUTE ; Start 02/15/20 at 22:50; Stop 02/15/20 at 22:50; Status DC Cefazolin Sodium (Ancef) 1 gm STK-MED ONCE IVP ; Start 02/15/20 at 23:11; Stop 02/15/20 at 23:11; Status DC Fentanyl Citrate (Fentanyl 2ml Vial) 25 mcg PRN Q2HRS PRN IVP MODERATE PAIN 4- 6; Start 02/16/20 at 00:15 Albuterol Sulfate (Ventolin Neb Soln) 2.5 mg 1X ONCE NEB Last administered on 02/16/20at 00:40; Start 02/16/20 at 01:00; Stop 02/16/20 at 01:01; Status DC Fentanyl Citrate (Fentanyl 2ml Vial) 50 mcg PRN Q2HRS PRN IVP SEVERE PAIN 7-10 Last administered on 02/17/20at 08:54; Start 02/16/20 at 00:30 Insulin Human Lispro (HumaLOG VIAL for OP,RR ONLY) 0-10 units PRN Q1HR PRN SQ PER PROTOCOL Last administered on 02/16/20at 00:58; Start 02/16/20 at 01:00; Stop 02/17/20 at 00:59; Status DC Albuterol Sulfate (Ventolin Neb Soln) 2.5 mg RTQID NEB Last administered on 02/16/20at 14:57; Start 02/16/20 at 16:00; Stop 02/16/20 at 15:20; Status DC Aspirin (Aspirin Chewable) 81 mg HS PO Last administered on 02/22/20 21:13; Start 02/16/20 at 21:00 Atorvastatin Calcium (Lipitor) 20 mg DAILY PO ; Start 02/17/20 at 09:00; Status Cancel Atorvastatin Calcium (Lipitor) 40 mg DAILY PO Last administered on 02/22/20 08:10; Start 02/17/20 at 09:00; Stop 02/22/20 at 10:28; Status DC Docusate Sodium (Colace) 100 mg HS PO Last administered on 02/22/20 21:13; Start 02/16/20 at 21:00 Furosemide (Lasix) 40 mg DAILY PO Last administered on 02/23/20 08:34; Start 02/17/20 at 09:00 Gabapentin (Neurontin) 900 mg BID PO ; Start 02/16/20 at 21:00; Stop 02/16/20 at 15:07; Status DC Gabapentin (Neurontin) 300 mg TID PO ; Start 02/16/20 at 21:00; Stop 02/16/20 at 15:07; Status DC Ipratropium Keller (Atrovent) 0.2 mg RTQID NEB ; Start 02/16/20 at 16:00; Stop 02/16/20 at 15:20; Status DC Oxycodone/ Acetaminophen (Percocet 5/325) 1 tab Q4HRS PO Last administered on 02/18/20at 12:14; Start 02/16/20 at 16:00; Stop 02/18/20 at 14:22; Status DC Sennosides (Senna) 8.6 mg HS PO Last administered on 5/4/20at 21:13; Start 02/16/20 at 21:00 Tamsulosin HCl (Flomax) 0.4 mg DAILY PO ; Start 02/17/20 at 09:00; Stop 02/16/20 at 15:09; Status DC Tamsulosin HCl (Flomax) 0.4 mg HS PO Last administered on 02/22/20at 21:13; Start 02/16/20 at 21:00 Tizanidine HCl (Zanaflex) 2 mg PRN TID PRN PO MUSCLE SPASMS Last administered on 02/19/20at 05:51; Start 02/16/20 at 15:00 Non-Formulary Medication (Albuterol Sulfate (Ventolin Hfa Inhaler)) 2 puff Q4HRS INH ; Start 02/16/20 at 16:00; Stop 02/16/20 at 15:12; Status DC Ascorbic Acid (Vitamin C) 500 mg DAILY PO Last administered on 02/23/20at 08:34; Start 02/17/20 at 09:00 Cyclobenzaprine HCl (Flexeril) 10 mg TID PO Last administered on 02/18/20at 08:44; Start 02/16/20 at 21:00; Stop 02/18/20 at 14:22; Status DC Non-Formulary Medication (Budesonide/ Formoterol Fumarate (Symbicort 80-4.5 Mcg Inhaler)) 2 puff BID IH ; Start 02/16/20 at 21:00; Stop 02/16/20 at 15:21; Status DC Vitamin D (Vitamin D3) 4,000 unit DAILY PO Last administered on 02/23/20at 08:33; Start 02/17/20 at 09:00 Gabapentin (Neurontin) 600 mg BID@0900,1500 PO Last administered on 02/20/20at 09:13; Start 02/16/20 at 16:00; Stop 02/20/20 at 12:10; Status DC Gabapentin (Neurontin) 800 mg QHS PO Last administered on 02/19/20at 22:24; Start 02/16/20 at 21:00; Stop 02/20/20 at 12:10; Status DC Magnesium Chloride (Mag Delay) 64 mg QHS PO Last administered on 02/22/20at 21:13; Start 02/16/20 at 21:00 Pantoprazole Sodium (Protonix) 40 mg DAILYAC PO Last administered on 02/23/20 08:34; Start 02/17/20 at 07:30 Non-Formulary Medication (Tiotropium Keller (Spiriva)) 1 cap DAILY IH ; Start 02/17/20 at 09:00; Stop 02/16/20 at 15:18; Status DC Insulin Human Lispro (HumaLOG) 0-5 UNITS TIDWMEALS SQ ; Start 02/16/20 at 17:00 Dextrose (Dextrose 50%-Water Syringe) 12.5 gm PRN Q15MIN PRN IV SEE COMMENTS; Start 02/16/20 at 15:00 Albuterol/ Ipratropium (Duoneb) 3 ml RTQID NEB Last administered on 02/23/20at 08:08; Start 02/16/20 at 16:00 Budesonide (Pulmicort) 0.5 mg RTBID NEB Last administered on 02/23/20at 08:08; Start 02/16/20 at 20:00 Enoxaparin Sodium (Lovenox 40mg Syringe) 40 mg Q24H SQ Last administered on 02/22/20at 12:28; Start 02/17/20 at 13:00 Cyclobenzaprine HCl (Flexeril) 10 mg PRN TID PRN PO MUSCLE PAIN Last administered on 02/20/20at 09:16; Start 02/18/20 at 14:30; Stop 02/22/20 at 12:01; Status DC Oxycodone/ Acetaminophen (Percocet 5/325) 1 tab PRN Q4HRS PRN PO PAIN Last administered on 02/22/20at 08:12; Start 02/18/20 at 14:30 Menthol/Methyl Salicylate (Bengay Greaseless Cream) 1 malka PRN TID PRN TP PAIN Last administered on 02/19/20at 08:30; Start 02/19/20 at 06:00 Pregabalin (Lyrica) 150 mg BID PO Last administered on 02/23/20 08:34; Start 02/20/20 at 12:30 Ceftriaxone Sodium (Rocephin) 1 gm Q24H IVP Last administered on 02/22/20at 14:34; Start 02/21/20 at 14:00 Atorvastatin Calcium (Lipitor) 40 mg HS PO ; Start 02/23/20 at 21:00 Furosemide (Lasix) 40 mg 1X ONCE IVP Last administered on 02/22/20at 12:21; Start 02/22/20 at 10:30; Stop 02/22/20 at 10:32; Status DC Active Scripts Active Zofran Odt (Ondansetron) 4 Mg Tab.rapdis 1 Tab SL Q8HRS PRN Azithromycin Tablet (Azithromycin) 250 Mg Tablet 1 Pkg PO UD Prednisone 50 Mg Tablet 1 Tab PO DAILY Reported Biofreeze (Menthol) 118 Ml Gel..ml. 1 Malka TP TID PRN 10 Days Vitamin D3 (Cholecalciferol (Vitamin D3)) 4,000 Unit Capsule 1 Cap PO DAILY 30 Days Vitamin E (Vitamin E Mixed) 400 Unit Tablet 1 Tab PO QHS 30 Days Magnesium Gluconate 27 Mg Tablet 1 Tab PO HS 30 Days Vitamin C (Ascorbic Acid) 100 Mg Tablet 1 Tab PO DAILY 30 Days Aspirin 81 Mg Tab.chew 1 Tab PO HS Docusate Sodium 100 Mg Capsule 1 Cap PO HS 7 Days Senna Laxative (Sennosides) 8.6 Mg Tablet 1 Tab PO HS 30 Days Baclofen 20 Mg Tablet 20 Mg PO BID Flomax (Tamsulosin Hcl) 0.4 Mg Cap.er.24h 0.4 Mg PO HS Gabapentin 800 Mg Tablet 800 Mg PO HS Gabapentin 600 Mg Tablet 600 Mg PO BID Metformin Hcl 500 Mg Tablet 500 Mg PO HS Atorvastatin Calcium 40 Mg Tablet 40 Mg PO DAILY Spiriva (Tiotropium Keller) 18 Mcg Cap.w.dev 1 Cap IH DAILY Ventolin Hfa Inhaler (Albuterol Sulfate) 18 Gm Hfa.aer.ad 2 Puff INH Q4HRS Ipratropium Keller 0.2 Mg/1 Ml Solution 1 Vial NEB QID Symbicort 80-4.5 Mcg Inhaler (Budesonide/Formoterol Fumarate) 10.2 Gm Hfa.aer.ad 2 Puff IH BID Percocet 5-325 Mg Tablet (Oxycodone/Acetaminophen) 1 Each Tablet 1-2 Tab PO Q4-6HRS Omeprazole 20 Mg Tablet.dr 1 Tab PO DAILY Furosemide 40 Mg Tablet 1 Tab PO DAILY Gabapentin (Gabapentin) 300 Mg Capsule 300 Mg PO TID Atorvastatin Calcium 20 Mg Tablet 1 Tab PO DAILY Tizanidine Hcl 4 Mg Tablet 2 Mg PO TID PRN Percocet 5-325 Mg Tablet (Oxycodone/Acetaminophen) 1 Each Tablet 1-2 Tab PO Q4-6HRS Gabapentin (Gabapentin) 300 Mg Capsule 3 Cap PO BID Meloxicam 15 Mg Tablet 1 Tab PO HS Tamsulosin Hcl 0.4 Mg Cap.er.24h 1 Cap PO DAILY Vitals/I & O Vital Sign - Last 24 Hours 02/22/20 02/22/20 02/22/20 02/22/20 10:45 11:29 15:00 15:47 Temp 98.1 97.6 98.1 97.6 Pulse 89 Resp 20 16 B/P (MAP) 130/67 (88) 145/69 (94) Pulse Ox 96 93 95 98 O2 Delivery Room Air Nasal Cannula Room Air Nasal Cannula O2 Flow Rate 2.0 4.0 3.0 3.0 02/22/20 02/22/20 02/22/20 02/22/20 19:00 19:50 19:55 19:55 Temp 100.1 100.1 Pulse 93 Resp 20 B/P (MAP) 122/54 (76) Pulse Ox 95 92 92 O2 Delivery Nasal Cannula Nasal Cannula Nasal Cannula Nasal Cannula O2 Flow Rate 3.0 5.0 3.0 3.0 02/22/20 02/23/20 02/23/20 02/23/20 23:00 03:00 08:11 08:15 Temp 99.8 98.9 99.8 98.9 Pulse 85 93 Resp 20 20 B/P (MAP) 114/58 (76) 122/67 (85) Pulse Ox 96 92 92 92 O2 Delivery Nasal Cannula BiPAP/CPAP Nasal Cannula Nasal Cannula O2 Flow Rate 3.0 3.0 3.0 Intake and Output 02/22/20 02/22/20 02/23/20 14:59 22:59 06:59 Intake Total 600 ml 440 ml Output Total 400 ml 750 ml Balance -400 ml -150 ml 440 ml RICKY HANCOCK MD February 23, 2020 08:38
--- NOTE | 2020-02-23 10:36 | NUR ---
[facility] following. Discussed with RN, pt's wanting to speak with Dr. Kirkland regarding pt's pneumonia. Plan is for pt to discharge home with [facility]. Awaiting confirmation of discussion with Dr. Kirkland. Addendum: 02/24/20 at 1423 by JASEN GIBSON Pt's contacted [facility], she would like to change home health companies to [facility]. [facility] phoned and faxed referral to [facility], awaiting acceptance decision. RN notified.
[2020-02-23 11:00] VITALS: BP 125/67
--- NOTE | 2020-02-23 11:28 | PDOC ---
PROGRESS NOTES Assessment Problems Medical Problems: (1) SBO (small bowel obstruction) Status: Acute (2) Umbilical hernia Status: Acute Diabetic neuropathy, rule out other causes, agent orange can cause this for instance. He is failing on gabapentin. He says Lyrica is helping some. Labwork for other causes so far negative History of lumbar spinal stenosis Admitted for incarcerated umbilical hernia with medical issues of COPD among others. Plan [facility] Outpatient EMG studies in my office Subjective Wants to go home with home health Objective Vital Signs Date Time Temp Pulse Resp B/P (MAP) Pulse Ox O2 Delivery O2 Flow Rate FiO2 02/23/20 08:15 Nasal Cannula 4.0 02/23/20 08:15 92 02/23/20 07:00 98.1 95 16 128/70 (89) 98.1 Intake and Output 02/23/20 06:59 Intake Total 1040 ml Output Total 1150 ml Balance -110 ml Intake Oral 1040 ml Output Urine Total 1150 ml PHYSICAL EXAM Alert. Oriented to time, place and person. PERRL. EOMI. CN: no focal findings. Muscle tone: normal. Muscle strength: / DTR: 0-1+ Plantar reflex: Flexor Gait: not examined in bed. Sensory exam: Stocking loss. No cerebellar signs elicited. Review of Relevant I have reviewed the following items stevie (where applicable) has been applied. Labs Laboratory Tests Test 02/21/20 11:41 02/21/20 11:53 02/21/20 16:12 02/21/20 20:23 O2 Saturation 94 % (92-99) Arterial Blood pH 7.53 (7.35-7.45) Arterial Blood pCO2 at Patient Temp 41 mmHg (35-46) Arterial Blood pO2 at Patient Temp 66 mmHg (65-108) Arterial Blood HCO3 33 mmol/L (21-28) Arterial Blood Base Excess 10 mmol/L (-3-3) FiO2 40% Glucose (Fingerstick) 103 mg/dL (70-99) 123 mg/dL (70-99) 132 mg/dL (70-99) Test 02/22/20 07:32 02/22/20 11:13 02/22/20 13:00 02/22/20 16:33 Glucose (Fingerstick) 107 mg/dL (70-99) 123 mg/dL (70-99) 114 mg/dL (70-99) Sodium Level 137 mmol/L (136-145) Potassium Level 3.5 mmol/L (3.5-5.1) Chloride Level 94 mmol/L (98-107) Carbon Dioxide Level 36 mmol/L (21-32) Anion Gap 7 (6-14) Blood Urea Nitrogen 15 mg/dL (8-26) Creatinine 0.9 mg/dL (0.7-1.3) Estimated GFR (Cockcroft-Gault) 81.6 BUN/Creatinine Ratio 17 (6-20) Glucose Level 145 mg/dL (70-99) Calcium Level 8.3 mg/dL (8.5-10.1) Total Bilirubin 0.8 mg/dL (0.2-1.0) Aspartate Amino Transf (AST/SGOT) 53 U/L (15-37) Alanine Aminotransferase (ALT/SGPT) 56 U/L (16-63) Alkaline Phosphatase 78 U/L (46-116) Total Protein 6.6 g/dL (6.4-8.2) Albumin 2.8 g/dL (3.4-5.0) Albumin/Globulin Ratio 0.7 (1.0-1.7) Test 02/22/20 21:35 02/23/20 03:45 02/23/20 08:22 Glucose (Fingerstick) 121 mg/dL (70-99) 131 mg/dL (70-99) White Blood Count 8.2 x10^3/uL (4.0-11.0) Red Blood Count 4.24 x10^6/uL (4.30-5.70) Hemoglobin 13.1 g/dL (13.0-17.5) Hematocrit 39.2 % (39.0-53.0) Mean Corpuscular Volume 92 fL (79-100) Mean Corpuscular Hemoglobin 31 pg (25-35) Mean Corpuscular Hemoglobin Concent 34 g/dL (31-37) Red Cell Distribution Width 13.1 % (11.5-14.5) Platelet Count 217 x10^3/uL (140-400) Neutrophils (%) (Auto) 68 % (31-73) Lymphocytes (%) (Auto) 16 % (24-48) Monocytes (%) (Auto) 12 % (0-9) Eosinophils (%) (Auto) 3 % (0-3) Basophils (%) (Auto) 1 % (0-3) Neutrophils # (Auto) 5.6 x10^3/uL (1.8-7.7) Lymphocytes # (Auto) 1.3 x10^3/uL (1.0-4.8) Monocytes # (Auto) 1.0 x10^3/uL (0.0-1.1) Eosinophils # (Auto) 0.2 x10^3/uL (0.0-0.7) Basophils # (Auto) 0.1 x10^3/uL (0.0-0.2) Laboratory Tests Test 02/22/20 13:00 02/22/20 16:33 02/22/20 21:35 02/23/20 03:45 Sodium Level 137 mmol/L (136-145) Potassium Level 3.5 mmol/L (3.5-5.1) Chloride Level 94 mmol/L (98-107) Carbon Dioxide Level 36 mmol/L (21-32) Anion Gap 7 (6-14) Blood Urea Nitrogen 15 mg/dL (8-26) Creatinine 0.9 mg/dL (0.7-1.3) Estimated GFR (Cockcroft-Gault) 81.6 BUN/Creatinine Ratio 17 (6-20) Glucose Level 145 mg/dL (70-99) Calcium Level 8.3 mg/dL (8.5-10.1) Total Bilirubin 0.8 mg/dL (0.2-1.0) Aspartate Amino Transf (AST/SGOT) 53 U/L (15-37) Alanine Aminotransferase (ALT/SGPT) 56 U/L (16-63) Alkaline Phosphatase 78 U/L (46-116) Total Protein 6.6 g/dL (6.4-8.2) Albumin 2.8 g/dL (3.4-5.0) Albumin/Globulin Ratio 0.7 (1.0-1.7) Glucose (Fingerstick) 114 mg/dL (70-99) 121 mg/dL (70-99) White Blood Count 8.2 x10^3/uL (4.0-11.0) Red Blood Count 4.24 x10^6/uL (4.30-5.70) Hemoglobin 13.1 g/dL (13.0-17.5) Hematocrit 39.2 % (39.0-53.0) Mean Corpuscular Volume 92 fL (79-100) Mean Corpuscular Hemoglobin 31 pg (25-35) Mean Corpuscular Hemoglobin Concent 34 g/dL (31-37) Red Cell Distribution Width 13.1 % (11.5-14.5) Platelet Count 217 x10^3/uL (140-400) Neutrophils (%) (Auto) 68 % (31-73) Lymphocytes (%) (Auto) 16 % (24-48) Monocytes (%) (Auto) 12 % (0-9) Eosinophils (%) (Auto) 3 % (0-3) Basophils (%) (Auto) 1 % (0-3) Neutrophils # (Auto) 5.6 x10^3/uL (1.8-7.7) Lymphocytes # (Auto) 1.3 x10^3/uL (1.0-4.8) Monocytes # (Auto) 1.0 x10^3/uL (0.0-1.1) Eosinophils # (Auto) 0.2 x10^3/uL (0.0-0.7) Basophils # (Auto) 0.1 x10^3/uL (0.0-0.2) Test 02/23/20 08:22 Glucose (Fingerstick) 131 mg/dL (70-99) Medications Current Medications Ondansetron HCl (Zofran) 4 mg 1X ONCE IVP Last administered on 02/15/20at 19:44; Start 02/15/20 at 19:30; Stop 02/15/20 at 19:35; Status DC Ondansetron HCl (Zofran) 4 mg STK-MED ONCE .ROUTE ; Start 02/15/20 at 19:25; Stop 02/15/20 at 19:26; Status DC Fentanyl Citrate (Fentanyl 2ml Vial) 50 mcg PRN Q15MIN PRN IV PAIN GREATER THAN 3/10 Last administered on 02/15/20at 22:00; Start 02/15/20 at 19:30; Stop 02/16/20 at 19:29; Status DC Sodium Chloride 1,000 ml @ 1,000 mls/hr Q1H IV Last administered on 02/15/20at 19:44; Start 02/15/20 at 19:29; Stop 02/15/20 at 20:28; Status DC Iohexol (Omnipaque 300 Mg/ml) 75 ml 1X ONCE IV Last administered on 02/15/20at 20:40; Start 02/15/20 at 20:30; Stop 02/15/20 at 20:31; Status DC Info (CONTRAST GIVEN -- Rx MONITORING) 1 each PRN DAILY PRN MC SEE COMMENTS; Start 02/15/20 at 20:30; Stop 02/17/20 at 20:29; Status DC Dicyclomine HCl (Bentyl) 10 mg 1X ONCE IM Last administered on 02/15/20at 21:00; Start 02/15/20 at 20:30; Stop 02/15/20 at 20:31; Status DC Ondansetron HCl (Zofran) 4 mg PRN Q8HRS PRN IV NAUSEA/VOMITING 1ST CHOICE Last administered on 02/16/20at 09:24; Start 02/15/20 at 21:30; Stop 02/16/20 at 21:29; Status DC Morphine Sulfate (Morphine Sulfate) 4 mg PRN Q2HR PRN IV SEVERE PAIN 7-10; Start 02/15/20 at 21:30; Stop 02/16/20 at 21:29; Status DC Sodium Chloride 1,000 ml @ 100 mls/hr Q10H IV Last administered on 02/16/20at 11:59; Start 02/15/20 at 22:00; Stop 02/16/20 at 21:59; Status DC Propofol 20 ml @ As Directed STK-MED ONCE IV ; Start 02/15/20 at 21:30; Stop 02/15/20 at 21:31; Status DC Lidocaine HCl (Lidocaine Pf 2% Vial) 5 ml STK-MED ONCE .ROUTE ; Start 02/15/20 at 21:30; Stop 02/15/20 at 21:31; Status DC Rocuronium Laurel (Zemuron) 50 mg STK-MED ONCE .ROUTE ; Start 02/15/20 at 21:30; Stop 02/15/20 at 21:31; Status DC Fentanyl Citrate (Fentanyl 2ml Vial) 100 mcg STK-MED ONCE .ROUTE ; Start 02/15/20 at 21:31; Stop 02/15/20 at 21:31; Status DC Fentanyl Citrate (Fentanyl 2ml Vial) 25 mcg PRN Q5MIN PRN IV MILD PAIN 1-3; Start 02/15/20 at 22:15; Stop 02/16/20 at 22:14; Status DC Fentanyl Citrate (Fentanyl 2ml Vial) 50 mcg PRN Q5MIN PRN IV MODERATE TO SEVERE PAIN; Start 02/15/20 at 22:15; Stop 02/16/20 at 22:14; Status DC Morphine Sulfate (Morphine Sulfate) 1 mg PRN Q10MIN PRN IV SEVERE PAIN 7-10; Start 02/15/20 at 22:15; Stop 02/16/20 at 22:14; Status DC Ringer's Solution 1,000 ml @ 30 mls/hr Q24H IV ; Start 02/15/20 at 22:30; Stop 02/16/20 at 22:29; Status DC Hydromorphone HCl (Dilaudid) 0.5 mg PRN Q10MIN PRN IV SEV PAIN, Second choice; Start 02/15/20 at 22:15; Stop 02/16/20 at 22:14; Status DC Prochlorperazine Edisylate (Compazine) 5 mg PACU PRN PRN IV NAUSEA, MRX1; Start 02/15/20 at 22:15; Stop 02/16/20 at 22:14; Status DC Sodium Chloride 1,000 ml @ 1,000 mls/hr 1X ONCE IV ; Start 02/15/20 at 22:30; Stop 02/16/20 at 00:32; Status DC Bupivacaine HCl/ Epinephrine Bitart (Sensorcain-Epi 0.5%-1:[id number] Mpf) 30 ml STK-MED ONCE .ROUTE ; Start 02/15/20 at 22:13; Stop 02/15/20 at 22:13; Status DC Ondansetron HCl (Zofran) 4 mg STK-MED ONCE .ROUTE ; Start 02/15/20 at 22:49; Stop 02/15/20 at 22:49; Status DC Neostigmine Laurel (Neostigmine Methylsulfate) 5 mg STK-MED ONCE .ROUTE ; Start 02/15/20 at 22:49; Stop 02/15/20 at 22:49; Status DC Glycopyrrolate (Robinul) 1 mg STK-MED ONCE .ROUTE ; Start 02/15/20 at 22:49; Stop 02/15/20 at 22:50; Status DC Dexamethasone Sodium Phosphate (Decadron) 4 mg STK-MED ONCE .ROUTE ; Start 02/15/20 at 22:50; Stop 02/15/20 at 22:50; Status DC Cefazolin Sodium (Ancef) 1 gm STK-MED ONCE IVP ; Start 02/15/20 at 23:11; Stop 02/15/20 at 23:11; Status DC Fentanyl Citrate (Fentanyl 2ml Vial) 25 mcg PRN Q2HRS PRN IVP MODERATE PAIN 4- 6; Start 02/16/20 at 00:15 Albuterol Sulfate (Ventolin Neb Soln) 2.5 mg 1X ONCE NEB Last administered on 02/16/20at 00:40; Start 02/16/20 at 01:00; Stop 02/16/20 at 01:01; Status DC Fentanyl Citrate (Fentanyl 2ml Vial) 50 mcg PRN Q2HRS PRN IVP SEVERE PAIN 7-10 Last administered on 02/17/20at 08:54; Start 02/16/20 at 00:30 Insulin Human Lispro (HumaLOG VIAL for OP,RR ONLY) 0-10 units PRN Q1HR PRN SQ PER PROTOCOL Last administered on 02/16/20at 00:58; Start 02/16/20 at 01:00; Stop 02/17/20 at 00:59; Status DC Albuterol Sulfate (Ventolin Neb Soln) 2.5 mg RTQID NEB Last administered on 02/16/20at 14:57; Start 02/16/20 at 16:00; Stop 02/16/20 at 15:20; Status DC Aspirin (Aspirin Chewable) 81 mg HS PO Last administered on 02/22/20at 21:13; Start 02/16/20 at 21:00 Atorvastatin Calcium (Lipitor) 20 mg DAILY PO ; Start 02/17/20 at 09:00; Status Cancel Atorvastatin Calcium (Lipitor) 40 mg DAILY PO Last administered on 02/22/20at 08:10; Start 02/17/20 at 09:00; Stop 02/22/20 at 10:28; Status DC Docusate Sodium (Colace) 100 mg HS PO Last administered on 02/22/20at 21:13; Start 02/16/20 at 21:00 Furosemide (Lasix) 40 mg DAILY PO Last administered on 02/23/20 08:34; Start 02/17/20 at 09:00 Gabapentin (Neurontin) 900 mg BID PO ; Start 02/16/20 at 21:00; Stop 02/16/20 at 15:07; Status DC Gabapentin (Neurontin) 300 mg TID PO ; Start 02/16/20 at 21:00; Stop 02/16/20 at 15:07; Status DC Ipratropium Laurel (Atrovent) 0.2 mg RTQID NEB ; Start 02/16/20 at 16:00; Stop 02/16/20 at 15:20; Status DC Oxycodone/ Acetaminophen (Percocet 5/325) 1 tab Q4HRS PO Last administered on 02/18/20at 12:14; Start 02/16/20 at 16:00; Stop 02/18/20 at 14:22; Status DC Sennosides (Senna) 8.6 mg HS PO Last administered on 02/22/20 21:13; Start 02/16/20 at 21:00 Tamsulosin HCl (Flomax) 0.4 mg DAILY PO ; Start 02/17/20 at 09:00; Stop 02/16/20 at 15:09; Status DC Tamsulosin HCl (Flomax) 0.4 mg HS PO Last administered on 02/22/20at 21:13; Start 02/16/20 at 21:00 Tizanidine HCl (Zanaflex) 2 mg PRN TID PRN PO MUSCLE SPASMS Last administered on 02/19/20at 05:51; Start 02/16/20 at 15:00 Non-Formulary Medication (Albuterol Sulfate (Ventolin Hfa Inhaler)) 2 puff Q4HRS INH ; Start 02/16/20 at 16:00; Stop 02/16/20 at 15:12; Status DC Ascorbic Acid (Vitamin C) 500 mg DAILY PO Last administered on 02/23/20 08:34; Start 02/17/20 at 09:00 Cyclobenzaprine HCl (Flexeril) 10 mg TID PO Last administered on 02/18/20at 08:44; Start 02/16/20 at 21:00; Stop 02/18/20 at 14:22; Status DC Non-Formulary Medication (Budesonide/ Formoterol Fumarate (Symbicort 80-4.5 Mcg Inhaler)) 2 puff BID IH ; Start 02/16/20 at 21:00; Stop 02/16/20 at 15:21; Status DC Vitamin D (Vitamin D3) 4,000 unit DAILY PO Last administered on 02/23/20at 08:33; Start 02/17/20 at 09:00 Gabapentin (Neurontin) 600 mg BID@0900,1500 PO Last administered on 02/20/20at 09:13; Start 02/16/20 at 16:00; Stop 02/20/20 at 12:10; Status DC Gabapentin (Neurontin) 800 mg QHS PO Last administered on 02/19/20at 22:24; Start 02/16/20 at 21:00; Stop 02/20/20 at 12:10; Status DC Magnesium Chloride (Mag Delay) 64 mg QHS PO Last administered on 02/22/20at 21:13; Start 02/16/20 at 21:00 Pantoprazole Sodium (Protonix) 40 mg DAILYAC PO Last administered on 02/23/20at 08:34; Start 02/17/20 at 07:30 Non-Formulary Medication (Tiotropium Laurel (Spiriva)) 1 cap DAILY IH ; Start 02/17/20 at 09:00; Stop 02/16/20 at 15:18; Status DC Insulin Human Lispro (HumaLOG) 0-5 UNITS TIDWMEALS SQ ; Start 02/16/20 at 17:00 Dextrose (Dextrose 50%-Water Syringe) 12.5 gm PRN Q15MIN PRN IV SEE COMMENTS; Start 02/16/20 at 15:00 Albuterol/ Ipratropium (Duoneb) 3 ml RTQID NEB Last administered on 02/23/20at 08:08; Start 02/16/20 at 16:00 Budesonide (Pulmicort) 0.5 mg RTBID NEB Last administered on 02/23/20at 08:08; Start 02/16/20 at 20:00 Enoxaparin Sodium (Lovenox 40mg Syringe) 40 mg Q24H SQ Last administered on 02/22/20at 12:28; Start 02/17/20 at 13:00 Cyclobenzaprine HCl (Flexeril) 10 mg PRN TID PRN PO MUSCLE PAIN Last administered on 02/20/20at 09:16; Start 02/18/20 at 14:30; Stop 02/22/20 at 12:01; Status DC Oxycodone/ Acetaminophen (Percocet 5/325) 1 tab PRN Q4HRS PRN PO PAIN Last administered on 02/22/20at 08:12; Start 02/18/20 at 14:30 Menthol/Methyl Salicylate (Bengay Greaseless Cream) 1 malka PRN TID PRN TP PAIN Last administered on 02/19/20at 08:30; Start 02/19/20 at 06:00 Pregabalin (Lyrica) 150 mg BID PO Last administered on 02/23/20at 08:34; Start 02/20/20 at 12:30 Ceftriaxone Sodium (Rocephin) 1 gm Q24H IVP Last administered on 02/22/20at 14:34; Start 02/21/20 at 14:00 Atorvastatin Calcium (Lipitor) 40 mg HS PO ; Start 02/23/20 at 21:00 Furosemide (Lasix) 40 mg 1X ONCE IVP Last administered on 02/22/20at 12:21; Start 02/22/20 at 10:30; Stop 02/22/20 at 10:32; Status DC Active Scripts Active Zofran Odt (Ondansetron) 4 Mg Tab.rapdis 1 Tab SL Q8HRS PRN Azithromycin Tablet (Azithromycin) 250 Mg Tablet 1 Pkg PO UD Prednisone 50 Mg Tablet 1 Tab PO DAILY Reported Biofreeze (Menthol) 118 Ml Gel..ml. 1 Malka TP TID PRN 10 Days Vitamin D3 (Cholecalciferol (Vitamin D3)) 4,000 Unit Capsule 1 Cap PO DAILY 30 Days Vitamin E (Vitamin E Mixed) 400 Unit Tablet 1 Tab PO QHS 30 Days Magnesium Gluconate 27 Mg Tablet 1 Tab PO HS 30 Days Vitamin C (Ascorbic Acid) 100 Mg Tablet 1 Tab PO DAILY 30 Days Aspirin 81 Mg Tab.chew 1 Tab PO HS Docusate Sodium 100 Mg Capsule 1 Cap PO HS 7 Days Senna Laxative (Sennosides) 8.6 Mg Tablet 1 Tab PO HS 30 Days Baclofen 20 Mg Tablet 20 Mg PO BID Flomax (Tamsulosin Hcl) 0.4 Mg Cap.er.24h 0.4 Mg PO HS Gabapentin 800 Mg Tablet 800 Mg PO HS Gabapentin 600 Mg Tablet 600 Mg PO BID Metformin Hcl 500 Mg Tablet 500 Mg PO HS Atorvastatin Calcium 40 Mg Tablet 40 Mg PO DAILY Spiriva (Tiotropium Laurel) 18 Mcg Cap.w.dev 1 Cap IH DAILY Ventolin Hfa Inhaler (Albuterol Sulfate) 18 Gm Hfa.aer.ad 2 Puff INH Q4HRS Ipratropium Laurel 0.2 Mg/1 Ml Solution 1 Vial NEB QID Symbicort 80-4.5 Mcg Inhaler (Budesonide/Formoterol Fumarate) 10.2 Gm Hfa.aer.ad 2 Puff IH BID Percocet 5-325 Mg Tablet (Oxycodone/Acetaminophen) 1 Each Tablet 1-2 Tab PO Q4-6HRS Omeprazole 20 Mg Tablet.dr 1 Tab PO DAILY Furosemide 40 Mg Tablet 1 Tab PO DAILY Gabapentin (Gabapentin) 300 Mg Capsule 300 Mg PO TID Atorvastatin Calcium 20 Mg Tablet 1 Tab PO DAILY Tizanidine Hcl 4 Mg Tablet 2 Mg PO TID PRN Percocet 5-325 Mg Tablet (Oxycodone/Acetaminophen) 1 Each Tablet 1-2 Tab PO Q4-6HRS Gabapentin (Gabapentin) 300 Mg Capsule 3 Cap PO BID Meloxicam 15 Mg Tablet 1 Tab PO HS Tamsulosin Hcl 0.4 Mg Cap.er.24h 1 Cap PO DAILY Vitals/I & O Vital Sign - Last 24 Hours 02/22/20 02/22/20 02/22/20 02/22/20 11:29 15:00 15:47 19:00 Temp 97.6 100.1 97.6 100.1 Pulse 89 93 Resp 16 20 B/P (MAP) 145/69 (94) 122/54 (76) Pulse Ox 93 95 98 95 O2 Delivery Nasal Cannula Room Air Nasal Cannula Nasal Cannula O2 Flow Rate 4.0 3.0 3.0 3.0 02/22/20 02/22/20 02/22/20 02/22/20 19:50 19:55 19:55 23:00 Temp 99.8 99.8 Pulse 85 Resp 20 B/P (MAP) 114/58 (76) Pulse Ox 92 92 96 O2 Delivery Nasal Cannula Nasal Cannula Nasal Cannula Nasal Cannula O2 Flow Rate 5.0 3.0 3.0 3.0 5/5/20 02/23/20 02/23/20 02/23/20 03:00 07:00 08:11 08:15 Temp 98.9 98.1 98.9 98.1 Pulse 93 95 Resp 20 16 B/P (MAP) 122/67 (85) 128/70 (89) Pulse Ox 92 96 92 92 O2 Delivery BiPAP/CPAP Nasal Cannula Nasal Cannula Nasal Cannula O2 Flow Rate 5.0 3.0 3.0 02/23/20 08:15 O2 Delivery Nasal Cannula O2 Flow Rate 4.0 Intake and Output 02/22/20 02/22/20 02/23/20 14:59 22:59 06:59 Intake Total 600 ml 440 ml Output Total 400 ml 750 ml Balance -400 ml -150 ml 440 ml ANAND SAAVEDRA MD February 23, 2020 11:28
[2020-02-23] MEDS: ENOXAPARIN 40 MG/0.4 ML SYRINGE. SQ SCH (12:56)
[2020-02-23] MEDS: cefTRIAXone IV Push 1 GM VIAL. IVP SCH (13:01)
[2020-02-23 15:00] VITALS: BP 134/62
--- NOTE | 2020-02-23 16:58 | RAD ---
Chest AP portable at 1629: Reason for examination: Short of breath. Comparison is made to previous study dated 02/21/2020. The heart size is normal. Mediastinum is unremarkable. Lung gardiner show some linear density consistent with atelectasis at the right lung base. This appears to be improved when compared to previous exam. No congestion or consolidative infiltrates or pleural effusions are seen. No acute abnormalities are present. IMPRESSION: Linear density at the right lung base. This is improved when compared to previous exam. No other infiltrates or pleural effusions evident. Electronically signed by: Jenae Villar MD (02/23/2020 4:55 PM) [id number]
[2020-02-23 19:00] VITALS: BP 121/65
[2020-02-23 20:08] LABS: ANA INTERP Negative (.)
[2020-02-23] MEDS ORDERED: ATORVASTATIN CALCIUM 40 MG TABLET. PO SCH (21:00)
[2020-02-23] MEDS: ASPIRIN CHEWABLE 81 MG TABLET. PO SCH (21:02)
[2020-02-23] MEDS: TAMSULOSIN 0.4 MG CAP.ER.24H. PO SCH (21:02)
[2020-02-23] MEDS: SENNOSIDES 8.6 MG TABLET PO SCH (21:02)
[2020-02-23] MEDS: DOCUSATE SODIUM 100 MG CAPSULE. PO SCH (21:02)
[2020-02-23] MEDS: MAGNESIUM CHLORIDE ER 64 MG TABLET.ER PO SCH (21:03)
[2020-02-23] MEDS: oxyCODONE/APAP 5/325 1 TAB TABLET PO PRN (22:24)
[2020-02-23 23:00] VITALS: BP 109/55
[2020-02-24 03:00] VITALS: BP 102/55
[2020-02-24 05:48] LABS: BASO # 0.1 x10^3/uL (0.0-0.2); BASO % 1 % (0-3); EOS # 0.3 x10^3/uL (0.0-0.7); EOS % 4 % (0-3); HEMATOCRIT 37.1 % (39.0-53.0); HEMOGLOBIN 12.4 g/dL (13.0-17.5); LYMPH # 1.5 x10^3/uL (1.0-4.8); LYMPH % 21 % (24-48); MEAN CORPUSCULAR HEMOGLOBIN 31 pg (25-35); MEAN CORPUSCULAR HGB CONC 33 g/dL (31-37); MEAN CORPUSCULAR VOLUME 93 fL (79-100); MONO # 0.8 x10^3/uL (0.0-1.1); MONO % 11 % (0-9); NEUT # 4.4 x10^3/uL (1.8-7.7); NEUT % 63 % (31-73); PLATELET COUNT 227 x10^3/uL (140-400); RED BLOOD COUNT 3.99 x10^6/uL (4.30-5.70); RED CELL DISTRIBUTION WIDTH 13.1 % (11.5-14.5)
[2020-02-24 07:00] VITALS: BP 113/64
[2020-02-24] MEDS: IPRATRPIUM/ALBUTEROL 0.5/2.5MG 3 ML NEBU. NEB SCH ×2 (07:28→12:25)
[2020-02-24] MEDS: BUDESONIDE 0.5 MG/2 ML NEBU. NEB SCH (07:28)
[2020-02-24] MEDS: PANTOPRAZOLE 40 MG TABLET.DR. PO SCH (07:47)
[2020-02-24] MEDS: INSULIN LISPRO 300 UNITS/3 ML VIAL. SQ SCH ×2 (07:50→11:52)
[2020-02-24] MEDS: FUROSEMIDE 40 MG TABLET. PO SCH (07:54)
[2020-02-24] MEDS: PREGABALIN 75 MG CAPSULE PO SCH (07:54)
[2020-02-24] MEDS: ASCORBIC ACID 500 MG TABLET PO SCH (07:54)
[2020-02-24] MEDS: CHOLECALCIFEROL (VITAMIN D3) 1,000 UNIT TABLET PO SCH (07:55)
--- NOTE | 2020-02-24 09:40 | PDOC ---
PROGRESS NOTES Assessment Problems Medical Problems: (1) SBO (small bowel obstruction) Status: Acute (2) Umbilical hernia Status: Acute Diabetic neuropathy, rule out other causes, agent orange can cause this for instance. He is failing on gabapentin. He says Graeme is helping some. Labwork for other causes so far negative History of lumbar spinal stenosis Admitted for incarcerated umbilical hernia with medical issues of COPD among others. Pulmonary service said okay to discharge today Plan Okay for discharge [facility] Outpatient EMG studies in my office Subjective Graeme is helping Objective Vital Signs Date Time Temp Pulse Resp B/P (MAP) Pulse Ox O2 Delivery O2 Flow Rate FiO2 02/24/20 07:28 97 Nasal Cannula 3.0 02/24/20 07:00 98.0 73 18 113/64 (80) 98.0 Intake and Output 02/24/20 07:00 Intake Total 400 ml Balance 400 ml Intake Oral 400 ml # Voids 3 PHYSICAL EXAM Alert. Oriented to time, place and person. PERRL. EOMI. CN: no focal findings. Muscle tone: normal. Muscle strength: 5/5 DTR: 0-1+ Plantar reflex: Flexor Gait: not examined in bed. Sensory exam: Stocking loss. No cerebellar signs elicited. Review of Relevant I have reviewed the following items stevie (where applicable) has been applied. Labs Laboratory Tests Test 02/22/20 11:13 02/22/20 13:00 02/22/20 16:33 02/22/20 21:35 Glucose (Fingerstick) 123 mg/dL (70-99) 114 mg/dL (70-99) 121 mg/dL (70-99) Sodium Level 137 mmol/L (136-145) Potassium Level 3.5 mmol/L (3.5-5.1) Chloride Level 94 mmol/L (98-107) Carbon Dioxide Level 36 mmol/L (21-32) Anion Gap 7 (6-14) Blood Urea Nitrogen 15 mg/dL (8-26) Creatinine 0.9 mg/dL (0.7-1.3) Estimated GFR (Cockcroft-Gault) 81.6 BUN/Creatinine Ratio 17 (6-20) Glucose Level 145 mg/dL (70-99) Calcium Level 8.3 mg/dL (8.5-10.1) Total Bilirubin 0.8 mg/dL (0.2-1.0) Aspartate Amino Transf (AST/SGOT) 53 U/L (15-37) Alanine Aminotransferase (ALT/SGPT) 56 U/L (16-63) Alkaline Phosphatase 78 U/L (46-116) Total Protein 6.6 g/dL (6.4-8.2) Albumin 2.8 g/dL (3.4-5.0) Albumin/Globulin Ratio 0.7 (1.0-1.7) Test 02/23/20 03:45 02/23/20 08:22 02/23/20 11:51 02/23/20 16:55 White Blood Count 8.2 x10^3/uL (4.0-11.0) Red Blood Count 4.24 x10^6/uL (4.30-5.70) Hemoglobin 13.1 g/dL (13.0-17.5) Hematocrit 39.2 % (39.0-53.0) Mean Corpuscular Volume 92 fL (79-100) Mean Corpuscular Hemoglobin 31 pg (25-35) Mean Corpuscular Hemoglobin Concent 34 g/dL (31-37) Red Cell Distribution Width 13.1 % (11.5-14.5) Platelet Count 217 x10^3/uL (140-400) Neutrophils (%) (Auto) 68 % (31-73) Lymphocytes (%) (Auto) 16 % (24-48) Monocytes (%) (Auto) 12 % (0-9) Eosinophils (%) (Auto) 3 % (0-3) Basophils (%) (Auto) 1 % (0-3) Neutrophils # (Auto) 5.6 x10^3/uL (1.8-7.7) Lymphocytes # (Auto) 1.3 x10^3/uL (1.0-4.8) Monocytes # (Auto) 1.0 x10^3/uL (0.0-1.1) Eosinophils # (Auto) 0.2 x10^3/uL (0.0-0.7) Basophils # (Auto) 0.1 x10^3/uL (0.0-0.2) Glucose (Fingerstick) 131 mg/dL (70-99) 111 mg/dL (70-99) 111 mg/dL (70-99) Test 02/23/20 22:01 02/24/20 03:30 02/24/20 07:50 Glucose (Fingerstick) 108 mg/dL (70-99) 125 mg/dL (70-99) White Blood Count 7.0 x10^3/uL (4.0-11.0) Red Blood Count 3.99 x10^6/uL (4.30-5.70) Hemoglobin 12.4 g/dL (13.0-17.5) Hematocrit 37.1 % (39.0-53.0) Mean Corpuscular Volume 93 fL (79-100) Mean Corpuscular Hemoglobin 31 pg (25-35) Mean Corpuscular Hemoglobin Concent 33 g/dL (31-37) Red Cell Distribution Width 13.1 % (11.5-14.5) Platelet Count 227 x10^3/uL (140-400) Neutrophils (%) (Auto) 63 % (31-73) Lymphocytes (%) (Auto) 21 % (24-48) Monocytes (%) (Auto) 11 % (0-9) Eosinophils (%) (Auto) 4 % (0-3) Basophils (%) (Auto) 1 % (0-3) Neutrophils # (Auto) 4.4 x10^3/uL (1.8-7.7) Lymphocytes # (Auto) 1.5 x10^3/uL (1.0-4.8) Monocytes # (Auto) 0.8 x10^3/uL (0.0-1.1) Eosinophils # (Auto) 0.3 x10^3/uL (0.0-0.7) Basophils # (Auto) 0.1 x10^3/uL (0.0-0.2) Laboratory Tests Test 02/23/20 11:51 02/23/20 16:55 02/23/20 22:01 02/24/20 03:30 Glucose (Fingerstick) 111 mg/dL (70-99) 111 mg/dL (70-99) 108 mg/dL (70-99) White Blood Count 7.0 x10^3/uL (4.0-11.0) Red Blood Count 3.99 x10^6/uL (4.30-5.70) Hemoglobin 12.4 g/dL (13.0-17.5) Hematocrit 37.1 % (39.0-53.0) Mean Corpuscular Volume 93 fL (79-100) Mean Corpuscular Hemoglobin 31 pg (25-35) Mean Corpuscular Hemoglobin Concent 33 g/dL (31-37) Red Cell Distribution Width 13.1 % (11.5-14.5) Platelet Count 227 x10^3/uL (140-400) Neutrophils (%) (Auto) 63 % (31-73) Lymphocytes (%) (Auto) 21 % (24-48) Monocytes (%) (Auto) 11 % (0-9) Eosinophils (%) (Auto) 4 % (0-3) Basophils (%) (Auto) 1 % (0-3) Neutrophils # (Auto) 4.4 x10^3/uL (1.8-7.7) Lymphocytes # (Auto) 1.5 x10^3/uL (1.0-4.8) Monocytes # (Auto) 0.8 x10^3/uL (0.0-1.1) Eosinophils # (Auto) 0.3 x10^3/uL (0.0-0.7) Basophils # (Auto) 0.1 x10^3/uL (0.0-0.2) Test 02/24/20 07:50 Glucose (Fingerstick) 125 mg/dL (70-99) Medications Current Medications Ondansetron HCl (Zofran) 4 mg 1X ONCE IVP Last administered on 02/15/20at 19:44; Start 02/15/20 at 19:30; Stop 02/15/20 at 19:35; Status DC Ondansetron HCl (Zofran) 4 mg STK-MED ONCE .ROUTE ; Start 02/15/20 at 19:25; Stop 02/15/20 at 19:26; Status DC Fentanyl Citrate (Fentanyl 2ml Vial) 50 mcg PRN Q15MIN PRN IV PAIN GREATER THAN 3/10 Last administered on 02/15/20at 22:00; Start 02/15/20 at 19:30; Stop 02/16/20 at 19:29; Status DC Sodium Chloride 1,000 ml @ 1,000 mls/hr Q1H IV Last administered on 02/15/20at 19:44; Start 02/15/20 at 19:29; Stop 02/15/20 at 20:28; Status DC Iohexol (Omnipaque 300 Mg/ml) 75 ml 1X ONCE IV Last administered on 02/15/20at 20:40; Start 02/15/20 at 20:30; Stop 02/15/20 at 20:31; Status DC Info (CONTRAST GIVEN -- Rx MONITORING) 1 each PRN DAILY PRN MC SEE COMMENTS; Start 02/15/20 at 20:30; Stop 02/17/20 at 20:29; Status DC Dicyclomine HCl (Bentyl) 10 mg 1X ONCE IM Last administered on 02/15/20at 21:00; Start 02/15/20 at 20:30; Stop 02/15/20 at 20:31; Status DC Ondansetron HCl (Zofran) 4 mg PRN Q8HRS PRN IV NAUSEA/VOMITING 1ST CHOICE Last administered on 02/16/20at 09:24; Start 02/15/20 at 21:30; Stop 02/16/20 at 21:29; Status DC Morphine Sulfate (Morphine Sulfate) 4 mg PRN Q2HR PRN IV SEVERE PAIN 7-10; Start 02/15/20 at 21:30; Stop 02/16/20 at 21:29; Status DC Sodium Chloride 1,000 ml @ 100 mls/hr Q10H IV Last administered on 02/16/20at 11:59; Start 02/15/20 at 22:00; Stop 02/16/20 at 21:59; Status DC Propofol 20 ml @ As Directed STK-MED ONCE IV ; Start 02/15/20 at 21:30; Stop 02/15/20 at 21:31; Status DC Lidocaine HCl (Lidocaine Pf 2% Vial) 5 ml STK-MED ONCE .ROUTE ; Start 02/15/20 at 21:30; Stop 02/15/20 at 21:31; Status DC Rocuronium [place] (Zemuron) 50 mg STK-MED ONCE .ROUTE ; Start 02/15/20 at 21:30; Stop 02/15/20 at 21:31; Status DC Fentanyl Citrate (Fentanyl 2ml Vial) 100 mcg STK-MED ONCE .ROUTE ; Start 02/15/20 at 21:31; Stop 02/15/20 at 21:31; Status DC Fentanyl Citrate (Fentanyl 2ml Vial) 25 mcg PRN Q5MIN PRN IV MILD PAIN 1-3; Start 02/15/20 at 22:15; Stop 02/16/20 at 22:14; Status DC Fentanyl Citrate (Fentanyl 2ml Vial) 50 mcg PRN Q5MIN PRN IV MODERATE TO SEVERE PAIN; Start 02/15/20 at 22:15; Stop 02/16/20 at 22:14; Status DC Morphine Sulfate (Morphine Sulfate) 1 mg PRN Q10MIN PRN IV SEVERE PAIN 7-10; Start 02/15/20 at 22:15; Stop 02/16/20 at 22:14; Status DC Ringer's Solution 1,000 ml @ 30 mls/hr Q24H IV ; Start 02/15/20 at 22:30; Stop 02/16/20 at 22:29; Status DC Hydromorphone HCl (Dilaudid) 0.5 mg PRN Q10MIN PRN IV SEV PAIN, Second choice; Start 02/15/20 at 22:15; Stop 02/16/20 at 22:14; Status DC Prochlorperazine Edisylate (Compazine) 5 mg PACU PRN PRN IV NAUSEA, MRX1; Start 02/15/20 at 22:15; Stop 02/16/20 at 22:14; Status DC Sodium Chloride 1,000 ml @ 1,000 mls/hr 1X ONCE IV ; Start 02/15/20 at 22:30; Stop 02/16/20 at 00:32; Status DC Bupivacaine HCl/ Epinephrine Bitart (Sensorcain-Epi 0.5%-1:460650 Mpf) 30 ml STK-MED ONCE .ROUTE ; Start 02/15/20 at 22:13; Stop 02/15/20 at 22:13; Status DC Ondansetron HCl (Zofran) 4 mg STK-MED ONCE .ROUTE ; Start 02/15/20 at 22:49; Stop 02/15/20 at 22:49; Status DC Neostigmine [place] (Neostigmine Methylsulfate) 5 mg STK-MED ONCE .ROUTE ; Start 02/15/20 at 22:49; Stop 02/15/20 at 22:49; Status DC Glycopyrrolate (Robinul) 1 mg STK-MED ONCE .ROUTE ; Start 02/15/20 at 22:49; Stop 02/15/20 at 22:50; Status DC Dexamethasone Sodium Phosphate (Decadron) 4 mg STK-MED ONCE .ROUTE ; Start 02/15/20 at 22:50; Stop 02/15/20 at 22:50; Status DC Cefazolin Sodium (Ancef) 1 gm STK-MED ONCE IVP ; Start 02/15/20 at 23:11; Stop 02/15/20 at 23:11; Status DC Fentanyl Citrate (Fentanyl 2ml Vial) 25 mcg PRN Q2HRS PRN IVP MODERATE PAIN 4- 6; Start 02/16/20 at 00:15 Albuterol Sulfate (Ventolin Neb Soln) 2.5 mg 1X ONCE NEB Last administered on 02/16/20at 00:40; Start 02/16/20 at 01:00; Stop 02/16/20 at 01:01; Status DC Fentanyl Citrate (Fentanyl 2ml Vial) 50 mcg PRN Q2HRS PRN IVP SEVERE PAIN 7-10 Last administered on 02/17/20at 08:54; Start 02/16/20 at 00:30 Insulin Human Lispro (HumaLOG VIAL for OP,RR ONLY) 0-10 units PRN Q1HR PRN SQ PER PROTOCOL Last administered on 02/16/20at 00:58; Start 02/16/20 at 01:00; Stop 02/17/20 at 00:59; Status DC Albuterol Sulfate (Ventolin Neb Soln) 2.5 mg RTQID NEB Last administered on 02/16/20at 14:57; Start 02/16/20 at 16:00; Stop 02/16/20 at 15:20; Status DC Aspirin (Aspirin Chewable) 81 mg HS PO Last administered on 02/23/20at 21:02; Start 02/16/20 at 21:00 Atorvastatin Calcium (Lipitor) 20 mg DAILY PO ; Start 02/17/20 at 09:00; Status Cancel Atorvastatin Calcium (Lipitor) 40 mg DAILY PO Last administered on 02/22/20at 08:10; Start 02/17/20 at 09:00; Stop 02/22/20 at 10:28; Status DC Docusate Sodium (Colace) 100 mg HS PO Last administered on 02/23/20at 21:02; Start 02/16/20 at 21:00 Furosemide (Lasix) 40 mg DAILY PO Last administered on 02/24/20 07:54; Start 02/17/20 at 09:00 Gabapentin (Neurontin) 900 mg BID PO ; Start 02/16/20 at 21:00; Stop 02/16/20 at 15:07; Status DC Gabapentin (Neurontin) 300 mg TID PO ; Start 02/16/20 at 21:00; Stop 02/16/20 at 15:07; Status DC Ipratropium [place] (Atrovent) 0.2 mg RTQID NEB ; Start 02/16/20 at 16:00; Stop 02/16/20 at 15:20; Status DC Oxycodone/ Acetaminophen (Percocet 5/325) 1 tab Q4HRS PO Last administered on 02/18/20at 12:14; Start 02/16/20 at 16:00; Stop 02/18/20 at 14:22; Status DC Sennosides (Senna) 8.6 mg HS PO Last administered on 02/23/20at 21:02; Start 02/16/20 at 21:00 Tamsulosin HCl (Flomax) 0.4 mg DAILY PO ; Start 02/17/20 at 09:00; Stop 02/16/20 at 15:09; Status DC Tamsulosin HCl (Flomax) 0.4 mg HS PO Last administered on 02/23/20at 21:02; Start 02/16/20 at 21:00 Tizanidine HCl (Zanaflex) 2 mg PRN TID PRN PO MUSCLE SPASMS Last administered on 02/19/20at 05:51; Start 02/16/20 at 15:00 Non-Formulary Medication (Albuterol Sulfate (Ventolin Hfa Inhaler)) 2 puff Q4HRS INH ; Start 02/16/20 at 16:00; Stop 02/16/20 at 15:12; Status DC Ascorbic Acid (Vitamin C) 500 mg DAILY PO Last administered on 02/24/20at 07:54; Start 02/17/20 at 09:00 Cyclobenzaprine HCl (Flexeril) 10 mg TID PO Last administered on 02/18/20at 08:44; Start 02/16/20 at 21:00; Stop 02/18/20 at 14:22; Status DC Non-Formulary Medication (Budesonide/ Formoterol Fumarate (Symbicort 80-4.5 Mcg Inhaler)) 2 puff BID IH ; Start 02/16/20 at 21:00; Stop 02/16/20 at 15:21; Status DC Vitamin D (Vitamin D3) 4,000 unit DAILY PO Last administered on 02/24/20at 07:55; Start 02/17/20 at 09:00 Gabapentin (Neurontin) 600 mg BID@0900,1500 PO Last administered on 02/20/20at 09:13; Start 02/16/20 at 16:00; Stop 02/20/20 at 12:10; Status DC Gabapentin (Neurontin) 800 mg QHS PO Last administered on 02/19/20at 22:24; Start 02/16/20 at 21:00; Stop 02/20/20 at 12:10; Status DC Magnesium Chloride (Mag Delay) 64 mg QHS PO Last administered on 02/23/20at 21:03; Start 02/16/20 at 21:00 Pantoprazole Sodium (Protonix) 40 mg DAILYAC PO Last administered on 02/24/20at 07:47; Start 02/17/20 at 07:30 Non-Formulary Medication (Tiotropium [place] (Spiriva)) 1 cap DAILY IH ; Start 02/17/20 at 09:00; Stop 02/16/20 at 15:18; Status DC Insulin Human Lispro (HumaLOG) 0-5 UNITS TIDWMEALS SQ ; Start 02/16/20 at 17:00 Dextrose (Dextrose 50%-Water Syringe) 12.5 gm PRN Q15MIN PRN IV SEE COMMENTS; Start 02/16/20 at 15:00 Albuterol/ Ipratropium (Duoneb) 3 ml RTQID NEB Last administered on 02/24/20at 07:28; Start 02/16/20 at 16:00 Budesonide (Pulmicort) 0.5 mg RTBID NEB Last administered on 02/24/20at 07:28; Start 02/16/20 at 20:00 Enoxaparin Sodium (Lovenox 40mg Syringe) 40 mg Q24H SQ Last administered on 02/23/20at 12:56; Start 02/17/20 at 13:00 Cyclobenzaprine HCl (Flexeril) 10 mg PRN TID PRN PO MUSCLE PAIN Last administered on 02/20/20 09:16; Start 02/18/20 at 14:30; Stop 02/22/20 at 12:01; Status DC Oxycodone/ Acetaminophen (Percocet 5/325) 1 tab PRN Q4HRS PRN PO PAIN Last administered on 02/23/20 22:24; Start 02/18/20 at 14:30 Menthol/Methyl Salicylate (Bengay Greaseless Cream) 1 malka PRN TID PRN TP PAIN Last administered on 02/19/20at 08:30; Start 02/19/20 at 06:00 Pregabalin (Lyrica) 150 mg BID PO Last administered on 02/24/20 07:54; Start 02/20/20 at 12:30 Ceftriaxone Sodium (Rocephin) 1 gm Q24H IVP Last administered on 02/23/20 13:01; Start 02/21/20 at 14:00 Atorvastatin Calcium (Lipitor) 40 mg HS PO Last administered on 02/23/20at 21:02; Start 02/23/20 at 21:00 Furosemide (Lasix) 40 mg 1X ONCE IVP Last administered on 02/22/20at 12:21; Start 02/22/20 at 10:30; Stop 02/22/20 at 10:32; Status DC Active Scripts Active Zofran Odt (Ondansetron) 4 Mg Tab.rapdis 1 Tab SL Q8HRS PRN Azithromycin Tablet (Azithromycin) 250 Mg Tablet 1 Pkg PO UD Prednisone 50 Mg Tablet 1 Tab PO DAILY Reported Biofreeze (Menthol) 118 Ml Gel..ml. 1 Malka TP TID PRN 10 Days Vitamin D3 (Cholecalciferol (Vitamin D3)) 4,000 Unit Capsule 1 Cap PO DAILY 30 Days Vitamin E (Vitamin E Mixed) 400 Unit Tablet 1 Tab PO QHS 30 Days Magnesium Gluconate 27 Mg Tablet 1 Tab PO HS 30 Days Vitamin C (Ascorbic Acid) 100 Mg Tablet 1 Tab PO DAILY 30 Days Aspirin 81 Mg Tab.chew 1 Tab PO HS Docusate Sodium 100 Mg Capsule 1 Cap PO HS 7 Days Senna Laxative (Sennosides) 8.6 Mg Tablet 1 Tab PO HS 30 Days Baclofen 20 Mg Tablet 20 Mg PO BID Flomax (Tamsulosin Hcl) 0.4 Mg Cap.er.24h 0.4 Mg PO HS Gabapentin 800 Mg Tablet 800 Mg PO HS Gabapentin 600 Mg Tablet 600 Mg PO BID Metformin Hcl 500 Mg Tablet 500 Mg PO HS Atorvastatin Calcium 40 Mg Tablet 40 Mg PO DAILY Spiriva (Tiotropium [place]) 18 Mcg Cap.w.dev 1 Cap IH DAILY Ventolin Hfa Inhaler (Albuterol Sulfate) 18 Gm Hfa.aer.ad 2 Puff INH Q4HRS Ipratropium [place] 0.2 Mg/1 Ml Solution 1 Vial NEB QID Symbicort 80-4.5 Mcg Inhaler (Budesonide/Formoterol Fumarate) 10.2 Gm Hfa.aer.ad 2 Puff IH BID Percocet 5-325 Mg Tablet (Oxycodone/Acetaminophen) 1 Each Tablet 1-2 Tab PO Q4-6HRS Omeprazole 20 Mg Tablet.dr 1 Tab PO DAILY Furosemide 40 Mg Tablet 1 Tab PO DAILY Gabapentin (Gabapentin) 300 Mg Capsule 300 Mg PO TID Atorvastatin Calcium 20 Mg Tablet 1 Tab PO DAILY Tizanidine Hcl 4 Mg Tablet 2 Mg PO TID PRN Percocet 5-325 Mg Tablet (Oxycodone/Acetaminophen) 1 Each Tablet 1-2 Tab PO Q4-6HRS Gabapentin (Gabapentin) 300 Mg Capsule 3 Cap PO BID Meloxicam 15 Mg Tablet 1 Tab PO HS Tamsulosin Hcl 0.4 Mg Cap.er.24h 1 Cap PO DAILY Vitals/I & O Vital Sign - Last 24 Hours 02/23/20 02/23/20 02/23/20 02/23/20 11:00 11:36 15:00 15:46 Temp 97.9 98.2 97.9 98.2 Pulse 101 84 Resp 18 18 B/P (MAP) 125/67 (86) 134/62 (86) Pulse Ox 95 95 O2 Delivery Room Air Nasal Cannula Nasal Cannula Nasal Cannula O2 Flow Rate 3.0 3.0 3.0 02/23/20 02/23/20 02/23/20 02/23/20 19:00 20:10 20:37 20:38 Temp 98.7 98.7 Pulse 90 Resp 20 B/P (MAP) 121/65 (83) Pulse Ox 93 94 94 O2 Delivery Nasal Cannula Nasal Cannula Nasal Cannula Nasal Cannula O2 Flow Rate 4.0 3.0 3.0 3.0 02/23/20 02/23/20 02/23/20 02/24/20 22:24 23:00 23:24 03:00 Temp 98.8 97.7 98.8 97.7 Pulse 77 77 Resp 20 20 20 B/P (MAP) 109/55 (73) 102/55 (71) Pulse Ox 94 92 93 O2 Delivery Nasal Cannula Nasal Cannula Nasal Cannula Nasal Cannula O2 Flow Rate 3.0 4.0 2.0 4.0 02/24/20 02/24/20 07:00 07:28 Temp 98.0 98.0 Pulse 73 Resp 18 B/P (MAP) 113/64 (80) Pulse Ox 94 97 O2 Delivery Nasal Cannula Nasal Cannula O2 Flow Rate 4.0 3.0 Intake and Output 02/23/20 02/23/20 02/24/20 15:00 23:00 07:00 Intake Total 200 ml 200 ml Balance 200 ml 200 ml ANAND [id number] MD February 24, 2020 09:40
--- NOTE | 2020-02-24 09:50 | PDOC ---
PROGRESS NOTES Chief Complaint Chief Complaint DISCHARGE DX Small bowel obstruction Possible pneumonia on chest x-ray cxr Linear density at the right lung base. This is improved when compared to previous exam. No other infiltrates or pleural effusions evident. Mild hypoxia Edema Incarcerated umbilical hernia status post herniorrhaphy Obesity with a BMI of 34 History of COPD History of neuropathy History of dyslipidemia History of chronic pain syndrome on chronic narcotic therapy Leukocytosis most likely secondary to the acute incarceration of umbilical hernia 02/22 working with PT, ON O2 SLOW TO IMPROVE WITH WEAKNESS D/W RN 02/23 surgery standpoint; ok to discharge; no lifting over 20 lbs X 6 weeks, see surgery in one week, OUTPATIENT EMG Discharge Recommendations * [facility], pt refused Discharge Recommendation - DME * Long Handled Equipment * Rolling Walker needed * in order to complete ADLs * and ambulation safely Discharge Recommendation Comments * pt owns 4-ww wants to go home * * * 02/23 HOME WITH HOME HEALTH * * * D/C PLANNING 32 MIN History of Present Illness History of Present Illness 02/24/2020 Patient seen and examined Discussed with RN Chart reviewed still on 3-4 liters NC 02/21/2020 Patient seen and examined Review chart Discussed with RN 02/20/2020 Patient seen and examined His uric acid level was only 5.8 And we will go ahead and consult neurology as he still has foot pain Chart reviewed Discussed with Dr. Schafer Vitals Vitals Vital Signs Date Time Temp Pulse Resp B/P (MAP) Pulse Ox O2 Delivery O2 Flow Rate FiO2 02/24/20 07:28 97 Nasal Cannula 3.0 02/24/20 07:00 98.0 73 18 113/64 (80) 98.0 Physical Exam General: Alert, Oriented X3, Cooperative, No acute distress Heart: Regular rate, Normal S1 Lungs: Clear Abdomen: Normal bowel sounds, Soft, No tenderness, Other (Wound clean dry and intact) Extremities: Other (Bilateral pedal edema with purple hue likely venous stasis) Skin: No rashes, No breakdown Labs LABS CLINICAL HISTORY: Nausea, vomiting and diarrhea. Abdominal pain. TECHNIQUE: After the intravenous administration of 75 cc of Omnipaque 300, contiguous, 5 mm axial sections were obtained through the abdomen and pelvis. One or more of the following individualized dose reduction techniques were utilized for this study: 1. Automated exposure control. 2. Adjustment of the mA and/or kV according to patient size. 3. Use of iterative reconstruction technique. FINDINGS: Images through the lung bases demonstrate areas of probable subsegmental atelectasis bilaterally. The liver, spleen, pancreas, and adrenal glands are within normal limits. Rounded low-attenuation lesions are seen involving both kidneys. These measure 3 mm to 6.6 cm in size. These likely represent cysts. No further imaging workup is recommended. The gallbladder is contracted. A 1.4 cm partially calcified gallstone is seen within the fundus of the gallbladder. An NG tube extends to the body of the stomach. Atherosclerotic calcification of the abdominal aorta and its branches is seen. The abdominal aorta tapers normally. No free fluid or free air is seen within the abdomen. A fat-containing umbilical hernia is seen which measures 6.3 cm in greatest diameter. This contains a loop of distal jejunum/proximal ileum. The bowel proximal to this incarcerated loop is dilated consistent with a small bowel obstruction. The mid/distal ileum is normal in caliber as is the colon. Air and stool are seen throughout the colon. Images through the pelvis are degraded by beam hardening artifact related to patient's bilateral THAs. The urinary bladder is distended with urine. Calcifications are seen within the pelvis consistent with phleboliths. No free fluid is seen. 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 Mild S-shaped curvature of the thoracolumbar spine is seen. Degenerative changes are seen involving lower thoracic and throughout the lumbar spine. IMPRESSION: An umbilical hernia is seen which contains an incarcerated loop of distal jejunum/proximal ileum resulting in a small bowel obstruction as discussed above. Electronically signed by: Amor Wild MD (02/15/2020 8:53 PM) [id number] DICTATED and SIGNED BY: AMOR WILD MD DATE: 02/15/202052 Chest AP portable at 1629: Reason for examination: Short of breath. Comparison is made to previous study dated 02/21/2020. The heart size is normal. Mediastinum is unremarkable. Lung gardiner show some linear density consistent with atelectasis at the right lung base. This appears to be improved when compared to previous exam. No congestion or consolidative infiltrates or pleural effusions are seen. No acute abnormalities are present. IMPRESSION: Linear density at the right lung base. This is improved when compared to previous exam. No other infiltrates or pleural effusions evident. Electronically signed by: Jenae Knapp MD (02/23/2020 4:55 PM) [id number] DICTATED and SIGNED BY: JENAE KNAPP MD DATE: 02/23/20 1655 Laboratory Tests Test 02/23/20 11:51 02/23/20 16:55 02/23/20 22:01 02/24/20 03:30 Glucose (Fingerstick) 111 mg/dL (70-99) 111 mg/dL (70-99) 108 mg/dL (70-99) White Blood Count 7.0 x10^3/uL (4.0-11.0) Red Blood Count 3.99 x10^6/uL (4.30-5.70) Hemoglobin 12.4 g/dL (13.0-17.5) Hematocrit 37.1 % (39.0-53.0) Mean Corpuscular Volume 93 fL (79-100) Mean Corpuscular Hemoglobin 31 pg (25-35) Mean Corpuscular Hemoglobin Concent 33 g/dL (31-37) Red Cell Distribution Width 13.1 % (11.5-14.5) Platelet Count 227 x10^3/uL (140-400) Neutrophils (%) (Auto) 63 % (31-73) Lymphocytes (%) (Auto) 21 % (24-48) Monocytes (%) (Auto) 11 % (0-9) Eosinophils (%) (Auto) 4 % (0-3) Basophils (%) (Auto) 1 % (0-3) Neutrophils # (Auto) 4.4 x10^3/uL (1.8-7.7) Lymphocytes # (Auto) 1.5 x10^3/uL (1.0-4.8) Monocytes # (Auto) 0.8 x10^3/uL (0.0-1.1) Eosinophils # (Auto) 0.3 x10^3/uL (0.0-0.7) Basophils # (Auto) 0.1 x10^3/uL (0.0-0.2) Test 02/24/20 07:50 Glucose (Fingerstick) 125 mg/dL (70-99) Assessment and Plan Assessmemt and Plan Problems Medical Problems: (1) SBO (small bowel obstruction) Status: Acute (2) Umbilical hernia Status: Acute * Demonstration Problem List (body system elements) * Impaired fnctnl mobility * Edema * Strength * Obesity * ROM * Knowledge-Precautions * Balance * Respiration/perfusion * Pain Pt/caregiver agrees with plan of care/goals * Yes Goal 1 - Bed Mobility Assistance Required * Independent Goal 1 Assessment * Appropriate - Continue Goal 2 - Transfers Assistance Required * Independent Goal 2 - Transfer Type * Sit to Stand Goal 2 Assessment * Appropriate - Continue Goal 3 - Ambulation Assistance Required * Independent Goal 3 - Ambulation Distance * 25' Goal 3 - Ambulation Device * Four Wheeled Walker Goal 3 Assessment * Appropriate - Continue Treatment Plan * Therapeutic Exercise * Bed Mobility Training * Transfer training * Gait Training * Dynamic Balance Training Frequency of Treatment Expected * 10 visits/week Duration of Treatment Expected * 2 weeks Discharge Recommendations * [facility]irement Unit Discharge Recommendation - DME * Long Handled Equipment * Rolling Walker needed * in order to complete ADLs * and ambulation safely Discharge Recommendation Comments * pt owns 4-ww wants to go home Comment Review of Relevant I have reviewed the following items stevie (where applicable) has been applied. Labs Laboratory Tests Test 02/22/20 11:13 02/22/20 13:00 02/22/20 16:33 02/22/20 21:35 Glucose (Fingerstick) 123 mg/dL (70-99) 114 mg/dL (70-99) 121 mg/dL (70-99) Sodium Level 137 mmol/L (136-145) Potassium Level 3.5 mmol/L (3.5-5.1) Chloride Level 94 mmol/L (98-107) Carbon Dioxide Level 36 mmol/L (21-32) Anion Gap 7 (6-14) Blood Urea Nitrogen 15 mg/dL (8-26) Creatinine 0.9 mg/dL (0.7-1.3) Estimated GFR (Cockcroft-Gault) 81.6 BUN/Creatinine Ratio 17 (6-20) Glucose Level 145 mg/dL (70-99) Calcium Level 8.3 mg/dL (8.5-10.1) Total Bilirubin 0.8 mg/dL (0.2-1.0) Aspartate Amino Transf (AST/SGOT) 53 U/L (15-37) Alanine Aminotransferase (ALT/SGPT) 56 U/L (16-63) Alkaline Phosphatase 78 U/L (46-116) Total Protein 6.6 g/dL (6.4-8.2) Albumin 2.8 g/dL (3.4-5.0) Albumin/Globulin Ratio 0.7 (1.0-1.7) Test 02/23/20 03:45 02/23/20 08:22 02/23/20 11:51 02/23/20 16:55 White Blood Count 8.2 x10^3/uL (4.0-11.0) Red Blood Count 4.24 x10^6/uL (4.30-5.70) Hemoglobin 13.1 g/dL (13.0-17.5) Hematocrit 39.2 % (39.0-53.0) Mean Corpuscular Volume 92 fL (79-100) Mean Corpuscular Hemoglobin 31 pg (25-35) Mean Corpuscular Hemoglobin Concent 34 g/dL (31-37) Red Cell Distribution Width 13.1 % (11.5-14.5) Platelet Count 217 x10^3/uL (140-400) Neutrophils (%) (Auto) 68 % (31-73) Lymphocytes (%) (Auto) 16 % (24-48) Monocytes (%) (Auto) 12 % (0-9) Eosinophils (%) (Auto) 3 % (0-3) Basophils (%) (Auto) 1 % (0-3) Neutrophils # (Auto) 5.6 x10^3/uL (1.8-7.7) Lymphocytes # (Auto) 1.3 x10^3/uL (1.0-4.8) Monocytes # (Auto) 1.0 x10^3/uL (0.0-1.1) Eosinophils # (Auto) 0.2 x10^3/uL (0.0-0.7) Basophils # (Auto) 0.1 x10^3/uL (0.0-0.2) Glucose (Fingerstick) 131 mg/dL (70-99) 111 mg/dL (70-99) 111 mg/dL (70-99) Test 02/23/20 22:01 02/24/20 03:30 02/24/20 07:50 Glucose (Fingerstick) 108 mg/dL (70-99) 125 mg/dL (70-99) White Blood Count 7.0 x10^3/uL (4.0-11.0) Red Blood Count 3.99 x10^6/uL (4.30-5.70) Hemoglobin 12.4 g/dL (13.0-17.5) Hematocrit 37.1 % (39.0-53.0) Mean Corpuscular Volume 93 fL (79-100) Mean Corpuscular Hemoglobin 31 pg (25-35) Mean Corpuscular Hemoglobin Concent 33 g/dL (31-37) Red Cell Distribution Width 13.1 % (11.5-14.5) Platelet Count 227 x10^3/uL (140-400) Neutrophils (%) (Auto) 63 % (31-73) Lymphocytes (%) (Auto) 21 % (24-48) Monocytes (%) (Auto) 11 % (0-9) Eosinophils (%) (Auto) 4 % (0-3) Basophils (%) (Auto) 1 % (0-3) Neutrophils # (Auto) 4.4 x10^3/uL (1.8-7.7) Lymphocytes # (Auto) 1.5 x10^3/uL (1.0-4.8) Monocytes # (Auto) 0.8 x10^3/uL (0.0-1.1) Eosinophils # (Auto) 0.3 x10^3/uL (0.0-0.7) Basophils # (Auto) 0.1 x10^3/uL (0.0-0.2) Laboratory Tests Test 02/23/20 11:51 02/23/20 16:55 02/23/20 22:01 02/24/20 03:30 Glucose (Fingerstick) 111 mg/dL (70-99) 111 mg/dL (70-99) 108 mg/dL (70-99) White Blood Count 7.0 x10^3/uL (4.0-11.0) Red Blood Count 3.99 x10^6/uL (4.30-5.70) Hemoglobin 12.4 g/dL (13.0-17.5) Hematocrit 37.1 % (39.0-53.0) Mean Corpuscular Volume 93 fL (79-100) Mean Corpuscular Hemoglobin 31 pg (25-35) Mean Corpuscular Hemoglobin Concent 33 g/dL (31-37) Red Cell Distribution Width 13.1 % (11.5-14.5) Platelet Count 227 x10^3/uL (140-400) Neutrophils (%) (Auto) 63 % (31-73) Lymphocytes (%) (Auto) 21 % (24-48) Monocytes (%) (Auto) 11 % (0-9) Eosinophils (%) (Auto) 4 % (0-3) Basophils (%) (Auto) 1 % (0-3) Neutrophils # (Auto) 4.4 x10^3/uL (1.8-7.7) Lymphocytes # (Auto) 1.5 x10^3/uL (1.0-4.8) Monocytes # (Auto) 0.8 x10^3/uL (0.0-1.1) Eosinophils # (Auto) 0.3 x10^3/uL (0.0-0.7) Basophils # (Auto) 0.1 x10^3/uL (0.0-0.2) Test 02/24/20 07:50 Glucose (Fingerstick) 125 mg/dL (70-99) Medications Current Medications Ondansetron HCl (Zofran) 4 mg 1X ONCE IVP Last administered on 02/15/20at 19:44; Start 02/15/20 at 19:30; Stop 02/15/20 at 19:35; Status DC Ondansetron HCl (Zofran) 4 mg STK-MED ONCE .ROUTE ; Start 02/15/20 at 19:25; Stop 02/15/20 at 19:26; Status DC Fentanyl Citrate (Fentanyl 2ml Vial) 50 mcg PRN Q15MIN PRN IV PAIN GREATER THAN 3/10 Last administered on 02/15/20at 22:00; Start 02/15/20 at 19:30; Stop 02/16/20 at 19:29; Status DC Sodium Chloride 1,000 ml @ 1,000 mls/hr Q1H IV Last administered on 02/15/20at 19:44; Start 02/15/20 at 19:29; Stop 02/15/20 at 20:28; Status DC Iohexol (Omnipaque 300 Mg/ml) 75 ml 1X ONCE IV Last administered on 02/15/20at 20:40; Start 02/15/20 at 20:30; Stop 02/15/20 at 20:31; Status DC Info (CONTRAST GIVEN -- Rx MONITORING) 1 each PRN DAILY PRN MC SEE COMMENTS; Start 02/15/20 at 20:30; Stop 02/17/20 at 20:29; Status DC Dicyclomine HCl (Bentyl) 10 mg 1X ONCE IM Last administered on 02/15/20at 21:00; Start 02/15/20 at 20:30; Stop 02/15/20 at 20:31; Status DC Ondansetron HCl (Zofran) 4 mg PRN Q8HRS PRN IV NAUSEA/VOMITING 1ST CHOICE Last administered on 02/16/20at 09:24; Start 02/15/20 at 21:30; Stop 02/16/20 at 21:29; Status DC Morphine Sulfate (Morphine Sulfate) 4 mg PRN Q2HR PRN IV SEVERE PAIN 7-10; Start 02/15/20 at 21:30; Stop 02/16/20 at 21:29; Status DC Sodium Chloride 1,000 ml @ 100 mls/hr Q10H IV Last administered on 02/16/20at 11:59; Start 02/15/20 at 22:00; Stop 02/16/20 at 21:59; Status DC Propofol 20 ml @ As Directed STK-MED ONCE IV ; Start 02/15/20 at 21:30; Stop 02/15/20 at 21:31; Status DC Lidocaine HCl (Lidocaine Pf 2% Vial) 5 ml STK-MED ONCE .ROUTE ; Start 02/15/20 at 21:30; Stop 02/15/20 at 21:31; Status DC Rocuronium Herrick (Zemuron) 50 mg STK-MED ONCE .ROUTE ; Start 02/15/20 at 21:30; Stop 02/15/20 at 21:31; Status DC Fentanyl Citrate (Fentanyl 2ml Vial) 100 mcg STK-MED ONCE .ROUTE ; Start 02/15/20 at 21:31; Stop 02/15/20 at 21:31; Status DC Fentanyl Citrate (Fentanyl 2ml Vial) 25 mcg PRN Q5MIN PRN IV MILD PAIN 1-3; Start 02/15/20 at 22:15; Stop 02/16/20 at 22:14; Status DC Fentanyl Citrate (Fentanyl 2ml Vial) 50 mcg PRN Q5MIN PRN IV MODERATE TO SEVERE PAIN; Start 02/15/20 at 22:15; Stop 02/16/20 at 22:14; Status DC Morphine Sulfate (Morphine Sulfate) 1 mg PRN Q10MIN PRN IV SEVERE PAIN 7-10; Start 02/15/20 at 22:15; Stop 02/16/20 at 22:14; Status DC Ringer's Solution 1,000 ml @ 30 mls/hr Q24H IV ; Start 02/15/20 at 22:30; Stop 02/16/20 at 22:29; Status DC Hydromorphone HCl (Dilaudid) 0.5 mg PRN Q10MIN PRN IV SEV PAIN, Second choice; Start 02/15/20 at 22:15; Stop 02/16/20 at 22:14; Status DC Prochlorperazine Edisylate (Compazine) 5 mg PACU PRN PRN IV NAUSEA, MRX1; Start 02/15/20 at 22:15; Stop 02/16/20 at 22:14; Status DC Sodium Chloride 1,000 ml @ 1,000 mls/hr 1X ONCE IV ; Start 02/15/20 at 22:30; Stop 02/16/20 at 00:32; Status DC Bupivacaine HCl/ Epinephrine Bitart (Sensorcain-Epi 0.5%-1:[id number] Mpf) 30 ml STK-MED ONCE .ROUTE ; Start 02/15/20 at 22:13; Stop 02/15/20 at 22:13; Status DC Ondansetron HCl (Zofran) 4 mg STK-MED ONCE .ROUTE ; Start 02/15/20 at 22:49; Stop 02/15/20 at 22:49; Status DC Neostigmine Herrick (Neostigmine Methylsulfate) 5 mg STK-MED ONCE .ROUTE ; Start 02/15/20 at 22:49; Stop 02/15/20 at 22:49; Status DC Glycopyrrolate (Robinul) 1 mg STK-MED ONCE .ROUTE ; Start 02/15/20 at 22:49; Stop 02/15/20 at 22:50; Status DC Dexamethasone Sodium Phosphate (Decadron) 4 mg STK-MED ONCE .ROUTE ; Start 02/15/20 at 22:50; Stop 02/15/20 at 22:50; Status DC Cefazolin Sodium (Ancef) 1 gm STK-MED ONCE IVP ; Start 02/15/20 at 23:11; Stop 02/15/20 at 23:11; Status DC Fentanyl Citrate (Fentanyl 2ml Vial) 25 mcg PRN Q2HRS PRN IVP MODERATE PAIN 4- 6; Start 02/16/20 at 00:15 Albuterol Sulfate (Ventolin Neb Soln) 2.5 mg 1X ONCE NEB Last administered on 02/16/20at 00:40; Start 02/16/20 at 01:00; Stop 02/16/20 at 01:01; Status DC Fentanyl Citrate (Fentanyl 2ml Vial) 50 mcg PRN Q2HRS PRN IVP SEVERE PAIN 7-10 Last administered on 02/17/20at 08:54; Start 02/16/20 at 00:30 Insulin Human Lispro (HumaLOG VIAL for OP,RR ONLY) 0-10 units PRN Q1HR PRN SQ PER PROTOCOL Last administered on 02/16/20at 00:58; Start 02/16/20 at 01:00; Stop 02/17/20 at 00:59; Status DC Albuterol Sulfate (Ventolin Neb Soln) 2.5 mg RTQID NEB Last administered on 02/16/20at 14:57; Start 02/16/20 at 16:00; Stop 02/16/20 at 15:20; Status DC Aspirin (Aspirin Chewable) 81 mg HS PO Last administered on 02/23/20at 21:02; Start 02/16/20 at 21:00 Atorvastatin Calcium (Lipitor) 20 mg DAILY PO ; Start 02/17/20 at 09:00; Status Cancel Atorvastatin Calcium (Lipitor) 40 mg DAILY PO Last administered on 02/22/20at 08:10; Start 02/17/20 at 09:00; Stop 02/22/20 at 10:28; Status DC Docusate Sodium (Colace) 100 mg HS PO Last administered on 02/23/20at 21:02; Start 02/16/20 at 21:00 Furosemide (Lasix) 40 mg DAILY PO Last administered on 02/24/20at 07:54; Start 02/17/20 at 09:00 Gabapentin (Neurontin) 900 mg BID PO ; Start 02/16/20 at 21:00; Stop 02/16/20 at 15:07; Status DC Gabapentin (Neurontin) 300 mg TID PO ; Start 02/16/20 at 21:00; Stop 02/16/20 at 15:07; Status DC Ipratropium Herrick (Atrovent) 0.2 mg RTQID NEB ; Start 02/16/20 at 16:00; Stop 02/16/20 at 15:20; Status DC Oxycodone/ Acetaminophen (Percocet 5/325) 1 tab Q4HRS PO Last administered on 02/18/20at 12:14; Start 02/16/20 at 16:00; Stop 02/18/20 at 14:22; Status DC Sennosides (Senna) 8.6 mg HS PO Last administered on 02/23/20at 21:02; Start 02/16/20 at 21:00 Tamsulosin HCl (Flomax) 0.4 mg DAILY PO ; Start 02/17/20 at 09:00; Stop 02/16/20 at 15:09; Status DC Tamsulosin HCl (Flomax) 0.4 mg HS PO Last administered on 02/23/20at 21:02; Start 02/16/20 at 21:00 Tizanidine HCl (Zanaflex) 2 mg PRN TID PRN PO MUSCLE SPASMS Last administered on 02/19/20at 05:51; Start 02/16/20 at 15:00 Non-Formulary Medication (Albuterol Sulfate (Ventolin Hfa Inhaler)) 2 puff Q4HRS INH ; Start 02/16/20 at 16:00; Stop 02/16/20 at 15:12; Status DC Ascorbic Acid (Vitamin C) 500 mg DAILY PO Last administered on 02/24/20at 07:54; Start 02/17/20 at 09:00 Cyclobenzaprine HCl (Flexeril) 10 mg TID PO Last administered on 02/18/20at 08:44; Start 02/16/20 at 21:00; Stop 02/18/20 at 14:22; Status DC Non-Formulary Medication (Budesonide/ Formoterol Fumarate (Symbicort 80-4.5 Mcg Inhaler)) 2 puff BID IH ; Start 02/16/20 at 21:00; Stop 02/16/20 at 15:21; Status DC Vitamin D (Vitamin D3) 4,000 unit DAILY PO Last administered on 02/24/20at 07:55; Start 02/17/20 at 09:00 Gabapentin (Neurontin) 600 mg BID@0900,1500 PO Last administered on 02/20/20at 09:13; Start 02/16/20 at 16:00; Stop 02/20/20 at 12:10; Status DC Gabapentin (Neurontin) 800 mg QHS PO Last administered on 02/19/20at 22:24; Start 02/16/20 at 21:00; Stop 02/20/20 at 12:10; Status DC Magnesium Chloride (Mag Delay) 64 mg QHS PO Last administered on 02/23/20at 21:03; Start 02/16/20 at 21:00 Pantoprazole Sodium (Protonix) 40 mg DAILYAC PO Last administered on 02/24/20at 07:47; Start 02/17/20 at 07:30 Non-Formulary Medication (Tiotropium Herrick (Spiriva)) 1 cap DAILY IH ; Start 02/17/20 at 09:00; Stop 02/16/20 at 15:18; Status DC Insulin Human Lispro (HumaLOG) 0-5 UNITS TIDWMEALS SQ ; Start 02/16/20 at 17:00 Dextrose (Dextrose 50%-Water Syringe) 12.5 gm PRN Q15MIN PRN IV SEE COMMENTS; Start 02/16/20 at 15:00 Albuterol/ Ipratropium (Duoneb) 3 ml RTQID NEB Last administered on 02/24/20at 07:28; Start 02/16/20 at 16:00 Budesonide (Pulmicort) 0.5 mg RTBID NEB Last administered on 02/24/20at 07:28; Start 02/16/20 at 20:00 Enoxaparin Sodium (Lovenox 40mg Syringe) 40 mg Q24H SQ Last administered on 02/23/20at 12:56; Start 02/17/20 at 13:00 Cyclobenzaprine HCl (Flexeril) 10 mg PRN TID PRN PO MUSCLE PAIN Last administered on 02/20/20at 09:16; Start 02/18/20 at 14:30; Stop 02/22/20 at 12:01; Status DC Oxycodone/ Acetaminophen (Percocet 5/325) 1 tab PRN Q4HRS PRN PO PAIN Last administered on 02/23/20at 22:24; Start 02/18/20 at 14:30 Menthol/Methyl Salicylate (Bengay Greaseless Cream) 1 martha PRN TID PRN TP PAIN Last administered on 02/19/20at 08:30; Start 02/19/20 at 06:00 Pregabalin (Lyrica) 150 mg BID PO Last administered on 02/24/20at 07:54; Start 02/20/20 at 12:30 Ceftriaxone Sodium (Rocephin) 1 gm Q24H IVP Last administered on 02/23/20 13:01; Start 02/21/20 at 14:00 Atorvastatin Calcium (Lipitor) 40 mg HS PO Last administered on 02/23/20 21:02; Start 02/23/20 at 21:00 Furosemide (Lasix) 40 mg 1X ONCE IVP Last administered on 02/22/20at 12:21; Start 02/22/20 at 10:30; Stop 02/22/20 at 10:32; Status DC Active Scripts Active Zofran Odt (Ondansetron) 4 Mg Tab.rapdis 1 Tab SL Q8HRS PRN Azithromycin Tablet (Azithromycin) 250 Mg Tablet 1 Pkg PO UD Prednisone 50 Mg Tablet 1 Tab PO DAILY Reported Biofreeze (Menthol) 118 Ml Gel..ml. 1 Martha TP TID PRN 10 Days Vitamin D3 (Cholecalciferol (Vitamin D3)) 4,000 Unit Capsule 1 Cap PO DAILY 30 Days Vitamin E (Vitamin E Mixed) 400 Unit Tablet 1 Tab PO QHS 30 Days Magnesium Gluconate 27 Mg Tablet 1 Tab PO HS 30 Days Vitamin C (Ascorbic Acid) 100 Mg Tablet 1 Tab PO DAILY 30 Days Aspirin 81 Mg Tab.chew 1 Tab PO HS Docusate Sodium 100 Mg Capsule 1 Cap PO HS 7 Days Senna Laxative (Sennosides) 8.6 Mg Tablet 1 Tab PO HS 30 Days Baclofen 20 Mg Tablet 20 Mg PO BID Flomax (Tamsulosin Hcl) 0.4 Mg Cap.er.24h 0.4 Mg PO HS Gabapentin 800 Mg Tablet 800 Mg PO HS Gabapentin 600 Mg Tablet 600 Mg PO BID Metformin Hcl 500 Mg Tablet 500 Mg PO HS Atorvastatin Calcium 40 Mg Tablet 40 Mg PO DAILY Spiriva (Tiotropium Herrick) 18 Mcg Cap.w.dev 1 Cap IH DAILY Ventolin Hfa Inhaler (Albuterol Sulfate) 18 Gm Hfa.aer.ad 2 Puff INH Q4HRS Ipratropium Herrick 0.2 Mg/1 Ml Solution 1 Vial NEB QID Symbicort 80-4.5 Mcg Inhaler (Budesonide/Formoterol Fumarate) 10.2 Gm Hfa.aer.ad 2 Puff IH BID Percocet 5-325 Mg Tablet (Oxycodone/Acetaminophen) 1 Each Tablet 1-2 Tab PO Q4-6HRS Omeprazole 20 Mg Tablet.dr 1 Tab PO DAILY Furosemide 40 Mg Tablet 1 Tab PO DAILY Gabapentin (Gabapentin) 300 Mg Capsule 300 Mg PO TID Atorvastatin Calcium 20 Mg Tablet 1 Tab PO DAILY Tizanidine Hcl 4 Mg Tablet 2 Mg PO TID PRN Percocet 5-325 Mg Tablet (Oxycodone/Acetaminophen) 1 Each Tablet 1-2 Tab PO Q4-6HRS Gabapentin (Gabapentin) 300 Mg Capsule 3 Cap PO BID Meloxicam 15 Mg Tablet 1 Tab PO HS Tamsulosin Hcl 0.4 Mg Cap.er.24h 1 Cap PO DAILY Vitals/I & O Vital Sign - Last 24 Hours 02/23/20 02/23/20 02/23/20 02/23/20 11:00 11:36 15:00 15:46 Temp 97.9 98.2 97.9 98.2 Pulse 101 84 Resp 18 18 B/P (MAP) 125/67 (86) 134/62 (86) Pulse Ox 95 95 O2 Delivery Room Air Nasal Cannula Nasal Cannula Nasal Cannula O2 Flow Rate 3.0 3.0 3.0 02/23/20 02/23/20 02/23/20 02/23/20 19:00 20:10 20:37 20:38 Temp 98.7 98.7 Pulse 90 Resp 20 B/P (MAP) 121/65 (83) Pulse Ox 93 94 94 O2 Delivery Nasal Cannula Nasal Cannula Nasal Cannula Nasal Cannula O2 Flow Rate 4.0 3.0 3.0 3.0 02/23/20 02/23/20 02/23/20 02/24/20 22:24 23:00 23:24 03:00 Temp 98.8 97.7 98.8 97.7 Pulse 77 77 Resp 20 20 20 B/P (MAP) 109/55 (73) 102/55 (71) Pulse Ox 94 92 93 O2 Delivery Nasal Cannula Nasal Cannula Nasal Cannula Nasal Cannula O2 Flow Rate 3.0 4.0 2.0 4.0 02/24/20 02/24/20 07:00 07:28 Temp 98.0 98.0 Pulse 73 Resp 18 B/P (MAP) 113/64 (80) Pulse Ox 94 97 O2 Delivery Nasal Cannula Nasal Cannula O2 Flow Rate 4.0 3.0 Intake and Output 02/23/20 02/23/20 02/24/20 15:00 23:00 07:00 Intake Total 200 ml 200 ml Balance 200 ml 200 ml RICKY HANCOCK MD February 24, 2020 09:50
[2020-02-24 11:00] VITALS: BP 111/60
--- NOTE | 2020-02-24 12:05 | PDOC3 ---
Discharge Summary Date of Admission: Feb 16, 2020 Date of Discharge: February 24, 2020 Follow-Up: 1-2 days Admitting Diagnosis comment: DISCHARGE DX Small bowel obstruction Possible pneumonia on chest x-ray cxr Linear density at the right lung base. This is improved when compared to previous exam. No other infiltrates or pleural effusions evident. Mild hypoxia Edema Incarcerated umbilical hernia status post herniorrhaphy Obesity with a BMI of 34 History of COPD History of neuropathy History of dyslipidemia History of chronic pain syndrome on chronic narcotic therapy Leukocytosis most likely secondary to the acute incarceration of umbilical h parvez 02/22 working with PT, ON O2 SLOW TO IMPROVE WITH WEAKNESS D/W RN 02/23 surgery standpoint; ok to discharge; no lifting over 20 lbs X 6 weeks, see surgery in one week, OUTPATIENT EMG Discharge Recommendations * Long Term Unit, pt refused Discharge Recommendation - DME * Long Handled Equipment * Rolling Walker needed * in order to complete ADLs * and ambulation safely Discharge Recommendation Comments * pt owns 4-ww wants to go home * * * 02/23 HOME WITH HOME HEALTH * * * D/C PLANNING 32 MIN History of Present Illness History of Present Illness 02/24/2020 Patient seen and examined Discussed with RN Chart reviewed still on 3-4 liters NC 02/21/2020 Patient seen and examined Review chart Discussed with RN 02/20/2020 Patient seen and examined His uric acid level was only 5.8 And we will go ahead and consult neurology as he still has foot pain Chart reviewed Discussed with Dr. Schafer Vitals Vitals Vital Signs Date Time Temp Pulse Resp B/P (MAP) Pulse Ox O2 Delivery O2 Flow Rate FiO2 02/24/20 07:28 97 Nasal Cannula 3.0 02/24/20 07:00 98.0 73 18 113/64 (80) 98.0 Physical Exam General: Alert, Oriented X3, Cooperative, No acute distress Heart: Regular rate, Normal S1 Lungs: Clear Abdomen: Normal bowel sounds, Soft, No tenderness, Other (Wound clean dry and intact) Extremities: Other (Bilateral pedal edema with purple hue likely venous stasis) Skin: No rashes, No breakdown Labs LABS CLINICAL HISTORY: Nausea, vomiting and diarrhea. Abdominal pain. TECHNIQUE: After the intravenous administration of 75 cc of Omnipaque 300, contiguous, 5 mm axial sections were obtained through the abdomen and pelvis. One or more of the following individualized dose reduction techniques were utilized for this study: 1. Automated exposure control. 2. Adjustment of the mA and/or kV according to patient size. 3. Use of iterative reconstruction technique. FINDINGS: Images through the lung bases demonstrate areas of probable subsegmental atelectasis bilaterally. The liver, spleen, pancreas, and adrenal glands are within normal limits. Rounded low-attenuation lesions are seen involving both kidneys. These measure 3 mm to 6.6 cm in size. These likely represent cysts. No further imaging workup is recommended. The gallbladder is contracted. A 1.4 cm partially calcified gallstone is seen within the fundus of the gallbladder. An NG tube extends to the body of the stomach. Atherosclerotic calcification of the abdominal aorta and its branches is seen. The abdominal aorta tapers normally. No free fluid or free air is seen within the abdomen. A fat-containing umbilical hernia is seen which measures 6.3 cm in greatest diameter. This contains a loop of distal jejunum/proximal ileum. The bowel proximal to this incarcerated loop is dilated consistent with a small bowel obstruction. The mid/distal ileum is normal in caliber as is the colon. Air and stool are seen throughout the colon. Images through the pelvis are degraded by beam hardening artifact related to patient's bilateral THAs. The urinary bladder is distended with urine. Calcifications are seen within the pelvis consistent with phleboliths. No free fluid is seen. 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 Mild S-shaped curvature of the thoracolumbar spine is seen. Degenerative changes are seen involving lower thoracic and throughout the lumbar spine. IMPRESSION: An umbilical hernia is seen which contains an incarcerated loop of distal jejunum/proximal ileum resulting in a small bowel obstruction as discussed above. Electronically signed by: Roger Wild MD (02/15/2020 8:53 PM) [id number] DICTATED and SIGNED BY: ROGER WILD MD DATE: 02/15/202052 Chest AP portable at 1629: Reason for examination: Short of breath. Comparison is made to previous study dated 02/21/2020. The heart size is normal. Mediastinum is unremarkable. Lung gardiner show some linear density consistent with atelectasis at the right lung base. This appears to be improved when compared to previous exam. No congestion or consolidative infiltrates or pleural effusions are seen. No acute abnormalities are present. IMPRESSION: FINAL DIAGNOSIS Problems Medical Problems: (1) SBO (small bowel obstruction) Status: Acute (2) Umbilical hernia Status: Acute Brief Hospital Course Mr. Steiner is a 79 old [sex] who presented with [ INCARCERATED UMBILICAL HERNI A ] CONDITION AT DISCHARGE: Improved Discharge Medications Current Medications Ondansetron HCl (Zofran) 4 mg 1X ONCE IVP Last administered on 02/15/20at 19:44; Start 02/15/20 at 19:30; Stop 02/15/20 at 19:35; Status DC Ondansetron HCl (Zofran) 4 mg STK-MED ONCE .ROUTE ; Start 02/15/20 at 19:25; Stop 02/15/20 at 19:26; Status DC Fentanyl Citrate (Fentanyl 2ml Vial) 50 mcg PRN Q15MIN PRN IV PAIN GREATER THAN 3/10 Last administered on 02/15/20at 22:00; Start 02/15/20 at 19:30; Stop 02/16/20 at 19:29; Status DC Sodium Chloride 1,000 ml @ 1,000 mls/hr Q1H IV Last administered on 02/15/20at 19:44; Start 02/15/20 at 19:29; Stop 02/15/20 at 20:28; Status DC Iohexol (Omnipaque 300 Mg/ml) 75 ml 1X ONCE IV Last administered on 02/15/20at 20:40; Start 02/15/20 at 20:30; Stop 02/15/20 at 20:31; Status DC Info (CONTRAST GIVEN -- Rx MONITORING) 1 each PRN DAILY PRN MC SEE COMMENTS; Start 02/15/20 at 20:30; Stop 02/17/20 at 20:29; Status DC Dicyclomine HCl (Bentyl) 10 mg 1X ONCE IM Last administered on 02/15/20at 21:00; Start 02/15/20 at 20:30; Stop 02/15/20 at 20:31; Status DC Ondansetron HCl (Zofran) 4 mg PRN Q8HRS PRN IV NAUSEA/VOMITING 1ST CHOICE Last administered on 02/16/20at 09:24; Start 02/15/20 at 21:30; Stop 02/16/20 at 21:29; Status DC Morphine Sulfate (Morphine Sulfate) 4 mg PRN Q2HR PRN IV SEVERE PAIN 7-10; St art 02/15/20 at 21:30; Stop 02/16/20 at 21:29; Status DC Sodium Chloride 1,000 ml @ 100 mls/hr Q10H IV Last administered on 02/16/20at 11:59; Start 02/15/20 at 22:00; Stop 02/16/20 at 21:59; Status DC Propofol 20 ml @ As Directed STK-MED ONCE IV ; Start 02/15/20 at 21:30; Stop 02/15/20 at 21:31; Status DC Lidocaine HCl (Lidocaine Pf 2% Vial) 5 ml STK-MED ONCE .ROUTE ; Start 02/15/20 at 21:30; Stop 02/15/20 at 21:31; Status DC Rocuronium Osmond (Zemuron) 50 mg STK-MED ONCE .ROUTE ; Start 02/15/20 at 21: 30; Stop 02/15/20 at 21:31; Status DC Fentanyl Citrate (Fentanyl 2ml Vial) 100 mcg STK-MED ONCE .ROUTE ; Start 02/15/20 at 21:31; Stop 02/15/20 at 21:31; Status DC Fentanyl Citrate (Fentanyl 2ml Vial) 25 mcg PRN Q5MIN PRN IV MILD PAIN 1-3; Start 02/15/20 at 22:15; Stop 02/16/20 at 22:14; Status DC Fentanyl Citrate (Fentanyl 2ml Vial) 50 mcg PRN Q5MIN PRN IV MODERATE TO SEVERE PAIN; Start 02/15/20 at 22:15; Stop 02/16/20 at 22:14; Status DC Morphine Sulfate (Morphine Sulfate) 1 mg PRN Q10MIN PRN IV SEVERE PAIN 7-10; Start 02/15/20 at 22:15; Stop 02/16/20 at 22:14; Status DC Ringer's Solution 1,000 ml @ 30 mls/hr Q24H IV ; Start 02/15/20 at 22:30; Stop 02/16/20 at 22:29; Status DC Hydromorphone HCl (Dilaudid) 0.5 mg PRN Q10MIN PRN IV SEV PAIN, Second choice; Start 02/15/20 at 22:15; Stop 02/16/20 at 22:14; Status DC Prochlorperazine Edisylate (Compazine) 5 mg PACU PRN PRN IV NAUSEA, MRX1; Start 02/15/20 at 22:15; Stop 02/16/20 at 22:14; Status DC Sodium Chloride 1,000 ml @ 1,000 mls/hr 1X ONCE IV ; Start 02/15/20 at 22:30; Stop 02/16/20 at 00:32; Status DC Bupivacaine HCl/ Epinephrine Bitart (Sensorcain-Epi 0.5%-1:801809 Mpf) 30 ml STK-MED ONCE .ROUTE ; Start 02/15/20 at 22:13; Stop 02/15/20 at 22:13; Status DC Ondansetron HCl (Zofran) 4 mg STK-MED ONCE .ROUTE ; Start 02/15/20 at 22:49; Stop 02/15/20 at 22:49; Status DC Neostigmine Osmond (Neostigmine Methylsulfate) 5 mg STK-MED ONCE .ROUTE ; Start 02/15/20 at 22:49; Stop 02/15/20 at 22:49; Status DC Glycopyrrolate (Robinul) 1 mg STK-MED ONCE .ROUTE ; Start 02/15/20 at 22:49; Stop 02/15/20 at 22:50; Status DC Dexamethasone Sodium Phosphate (Decadron) 4 mg STK-MED ONCE .ROUTE ; Start 02/15/20 at 22:50; Stop 02/15/20 at 22:50; Status DC Cefazolin Sodium (Ancef) 1 gm STK-MED ONCE IVP ; Start 02/15/20 at 23:11; Stop 02/15/20 at 23:11; Status DC Fentanyl Citrate (Fentanyl 2ml Vial) 25 mcg PRN Q2HRS PRN IVP MODERATE PAIN 4- 6; Start 02/16/20 at 00:15 Albuterol Sulfate (Ventolin Neb Soln) 2.5 mg 1X ONCE NEB Last administered on 02/16/20at 00:40; Start 02/16/20 at 01:00; Stop 02/16/20 at 01:01; Status DC Fentanyl Citrate (Fentanyl 2ml Vial) 50 mcg PRN Q2HRS PRN IVP SEVERE PAIN 7-10 Last administered on 02/17/20at 08:54; Start 02/16/20 at 00:30 Insulin Human Lispro (HumaLOG VIAL for OP,RR ONLY) 0-10 units PRN Q1HR PRN SQ PER PROTOCOL Last administered on 02/16/20at 00:58; Start 02/16/20 at 01:00; Stop 02/17/20 at 00:59; Status DC Albuterol Sulfate (Ventolin Neb Soln) 2.5 mg RTQID NEB Last administered on 02/16/20at 14:57; Start 02/16/20 at 16:00; Stop 02/16/20 at 15:20; Status DC Aspirin (Aspirin Chewable) 81 mg HS PO Last administered on 02/23/20 21:02; Start 02/16/20 at 21:00 Atorvastatin Calcium (Lipitor) 20 mg DAILY PO ; Start 02/17/20 at 09:00; Status Cancel Atorvastatin Calcium (Lipitor) 40 mg DAILY PO Last administered on 02/22/20at 08:10; Start 02/17/20 at 09:00; Stop 02/22/20 at 10:28; Status DC Docusate Sodium (Colace) 100 mg HS PO Last administered on 02/23/20at 21:02; Start 02/16/20 at 21:00 Furosemide (Lasix) 40 mg DAILY PO Last administered on 02/24/20at 07:54; Start 02/17/20 at 09:00 Gabapentin (Neurontin) 900 mg BID PO ; Start 02/16/20 at 21:00; Stop 02/16/20 at 15:07; Status DC Gabapentin (Neurontin) 300 mg TID PO ; Start 02/16/20 at 21:00; Stop 02/16/20 at 15:07; Status DC Ipratropium Osmond (Atrovent) 0.2 mg RTQID NEB ; Start 02/16/20 at 16:00; Stop 02/16/20 at 15:20; Status DC Oxycodone/ Acetaminophen (Percocet 5/325) 1 tab Q4HRS PO Last administered on 02/18/20at 12:14; Start 02/16/20 at 16:00; Stop 02/18/20 at 14:22; Status DC Sennosides (Senna) 8.6 mg HS PO Last administered on 02/23/20at 21:02; Start 02/16/20 at 21:00 Tamsulosin HCl (Flomax) 0.4 mg DAILY PO ; Start 02/17/20 at 09:00; Stop 02/16/20 at 15:09; Status DC Tamsulosin HCl (Flomax) 0.4 mg HS PO Last administered on 02/23/20at 21:02; Start 02/16/20 at 21:00 Tizanidine HCl (Zanaflex) 2 mg PRN TID PRN PO MUSCLE SPASMS Last administered on 02/19/20at 05:51; Start 02/16/20 at 15:00 Non-Formulary Medication (Albuterol Sulfate (Ventolin Hfa Inhaler)) 2 puff Q4HRS INH ; Start 02/16/20 at 16:00; Stop 02/16/20 at 15:12; Status DC Ascorbic Acid (Vitamin C) 500 mg DAILY PO Last administered on 02/24/20at 07:54; Start 02/17/20 at 09:00 Cyclobenzaprine HCl (Flexeril) 10 mg TID PO Last administered on 02/18/20at 08:44; Start 02/16/20 at 21:00; Stop 02/18/20 at 14:22; Status DC Non-Formulary Medication (Budesonide/ Formoterol Fumarate (Symbicort 80-4.5 Mcg Inhaler)) 2 puff BID IH ; Start 02/16/20 at 21:00; Stop 02/16/20 at 15:21; Status DC Vitamin D (Vitamin D3) 4,000 unit DAILY PO Last administered on 02/24/20at 07:55; Start 02/17/20 at 09:00 Gabapentin (Neurontin) 600 mg BID@0900,1500 PO Last administered on 02/20/20at 09:13; Start 02/16/20 at 16:00; Stop 02/20/20 at 12:10; Status DC Gabapentin (Neurontin) 800 mg QHS PO Last administered on 02/19/20at 22:24; Start 02/16/20 at 21:00; Stop 02/20/20 at 12:10; Status DC Magnesium Chloride (Mag Delay) 64 mg QHS PO Last administered on 02/23/20at 21:03; Start 02/16/20 at 21:00 Pantoprazole Sodium (Protonix) 40 mg DAILYAC PO Last administered on 02/24/20at 07:47; Start 02/17/20 at 07:30 Non-Formulary Medication (Tiotropium Osmond (Spiriva)) 1 cap DAILY IH ; Start 02/17/20 at 09:00; Stop 02/16/20 at 15:18; Status DC Insulin Human Lispro (HumaLOG) 0-5 UNITS TIDWMEALS SQ ; Start 02/16/20 at 17:00 Dextrose (Dextrose 50%-Water Syringe) 12.5 gm PRN Q15MIN PRN IV SEE COMMENTS; Start 02/16/20 at 15:00 Albuterol/ Ipratropium (Duoneb) 3 ml RTQID NEB Last administered on 02/24/20at 07:28; Start 02/16/20 at 16:00 Budesonide (Pulmicort) 0.5 mg RTBID NEB Last administered on 02/24/20at 07:28; Start 02/16/20 at 20:00 Enoxaparin Sodium (Lovenox 40mg Syringe) 40 mg Q24H SQ Last administered on 02/23/20at 12:56; Start 02/17/20 at 13:00 Cyclobenzaprine HCl (Flexeril) 10 mg PRN TID PRN PO MUSCLE PAIN Last administered on 02/20/20at 09:16; Start 02/18/20 at 14:30; Stop 02/22/20 at 12:01; Status DC Oxycodone/ Acetaminophen (Percocet 5/325) 1 tab PRN Q4HRS PRN PO PAIN Last administered on 02/23/20at 22:24; Start 02/18/20 at 14:30 Menthol/Methyl Salicylate (Bengay Greaseless Cream) 1 malka PRN TID PRN TP PAIN Last administered on 02/19/20at 08:30; Start 02/19/20 at 06:00 Pregabalin (Lyrica) 150 mg BID PO Last administered on 02/24/20at 07:54; Start 02/20/20 at 12:30 Ceftriaxone Sodium (Rocephin) 1 gm Q24H IVP Last administered on 02/23/20at 13:01; Start 02/21/20 at 14:00 Atorvastatin Calcium (Lipitor) 40 mg HS PO Last administered on 02/23/20at 21:02; Start 02/23/20 at 21:00 Furosemide (Lasix) 40 mg 1X ONCE IVP Last administered on 02/22/20at 12:21; Start 02/22/20 at 10:30; Stop 02/22/20 at 10:32; Status DC Active Scripts Active Zofran Odt (Ondansetron) 4 Mg Tab.rapdis 1 Tab SL Q8HRS PRN Azithromycin Tablet (Azithromycin) 250 Mg Tablet 1 Pkg PO UD Prednisone 50 Mg Tablet 1 Tab PO DAILY Reported Biofreeze (Menthol) 118 Ml Gel..ml. 1 Malka TP TID PRN 10 Days Vitamin D3 (Cholecalciferol (Vitamin D3)) 4,000 Unit Capsule 1 Cap PO DAILY 30 Days Vitamin E (Vitamin E Mixed) 400 Unit Tablet 1 Tab PO QHS 30 Days Magnesium Gluconate 27 Mg Tablet 1 Tab PO HS 30 Days Vitamin C (Ascorbic Acid) 100 Mg Tablet 1 Tab PO DAILY 30 Days Aspirin 81 Mg Tab.chew 1 Tab PO HS Docusate Sodium 100 Mg Capsule 1 Cap PO HS 7 Days Senna Laxative (Sennosides) 8.6 Mg Tablet 1 Tab PO HS 30 Days Baclofen 20 Mg Tablet 20 Mg PO BID Flomax (Tamsulosin Hcl) 0.4 Mg Cap.er.24h 0.4 Mg PO HS Gabapentin 800 Mg Tablet 800 Mg PO HS Gabapentin 600 Mg Tablet 600 Mg PO BID Metformin Hcl 500 Mg Tablet 500 Mg PO HS Atorvastatin Calcium 40 Mg Tablet 40 Mg PO DAILY Spiriva (Tiotropium Osmond) 18 Mcg Cap.w.dev 1 Cap IH DAILY Ventolin Hfa Inhaler (Albuterol Sulfate) 18 Gm Hfa.aer.ad 2 Puff INH Q4HRS Ipratropium Osmond 0.2 Mg/1 Ml Solution 1 Vial NEB QID Symbicort 80-4.5 Mcg Inhaler (Budesonide/Formoterol Fumarate) 10.2 Gm Hfa.aer.ad 2 Puff IH BID Percocet 5-325 Mg Tablet (Oxycodone/Acetaminophen) 1 Each Tablet 1-2 Tab PO Q4-6HRS Omeprazole 20 Mg Tablet.dr 1 Tab PO DAILY Furosemide 40 Mg Tablet 1 Tab PO DAILY Gabapentin (Gabapentin) 300 Mg Capsule 300 Mg PO TID Atorvastatin Calcium 20 Mg Tablet 1 Tab PO DAILY Tizanidine Hcl 4 Mg Tablet 2 Mg PO TID PRN Percocet 5-325 Mg Tablet (Oxycodone/Acetaminophen) 1 Each Tablet 1-2 Tab PO Q4-6HRS Gabapentin (Gabapentin) 300 Mg Capsule 3 Cap PO BID Meloxicam 15 Mg Tablet 1 Tab PO HS Tamsulosin Hcl 0.4 Mg Cap.er.24h 1 Cap PO DAILY Vital Signs Vital Signs Date Time Temp Pulse Resp B/P (MAP) Pulse Ox O2 Delivery O2 Flow Rate FiO2 02/24/20 08:00 Nasal Cannula 3.0 02/24/20 07:28 97 02/24/20 07:00 98.0 73 18 113/64 (80) 98.0 Labs Laboratory Tests Test 02/22/20 13:00 02/22/20 16:33 02/22/20 21:35 02/23/20 03:45 Sodium Level 137 mmol/L (136-145) Potassium Level 3.5 mmol/L (3.5-5.1) Chloride Level 94 mmol/L (98-107) Carbon Dioxide Level 36 mmol/L (21-32) Anion Gap 7 (6-14) Blood Urea Nitrogen 15 mg/dL (8-26) Creatinine 0.9 mg/dL (0.7-1.3) Estimated GFR (Cockcroft-Gault) 81.6 BUN/Creatinine Ratio 17 (6-20) Glucose Level 145 mg/dL (70-99) Calcium Level 8.3 mg/dL (8.5-10.1) Total Bilirubin 0.8 mg/dL (0.2-1.0) Aspartate Amino Transf (AST/SGOT) 53 U/L (15-37) Alanine Aminotransferase (ALT/SGPT) 56 U/L (16-63) Alkaline Phosphatase 78 U/L (46-116) Total Protein 6.6 g/dL (6.4-8.2) Albumin 2.8 g/dL (3.4-5.0) Albumin/Globulin Ratio 0.7 (1.0-1.7) Glucose (Fingerstick) 114 mg/dL (70-99) 121 mg/dL (70-99) White Blood Count 8.2 x10^3/uL (4.0-11.0) Red Blood Count 4.24 x10^6/uL (4.30-5.70) Hemoglobin 13.1 g/dL (13.0-17.5) Hematocrit 39.2 % (39.0-53.0) Mean Corpuscular Volume 92 fL (79-100) Mean Corpuscular Hemoglobin 31 pg (25-35) Mean Corpuscular Hemoglobin Concent 34 g/dL (31-37) Red Cell Distribution Width 13.1 % (11.5-14.5) Platelet Count 217 x10^3/uL (140-400) Neutrophils (%) (Auto) 68 % (31-73) Lymphocytes (%) (Auto) 16 % (24-48) Monocytes (%) (Auto) 12 % (0-9) Eosinophils (%) (Auto) 3 % (0-3) Basophils (%) (Auto) 1 % (0-3) Neutrophils # (Auto) 5.6 x10^3/uL (1.8-7.7) Lymphocytes # (Auto) 1.3 x10^3/uL (1.0-4.8) Monocytes # (Auto) 1.0 x10^3/uL (0.0-1.1) Eosinophils # (Auto) 0.2 x10^3/uL (0.0-0.7) Basophils # (Auto) 0.1 x10^3/uL (0.0-0.2) Test 02/23/20 08:22 02/23/20 11:51 02/23/20 16:55 02/23/20 22:01 Glucose (Fingerstick) 131 mg/dL (70-99) 111 mg/dL (70-99) 111 mg/dL (70-99) 108 mg/dL (70-99) Test 02/24/20 03:30 02/24/20 07:50 02/24/20 11:50 White Blood Count 7.0 x10^3/uL (4.0-11.0) Red Blood Count 3.99 x10^6/uL (4.30-5.70) Hemoglobin 12.4 g/dL (13.0-17.5) Hematocrit 37.1 % (39.0-53.0) Mean Corpuscular Volume 93 fL (79-100) Mean Corpuscular Hemoglobin 31 pg (25-35) Mean Corpuscular Hemoglobin Concent 33 g/dL (31-37) Red Cell Distribution Width 13.1 % (11.5-14.5) Platelet Count 227 x10^3/uL (140-400) Neutrophils (%) (Auto) 63 % (31-73) Lymphocytes (%) (Auto) 21 % (24-48) Monocytes (%) (Auto) 11 % (0-9) Eosinophils (%) (Auto) 4 % (0-3) Basophils (%) (Auto) 1 % (0-3) Neutrophils # (Auto) 4.4 x10^3/uL (1.8-7.7) Lymphocytes # (Auto) 1.5 x10^3/uL (1.0-4.8) Monocytes # (Auto) 0.8 x10^3/uL (0.0-1.1) Eosinophils # (Auto) 0.3 x10^3/uL (0.0-0.7) Basophils # (Auto) 0.1 x10^3/uL (0.0-0.2) Glucose (Fingerstick) 125 mg/dL (70-99) 112 mg/dL (70-99) Laboratory Tests Test 02/23/20 16:55 02/23/20 22:01 02/24/20 03:30 02/24/20 07:50 Glucose (Fingerstick) 111 mg/dL (70-99) 108 mg/dL (70-99) 125 mg/dL (70-99) White Blood Count 7.0 x10^3/uL (4.0-11.0) Red Blood Count 3.99 x10^6/uL (4.30-5.70) Hemoglobin 12.4 g/dL (13.0-17.5) Hematocrit 37.1 % (39.0-53.0) Mean Corpuscular Volume 93 fL (79-100) Mean Corpuscular Hemoglobin 31 pg (25-35) Mean Corpuscular Hemoglobin Concent 33 g/dL (31-37) Red Cell Distribution Width 13.1 % (11.5-14.5) Platelet Count 227 x10^3/uL (140-400) Neutrophils (%) (Auto) 63 % (31-73) Lymphocytes (%) (Auto) 21 % (24-48) Monocytes (%) (Auto) 11 % (0-9) Eosinophils (%) (Auto) 4 % (0-3) Basophils (%) (Auto) 1 % (0-3) Neutrophils # (Auto) 4.4 x10^3/uL (1.8-7.7) Lymphocytes # (Auto) 1.5 x10^3/uL (1.0-4.8) Monocytes # (Auto) 0.8 x10^3/uL (0.0-1.1) Eosinophils # (Auto) 0.3 x10^3/uL (0.0-0.7) Basophils # (Auto) 0.1 x10^3/uL (0.0-0.2) Test 02/24/20 11:50 Glucose (Fingerstick) 112 mg/dL (70-99) Allergies Allergies Coded Allergies Type Severity Reaction Last Updated Verified No Known Drug Allergies 04/20/15 No Disposition/Orders: D/C to Home w/ HH RICKY HANCOCK MD February 24, 2020 12:05
[2020-02-24] MEDS ORDERED: INSU100I11 SQ (12:10)
[2020-02-24] MEDS ORDERED: PREG-9 PO (12:10)
--- NOTE | 2020-02-24 12:13 | SNU/HH DC ---
DISCHARGE WITH HOME HEALTH DISCHARGE INFORMATION: Discharge Date: February 24, 2020 Final Diagnosis: Problems Medical Problems: (1) SBO (small bowel obstruction) Status: Acute (2) Umbilical hernia Status: Acute Condition on Discharge: Stable CODE STATUS: Code Status: Full HOME HEALTH: Face to Face: I certify this patient is under my care and that I, or a nurse practitioner or physician's first assistant working with me, had a face to face encounter that meets the physician face to face encounter requirements with this patient on []. Medical Complications: COPD RN For Eval/Treatment: Yes Physical Therapy For: Evalulation/Treatment Occupational Therapy For: Evaluation/Treatment Speech Language Pathology For: Evaluation/Treatment Home Health Aide For: Self-care CATHETER BUILDER For: Community Resources Pt Meets Homebound Status: Fatigue w/ amb. POST DISCHARGE ORDERS: Activity Instructions for Disc: Activity as tolerated DIET AFTER DISCHARGE: ADA Wound/Incision Care: May get incision wet CHECKS AFTER DISCHARGE: Checks after discharge: Check blood press - daily, Check blood sugar, ac/hs TREATMENT/EQUIPMENT ORDERS: Adaptive Equipment Issued: Front wheeled walker, Grab bars, Long handled sponge Discharge Respiratory Equipmen: Oxygen CERTIFICATION STATEMENT: Certification Statement: Certification Statement: Based on the above finding, I certify that this patient is confined to the home and needs intermittent custodial care, physical therapy and/or speech therapy, or continues to need occupational therapy.~ This patient is under my care, and I have initiated the establishment of the plan of care.~ This patient will be followed by myself or a community physician who will periodically review the plan of care. Home Meds Active Scripts Insulin Lispro (HUMALOG) 100 Unit/1 Ml Insuln.pen, 0 UNITS SQ TIDWMEALS for DIABETES for 30 Days, #2 EACH Prov:RICKY HANCOCK MD 02/24/20 Pregabalin (LYRICA) 75 Mg Capsule, 150 MG PO BID for PAIN, NEUROPATHY for 30 Days, #120 CAP Prov:RICKY HANCOCK MD 02/24/20 Ondansetron (ZOFRAN ODT) 4 Mg Tab.rapdis, 1 TAB SL Q8HRS PRN for NAUSEA, #10 TAB Prov:LEIDY CARO MD 02/22/17 Reported Medications Menthol (BIOFREEZE) 118 Ml Gel..ml., 1 ÁLVARO TP TID PRN for PAIN for 10 Days, #118 ML 0 Refills 02/19/20 Cholecalciferol (Vitamin D3) (VITAMIN D3) 4,000 Unit Capsule, 1 CAP PO DAILY for supplement for 30 Days, #30 CAP 0 Refills 02/16/20 Vitamin E Mixed (VITAMIN E) 400 Unit Tablet, 1 TAB PO QHS for supplement for 30 Days, #30 TAB 0 Refills 02/16/20 Magnesium Gluconate (MAGNESIUM GLUCONATE) 27 Mg Tablet, 1 TAB PO HS for supplement for 30 Days, #30 TAB 0 Refills 02/16/20 Ascorbic Acid (VITAMIN C) 100 Mg Tablet, 1 TAB PO DAILY for supplement for 30 Days, #30 TAB 0 Refills 02/16/20 Aspirin (ASPIRIN) 81 Mg Tab.chew, 1 TAB PO HS for blood thinner, #30 TAB 3 Refills 02/16/20 Docusate Sodium (DOCUSATE SODIUM) 100 Mg Capsule, 1 CAP PO HS for constipation for 7 Days, #7 CAP 0 Refills 02/16/20 Sennosides (SENNA LAXATIVE) 8.6 Mg Tablet, 1 TAB PO HS for constipation for 30 Days, #30 TAB 0 Refills 02/16/20 Baclofen (BACLOFEN) 20 Mg Tablet, 20 MG PO BID for MUSCLE RELAXER, #30 TAB 0 Refills 02/16/20 Tamsulosin Hcl (FLOMAX) 0.4 Mg Cap.er.24h, 0.4 MG PO HS for BPH, TAB 02/16/20 Atorvastatin Calcium (ATORVASTATIN CALCIUM) 40 Mg Tablet, 40 MG PO DAILY for HLD 02/16/20 Tiotropium Mead (SPIRIVA) 18 Mcg Cap.w.dev, 1 CAP IH DAILY, #30 CAP 3 Refills 02/22/17 Albuterol Sulfate (VENTOLIN HFA INHALER) 18 Gm Hfa.aer.ad, 2 PUFF INH Q4HRS for FOR ASTHMA, INHALER 0 Refills 02/22/17 Ipratropium Mead (IPRATROPIUM BROMIDE) 0.2 Mg/1 Ml Solution, 1 VIAL NEB QID, #300 ML 5 Refills 02/22/17 Budesonide/Formoterol Fumarate (SYMBICORT 80-4.5 MCG INHALER) 10.2 Gm Hfa.ae r.ad, 2 PUFF IH BID, #10.2 GM 5 Refills 02/22/17 Oxycodone/Apap 5-325 (PERCOCET 5-325 MG TABLET ) 1 Each Tablet, 1-2 TAB PO Q4- 6HRS, #40 TAB 02/22/17 Omeprazole (OMEPRAZOLE) 20 Mg Tablet.dr, 1 TAB PO DAILY, #90 TAB 1 Refill 02/22/17 Furosemide (FUROSEMIDE) 40 Mg Tablet, 1 TAB PO DAILY, #30 TAB 5 Refills 02/22/17 Tizanidine Hcl (TIZANIDINE HCL) 4 Mg Tablet, 2 MG PO TID PRN for MUSCLE SPASMS, TAB 02/22/17 Discontinued Reported Medications Gabapentin (GABAPENTIN) 800 Mg Tablet, 800 MG PO HS for NEUROGENIC PAIN, TAB 02/16/20 Gabapentin (GABAPENTIN) 600 Mg Tablet, 600 MG PO BID for NEUROGENIC PAIN, TAB 02/16/20 Metformin Hcl (METFORMIN HCL) 500 Mg Tablet, 500 MG PO HS for Antidiabetic 02/16/20 Gabapentin (GABAPENTIN ) 300 Mg Capsule, 300 MG PO TID, CAP 02/22/17 Atorvastatin Calcium (ATORVASTATIN CALCIUM) 20 Mg Tablet, 1 TAB PO DAILY, #30 TAB 5 Refills 02/22/17 Oxycodone/Apap 5-325 (PERCOCET 5-325 MG TABLET ) 1 Each Tablet, 1-2 TAB PO Q4- 6HRS, #40 TAB 04/20/15 Gabapentin (GABAPENTIN ) 300 Mg Capsule, 3 CAP PO BID, #90 CAP 5 Refills 04/20/15 Meloxicam (MELOXICAM) 15 Mg Tablet, 1 TAB PO HS, #30 TAB 2 Refills 04/20/15 Tamsulosin Hcl (TAMSULOSIN HCL) 0.4 Mg Cap.er.24h, 1 CAP PO DAILY, #30 CAP 5 Refills 04/20/15 Discontinued Scripts Azithromycin (AZITHROMYCIN TABLET) 250 Mg Tablet, 1 PKG PO UD, #6 TAB Prov:LEIDY CARO MD 02/22/17 Prednisone (PREDNISONE) 50 Mg Tablet, 1 TAB PO DAILY, #5 TAB Prov:LEIDY CARO MD 02/22/17 RICKY HANCOCK MD February 24, 2020 12:13
[2020-02-24] MEDS: ENOXAPARIN 40 MG/0.4 ML SYRINGE. SQ SCH (13:00)
[2020-02-24] MEDS: cefTRIAXone IV Push 1 GM VIAL. IVP SCH (14:00)
[2020-02-24] MEDS: oxyCODONE/APAP 5/325 1 TAB TABLET PO PRN (14:23)
--- NOTE | 2020-02-24 14:41 | PDOC ---
PULMONARY PROGRESS NOTES Subjective Patient feels better, wishes to go home soon, not more short of air Vitals Vital Signs Date Time Temp Pulse Resp B/P (MAP) Pulse Ox O2 Delivery O2 Flow Rate FiO2 02/24/20 12:25 Nasal Cannula 3.0 02/24/20 11:00 98.4 84 18 111/60 (77) 94 98.4 ROS: No Nausea, No Chest Pain, No Abdominal Pain, No Increase Cough General: Alert Lungs: Clear Cardiovascular: S1, S2 Abdomen: Soft Neuro Exam: Alert Extremities: No Edema Skin: Warm Labs Laboratory Tests Test 02/22/20 16:33 02/22/20 21:35 02/23/20 03:45 02/23/20 08:22 Glucose (Fingerstick) 114 mg/dL (70-99) 121 mg/dL (70-99) 131 mg/dL (70-99) White Blood Count 8.2 x10^3/uL (4.0-11.0) Red Blood Count 4.24 x10^6/uL (4.30-5.70) Hemoglobin 13.1 g/dL (13.0-17.5) Hematocrit 39.2 % (39.0-53.0) Mean Corpuscular Volume 92 fL (79-100) Mean Corpuscular Hemoglobin 31 pg (25-35) Mean Corpuscular Hemoglobin Concent 34 g/dL (31-37) Red Cell Distribution Width 13.1 % (11.5-14.5) Platelet Count 217 x10^3/uL (140-400) Neutrophils (%) (Auto) 68 % (31-73) Lymphocytes (%) (Auto) 16 % (24-48) Monocytes (%) (Auto) 12 % (0-9) Eosinophils (%) (Auto) 3 % (0-3) Basophils (%) (Auto) 1 % (0-3) Neutrophils # (Auto) 5.6 x10^3/uL (1.8-7.7) Lymphocytes # (Auto) 1.3 x10^3/uL (1.0-4.8) Monocytes # (Auto) 1.0 x10^3/uL (0.0-1.1) Eosinophils # (Auto) 0.2 x10^3/uL (0.0-0.7) Basophils # (Auto) 0.1 x10^3/uL (0.0-0.2) Test 02/23/20 11:51 02/23/20 16:55 02/23/20 22:01 02/24/20 03:30 Glucose (Fingerstick) 111 mg/dL (70-99) 111 mg/dL (70-99) 108 mg/dL (70-99) White Blood Count 7.0 x10^3/uL (4.0-11.0) Red Blood Count 3.99 x10^6/uL (4.30-5.70) Hemoglobin 12.4 g/dL (13.0-17.5) Hematocrit 37.1 % (39.0-53.0) Mean Corpuscular Volume 93 fL (79-100) Mean Corpuscular Hemoglobin 31 pg (25-35) Mean Corpuscular Hemoglobin Concent 33 g/dL (31-37) Red Cell Distribution Width 13.1 % (11.5-14.5) Platelet Count 227 x10^3/uL (140-400) Neutrophils (%) (Auto) 63 % (31-73) Lymphocytes (%) (Auto) 21 % (24-48) Monocytes (%) (Auto) 11 % (0-9) Eosinophils (%) (Auto) 4 % (0-3) Basophils (%) (Auto) 1 % (0-3) Neutrophils # (Auto) 4.4 x10^3/uL (1.8-7.7) Lymphocytes # (Auto) 1.5 x10^3/uL (1.0-4.8) Monocytes # (Auto) 0.8 x10^3/uL (0.0-1.1) Eosinophils # (Auto) 0.3 x10^3/uL (0.0-0.7) Basophils # (Auto) 0.1 x10^3/uL (0.0-0.2) Test 02/24/20 07:50 02/24/20 11:50 Glucose (Fingerstick) 125 mg/dL (70-99) 112 mg/dL (70-99) Laboratory Tests Test 02/23/20 16:55 02/23/20 22:01 02/24/20 03:30 02/24/20 07:50 Glucose (Fingerstick) 111 mg/dL (70-99) 108 mg/dL (70-99) 125 mg/dL (70-99) White Blood Count 7.0 x10^3/uL (4.0-11.0) Red Blood Count 3.99 x10^6/uL (4.30-5.70) Hemoglobin 12.4 g/dL (13.0-17.5) Hematocrit 37.1 % (39.0-53.0) Mean Corpuscular Volume 93 fL (79-100) Mean Corpuscular Hemoglobin 31 pg (25-35) Mean Corpuscular Hemoglobin Concent 33 g/dL (31-37) Red Cell Distribution Width 13.1 % (11.5-14.5) Platelet Count 227 x10^3/uL (140-400) Neutrophils (%) (Auto) 63 % (31-73) Lymphocytes (%) (Auto) 21 % (24-48) Monocytes (%) (Auto) 11 % (0-9) Eosinophils (%) (Auto) 4 % (0-3) Basophils (%) (Auto) 1 % (0-3) Neutrophils # (Auto) 4.4 x10^3/uL (1.8-7.7) Lymphocytes # (Auto) 1.5 x10^3/uL (1.0-4.8) Monocytes # (Auto) 0.8 x10^3/uL (0.0-1.1) Eosinophils # (Auto) 0.3 x10^3/uL (0.0-0.7) Basophils # (Auto) 0.1 x10^3/uL (0.0-0.2) Test 02/24/20 11:50 Glucose (Fingerstick) 112 mg/dL (70-99) Medications Active Scripts Medications Dose Route/Sig Max Daily Dose Days Date Category Biofreeze (Menthol) 118 Ml Gel..ml. 1 [place]alk[place] TP TID PRN 10 02/19/20 Reported Vitamin D3 (Cholecalciferol (Vitamin D3)) 4,000 Unit Capsule 1 Cap PO DAILY 30 02/16/20 Reported Vitamin E (Vitamin E Mixed) 400 Unit Tablet 1 Tab PO QHS 30 02/16/20 Reported Magnesium Gluconate 27 Mg Tablet 1 Tab PO HS 30 02/16/20 Reported Vitamin C (Ascorbic Acid) 100 Mg Tablet 1 Tab PO DAILY 30 02/16/20 Reported Aspirin 81 Mg Tab.chew 1 Tab PO HS 02/16/20 Reported Docusate Sodium 100 Mg Capsule 1 Cap PO HS 7 02/16/20 Reported Senna Laxative (Sennosides) 8.6 Mg Tablet 1 Tab PO HS 30 02/16/20 Reported Baclofen 20 Mg Tablet 20 Mg PO BID 02/16/20 Reported Flomax (Tamsulosin Hcl) 0.4 Mg Cap.er.24h 0.4 Mg PO HS 02/16/20 Reported Gabapentin 800 Mg Tablet 800 Mg PO HS 02/16/20 Reported Gabapentin 600 Mg Tablet 600 Mg PO BID 02/16/20 Reported Metformin Hcl 500 Mg Tablet 500 Mg PO HS 02/16/20 Reported Atorvastatin Calcium 40 Mg Tablet 40 Mg PO DAILY 02/16/20 Reported Zofran Odt (Ondansetron) 4 Mg Tab.rapdis 1 Tab SL Q8HRS PRN 02/22/17 Rx Azithromycin Tablet (Azithromycin) 250 Mg Tablet 1 Pkg PO UD 02/22/17 Rx Prednisone 50 Mg Tablet 1 Tab PO DAILY 02/22/17 Rx Spiriva (Tiotropium Cowley) 18 Mcg Cap.w.dev 1 Cap IH DAILY 02/22/17 Reported Ventolin Hfa Inhaler (Albuterol Sulfate) 18 Gm Hfa.aer.ad 2 Puff INH Q4HRS 02/22/17 Reported Ipratropium Cowley 0.2 Mg/1 Ml Solution 1 Vial NEB QID 02/22/17 Reported Symbicort 80-4.5 Mcg Inhaler (Budesonide/Formoterol Fumarate) 10.2 Gm Hfa.aer.ad 2 Puff IH BID 02/22/17 Reported Percocet 5-325 Mg Tablet (Oxycodone/Acetaminophen) 1 Each Tablet 1-2 Tab PO Q4-6HRS 02/22/17 Reported Omeprazole 20 Mg Tablet.dr 1 Tab PO DAILY 02/22/17 Reported Furosemide 40 Mg Tablet 1 Tab PO DAILY 02/22/17 Reported Gabapentin (Gabapentin) 300 Mg Capsule 300 Mg PO TID 02/22/17 Reported Atorvastatin Calcium 20 Mg Tablet 1 Tab PO DAILY 02/22/17 Reported Tizanidine Hcl 4 Mg Tablet 2 Mg PO TID PRN 02/22/17 Reported Percocet 5-325 Mg Tablet (Oxycodone/Acetaminophen) 1 Each Tablet 1-2 Tab PO Q4-6HRS 04/20/15 Reported Gabapentin (Gabapentin) 300 Mg Capsule 3 Cap PO BID 04/20/15 Reported Meloxicam 15 Mg Tablet 1 Tab PO HS 04/20/15 Reported Tamsulosin Hcl 0.4 Mg Cap.er.24h 1 Cap PO DAILY 04/20/15 Reported Impression . IMPRESSION: 1. Acute hypoxic respiratory failure, which is expected postop secondary to combination of underlying chronic obstructive pulmonary disease, underlying obesity and along with right lower lobe atelectasis/infiltrate. 2. Cough with yellow sputum production related to acute bronchitis versus early right lower lobe infiltrate/pneumonia. 3. Status post repair of incarcerated umbilical hernia with mesh on 02/15. Plan . Repeat chest x-ray is clear, okay to discontinue antibiotics Case discussed with Dr. Handley Discharge today PRICILLA MACKEY MD February 24, 2020 14:41
[2020-02-24 18:09] LABS: ALBUM 2.4 g/dL (2.9-4.4); ALPHA 1 0.3 g/dL (0.0-0.4); ALPHA 2 1.1 g/dL (0.4-1.0); BETA 0.8 g/dL (0.7-1.3); GAMMA 0.8 g/dL (0.4-1.8); PROTEIN TOTAL 5.4 g/dL (6.0-8.5); SPEP AG RATIO 0.8 (0.7-1.7)
== END 2020-02-24 15:07 | disposition home health service (06) | DRG 353 ==
LOC: ER 19:20 → 4 NORTH 02-16 00:31
PROVIDERS: ADMIT Internal Medicine; ATTEND Internal Medicine
PROC: 0WUF0JZ Supplement Abdominal Wall with Synthetic Substitute, Open Approach (ICD-10-PCS; principal; 2020-02-16)
DX: K42.0 Umbilical hernia with obstruction, without gangrene (principal); J96.01 Acute respiratory failure with hypoxia; J18.9 Pneumonia, unspecified organism; J98.11 Atelectasis; E11.40 Type 2 diabetes mellitus with diabetic neuropathy, unspecified; E66.9 Obesity, unspecified; E78.00 Pure hypercholesterolemia, unspecified; E78.5 Hyperlipidemia, unspecified; G89.4 Chronic pain syndrome; I10 Essential (primary) hypertension; I87.8 Other specified disorders of veins; J44.9 Chronic obstructive pulmonary disease, unspecified; N40.0 Benign prostatic hyperplasia without lower urinary tract symptoms; K21.9 Gastro-esophageal reflux disease without esophagitis; Z96.643 Presence of artificial hip joint, bilateral; Z68.34 Body mass index [BMI] 34.0-34.9, adult; Z87.891 Personal history of nicotine dependence; Z79.891 Long term (current) use of opiate analgesic; Z90.49 Acquired absence of other specified parts of digestive tract; Z97.4 Presence of external hearing-aid; Z80.9 Family history of malignant neoplasm, unspecified
CPT/HCPCS: 36415; 36600; 71045; 74018; 74177; 80048; 80053; 82607; 82805; 82962; 83036; 83605; 83690; 84165; 84443; 84550; 85007; 85025; 85651; 86038; 87070; 87205; 93005; 94640; 94760; 96361; 96374; 96375; 96376; A7015; C1781; J0500; J0690; J0696; J1100; J1650; J1815; J1940; J2405; J2704; J2710; J3010; J3490; J7030; Q9967; 97110-GO; 97110-GP; 97530-GO; 97530-GP; 97535-GO; 99285-25; G0378; J7613; J7626